=== PATIENT | male | born 1965 | race Caucasian/White ===

== ENCOUNTER 2017-12-30 20:43 | Inpatient (IN) | payer OTHER, MEDICARE ==
[~2017-12-30] VITALS: Ht 175.3 cm; Wt 75.0 kg
[~2017-12-30 20:43] MED LIST: ASPIRIN EC81 M1 PO; B-121000 MC3 PO; CIPRODEX 0.3%-7.5 ML OT; COREG12.5 M1 PO; HYDRALAZINE HC100 M1 PO; NORVASC2.5 M1 PO; PANTOPRAZOLE SO20 M1 PO; VITAMIN D-32000 UNI1 PO; ZOLOFT100 M1 PO
--- NOTE | 2017-12-30 22:10 | ED UPPER/LOWER EXTREMITY COMPL ---
History of Present Illness General Chief Complaint: General Adult Stated Complaint: MULTI COMPLAINTS Source: patient, old records Exam Limitations: no limitations Vital Signs & Intake/Output Vital Signs & Intake/Output ED Intake and Output 01/02 0000 01/01 1200 Intake Total 120 Output Total 1075 Balance -955 Intake, Oral 120 Output, Urine 1075 Allergies Coded Allergies: lisinopril (TONGUE SWELLING 11/25/17) Reconcile Medications Amlodipine Besylate (Norvasc) 10 MG TABLET 10 MG PO DAILY HTN . Aspirin (Ecotrin*) 81 MG TABLET.DR 1 TAB PO DAILY HEART (Reported) Atorvastatin Calcium (Lipitor) 80 MG TABLET 1 TAB PO DAILY Heart (Reported) Carvedilol 25 MG TABLET 25 MG PO BID HTN . Cholecalciferol (Vitamin D3) (Vitamin D-3) 2,000 UNIT CAPSULE 2,000 MG PO DAILY SUPPLEMENT (Reported) Clonidine Tts-1 (Catapres-Tts 1) 0.1 MG/24 HOUR PATCH.TDWK 1 PATCH TOP QW BP (Reported) Cyanocobalamin (Vitamin B-12) (B-12) 1,000 MCG TABLET 1 TAB PO DAILY SUPPLEMENT (Reported) Furosemide (Lasix) 40 MG TABLET 1 TAB PO DAILY EDEMA (Reported) Hydralazine HCl 100 MG TABLET 1 TAB PO TID HTN (Reported) Insulin Aspart (Novolog) 100 UNIT/ML CARTRIDGE 3 U SC TID DM (Reported) before meals Insulin Detemir (Levemir) 100 UNIT/ML VIAL 7 U SC AT BEDTIME DM (Reported) Isosorbide Mononitrate (Isosorbide Mononitrate ER) 30 MG TAB.ER.24H 1 TAB PO DAILY Heart (Reported) Levothyroxine Sodium (Synthroid) 75 MCG TABLET 1 TAB PO DAILY Thyroid ( Reported) Pantoprazole Sodium 20 MG TABLET.DR 1 TAB PO DAILY ACID REFLUX (Reported) Sertraline HCl (Zoloft) 100 MG TABLET 1 TAB PO DAILY DEPRESSION (Reported) Triage Note: PT TO TRIAGE C/O BILAT LOWER EXT SWELLING NOTICED APPROX 1 WEEK AGO. PT IS IN KIDNEY FAILURE AND HAS NOT YET STARTED DIALYSIS. HAD AV FISTULA PLACED IN L ARM APPROX 1 YEAR AGO BUT HAS NOT BEEN TOLD BY TO START DIALYSIS. DENIES CP, SOB. Triage Nurses Notes Reviewed? yes HPI: 52M PMH HTN, T2DM, CHF, CKD stage 5 s/p AV-fistula but not yet started dialysis presents with 2 days of worsening bilateral LE edema. Noticed it starting slowly but has continued to progress and now has significant edema which makes it difficult to walk. He denies SOB, orthopnea, chest pain, palpitations, lightheadedness. No recent travel, sick contacts, change in diet, or any other symptoms. Reports depression that is chronic and unchanged. Denies SI/HI. Past History Travel History Traveled to [place] past 21 day No Medical History Any Pertinent Medical History? 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 No Review of Systems Review of Systems Constitutional: Reports: no symptoms. EENTM: Reports: no symptoms. Respiratory: Reports: no symptoms. Cardiovascular: Reports: no symptoms. Gastrointestinal/Abdominal: Reports: no symptoms. Genitourinary: Reports: no symptoms. Musculoskeletal: Reports: no symptoms. Skin: Reports: no symptoms. Neurological/Psychological: Reports: no symptoms. Hematologic/Endocrine: Reports: no symptoms. Immunological: Reports: no symptoms. All Other Systems: Reviewed and Negative Physical Exam Physical Exam General Appearance: well developed/nourished, no apparent distress Head: atraumatic, normal appearance Eyes: Bilateral: normal appearance. Ears, Nose, Throat: normal ENT inspection, hearing grossly normal Neck: normal inspection, supple Cardiovascular/Respiratory: normal breath sounds, regular rate/rhythm Back: normal inspection Leg Left: 3+ pitting edema to above knee Leg Right: 3+ pitting edema to above knee Skin: intact, normal color, warm/dry Lymphatic: no anterior cervical fermín Progress Differential Diagnosis: arterial insufficiency, cellulitis, CHF, compartment syndrome, contusion, dislocation, DVT, fracture, gout, septic arthritis, sprain, tendon injury Plan of Care: Orders Procedure Date/time Status Discharge Patient 01/01 UNK Active Departure Departure Disposition: STILL A PATIENT Condition: Stable Clinical Impression Primary Impression: Anasarca Secondary Impressions: Kuuhg-[id number] kidney injury Referrals: Patient Has No Primary Care Dr (PCP/Family) Departure Forms: Customer Survey General Discharge Information Prescriptions: Current Visit Scripts Carvedilol 25 MG PO BID #60 TAB . Amlodipine Besylate (Norvasc) 10 MG PO DAILY #60 TAB . Admission Note Spoke With: Amauri Davis MD Documentation of Exam: Documentation of any treatments & extenuating circumstances including Concerns Regarding Discharge (functional status, medication knowledge or non-compliance, living conditions, etc.) that warrant an admission rather than observation: ACUTE ON CHRONIC KIDNEY INJURY WITH ANASARCA, MIGHT REQUIRE URGENT DIALYSIS, NEPHROLOGY CONSULT, IV LASIX Documentation of Exam: Documentation of any treatments & extenuating circumstances including Concerns Regarding Discharge (functional status, medication knowledge or non-compliance, living conditions, etc.) that warrant an admission rather than observation: ACUTE ON CHRONIC KIDNEY INJURY WITH ANASARCA, MIGHT REQUIRE URGENT DIALYSIS, NEPHROLOGY CONSULT, IV LASIX
[2017-12-30 22:35] LABS: ABSOLUTE BASOPHIL COUNT 0.1 /CUMM (0.0-0.2); ABSOLUTE EOSINOPHIL COUNT 0.4 /CUMM (0.0-0.7); ABSOLUTE GRANULOCYTE CT 4.2 /CUMM (1.4-6.5); ABSOLUTE LYMPH COUNT 1.1 /CUMM (1.2-3.4); ABSOLUTE MONOCYTE COUNT 0.6 /CUMM (0.10-0.60); EOSINOPHIL % 6.2 % (0-5); GRANULOCYTE % 66.8 % (42.2-75.2); HEMATOCRIT 24.7 % (42-52); MEAN CORPUSCULAR HGB 26.5 PG (27.0-31.0); MEAN CORPUSCULAR HGB CONC 32.5 G/DL (33.0-37.0); MEAN CORPUSCULAR VOLUME 81.5 FL (80.0-94.0); MEAN PLATELET VOLUME 6.9 FL (7.4-10.4); PLATELET COUNT 213 /CUMM (130-400); RBC DISTRIBUTION WIDTH 16.5 % (11.5-14.5); RED BLOOD CELL CT 3.04 /CUMM (4.70-6.10); WHITE BLOOD CELL COUNT 6.2 /CUMM (4.8-10.8)
--- NOTE | 2017-12-31 00:01 | RADIOLOGY REPORT ---
EXAMINATION: XR PORTABLE CHEST CLINICAL INFORMATION: Lower extremity edema. Abnormal chest sounds COMPARISON: None TECHNIQUE: Portable frontal view of the chest was obtained. FINDINGS: The exam is apical lordotic in projection. No significant abnormality is noted involving the heart, lungs, mediastinum, bony thorax or soft tissues. IMPRESSION: Unremarkable examination.
--- NOTE | 2017-12-31 00:03 | History & Physical ---
Malou Braxton 12/31/17 0001: General Information and HPI History of Present Illness: Mr. Chatterjee is a 52-year-old male with a PMH of HTN, IDDM, CHF, CKD s/p AV- fistula (2017), hypothyroidism who presents to the ED with bilateral LE edema. Patient reluctant to answer questions. Patient reports for the past few days he has been having bilateral lower extremity edema with exertional SOB. He reports his last CHF exacerbation was 4 years ago at which point he had lower extremity edema. He has not had any episode of lower extremity edema since then. He reports noncompliance with insulin. He does not have a willow machine operator but is being followed by nephrology-Dr. Mendez. His last appointment with his film numberer was last week and at the time complained of LE edema but as per patient he was told it was due to arthritic changes. He is still able to urinate without complications. He denies fever, chills, CP, nausea, vomiting, scrotal edema, urinary or bowel symptoms. In the ED his labs was significant for a drop in H&H, hyperglycemia, elevated BNP (baseline unknown), worsening creatinine. He was also found positive for cannabis. He was given a dose of IV Furosemide 40 mg. Allergies/Medications Allergies: Coded Allergies: lisinopril (TONGUE SWELLING 11/25/17) Home Med list Amlodipine (Norvasc) 2.5 MG TABLET 10 MG PO DAILY HTN (Reported) Aspirin (Ecotrin*) 81 MG TABLET.DR 1 TAB PO DAILY HEART (Reported) Carvedilol (Coreg) 12.5 MG TABLET 1 TAB PO BID HEART (Reported) Cholecalciferol (Vitamin D3) (Vitamin D-3) 2,000 UNIT CAPSULE 2,000 MG PO DAILY SUPPLEMENT (Reported) Cyanocobalamin (Vitamin B-12) (B-12) 1,000 MCG TABLET 1 TAB PO DAILY SUPPLEMENT (Reported) Furosemide (Lasix) 40 MG TABLET 1 TAB PO DAILY EDEMA (Reported) Hydralazine HCl 100 MG TABLET 1 TAB PO TID HTN (Reported) Pantoprazole Sodium 20 MG TABLET.DR 1 TAB PO DAILY ACID REFLUX (Reported) Sertraline HCl (Zoloft) 100 MG TABLET 1 TAB PO DAILY DEPRESSION (Reported) Past History Travel History Traveled to [place] past 21 day No Medical History Neurological: NONE EENT: NONE Cardiovascular: CHF, hypertension Respiratory: NONE Gastrointestinal: NONE Hepatic: NONE Renal: KIDNEY FAILURE Musculoskeletal: NONE Psychiatric: anxiety, depression Endocrine: diabetes Blood Disorders: NONE Cancer(s): NONE 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 Exam & Diagnostic Data Last 24 Hrs of Vital Signs/I&O Vital Signs Date Time Temp Pulse Resp B/P B/P Pulse O2 O2 Flow FiO2 Mean Ox Delivery Rate 12/30 2256 82 18 184/92 99 Room Air 12/30 2044 97.1 78 20 181/70 97 Room Air Intake & Output 12/31 0800 12/31 0000 12/30 1600 Intake Total Output Total Balance Patient 160 lb Weight Physical Exam General Appearance Alert, Oriented X3, Cooperative, No Acute Distress HEENT Atraumatic, PERRLA, EOMI, Mucous Membr. moist/pink, periorbital edema Neck Supple, No JVD, No thryomegaly, +2 Carotid Pulse wo Bruit Cardiovascular 2/6 systolic murmur Lungs Clear to Auscultation, Normal Air Movement Abdomen Normal Bowel Sounds, Soft, No Tenderness Extremities BL 2+ pitting edema up to knees Last 24 Hrs of Labs/Rehan: Laboratory Tests 12/30/17 2220: Anion Gap 12, Estimated GFR 13 L, BUN/Creatinine Ratio 17.8, Glucose 300 H, Calcium 8.6, Total Bilirubin 0.4, AST 27, ALT 24, Alkaline Phosphatase 79, Troponin I 0.02, Aby-E-Zslifrmglia Pept 5110 H, Total Protein 5.9 L, Albumin 3.5, Globulin 2.4, Albumin/Globulin Ratio 1.5, CBC w Diff NO MAN DIFF REQ, RBC 3.04 L, MCV 81.5, MCH 26.5 L, MCHC 32.5 L, RDW 16.5 H, MPV 6.9 L, Gran % 66.8, Lymphocytes % 16.9 L, Monocytes % 9.1, Eosinophils % 6.2 H, Basophils % 1.0, Absolute Granulocytes 4.2, Absolute Lymphocytes 1.1 L, Absolute Monocytes 0.6, Absolute Eosinophils 0.4, Absolute Basophils 0.1, Urine Color YEL, Urine Clarity CLEAR, Urine pH 6.0, Ur Specific [place] 1.020, Urine Protein 100 H, Urine Ketones NEG, Urine Nitrite NEG, Urine Bilirubin NEG, Urine Urobilinogen 0.2, Ur Leukocyte Esterase NEG, Ur Microscopic SEDIMENT EXAMINED, Urine RBC RARE , Urine WBC RARE, Ur Epithelial Cells RARE, Urine Bacteria RARE H, Urine Hemoglobin NEG, Urine Glucose 500 H Diagnostic Data CXR Results FINDINGS: The exam is apical lordotic in projection. No significant abnormality is noted involving the heart, lungs, mediastinum, bony thorax or soft tissues. IMPRESSION: Unremarkable examination. Assessment/Plan Assessment: Mr. Chatterjee is a 52-year-old male with a PMH of HTN, IDDM, CHF, CKD s/p AV- fistula (2017), hypothyroidism who presents to the ED with bilateral LE edema. Problem list: BLE edema - CHF exacerbation vs CKD vs medication-induced due to CCB Anemia History of CHF History of CKD Plan: * Admit to telemetry for further evaluation and management * Strict I&O, daily weights * Serial troponin/ECG to rule out ACS * Iron, TIBC, ferritin, B12, folate, TSH for anemia * Hemoglobin A1c * Accu-Cheks and Novolog SS * Resume home meds including ASA, carvedilol 12.5 BID, hydralazine 100 mg TID, furosemide 40 mg * Nephrology consult in the morning-Andrea DVT ppx: sc Heparin Diet: Renal CodeL FULL As Ranked By This Provider Problem List: 1. Eswql-ni-buzzydi kidney injury 2. Anasarca Core Measures/Misc (05/15) Acute Coronary Syndrome ACS Diagnosis: No Congestive Heart Failure Congestive Heart Failure Diagnosis No Cerebrovascular Accident CVA/TIA Diagnosis: No VTE (View Protocol) VTE Risk Factors Age>40 No Mechanical VTE Prophylaxis d/t N/A MechProphylax Ordered No VTE Pharm Prophylaxis d/t NA PharmProphylax ordered Sepsis (View protocol) Sepsis Present: No Divya Lutz MD 12/31/17 0233: Resident Review Statement Resident Statement: examined this patient, discussed with global marketing intern, agreed with global marketing intern Other Findings: This is a 52-year-old male with past medical history significant for T2DM, CK D 5 s/p AV fistula placed one yr ago but not in use, hypertension, hypothyroidism, who comes in for chief complaint of worsening lower extremity edema. Patient was asleep and it was difficult to get much history from him. Once he was willing to share, it seems the lower extremity edema is the only reason he came to the hospital. He states that every time this happens he knows "something is wrong with my body." Last time he had similar symptoms was about 4 years ago and he was admitted for a diagnosis of heart failure. Notably, patient states that he saw his film numberer Dr. Mendez last week who is aware of lower extremity edema. He does endorse some mild dyspnea on exertion but denies orthopnea, chest pain, palpitation, abdominal pain, nausea, vomiting, diarrhea or any change in his usual health. He states that he continues to urinate multiple times a day. He does have diabetes but does not use any diabetic regimen presently as he did not feel up to it. Vitals: 97, heart rate 82, respiratory rate 20, blood pressure 181/70, satting 97% on room air. HEENT: Pupils equal and reactive. EOMI Cardiovascular: Nml s1/s2; does seem to have a low pitched 2/6 murmur present at tricuspid and mitral area Skin: no erythema, rash or wounds present. Respiratory:CTAB. No wheezes or crackles auscultated GI: BSX4, No tenderness on palpation. EXT: No skin changes in bilat LE. 3+ edema up to his knees Pertinent labs: Hemoglobin 8.1, hematocrit 24.7. Eosinophilia 6.2. Urine glucose 500. Sodium 135, bicarbonate 21, BUN 82, creatinine 4.6. Glucose 300. BNP 5110. Negative LFTs and troponin. U tox positive for cannabis No EKG done in ED Assessment: This is a 52-year-old male with past medical history significant for type 2 diabetes, CHF, CK D stage IV status post AV fistula, hypothyroidism, who comes in for chief complaint of worsening lower extremity edema. Despite elevated BNP, which could be simply secondary to renal failure, patient has no evidence of overt decompensated heart failure. Rather, he looks like he is volume overloaded and would benefit from IV diuresis. Plan: 1. Lower extremity edema: ? exacerbated by Amlodipine. could consider changing medication prior to discharge. He got 1 dose of IV Lasix 40 mg by mouth in ED with good diuresis. * Monitor I's and O's * Consider 1 more round of IV diuresis * Courtesy call to his film numberer in a.m. * Elevate legs * Troponins and EKG * Check thyroid function tests * Renal dialysis diet with volume restriction * Urine lytes 2. Anemia: Patient's hemoglobin 8.1 and hematocrit 24.7. He denies any overt sign of bleeding. * Iron studies * Trend H/H 3. BRETT on CKD: Patient came in with creatinine 4.6 and BUN 82. His previous creatinine was 3.4 and 4.2. He does seem to have worsening of the renal function. * Monitor renal function * Avoid nephrotoxins 4. Diabetes: Patient has a history of type 2 diabetes but from our initial history he does not seem to be taking any medications. * Check A1c * Regular insulin sliding scale 5. Hypothyroidism: Patient was unable to tell us the dose of his medication. Please verify a.m. and restart. 6. Hypertension: Patient had BP 181/70 in ED. * Con't 100 mg of hydralazine 3 times a day. * Con't Amlodipine Full code Renal dialysis diet Chemical DVT prophylaxis Amauri Davis 12/31/17 0320: Attending MD Review Statement Attending Statement Attending MD Statement: examined this patient, discuss w/resident/PA/METAL RECLAMATION KETTLE TENDER, agreed w/resident/PA/METAL RECLAMATION KETTLE TENDER, reviewed EMR data (avail), reviewed images, amended to note Attending Assessment/Plan: CC: Leg swelling PMH: DM: Noncompliant with insulin, heart failure, CKD, HTN, hypothyroidism, S/P left upper extremity AV fistula for possible dialysis done one year back Patient came to ER for leg swelling. He states that it has been progressively worsening since last 1 week. He was seen by a film numberer approximately a week back, at that time he was told that the leg swelling could be secondary to arthritis. He is feeling more sleepy in last 1-2 years, changed sleep cycle. He has been getting up and down in blood sugar,, has loss of appetite so he stopped taking insulin. He is a poor historian but denies any chest pain, chest tightness, dyspnea on exertion, orthopnea, PND, cough, expectoration, dizzy, loss of consciousness, fall, nausea, vomiting, diarrhea, abdominal pain. He denies any decreased urine output. He denies any hemoptysis, melena or hematochezia. Vitals: Temperature 97.1, pulse 78, RR 20, blood pressure 181/70, saturating 97% on room air On exam: A O 3, cooperative, no acute distress, neck supple, JVD normal, no lymphadenopathy, mucosa moist, mild periorbital swelling, no focal neurological deficit, bilateral lower extremity edema +3, no obvious skin rashes or inflammation CVS: S1-S2, RRR, systolic murmur. RS: Clear to auscultate bilaterally. Abdomen: Soft, NT, ND, bowel sounds present. CXR: Unremarkable examination. Assessment and plan 52-year-old male with extensive past medical history as mentioned above, noncompliant with insulin for diabetes, CKD presented in ER for progressive worsening of bilateral lower extremity edema since last 1 week. He denies any chest pain, chest tightness, shortness of breath. On examination he has bilateral lower extremity significant pitting edema and mild periorbital swelling, but JVD is not elevated, chest is clear to auscultate. His labs show worsening of creatinine from 3.4 to 4.6 from October 2017. And elevated BUN from 45 to 82. This could be chronic progression of his CKD, causing volume retention. Patient has mild acidosis but potassium is normal. Chest x-ray is normal. Patient was seen by film numberer approximately a week back and patient states that his creatinine was for something. His hemoglobin is 8.1 which is significantly dropped from 12.2 compared to October. Patient states that he has chronic anemia and is on Procrit but he is not on any iron supplementation. He denies any blood loss and does not recall his most recent hemoglobin. This appears more acute drop rather than merely anemia secondary to CKD. Even though patient has mild to moderate signs of volume overload and increased sleepiness with changes in sleep pattern this could be uremic symptoms but not sure if dialysis is mandatory at this point, we will get nephrology involved. + BRETT on CKD, more likely progression on CKD + [id number] volume overload secondary to CKD + Hx DM : Noncompliant with insulin + History of HTN, heart failure, hypothyroidism, depression - Admit to telemetry - Continuous telemetry monitoring - Daily weights - Patient received 40 mg IV Lasix in ER, repeat BMP in a.m., assess volume status to repeat Lasix dose - Nephrology consult - Check iron studies - Check HbA1c - Continue low-dose sliding scale insulin - Continue all home antihypertensives - Serial troponin and ECG x2
[2017-12-31] MEDS ORDERED: LASIX40 M1 PO (01:47)
[2017-12-31 02:11] VITALS: BP 164/68
--- NOTE | 2017-12-31 03:21 | Admission Certification ---
Admission Certification Certification Statement - As attending physician, I certify that at the time of - admission, based on clinical presentation, severity of - symptoms, need for further diagnostic testing and - therapeutic interventions, and risk of adverse outcomes - without in-hospital treatment, in my clinical assessment, - this patient requires an acute hospital stay for a minimum - of two nights or longer. I have also considered psychsocial - factors such as support system, advanced age, financial - issues, cognitive issues, and failed out-patient treatments, - past re-admission history, safety of patient, and lack of - compliance as applicable. Specific rationale supporting this admission is: CKD progression
[2017-12-31 07:01] VITALS: BP 184/78
[2017-12-31 09:37] LABS: ABSOLUTE BASOPHIL COUNT 0.1 /CUMM (0.0-0.2); ABSOLUTE EOSINOPHIL COUNT 0.3 /CUMM (0.0-0.7); ABSOLUTE GRANULOCYTE CT 4.2 /CUMM (1.4-6.5); ABSOLUTE MONOCYTE COUNT 0.5 /CUMM (0.10-0.60); BASOPHIL % 1.2 % (0.0-2.0); EOSINOPHIL % 5.4 % (0-5); GRANULOCYTE % 68.6 % (42.2-75.2); HEMATOCRIT 23.6 % (42-52); MEAN CORPUSCULAR HGB 26.8 PG (27.0-31.0); MEAN CORPUSCULAR HGB CONC 32.8 G/DL (33.0-37.0); MEAN CORPUSCULAR VOLUME 81.7 FL (80.0-94.0); MEAN PLATELET VOLUME 6.8 FL (7.4-10.4); PLATELET COUNT 212 /CUMM (130-400); RBC DISTRIBUTION WIDTH 16.1 % (11.5-14.5); RED BLOOD CELL CT 2.89 /CUMM (4.70-6.10); WHITE BLOOD CELL COUNT 6.1 /CUMM (4.8-10.8)
[2017-12-31] MEDS ORDERED: CATAPRES-TTS 11 EACH TOP (11:12)
[2017-12-31] MEDS ORDERED: ISOSORBIDE MONO30 M1 PO (11:25)
[2017-12-31] MEDS ORDERED: LEVEMIR100 UNIT/1 SC (11:25)
[2017-12-31] MEDS ORDERED: NOVOLOG100 UNIT/1 SC (11:26)
[2017-12-31 11:51] VITALS: BP 184/70
[2017-12-31] MEDS ORDERED: LIPITOR80 M1 PO (11:52)
[2017-12-31] MEDS ORDERED: SYNTHROID75 MCG PO (11:52)
--- NOTE | 2017-12-31 12:30 | PN- Att Addend ---
Attending Addendum Attending Brief Note Patient with pmh of CKD stage 4 s/p av fistula, IDDM, htn, chf came to ER for leg swelling and admitted for fluid overlaod with acute kidney injury on ckd stage 4 and acclerated hypertension. He denies any chest pain, chest tightness, shortness of breath. On examination he has bilateral lower extremity significant pitting edema and mild periorbital swelling, but JVD is not elevated. Labs with K 3.1, Cr 4.0. (Cr 4.6>>4.0 with improvement) 1 BRETT on CKD, more likely progression on CKD 2 Fluid overload secondary to CKD with mild improvement 3 DM : Noncompliant with insulin 4 Accelearetd HTN, 5. Chronic congestive heart failure, 6. hypothyroidism 7. depression - Continuous telemetry monitoring - Daily weights - PO lasix - Nephrology consult - f/u iron studies - f/u HbA1c - Continue low-dose sliding scale insulin - Continue all home antihypertensives, increase clonidine. - replace electrolytes cautiously. Monitor creatinine, plan of care as per admitting physician. Admission Lab Results I reviewed the following labs: Laboratory Tests 12/31 12/31 0841 0546 Chemistry Sodium (137 - 145 mmol/L) 137 Potassium (3.5 - 5.1 mmol/L) 3.1 L Chloride (98 - 107 mmol/L) 108 H Carbon Dioxide (22 - 30 mmol/L) 18 L Anion Gap (5 - 16) 12 BUN (9 - 20 mg/dL) 74 H Creatinine (0.7 - 1.2 mg/dL) 4.0 H Estimated GFR (>60 ml/min) 16 L BUN/Creatinine Ratio (7 - 25 %) 18.5 Hemoglobin A1c (4.2 - 5.8 %) Pending Troponin I (<0.11 ng/ml) 0.02 Free T4 (0.64 - 1.79 ng/dL) 1.13 Total T3 (0.97 - 1.69 ng/mL) 0.72 L TSH &T3 &Free T4 Intrp (0.27 - 4.20 uIU/mL) 9.000 H Hematology CBC w Diff NO MAN DIFF REQ WBC (4.8 - 10.8 /CUMM) 6.1 RBC (4.70 - 6.10 /CUMM) 2.89 L Hgb (14.0 - 18.0 G/DL) 7.8 L Hct (42 - 52 %) 23.6 L MCV (80.0 - 94.0 FL) 81.7 MCH (27.0 - 31.0 PG) 26.8 L MCHC (33.0 - 37.0 G/DL) 32.8 L RDW (11.5 - 14.5 %) 16.1 H Plt Count (130 - 400 /CUMM) 212 MPV (7.4 - 10.4 FL) 6.8 L Gran % (42.2 - 75.2 %) 68.6 Lymphocytes % (20.5 - 51.1 %) 17.1 L Monocytes % (1.7 - 9.3 %) 7.7 Eosinophils % (0 - 5 %) 5.4 H Basophils % (0.0 - 2.0 %) 1.2 Absolute Granulocytes (1.4 - 6.5 /CUMM) 4.2 Absolute Lymphocytes (1.2 - 3.4 /CUMM) 1.0 L Absolute Monocytes (0.10 - 0.60 /CUMM) 0.5 Absolute Eosinophils (0.0 - 0.7 /CUMM) 0.3 Absolute Basophils (0.0 - 0.2 /CUMM) 0.1 12/30 05 2220 2220 Chemistry Sodium (137 - 145 mmol/L) 135 L Potassium (3.5 - 5.1 mmol/L) 3.7 Chloride (98 - 107 mmol/L) 102 Carbon Dioxide (22 - 30 mmol/L) 21 L Anion Gap (5 - 16) 12 BUN (9 - 20 mg/dL) 82 H Creatinine (0.7 - 1.2 mg/dL) 4.6 H Estimated GFR (>60 ml/min) 13 L BUN/Creatinine Ratio (7 - 25 %) 17.8 Glucose (65 - 99 mg/dL) 300 H Calcium (8.4 - 10.2 mg/dL) 8.6 Iron (49 - 181 ug/dL) 63 TIBC (261 - 462 ug/dL) 274 Ferritin (17.9 - 464 ng/mL) 87.3 Total Bilirubin (0.2 - 1.3 mg/dL) 0.4 AST (17 - 59 U/L) 27 ALT (21 - 72 U/L) 24 Alkaline Phosphatase (< 127 U/L) 79 Troponin I (<0.11 ng/ml) 0.02 [id number]-[id number] Pept (<125 pg/mL) 5110 H Total Protein (6.3 - 8.2 g/dL) 5.9 L Albumin (3.5 - 5.0 g/dL) 3.5 Globulin (1.9 - 4.2 gm/dL) 2.4 Albumin/Globulin Ratio (1.1 - 2.2 %) 1.5 Hematology CBC w Diff NO MAN DIFF REQ WBC (4.8 - 10.8 /CUMM) 6.2 RBC (4.70 - 6.10 /CUMM) 3.04 L Hgb (14.0 - 18.0 G/DL) 8.1 L Hct (42 - 52 %) 24.7 L MCV (80.0 - 94.0 FL) 81.5 MCH (27.0 - 31.0 PG) 26.5 L MCHC (33.0 - 37.0 G/DL) 32.5 L RDW (11.5 - 14.5 %) 16.5 H Plt Count (130 - 400 /CUMM) 213 MPV (7.4 - 10.4 FL) 6.9 L Gran % (42.2 - 75.2 %) 66.8 Lymphocytes % (20.5 - 51.1 %) 16.9 L Monocytes % (1.7 - 9.3 %) 9.1 Eosinophils % (0 - 5 %) 6.2 H Basophils % (0.0 - 2.0 %) 1.0 Absolute Granulocytes (1.4 - 6.5 /CUMM) 4.2 Absolute Lymphocytes (1.2 - 3.4 /CUMM) 1.1 L Absolute Monocytes (0.10 - 0.60 /CUMM) 0.6 Absolute Eosinophils (0.0 - 0.7 /CUMM) 0.4 Absolute Basophils (0.0 - 0.2 /CUMM) 0.1 Retic Count (0.5 - 2.0 %) 0.88 Urines Urine Color (YEL,AMB,STR) YEL Urine Clarity (CLEAR) CLEAR Urine pH (5.0 - 8.0) 6.0 Ur Specific [place] (1.001 - 1.035) 1.020 Urine Protein (NEG,<30 MG/DL) 100 H Urine Ketones (NEG) NEG Urine Nitrite (NEG) NEG Urine Bilirubin (NEG) NEG Urine Urobilinogen (0.1 - 1.0 EU/dl) 0.2 Ur Leukocyte Esterase (NEG) NEG Ur Microscopic SEDIMENT EXAMINED Urine RBC (0 - 5 /HPF) RARE Urine WBC (0 - 2 /HPF) RARE Ur Epithelial Cells (NONE,FEW) RARE Urine Bacteria (NEG/NONE) RARE H Urine Hemoglobin (NEG) NEG Ur Random Creatinine (mg/dL) 42.2 Ur Random Sodium (30 - 90 mmol/L) 45 Ur Random Potassium (mmol/L) 29.8 Fraction Sodium Excret (<1% %) 3.6 H Urine Glucose (N MG/DL) 500 H Admission Meds I reviewed the following Meds: Current Medications Sig/Shaan Start time Last Medication Dose Stop Time Status Admin Acetaminophen 650 MG Q6P PRN 12/31 0115 AC (Tylenol) Acetaminophen 1,000 MG Q6P PRN 12/31 0115 AC (Ofirmev) Amlodipine Besylate 10 MG DAILY 12/31 09 AC 12/31 (Norvasc) 1020 Aspirin Buffered 81 MG DAILY 12/31 09 AC 12/31 (Ecotrin) 1020 Atorvastatin Calcium 80 MG AT BEDTIME 12/31 2100 AC (Lipitor) Carvedilol 25 MG BID 12/31 2100 AC (Coreg) Cholecalciferol 400 IU DAILY 12/31 09 AC 12/31 (Vitamin D) 1020 Clonidine 1 PAT ONCE A WEEK 12/31 1130 AC (Catapres) Cyanocobalamin 1,000 MCG DAILY 12/31 09 AC 12/31 (Vitamin B12) 1020 Furosemide 40 MG DAILY 12/31 0900 AC 12/31 (Lasix) 1020 Heparin Sodium 5,000 UNIT Q8 12/31 06 AC 12/31 (Porcine) 0531 Hydralazine HCl 100 MG TID 12/31 09 AC 12/31 (Apresoline) 1019 Insulin Aspart 0 TIDAC 12/31 0800 AC 12/31 (NovoLOG) 1021 Isosorbide 60 MG DAILY 12/31 1131 AC Mononitrate (Imdur) Levothyroxine Sodium 0.075 MG DAILY AC 12/31 1152 AC (Synthroid) Omeprazole 40 MG DAILY AC 12/31 0700 AC 12/31 (Prilosec) 0533 Oxycodone/ 2 TAB Q6P PRN 12/31 0115 AC Acetaminophen (Percocet) Sertraline HCl 100 MG DAILY 12/31 0900 AC 12/31 (Zoloft) 1020
[2017-12-31 14:28] VITALS: BP 168/60
--- NOTE | 2017-12-31 15:51 | Cons- Nephrology ---
General Information and HPI Consulting Request Date of Consult: 12/31/17 Requested By: Amauri Davis MD History of Present Illness: 52 yo male with history of stage V ckd, chf, DM II, depression, hypertension. He as left arm AVF but has not required institution of dialysis. He is followed by Dr. Mendez show saw him two weeks ago. At that time he had some LE edema, was on Lasix 40 mg a day. He came to ED yesterday complaining of some worsening edema and was admitted. Creatinine on admission was 4. 6, was 4.2 at end of November as outpatient. Pt admits to some dietary noncompliance. He was recently hosptialized in [place] with depression and states he is still having trouble coping with his medial issues. No N/V, but does have problems with chronic constipation. FH: no kidney dissease SH: ex smoker, no alcohol use. Allergies/Medications Allergies: Coded Allergies: lisinopril (TONGUE SWELLING 11/25/17) Home Med List: Amlodipine (Norvasc) 2.5 MG TABLET 10 MG PO DAILY HTN (Reported) Aspirin (Ecotrin*) 81 MG TABLET.DR 1 TAB PO DAILY HEART (Reported) Atorvastatin Calcium (Lipitor) 80 MG TABLET 1 TAB PO DAILY Heart (Reported) Carvedilol (Coreg) 12.5 MG TABLET 25 MG PO BID HEART (Reported) Cholecalciferol (Vitamin D3) (Vitamin D-3) 2,000 UNIT CAPSULE 2,000 MG PO DAILY SUPPLEMENT (Reported) Clonidine Tts-1 (Catapres-Tts 1) 0.1 MG/24 HOUR PATCH.TDWK 1 PATCH TOP QW BP (Reported) Cyanocobalamin (Vitamin B-12) (B-12) 1,000 MCG TABLET 1 TAB PO DAILY SUPPLEMENT (Reported) Furosemide (Lasix) 40 MG TABLET 1 TAB PO DAILY EDEMA (Reported) Hydralazine HCl 100 MG TABLET 1 TAB PO TID HTN (Reported) Insulin Aspart (Novolog) 100 UNIT/ML CARTRIDGE 3 U SC TID DM (Reported) before meals Insulin Detemir (Levemir) 100 UNIT/ML VIAL 7 U SC AT BEDTIME DM (Reported) Isosorbide Mononitrate (Isosorbide Mononitrate ER) 30 MG TAB.ER.24H 1 TAB PO DAILY Heart (Reported) Levothyroxine Sodium (Synthroid) 75 MCG TABLET 1 TAB PO DAILY Thyroid ( Reported) Pantoprazole Sodium 20 MG TABLET.DR 1 TAB PO DAILY ACID REFLUX (Reported) Sertraline HCl (Zoloft) 100 MG TABLET 1 TAB PO DAILY DEPRESSION (Reported) Current Medications: Current Medications Sig/Shaan Start time Last Medication Dose Route Stop Time Status Admin Acetaminophen 650 MG Q6P PRN 12/31 0115 AC PO Acetaminophen 1,000 MG Q6P PRN 12/31 0115 AC IV Amlodipine Besylate 10 MG DAILY 12/31 899 DC PO Amlodipine Besylate 10 MG DAILY 12/31 09 AC 12/31 PO 1020 Aspirin Buffered 81 MG DAILY 12/31 899 AC 12/31 PO 1020 Atorvastatin Calcium 80 MG AT BEDTIME 12/31 2100 AC PO Atorvastatin Calcium 80 MG DAILY 12/31 115 DC PO Carvedilol 25 MG BID 12/31 2100 AC PO Carvedilol 12.5 MG ONCE ONE 12/31 1100 DC 12/31 PO 12/31 1101 1147 Carvedilol 12.5 MG BID 12/31 09 DC 12/31 PO 1019 Cholecalciferol 400 IU DAILY 12/31 09 AC 12/31 PO 1020 Clonidine 1 PAT ONCE A WEEK 12/31 1130 AC 12/31 TOP 1417 Cyanocobalamin 1,000 MCG DAILY 12/31 899 AC 12/31 PO 1020 Furosemide 40 MG DAILY 12/31 899 AC 12/31 PO 1020 Furosemide 0 .STK-MED ONE 12/31 0009 DC IV Furosemide 40 MG ONCE ONE 12/30 2315 DC 12/31 IV 12/30 2316 0004 Heparin Sodium 5,000 UNIT Q8 12/31 599 AC 12/31 (Porcine) SC 1417 Hydralazine HCl 25 MG TID 12/31 09 DC PO Hydralazine HCl 100 MG TID 12/31 09 AC 12/31 PO 1417 Insulin Aspart 0 TIDAC 12/31 08 AC 12/31 SC 1307 Isosorbide 60 MG DAILY 12/31 1131 AC 12/31 Mononitrate PO 1416 Levothyroxine Sodium 0.075 MG DAILY AC 12/31 1152 AC 12/31 PO 1417 Omeprazole 40 MG DAILY AC 12/31 07 AC 12/31 PO 0533 Oxycodone/ 2 TAB Q6P PRN 12/31 0115 AC Acetaminophen PO Potassium Chloride 10 MEQ ONCE ONE 12/31 1015 DC 12/31 PO 12/31 1016 1148 Potassium Chloride 40 MEQ ONCE ONE 12/31 0900 DC 12/31 PO 12/31 0901 1020 Sertraline HCl 100 MG DAILY 12/31 09 AC 12/31 PO 1020 Review of Systems Review of Systems: Negative except as noted above. Past History Travel History Traveled to [place] past 21 day No Medical History Blood Transfusion Hx: Yes Neurological: NONE EENT: NONE Cardiovascular: CHF, hypertension Respiratory: NONE Gastrointestinal: NONE Hepatic: NONE Renal: KIDNEY FAILURE Musculoskeletal: NONE Psychiatric: anxiety, depression Endocrine: diabetes, hypothyroidism Blood Disorders: anemia Cancer(s): NONE [employer]/Reproductive: NONE Surgical History Surgical History: non-contributory, A/V FISTULA Psychosocial History Where Do You Live? Home Services at Home: None Smoking Status: Smoker Current Stat n ETOH Use: denies use Exam & Diagnostic Data Vital Signs and I&O Vital Signs Date Time Temp Pulse Resp B/P B/P Pulse O2 O2 Flow FiO2 Mean Ox Delivery Rate 12/31 1428 98.3 72 20 168/60 94 Room Air 12/31 1417 72 168/60 05 1417 72 168/60 05 1416 72 168/60 0505 1151 66 184/70 05 1147 66 184/70 0505 1020 74 220/82 05/05 1019 74 220/82 05/ 1019 72 220/82 05 0800 95 Room Air 12/31 0701 98.2 75 20 184/78 95 Room Air 12/31 0211 97.8 66 18 164/68 96 Room Air 12/31 0148 97.3 63 20 181/85 94 Room Air 12/30 2256 82 18 184/92 99 Room Air 12/30 2045 97.1 78 20 181/70 97 Room Air Intake & Output 12/31 1600 12/31 0400 12/30 1600 12/30 0400 12/29 1600 12/29 0400 Intake Total 780 Output Total 2575 500 Balance -1795 -500 Intake, Oral 780 Output, Urine 2575 500 Patient 164 lb Weight Weight Bed scale Measurement Method Physical Exam: NAD VS as above Skin: no rash Eyes: PERRLA Neck: no mass or thyromegaly Nodes: negative cervical/inguinal Lungs: clear P&A CV: no rub/murmur Abd: nontender, no organomegaly, BS positive Exts: 1+ pretibial edema, good developement AVF TOMAS Neuro: A&O, CN intact, no asterixis. Results Pertinent Lab Results: Laboratory Tests 12/31 12/31 0841 0546 Chemistry Sodium (137 - 145 mmol/L) 137 Potassium (3.5 - 5.1 mmol/L) 3.1 L Chloride (98 - 107 mmol/L) 108 H Carbon Dioxide (22 - 30 mmol/L) 18 L Anion Gap (5 - 16) 12 BUN (9 - 20 mg/dL) 74 H Creatinine (0.7 - 1.2 mg/dL) 4.0 H Estimated GFR (>60 ml/min) 16 L BUN/Creatinine Ratio (7 - 25 %) 18.5 Hemoglobin A1c (4.2 - 5.8 %) Pending Troponin I (<0.11 ng/ml) 0.02 Free T4 (0.64 - 1.79 ng/dL) 1.13 Total T3 (0.97 - 1.69 ng/mL) 0.72 L TSH &T3 &Free T4 Intrp (0.27 - 4.20 uIU/mL) 9.000 H Hematology CBC w Diff NO MAN DIFF REQ WBC (4.8 - 10.8 /CUMM) 6.1 RBC (4.70 - 6.10 /CUMM) 2.89 L Hgb (14.0 - 18.0 G/DL) 7.8 L Hct (42 - 52 %) 23.6 L MCV (80.0 - 94.0 FL) 81.7 MCH (27.0 - 31.0 PG) 26.8 L MCHC (33.0 - 37.0 G/DL) 32.8 L RDW (11.5 - 14.5 %) 16.1 H Plt Count (130 - 400 /CUMM) 212 MPV (7.4 - 10.4 FL) 6.8 L Gran % (42.2 - 75.2 %) 68.6 Lymphocytes % (20.5 - 51.1 %) 17.1 L Monocytes % (1.7 - 9.3 %) 7.7 Eosinophils % (0 - 5 %) 5.4 H Basophils % (0.0 - 2.0 %) 1.2 Absolute Granulocytes (1.4 - 6.5 /CUMM) 4.2 Absolute Lymphocytes (1.2 - 3.4 /CUMM) 1.0 L Absolute Monocytes (0.10 - 0.60 /CUMM) 0.5 Absolute Eosinophils (0.0 - 0.7 /CUMM) 0.3 Absolute Basophils (0.0 - 0.2 /CUMM) 0.1 12/30 12/30 2220 2220 Chemistry Sodium (137 - 145 mmol/L) 135 L Potassium (3.5 - 5.1 mmol/L) 3.7 Chloride (98 - 107 mmol/L) 102 Carbon Dioxide (22 - 30 mmol/L) 21 L Anion Gap (5 - 16) 12 BUN (9 - 20 mg/dL) 82 H Creatinine (0.7 - 1.2 mg/dL) 4.6 H Estimated GFR (>60 ml/min) 13 L BUN/Creatinine Ratio (7 - 25 %) 17.8 Glucose (65 - 99 mg/dL) 300 H Calcium (8.4 - 10.2 mg/dL) 8.6 Iron (49 - 181 ug/dL) 63 TIBC (261 - 462 ug/dL) 274 Ferritin (17.9 - 464 ng/mL) 87.3 Total Bilirubin (0.2 - 1.3 mg/dL) 0.4 AST (17 - 59 U/L) 27 ALT (21 - 72 U/L) 24 Alkaline Phosphatase (< 127 U/L) 79 Troponin I (<0.11 ng/ml) 0.02 [id number]-M-Bjbrirehmpk Pept (<125 pg/mL) 5110 H Total Protein (6.3 - 8.2 g/dL) 5.9 L Albumin (3.5 - 5.0 g/dL) 3.5 Globulin (1.9 - 4.2 gm/dL) 2.4 Albumin/Globulin Ratio (1.1 - 2.2 %) 1.5 Hematology CBC w Diff NO MAN DIFF REQ WBC (4.8 - 10.8 /CUMM) 6.2 RBC (4.70 - 6.10 /CUMM) 3.04 L Hgb (14.0 - 18.0 G/DL) 8.1 L Hct (42 - 52 %) 24.7 L MCV (80.0 - 94.0 FL) 81.5 MCH (27.0 - 31.0 PG) 26.5 L MCHC (33.0 - 37.0 G/DL) 32.5 L RDW (11.5 - 14.5 %) 16.5 H Plt Count (130 - 400 /CUMM) 213 MPV (7.4 - 10.4 FL) 6.9 L Gran % (42.2 - 75.2 %) 66.8 Lymphocytes % (20.5 - 51.1 %) 16.9 L Monocytes % (1.7 - 9.3 %) 9.1 Eosinophils % (0 - 5 %) 6.2 H Basophils % (0.0 - 2.0 %) 1.0 Absolute Granulocytes (1.4 - 6.5 /CUMM) 4.2 Absolute Lymphocytes (1.2 - 3.4 /CUMM) 1.1 L Absolute Monocytes (0.10 - 0.60 /CUMM) 0.6 Absolute Eosinophils (0.0 - 0.7 /CUMM) 0.4 Absolute Basophils (0.0 - 0.2 /CUMM) 0.1 Retic Count (0.5 - 2.0 %) 0.88 Urines Urine Color (YEL,AMB,STR) YEL Urine Clarity (CLEAR) CLEAR Urine pH (5.0 - 8.0) 6.0 Ur Specific [place] (1.001 - 1.035) 1.020 Urine Protein (NEG,<30 MG/DL) 100 H Urine Ketones (NEG) NEG Urine Nitrite (NEG) NEG Urine Bilirubin (NEG) NEG Urine Urobilinogen (0.1 - 1.0 EU/dl) 0.2 Ur Leukocyte Esterase (NEG) NEG Ur Microscopic SEDIMENT EXAMINED Urine RBC (0 - 5 /HPF) RARE Urine WBC (0 - 2 /HPF) RARE Ur Epithelial Cells (NONE,FEW) RARE Urine Bacteria (NEG/NONE) RARE H Urine Hemoglobin (NEG) NEG Ur Random Creatinine (mg/dL) 42.2 Ur Random Sodium (30 - 90 mmol/L) 45 Ur Random Potassium (mmol/L) 29.8 Fraction Sodium Excret (<1% %) 3.6 H Urine Glucose (N MG/DL) 500 H Assessment/Plan Assessment/Recommendations Assessment: CKD with creatinine currently at baseline. He was mildly volume overloaded but responded to Lasix. He is more edema, EPO was on hold as hgb got too high, but has dropped from 10.4 at end of November. Recommendations: Would check stools for blood, iron stores. Will give 20 K of EPO here and he will need to resume at [facility] on discharge. Creatinine is at baseline, can probably be discharged soon. Might tell him to double his Lasix on days his edema is greatere or he knows he has increased salt intake. He is seeing Dr. Mendez again at end of month.
[2017-12-31 23:14] VITALS: BP 212/86
[2018-01-01 00:39] VITALS: BP 190/60
[2018-01-01 01:16] VITALS: BP 160/70
[2018-01-01 06:57] VITALS: BP 138/80
[2018-01-01] MEDS ORDERED: NORVASC10 M1 PO ×2 (09:13→13:13)
[2018-01-01] MEDS ORDERED: CARVEDILOL25 M1 PO ×2 (09:13→13:13)
[2018-01-01 09:19] VITALS: BP 218/80
[2018-01-01 11:29] VITALS: BP 170/68
--- NOTE | 2018-01-01 12:37 | PN- Att Addend ---
Attending Addendum Attending Brief Note Patient seen/exmained bedside. Patient with pmh of CKD stage 4 s/p av fistula, IDDM, htn, chf came to ER for leg swelling and admitted for fluid overlaod with acute kidney injury on ckd stage 4 and acclerated hypertension. He denies any chest pain, chest tightness, shortness of breath. On examination his edema with mild improvement. General Appearance Alert, Oriented X3, Cooperative, No Acute Distress HEENT Atraumatic, PERRLA, EOMI, Mucous Membr. moist/pink, periorbital edema Neck Supple, No JVD, No thryomegaly, +2 Carotid Pulse wo Bruit Cardiovascular 2/6 systolic murmur Lungs Clear to Auscultation, Normal Air Movement Abdomen Normal Bowel Sounds, Soft, No Tenderness Extremities BL 2+ pitting edema up to knees His BP improved on his current regimen. He is on multiple meds for bp control. Nephrlogy cosnulted and recommend to follow up outpatient with the [facility] for continue of care. Admission Lab Results I reviewed the following labs: Laboratory Tests 01/01 06 Chemistry Sodium (137 - 145 mmol/L) 134 L Potassium (3.5 - 5.1 mmol/L) 3.5 Chloride (98 - 107 mmol/L) 103 Carbon Dioxide (22 - 30 mmol/L) 21 L Anion Gap (5 - 16) 11 BUN (9 - 20 mg/dL) 71 H Creatinine (0.7 - 1.2 mg/dL) 4.1 H Estimated GFR (>60 ml/min) 15 L BUN/Creatinine Ratio (7 - 25 %) 17.3 Iron (49 - 181 ug/dL) 100 TIBC (261 - 462 ug/dL) 251 L Ferritin (17.9 - 464 ng/mL) 80.8 Admission Meds I reviewed the following Meds: Current Medications Sig/Shaan Start time Last Medication Dose Stop Time Status Admin Acetaminophen 650 MG Q6P PRN 12/31 0115 AC (Tylenol) Acetaminophen 1,000 MG Q6P PRN 12/31 0115 AC (Ofirmev) Amlodipine Besylate 10 MG DAILY 12/31 0900 AC 01/01 (Norvasc) 0916 Aspirin Buffered 81 MG DAILY 12/31 0900 AC 01/01 (Ecotrin) 0916 Atorvastatin Calcium 80 MG AT BEDTIME 12/31 2100 AC 12/31 (Lipitor) 2136 Carvedilol 25 MG BID 12/31 2100 AC 01/01 (Coreg) 0916 Cholecalciferol 400 IU DAILY 12/31 0900 AC 01/01 (Vitamin D) 0916 Clonidine 1 PAT ONCE A WEEK 12/31 1130 AC 12/31 (Catapres) 1417 Cyanocobalamin 1,000 MCG DAILY 12/31 0900 AC 01/01 (Vitamin B12) 0916 Docusate Sodium 100 MG DAILY NEEDED PRN 12/31 1830 AC (Colace) Furosemide 40 MG DAILY 12/31 0900 AC 01/01 (Lasix) 0916 Heparin Sodium 5,000 UNIT Q8 12/31 06 AC 01/01 (Porcine) 0600 Hydralazine HCl 100 MG TID 12/31 0900 AC 01/01 (Apresoline) 0915 Insulin Aspart 0 TIDAC 12/31 0800 AC 01/01 (NovoLOG) 0914 Isosorbide 60 MG DAILY 12/31 1131 AC 01/01 Mononitrate 0915 (Imdur) Levothyroxine Sodium 0.075 MG DAILY AC 12/31 1152 AC 01/01 (Synthroid) 0559 Omeprazole 40 MG DAILY AC 12/31 0700 AC 01/01 (Prilosec) 0559 Oxycodone/ 2 TAB Q6P PRN 12/31 0115 AC Acetaminophen (Percocet) Senna/Docusate Sodium 2 TAB DAILY 12/31 1823 AC 01/01 (Senokot S) 0916 Sertraline HCl 100 MG DAILY 12/31 0900 AC 01/01 (Zoloft) 0916
--- NOTE | 2018-01-01 13:13 | Patient Discharge Instructions ---
Discharge Instructions General Discharge Information You were seen/treated for: Acute kidney injury with chronic kidney disease Volume overload Special Instructions: Please follow-up with Dr. Mendez as previously scheduled. Please follow-up with your primary care physician within one week of discharge. Call your doctor or return to the ER if she should experience any shortness of breath, headache, blurry vision, nausea, vomiting, chest pain, confusion, loss of consciousness. Acute Coronary Syndrome Inclusion Criteria At DC or during hospital stay patient has or had the following: ACS DIAGNOSIS No Discharge Core Measures Meds if any: Prescribed or Continued at Discharge Meds if any: NOT Prescribed or Continued at Discharge Congestive Heart Failure Inclusion Criteria At DC or during hospital stay patient has or had the following: CHF DIAGNOSIS Yes Discharge Core Measures Meds if any: Prescribed or Continued at Discharge CHAD/ARB for EF <40% Yes Meds if any: NOT Prescribed or Continued at Discharge Cerebrovascular accident Inclusion Criteria At DC or during hospital stay patient has or had the following: CVA/TIA Diagnosis No Discharge Core Measures Meds if any: Prescribed or Continued at Discharge Meds if any: NOT Prescribed or Continued at Discharge Venous thromboembolism Inclusion Criteria VTE Diagnosis No VTE Type NONE VTE Confirmed by (Test) NONE Discharge Core Measures - Per Current guidelines, there needs to be overlap - treatment for the first 5 days of Warfarin therapy. - If discharged on Warfarin prior to 5 days of - overlap therapy, the patient will need to be - assessed for post discharge needs including - *Post discharge parental anticoagulation - *Warfarin and/or parental anticoagulation education - *Follow up date to check INR post discharge At least 5 days overlap therapy as Inpatient No Meds if any: Prescribed or Continued at Discharge Note: Overlap Therapy is Warfarin and Anticoagulant Meds if any: NOT Prescribed or Continued at Discharge
--- NOTE | 2018-01-01 13:18 | Discharge Summary ---
Visit Information Visit Dates Admission Date: 12/30/17 Discharge Date: 01/01/18 Hospital Course Course Attending Physician: Amauri Davis MD Primary Care Physician: Roseline RIVERA, Ezra Consulting Request: Consulting Specialty: Nephrology Hospital Course: Patient is a 52-year-old male with a PMH significant for HTN, insulin-dependent diabetes mellitus, CHF, CKD status post fistula, hypothyroidism who presented to the [facility] ED complaining of worsening bilateral lower extremity edema. Vital signs on presentation: 97, heart rate 82, respiratory rate 20, blood pressure 181/70, satting 97% on room air Pertinent lab values on presentation:Hemoglobin 8.1, hematocrit 24.7. Eosinophilia 6.2. Urine glucose 500. Sodium 135, bicarbonate 21, BUN 82, creatinine 4.6. Glucose 300. BNP 5110. Negative LFTs and troponin. U tox positive for cannabis Patient was admitted to the telemetry floor Although proBNP was elevated, with unknown baseline, chest x-ray and physical examination was not consistent with decompensated heart failure. ACS was ruled out with serial troponins and EKGs. Nephrology was consulted, and he was seen by Dr. Francisco Rice. Over the first day the patient's creatinine dropped to within baseline, 4.0. He received EPO, and responded well to diuresis. His home medications continued on this admission, and monitored with Accu-Cheks 3 times daily before meals and at bedtime with a NovoLog sliding scale. He was discharged and recommended to follow-up as an outpatient at [facility]. Allergies: Coded Allergies: lisinopril (TONGUE SWELLING 11/25/17) Disposition Summary Disposition Principal Diagnosis: volume overload secondary to CKD Additional Diagnosis: BRETT on CKD, uncontrolled DM Discharge Disposition: home or self care Discharge Instructions General Discharge Information Code Status: Full Code Patient's Diet: Renal dialysis diet, Diabetic diet Patient's Activity: as tolerated Follow-Up Instructions/Appts: Follow-up with Dr. Mendez as previously scheduled. Follow-up with your primary care physician within one week of discharge. Medications at Discharge Discharge Medications: Stop taking the following medications: Amlodipine (Norvasc) 2.5 MG TABLET ORAL DAILY Carvedilol (Coreg) 12.5 MG TABLET ORAL TWICE DAILY Continue taking these medications: Pantoprazole Sodium (Pantoprazole Sodium) 20 MG TABLET. 1 Tablet ORAL DAILY Comments: Last Taken: 01/01/18 Time: 6:00 AM Aspirin (Ecotrin*) 81 MG TABLET. 1 Tablet ORAL DAILY Comments: Last Taken: 01/01/18 Time: 9:15 AM Cyanocobalamin (Vitamin B-12) (B-12) 1,000 MCG TABLET 1 Tablet ORAL DAILY Comments: Last Taken: 01/01/18 Time: 9:15 AM Cholecalciferol (Vitamin D3) (Vitamin D-3) 2,000 UNIT CAPSULE 2,000 Milligram ORAL DAILY Comments: Last Taken: 01/01/18 Time: 9:15 AM Sertraline HCl (Zoloft) 100 MG TABLET 1 Tablet ORAL DAILY Comments: Last Taken: 01/01/18 Time: 6:00 AM Hydralazine HCl (Hydralazine HCl) 100 MG TABLET 1 Tablet ORAL THREE TIMES DAILY Comments: Last Taken: 01/01/18 Time: 9:15 AM Furosemide (Lasix) 40 MG TABLET 1 Tablet ORAL DAILY Comments: Last Taken: 01/01/18 Time: 9:15 AM Clonidine Tts-1 (Catapres-Tts 1) 0.1 MG/24 HOUR PATCH.TDWK 1 PATCH On the skin Once a Week Comments: Last Taken: 12/31/17 Time: 2:15 PM Isosorbide Mononitrate (Isosorbide Mononitrate ER) 30 MG TAB.ER.24H 1 Tablet ORAL DAILY Comments: Last Taken: 01/01/18 Time: 9:15 AM Insulin Detemir (Levemir) 100 UNIT/ML VIAL 7 Units Inject into fatty tissue AT BEDTIME Comments: Last Taken: NOT GIVEN IN HOSPITAL Time: Insulin Aspart (Novolog) 100 UNIT/ML CARTRIDGE 3 Units Inject into fatty tissue THREE TIMES DAILY Instructions: before meals Comments: Last Taken: 01/01/18 Time: 1:00 PM Levothyroxine Sodium (Synthroid) 75 MCG TABLET 1 Tablet ORAL DAILY Comments: Last Taken: 01/01/18 Time: 6:00 AM Atorvastatin Calcium (Lipitor) 80 MG TABLET 1 Tablet ORAL DAILY Comments: Last Taken: 12/31/17 Time: 9:35 PM Start taking the following new medications: Carvedilol (Carvedilol) 25 MG TABLET 25 Milligram ORAL TWICE DAILY Qty = 60 No Refills Instructions: . Comments: Last Taken: 01/01/18 Time: 9:15 AM Amlodipine Besylate (Norvasc) 10 MG TABLET 10 Milligram ORAL DAILY Qty = 60 No Refills Instructions: . Comments: Last Taken: 01/01/18 Time: 9:15 AM Copies To: Andrea RIVERA,Jian Mccarthy Attending MD Review Statement Documenting Attending: Rajwinder RIVERA,Charles Other Findings: Patient with pmh of CKD stage 4 s/p av fistula, IDDM, htn, chf came to ER for leg swelling and admitted for fluid overlaod with acute kidney injury on ckd stage 4 and acclerated hypertension. Patient received diuresis and bp meds titrated. Patient needs to follow up with Neprhology at [facility].
== END 2018-01-01 14:25 | DRG 683 ==
LOC: ERH 20:43 → ERHI 23:18 → 1NO 23:18 → ENRESERV 12-31 00:22 → 1NO 12-31 01:57 → ENPENDDIS 01-01 13:13 → 1NO 01-01 14:25
PROVIDERS: Internal Medicine; Student in an Organized Health Care Education/Training Program
DX: N17.9 Acute kidney failure, unspecified (principal); I13.0 Hypertensive heart and chronic kidney disease with heart failure and stage 1 through stage 4 chronic kidney disease, or unspecified chronic kidney disease; E11.22 Type 2 diabetes mellitus with diabetic chronic kidney disease; I50.9 Heart failure, unspecified; N18.5 Chronic kidney disease, stage 5; Z79.4 Long term (current) use of insulin; D64.9 Anemia, unspecified; Z79.82 Long term (current) use of aspirin; Z91.14 Patient's other noncompliance with medication regimen; E03.9 Hypothyroidism, unspecified; F32.9 Major depressive disorder, single episode, unspecified; E87.70 Fluid overload, unspecified; Z87.891 Personal history of nicotine dependence
CPT/HCPCS: 1NSP; 84133; 84300; ERO; 36592; 71045; 81001; 82436; 82570; 93005; 93010; 96374; J0885-EC; J1644; J1940

== ENCOUNTER 2018-01-12 15:56 | Emergency (ER) | payer OTHER, MEDICARE ==
[~2018-01-12] VITALS: Ht 175.3 cm; Wt 74.8 kg
[~2018-01-12 15:56] MED LIST changes: +CARVEDILOL25 M1 PO; +CATAPRES-TTS 11 EACH TOP; +ISOSORBIDE MONO30 M1 PO; +LASIX40 M1 PO; +LEVEMIR100 UNIT/1 SC; +LIPITOR80 M1 PO; +NORVASC10 M1 PO; +NOVOLOG100 UNIT/1 SC; +SYNTHROID75 MCG PO
--- NOTE | 2018-01-12 18:02 | ED PSYCHIATRIC COMPLAINT ---
See Addendum History of Present Illness General Chief Complaint: General Adult Stated Complaint: NEEDS TO SPEAK TO A PLAY THERAPIST AND PSYCHIATRIST Source: patient, old records Exam Limitations: no limitations Vital Signs & Intake/Output Vital Signs & Intake/Output Vital Signs Date Time Temp Pulse Resp B/P B/P Pulse O2 O2 Flow FiO2 Mean Ox Delivery Rate 01/13 0919 65 16 206/77 01/13 0919 65 16 203/77 01/13 0833 98.5 92 20 165/64 96 Room Air 01/13 0140 154/80 01/13 0018 98.2 74 16 232/98 01/13 0018 98.2 74 16 232/98 01/13 0004 232/98 01/12 2215 98.2 74 16 208/104 97 Room Air 01/12 1821 98.4 68 18 175/76 98 Room Air 01/12 1600 98.2 77 18 170/75 99 Room Air ED Intake and Output 01/13 0000 01/12 1200 Intake Total 240 Output Total Balance 240 Intake, Oral 240 Patient 165 lb Weight Weight Reported by Patient Measurement Method Allergies Coded Allergies: lisinopril (TONGUE SWELLING 11/25/17) Reconcile Medications Amlodipine Besylate (Norvasc) 10 MG TABLET 10 MG PO DAILY HTN . Aspirin (Ecotrin*) 81 MG TABLET.DR 1 TAB PO DAILY HEART (Reported) Atorvastatin Calcium (Lipitor) 80 MG TABLET 1 TAB PO DAILY Heart (Reported) Carvedilol 25 MG TABLET 25 MG PO BID HTN . Cholecalciferol (Vitamin D3) (Vitamin D-3) 2,000 UNIT CAPSULE 2,000 MG PO DAILY SUPPLEMENT (Reported) Clonidine Tts-1 (Catapres-Tts 1) 0.1 MG/24 HOUR PATCH.TDWK 1 PATCH TOP QW BP (Reported) Cyanocobalamin (Vitamin B-12) (B-12) 1,000 MCG TABLET 1 TAB PO DAILY SUPPLEMENT (Reported) Furosemide (Lasix) 40 MG TABLET 1 TAB PO DAILY EDEMA (Reported) Hydralazine HCl 100 MG TABLET 1 TAB PO TID HTN (Reported) Insulin Aspart (Novolog) 100 UNIT/ML CARTRIDGE 3 U SC TID DM (Reported) before meals Insulin Detemir (Levemir) 100 UNIT/ML VIAL 7 U SC AT BEDTIME DM (Reported) Isosorbide Mononitrate (Isosorbide Mononitrate ER) 30 MG TAB.ER.24H 1 TAB PO DAILY Heart (Reported) Levothyroxine Sodium (Synthroid) 75 MCG TABLET 1 TAB PO DAILY Thyroid ( Reported) Pantoprazole Sodium 20 MG TABLET.DR 1 TAB PO DAILY ACID REFLUX (Reported) Sertraline HCl (Zoloft) 100 MG TABLET 1 TAB PO DAILY DEPRESSION (Reported) Triage Note: 52 Y/O MALE ENTERS TRIAGE STATING "I JUST NEED TO TALK TO TWO PEOPLE: A PSYCHIATRIST BECAUSE I HAVE MENTAL PROBLEMS AND A PLAY THERAPIST BECAUSE I AM OUT OF FOOD AND MONEY". PT REFUSING TO ANSWER THIS RN'S QUESTIONS FOR TRIAGE REPEATING "I AM ONLY HERE TO TALK TO TWO PEOPLE". PT DENIES SI/HI. DENIES PHYSICAL COMPLAINTS. AMBULATORY WITH NO SIGNS DISTRESS NOTED Triage Nurses Notes Reviewed? yes HPI: Patient presents to the emergency department course and felt to psychiatry. Patient is very depressed and anxious. Patient has very aggressive behaviors on questioning. Patient denies any suicidal ideations. Patient states he has been compliant with his medications with the exception of his insulin because he states that he hasn't been eating. Patient denies any homicidal ideations. Patient is very tangential. Patient appears unkempt. (Robbie RIVERA,Montana Gardner) Past History Travel History Traveled to [place] past 21 day No Medical History Any Pertinent Medical History? see below for history Neurological: NONE EENT: NONE Cardiovascular: CHF, hypertension Respiratory: NONE Gastrointestinal: NONE Hepatic: NONE Renal: KIDNEY FAILURE Musculoskeletal: NONE Psychiatric: anxiety, depression Endocrine: diabetes, hypothyroidism Blood Disorders: anemia Cancer(s): NONE HANDBOOK WRITER/Reproductive: NONE Surgical History Surgical History: non-contributory, A/V FISTULA Psychosocial History Services at Home None What is your primary language Uruguayan Tobacco Use: Current Not Daily ETOH Use: denies use Illicit Drug Use: denies illicit drug use Family History Hx Contributory? No (Robbie RIVERA,Montana Gardner) Review of Systems Review of Systems Constitutional: Reports: no symptoms. EENTM: Reports: no symptoms. Respiratory: Reports: no symptoms. Cardiovascular: Reports: no symptoms. GI: Reports: no symptoms. Genitourinary: Reports: no symptoms. Musculoskeletal: Reports: no symptoms. Skin: Reports: no symptoms. Neurological/Psychological: Reports: see HPI. Hematologic/Endocrine: Reports: no symptoms. Immunologic/Allergic: Reports: no symptoms. All Other Systems: Reviewed and Negative (Robbie RIVERA,Montana Gardner) Physical Exam Physical Exam General Appearance: well developed/nourished, mild distress Head: atraumatic Eyes: Bilateral: PERRL, EOMI. Ears, Nose, Throat: normal pharynx, normal ENT inspection, hearing grossly normal Neck: normal inspection, supple, full range of motion Respiratory: normal breath sounds, chest non-tender, no respiratory distress, lungs clear Cardiovascular: regular rate/rhythm, normal peripheral pulses Gastrointestinal: soft, non-tender Extremities: normal range of motion Neurological/Psychiatric: no motor/sensory deficits, awake, agitated, alert Appearance/Memory/Insight: denies illness Behavoir/Eye Contact/Speech: compulsive, increased rate of speech Thoughts/Hallucinations: no apparent hallucination Skin: intact, normal color, warm/dry SAD PERSONS Done? CRISIS CONSULT OBTAINED (Robbie RIVERA,Montana Gardner) Progress Differential Diagnosis: drug intoxication, drug overdose, drug withdrawal, electrolyte abnormality Plan of Care: Orders Procedure Date/time Status Regular Diet 01/13 B Active Continuous Observation Monitor 01/12 180 Active URINE DRUGS OF ABUSE 01/12 180 Complete ETHANOL 01/12 180 Complete COMPREHENSIVE METABOLIC PANEL 01/12 180 Complete CBC WITHOUT DIFFERENTIAL 01/12 180 Complete ED CRISIS PSYCH CONSULT 01/12 1801 Active Current Medications Sig/Shaan Start time Last Medication Dose Stop Time Status Admin Zolpidem Tartrate 10 MG AT BEDTIME 01/13 2100 UNVr 01/13 (Ambien) 0340 Amlodipine Besylate 10 MG DAILY 01/13 09 UNVr 01/13 (Norvasc) 0919 Aspirin Buffered 81 MG DAILY 01/13 09 UNVr 01/13 (Ecotrin) 0919 Atorvastatin Calcium 80 MG DAILY 01/13 09 UNVr 01/13 (Lipitor) 0919 Furosemide 40 MG DAILY 01/13 09 UNVr 01/13 (Lasix) 0919 Isosorbide 30 MG DAILY 01/13 09 UNVr 01/13 Mononitrate 0919 (Imdur) Levothyroxine Sodium 0.075 MG DAILY 01/13 09 UNVr 01/13 (Synthroid) 0919 Sertraline HCl 100 MG DAILY 01/13 09 UNVr 01/13 (Zoloft) 0957 Carvedilol 25 MG BID 01/12 2100 UNVr 05/18 (Coreg) 0919 Hydralazine HCl 100 MG TID 01/12 2100 UNVr 01/13 (Apresoline) 0919 Insulin Detemir 7 UNITS AT BEDTIME 01/12 2100 UNVr 01/13 (Levemir) 0012 Insulin Human Regular 3 UNITS TIDAC/HS 01/12 2100 UNVr 01/13 (NovoLIN R) 0919 Clonidine 1 PAT .[QW] 01/12 1815 UNVr (Catapres) Laboratory Tests 01/12/18 1850: Anion Gap 13, Estimated GFR 14 L, BUN/Creatinine Ratio 13.7, Glucose 235 H, Calcium 8.6, Total Bilirubin 0.6, AST 17, ALT 25, Alkaline Phosphatase 98, Total Protein 6.1 L, Albumin 3.7, Globulin 2.4, Albumin/Globulin Ratio 1.5, CBC w Diff NO MAN DIFF REQ, RBC 3.62 L, MCV 82.2, MCH 27.1, MCHC 33.0, RDW 17.8 H, MPV 6.5 L, Gran % 73.8, Lymphocytes % 13.0 L, Monocytes % 8.0, Eosinophils % 4.2, Basophils % 1.0, Absolute Granulocytes 5.6, Absolute Lymphocytes 1.0 L, Absolute Monocytes 0.6, Absolute Eosinophils 0.3, Absolute Basophils 0.1, Serum Alcohol < 10.0 01/12/181843: Urine Opiates Screen < 100, Methadone Screen < 40, Barbiturate Screen < 60, Ur Phencyclidine Scrn < 6.00, Amphetamines Screen < 100, U Benzodiazepines Scrn < 85, Urine Cocaine Screen < 50, Urine Cannabis Screen > 80.00 H Hand-Off Endorsed To: Jaxson Sterling MD Endorsed Time: 1899 Pending: consult (Robbie RIVERA,Montana Gardner) Comments: Rude to nursing, refusing medications. Updated with risks of HTN. (Jaxson Sterling MD) Departure Departure Disposition: STILL A PATIENT Condition: Stable Clinical Impression Primary Impression: Schizo affective schizophrenia Referrals: Patient Has No Primary Care Dr (PCP/Family) Departure Forms: Customer Survey General Discharge Information (Robbie RIVERA,Montana Gardner) Departure Comments 01/13/18 2 PM The patient was awake alert and oriented 3. He was mildly agitated. He is pending disposition by crisis. (Shashank Green DO)
[2018-01-12 19:06] LABS: ABSOLUTE BASOPHIL COUNT 0.1 /CUMM (0.0-0.2); ABSOLUTE EOSINOPHIL COUNT 0.3 /CUMM (0.0-0.7); ABSOLUTE GRANULOCYTE CT 5.6 /CUMM (1.4-6.5); ABSOLUTE MONOCYTE COUNT 0.6 /CUMM (0.10-0.60); EOSINOPHIL % 4.2 % (0-5); GRANULOCYTE % 73.8 % (42.2-75.2); HEMATOCRIT 29.7 % (42-52); MEAN CORPUSCULAR HGB 27.1 PG (27.0-31.0); MEAN CORPUSCULAR VOLUME 82.2 FL (80.0-94.0); MEAN PLATELET VOLUME 6.5 FL (7.4-10.4); PLATELET COUNT 232 /CUMM (130-400); RBC DISTRIBUTION WIDTH 17.8 % (11.5-14.5); RED BLOOD CELL CT 3.62 /CUMM (4.70-6.10); WHITE BLOOD CELL COUNT 7.6 /CUMM (4.8-10.8)
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
[2018-01-13 15:35] LABS: ABSOLUTE BASOPHIL COUNT 0.1 /CUMM (0.0-0.2); ABSOLUTE EOSINOPHIL COUNT 0.3 /CUMM (0.0-0.7); ABSOLUTE GRANULOCYTE CT 5.4 /CUMM (1.4-6.5); ABSOLUTE LYMPH COUNT 0.9 /CUMM (1.2-3.4); ABSOLUTE MONOCYTE COUNT 0.6 /CUMM (0.10-0.60); BASOPHIL % 1.1 % (0.0-2.0); EOSINOPHIL % 4.2 % (0-5); GRANULOCYTE % 73.3 % (42.2-75.2); HEMATOCRIT 27.1 % (42-52); MEAN CORPUSCULAR HGB 27.3 PG (27.0-31.0); MEAN CORPUSCULAR HGB CONC 32.8 G/DL (33.0-37.0); MEAN CORPUSCULAR VOLUME 83.3 FL (80.0-94.0); MEAN PLATELET VOLUME 6.3 FL (7.4-10.4); PLATELET COUNT 231 /CUMM (130-400); RED BLOOD CELL CT 3.26 /CUMM (4.70-6.10); WHITE BLOOD CELL COUNT 7.3 /CUMM (4.8-10.8)
[2018-01-13 21:29] VITALS: BP 188/90
== END 2018-01-13 21:29 | disposition still patient (30) ==
LOC: ERH 15:56
PROVIDERS: Emergency Medicine
DX: F25.9 Schizoaffective disorder, unspecified (principal)
CPT/HCPCS: 80307; 96372; G0463; G0480

== ENCOUNTER 2018-02-23 11:31 | Emergency (ER) | payer OTHER, MEDICARE ==
--- NOTE | 2018-02-23 11:34 | ED PSYCHIATRIC COMPLAINT ---
History of Present Illness General Chief Complaint: Psychiatric Related Complaint Stated Complaint: BIBA +SI Source: patient Exam Limitations: poor historian Vital Signs & Intake/Output Vital Signs & Intake/Output Vital Signs Date Time Temp Pulse Resp B/P B/P Pulse O2 O2 Flow FiO2 Mean Ox Delivery Rate 02/24 0752 98.2 60 20 150/70 97 Room Air 02/24 0553 99.4 66 20 163/60 96 Room Air 02/24 0159 98.2 63 20 165/75 96 Room Air 02/23 2200 97.7 58 16 180/78 02/23 2200 97.7 58 16 180/78 02/23 2045 97.7 58 16 180/78 97 Room Air 02/23 1816 98.7 63 16 157/67 97 Room Air 02/23 1710 98.4 63 16 153/77 02/23 1710 98.4 16 16 153/77 02/23 1622 98.4 63 16 153/77 96 Room Air 02/23 1404 98.1 64 16 171/79 98 Room Air 02/23 1213 Room Air 02/23 1146 98.2 74 207/90 97 Room Air ED Intake and Output 02/24 0000 02/23 1200 Intake Total 240 Output Total Balance 240 Intake, Oral 240 Allergies Coded Allergies: lisinopril (TONGUE SWELLING 11/25/17) Triage Nurses Notes Reviewed? yes Onset: Abrupt Duration: hour(s): HPI: 02/23/18 12:30 PM Patient presents to the emergency department by police for depression with suicidal ideation. He denies any medical complaints. He says he's been very frustrated that nobody is been helping him. The onset of the symptoms were abrupt, the duration was earlier today, the severity is significant; as his symptoms required him to come to the emergency department for care. (Shashank Green DO) Reconcile Medications Amlodipine Besylate (Norvasc) 10 MG TABLET 10 MG PO DAILY HTN . Aspirin (Ecotrin*) 81 MG TABLET.DR 1 TAB PO DAILY HEART (Reported) Atorvastatin Calcium (Lipitor) 80 MG TABLET 1 TAB PO DAILY Heart (Reported) Carvedilol 25 MG TABLET 25 MG PO BID HTN . Cholecalciferol (Vitamin D3) (Vitamin D-3) 2,000 UNIT CAPSULE 2,000 MG PO DAILY SUPPLEMENT (Reported) Clonidine Tts-1 (Catapres-Tts 1) 0.1 MG/24 HOUR PATCH.TDWK 1 PATCH TOP QSAT BP (Reported) Cyanocobalamin (Vitamin B-12) (B-12) 1,000 MCG TABLET 1 TAB PO DAILY SUPPLEMENT (Reported) Furosemide (Lasix) 40 MG TABLET 1 TAB PO DAILY EDEMA (Reported) Hydralazine HCl 100 MG TABLET 1 TAB PO TID HTN (Reported) Insulin Aspart (Novolog) 100 UNIT/ML CARTRIDGE 3 U SC TID DM (Reported) before meals Insulin Detemir (Levemir) 100 UNIT/ML VIAL 7 U SC AT BEDTIME DM (Reported) Isosorbide Mononitrate (Isosorbide Mononitrate ER) 30 MG TAB.ER.24H 1 TAB PO DAILY Heart (Reported) Levothyroxine Sodium (Synthroid) 75 MCG TABLET 1 TAB PO DAILY Thyroid ( Reported) Pantoprazole Sodium 20 MG TABLET.DR 1 TAB PO DAILY ACID REFLUX (Reported) Sertraline HCl (Zoloft) 100 MG TABLET 1 TAB PO DAILY DEPRESSION (Reported) (Jaxson Sterling MD) Past History Medical History Any Pertinent Medical History? 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 No (Shashank Green DO) Review of Systems Review of Systems Constitutional: Denies: fever. EENTM: Denies: visual changes. Respiratory: Denies: short of breath. Cardiovascular: Denies: chest pain. GI: Denies: abdominal pain. Genitourinary: Reports: see HPI. Musculoskeletal: Reports: no symptoms. Skin: Reports: no symptoms. Neurological/Psychological: Reports: depressed. Hematologic/Endocrine: Reports: no symptoms. Immunologic/Allergic: Reports: no symptoms. (Shashank Green DO) Physical Exam Physical Exam General Appearance: well developed/nourished, moderate distress Head: atraumatic, normal appearance Eyes: Bilateral: normal appearance, PERRL, EOMI. Ears, Nose, Throat: normal pharynx, normal ENT inspection Neck: normal inspection, supple Respiratory: normal breath sounds, chest non-tender, no respiratory distress Cardiovascular: regular rate/rhythm Gastrointestinal: soft, non-tender Neurological/Psychiatric: awake, alert Appearance/Memory/Insight: appropriate appearance Behavoir/Eye Contact/Speech: cooperative Thoughts/Hallucinations: no apparent hallucination Skin: intact, normal color, warm/dry SAD PERSONS SAD PERSONS Response Value Male Sex? yes 1 Age <19 or >45 years? yes 1 Depression/Hopelessness? yes 2 Previous Attempts/Psych Care yes 1 Rational Thinking Loss? yes 2 Single//? yes 1 Social Support? has no support 1 Total 9 SAD PERSONS Done? yes (Shashank Green DO) Progress Differential Diagnosis: drug intoxication, drug overdose, depression Plan of Care: Orders Procedure Date/time Status Continuous Observation Monitor 02/24 0700 Active Continuous Observation Monitor 02/24 0300 Active Heart Healthy Diet 02/23 D Active Continuous Observation Monitor 02/23 2300 Active Continuous Observation Monitor 02/23 1900 Active EKG 02/23 1232 Active Continuous Observation Monitor 02/23 1221 Active URINE DRUG SCREEN FOR ER ONLY 02/23 1221 Complete ETHANOL 02/23 1221 Complete COMPREHENSIVE METABOLIC PANEL 02/23 1221 Complete CBC WITHOUT DIFFERENTIAL 02/23 1221 Complete ED CRISIS PSYCH CONSULT 02/23 1221 Active Current Medications Sig/Shaan Start time Last Medication Dose Stop Time Status Admin Carvedilol 25 MG BID 02/23 2100 UNVr 02/23 (Coreg) 2200 Insulin Human Regular 3 UNITS TID 02/23 2100 UNVr 02/23 (NovoLIN R) 2200 Hydralazine HCl 100 MG TID 02/23 1618 UNVr 02/23 (Apresoline) 2200 Isosorbide 30 MG DAILY 02/23 161 UNVr Mononitrate (Imdur) Levothyroxine Sodium 0.075 MG DAILY 02/23 161 UNVr (Synthroid) Sertraline HCl 100 MG DAILY 02/23 161 UNVr (Zoloft) Aspirin Buffered 81 MG DAILY 02/23 161 UNVr (Ecotrin) Atorvastatin Calcium 80 MG DAILY 02/23 161 UNVr (Lipitor) Furosemide 40 MG DAILY 02/23 161 UNVr (Lasix) Amlodipine Besylate 10 MG DAILY 02/23 161 UNVr 02/23 (Norvasc) 1710 Laboratory Tests 02/23/18 1455: Urine Opiates Screen < 100, Methadone Screen < 40, Barbiturate Screen < 60, Ur Phencyclidine Scrn < 6.00, Amphetamines Screen < 100, U Benzodiazepines Scrn < 85, Urine Cocaine Screen < 50, Urine Cannabis Screen 74.90 H 02/23/18 1250: Anion Gap 11, Estimated GFR 16 L, BUN/Creatinine Ratio 13.0, Glucose 429 H, Calcium 8.3 L, Total Bilirubin 0.3, AST 15 L, ALT 31, Alkaline Phosphatase 103 , Total Protein 5.6 L, Albumin 3.3 L, Globulin 2.3, Albumin/Globulin Ratio 1.4 , CBC w Diff NO MAN DIFF REQ, RBC 2.85 L, MCV 87.0, MCH 29.4, MCHC 33.8, RDW 16.8 H, MPV 6.7 L, Gran % 71.5, Lymphocytes % 15.6 L, Monocytes % 7.7, Eosinophils % 4.1, Basophils % 1.1, Absolute Granulocytes 5.0, Absolute Lymphocytes 1.1 L, Absolute Monocytes 0.5, Absolute Eosinophils 0.3, Absolute Basophils 0.1, Serum Alcohol < 10.0 Initial ED EKG: none Comments: 02/18/18 The patient is pending evaluation by crisis. He will be signed out to Dr. Sterling at 7 PM (Shashank Green DO) Hand-Off Endorsed To: Jason Vines DO Endorsed Time: 0700 Pending: other (re-eval, bed search) (Asher RIVERA,Jaxson) Comments: Dr. Vines addendum at 1057 hrs on 02/24/18: I assumed care from Dr. Sterling overnight awaiting CI eval. CI saw the patient and felt he was stable for outpatient management. Dr. Kim recommended clonidine 0.1mg q8hr PRN insomnia/anxiety. Appts for outpatient f/u made. (Jason Vines DO) Departure Departure Condition: Stable Referrals: Patient Has No Primary Care Dr (PCP/Family) Departure Forms: Customer Survey General Discharge Information Comments 02/23/18 7 PM The patient was signed out to Dr. Sterling. Pending evaluation by crisis. (Shashank Green DO) Departure Time of Disposition: 1059 Disposition: HOME OR SELF CARE Clinical Impression Primary Impression: Depression Qualifiers: Depression Type: major depressive disorder Major depression recurrence: recurrent Active/Remission status: currently active Major depression episode severity: severe Psychotic features: without psychotic features Qualified Code: F33.2 - Major depressive disorder, recurrent severe without psychotic features Secondary Impressions: Chronic anemia, Diabetes, Hypertension, Renal insufficiency Additional Instructions: Please follow-up with the resources and appointments as given to you by the crisis team. Prescriptions: Current Visit Scripts Clonidine HCl 1 TAB PO Q8 PRN ANXIETY OR INSOMNIA #21 TAB (Jason Vines DO)
[2018-02-23 13:04] LABS: ABSOLUTE BASOPHIL COUNT 0.1 /CUMM (0.0-0.2); ABSOLUTE EOSINOPHIL COUNT 0.3 /CUMM (0.0-0.7); ABSOLUTE LYMPH COUNT 1.1 /CUMM (1.2-3.4); ABSOLUTE MONOCYTE COUNT 0.5 /CUMM (0.10-0.60); BASOPHIL % 1.1 % (0.0-2.0); EOSINOPHIL % 4.1 % (0-5); GRANULOCYTE % 71.5 % (42.2-75.2); HEMATOCRIT 24.7 % (42-52); MEAN CORPUSCULAR HGB 29.4 PG (27.0-31.0); MEAN CORPUSCULAR HGB CONC 33.8 G/DL (33.0-37.0); MEAN PLATELET VOLUME 6.7 FL (7.4-10.4); PLATELET COUNT 246 /CUMM (130-400); RBC DISTRIBUTION WIDTH 16.8 % (11.5-14.5); RED BLOOD CELL CT 2.85 /CUMM (4.70-6.10); WHITE BLOOD CELL COUNT 6.9 /CUMM (4.8-10.8)
--- NOTE | 2018-02-23 20:50 | ED PSYCH CRISIS CONSULTATION ---
See Addendum Crisis Consult Basic Assessment Date of Consult: 02/23/18 Responsible Person/Accompanied By: self Insurance Authorization: Insurance #1: Insurance name: MEDICARE A Phone number: Policy number: [id number] Group number: Authorization number: ED Provider: Patient's ED Provider: Shashank Green DO Primary Care Physician: Patient's PCP: Patient Has No Primary Care Dr PCP's Phone Number: Current Psychiatrist: None, trying to find one Chief Complaint: Psychiatric Related Complaint Patient's Quote: "people should do what they're supposed to and then I won't swear" Present Illness: Pt. was a 52 year old male who was BIBA after he called his SW at [facility] and said he was suicidal. Upon interview in the ER, he said that he "only said that because he knew it would get him immediate help" and that he did not really want to kill himself. He denied any attempts in the past and admitted that he often said he was suicidal without intent to get help. He described that he was extremely irritable all the time. He said "my friends irritate me, driving irritates me, everything irritates me". He reported that he has kidney failure and needs a kidney transplant. The only psychiatric medication that he is prescribed is Zoloft and this is prescribed by his kidney doctor. He expressed that he wants a psychiatrist to prescribe him medications to lessen his irritability so he can function better. He spent most of the interview complaining about all the wrongs done to him in the ER on this visit and on past visits. He said he read medical literature and he knows how things are done and that the people here are "just kids trying to have a job in the medical field but who really should be working at [facility]". He said he got "kicked out of [employer] [facility] for calling the radiology receptionist stprincessid" because she didn't help him in the way he thought he shoudl be helped at that moment. He said "why don't you give me the right treatment and then I won't get mad and scare you". He reported he had been psychiatrically hospitalized 2 times at [facility] and [facility] and that he used marijuana everyday. He did not have a PCP because it was irritating to have more appointments and "it's too much trouble to get a script for marijuana" so he "grows his own". Patient's Address: [address] [place] [address] Other Phone Number: Who Do You Live With? Other (see notes) (roommate) Family/Informants Interviewed: Called Clinical cooler room worker, Carissa Pozo at [facility] "kidney transplant team" [phone] and left a message. Client said that he has no other friends or family that we can call. Allergies - Coded Allergies: lisinopril (TONGUE SWELLING 11/25/17) Laboratory Results: Laboratory Tests 02/23/18 1455: Urine Opiates Screen < 100, Methadone Screen < 40, Barbiturate Screen < 60, Ur Phencyclidine Scrn < 6.00, Amphetamines Screen < 100, U Benzodiazepines Scrn < 85, Urine Cocaine Screen < 50, Urine Cannabis Screen 74.90 H 02/23/18 1250: Anion Gap 11, Estimated GFR 16 L, BUN/Creatinine Ratio 13.0, Glucose 429 H, Calcium 8.3 L, Total Bilirubin 0.3, AST 15 L, ALT 31, Alkaline Phosphatase 103 , Total Protein 5.6 L, Albumin 3.3 L, Globulin 2.3, Albumin/Globulin Ratio 1.4 , CBC w Diff NO MAN DIFF REQ, RBC 2.85 L, MCV 87.0, MCH 29.4, MCHC 33.8, RDW 16.8 H, MPV 6.7 L, Gran % 71.5, Lymphocytes % 15.6 L, Monocytes % 7.7, Eosinophils % 4.1, Basophils % 1.1, Absolute Granulocytes 5.0, Absolute Lymphocytes 1.1 L, Absolute Monocytes 0.5, Absolute Eosinophils 0.3, Absolute Basophils 0.1, Serum Alcohol < 10.0 (Lukas TRISATN,Shelly) Current Medications - Scheduled Medications Amlodipine Besylate (Norvasc) 10 MG TABLET 10 MG PO DAILY HTN #60 TAB Prescribed by Montana Dover MD on 01/01/18 Aspirin (Ecotrin*) 81 MG TABLET. 1 TAB PO DAILY HEART (Reported) Entered as Reported by Sanjuanita Licona on 11/26/17 5046 Atorvastatin Calcium (Lipitor) 80 MG TABLET 1 TAB PO DAILY Heart (Reported) Entered as Reported by Roberto Kwon on 12/31/17 1152 Carvedilol 25 MG TABLET 25 MG PO BID HTN #60 TAB Prescribed by Montana Dover MD on 01/01/18 Cholecalciferol (Vitamin D3) (Vitamin D-3) 2,000 UNIT CAPSULE 2,000 MG PO DAILY SUPPLEMENT (Reported) Entered as Reported by Sanjuanita Licona on 11/26/17 0449 Clonidine Tts-1 (Catapres-Tts 1) 0.1 MG/24 HOUR PATCH.TDWK 1 PATCH TOP QSAT BP (Reported) Entered as Reported by Roberto Kwon on 12/31/17 1112 Cyanocobalamin (Vitamin B-12) (B-12) 1,000 MCG TABLET 1 TAB PO DAILY SUPPLEMENT (Reported) Entered as Reported by Sanjuanita Licona on 11/26/17 0447 Furosemide (Lasix) 40 MG TABLET 1 TAB PO DAILY EDEMA (Reported) En[facility] as [facility] 12/[facility]/17 0147 Hydralazine HCl 100 MG TABLET 1 TAB PO TID HTN (Reported) Entered as Reported by Sanjuanita Licona on 11/26/17 0453 Insulin Aspart (Novolog) 100 UNIT/ML CARTRIDGE 3 U SC TID DM (Reported) Entered as Reported by Roberto Kwon on 12/31/17 1126 Last Taken: Unknown Dose at an unknown date and time Insulin Detemir (Levemir) 100 UNIT/ML VIAL 7 U SC AT BEDTIME DM (Reported) Entered as Reported by Roberto Kwon on 12/31/17 1125 Last Taken: Unknown Dose at an unknown date and time Isosorbide Mononitrate (Isosorbide Mononitrate ER) 30 MG TAB.ER.24H 1 TAB PO DAILY Heart (Reported) Entered as Reported by Roberto Kwon on 12/31/17 1125 Levothyroxine Sodium (Synthroid) 75 MCG TABLET 1 TAB PO DAILY Thyroid ( Reported) Entered as Reported by Roberto Kwon on 12/31/17 1152 Pantoprazole Sodium 20 MG TABLET.DR 1 TAB PO DAILY ACID REFLUX (Reported) Entered as Reported by Sanjuanita Licona on 11/26/17 4026 Sertraline HCl (Zoloft) 100 MG TABLET 1 TAB PO DAILY DEPRESSION (Reported) Entered as Reported by Sanjuanita Licona on 11/26/17 9353 (Brandon RIVERA,Lizzy) Past History Past Medical History Neurological: NONE EENT: NONE Cardiovascular: CHF, hypertension Respiratory: NONE Gastrointestinal: NONE Hepatic: NONE Renal: KIDNEY FAILURE Musculoskeletal: NONE Psychiatric: anxiety, depression Endocrine: diabetes, hypothyroidism Blood Disorders: anemia Cancer(s): NONE 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 Physical Limitations (Interventions): None noted Psychiatric Treatment History Psych Treatment Psychiatric Treatment Yes Inpatient Treatment Yes Outpatient Treatment Yes Location of Treatment [facility] Reason for Treatment irritability, depression Dates of Treatment various Response to Treatment pt. continues to be irriable and to claim that he is not prescribed the right medication Diagnosis by History: Unknown Substance Use/Abuse History Drug Use/Abuse Substances Used/Abused Yes Substance Used/Abused Marijuana First Use unknown Last Used today How much used/taken 2-4 blunts a day 2x a day daily How often daily For how long unknown, quite some time Route of use smoke Substance Abuse Treatment Substance Abuse Treatment Past Substance Abuse TX No Inpatient Treatment No Outpatient Treatment No Location of Treatment None Reason for Treatment n/a Dates of Treatment n/a Response to Treatment n/a client has no desire to stop using, he says it helps his nausea (Shelly Gaytan LCSW) Current Mental Status Mental Status Orientation: Person, Place, Situation Affect: Hopeless, Lonely Speech: WNL Neuro-vegetative: Appetite Decreased, Concentration Poor, Loss of Interest, Sleep Disturbance, irritable Appearance Appearance- Dress/Hygiene: in hospital gown, slightly dishevelled, with glasses and messy balding hair Behaviors Thought Process: WNL Thought Content: WNL Memory: WNL Insight: Poor SI/HI Risk Assessment Past Suicidal Ideation/Attempts Yes Current Suicidal Ideation/Att No Past Homicidal Ideation/Att: No Current Homicidal Ideation/Attempts No Degree of Intent: None, Thoughts/No Intent Danger To: None, no intent, just wants "right meds" Gravely Disabled: Lack of Insight, Poor Impulse Control, Poor Judgment Risk Factors: chronic/serious med cond., high anxiety/distress, substance abuse, isolate/no social support, male Lethality Ratin PTSD Checklist PTSD Done? patient declined ED Management Sitter: Yes Restraints: No (Shelly Gaytan LCSW) DSM5/PS Stressors/Medical Prob Diagnosis' (DSM 5, Stressors, Medical): F32.2 Major Depressive Disorder F60.9 Unspecified Personality Disorder r/o Paranoid personality Disorder Current GAF: 30 (Shelly Gaytan LCSW) Departure Disposition Psych Medical Clearance Date: 02/23/18 Medically Cleared at: 1999 Time Started: 1999 Time Ended: 2024 Psychiatrist Consulted: Lizzy Taylor MD Disposition Established: 02/23/18 Time Disposition Established: 834 Plan for Disposition - Modality: H/O and arrange OP appointment in the morning Facility: [facility] Rationale for Disposition: Reviewed case with Dr. Taylor. Pt. appears to be a personality disordered client who would benefit from additional psychiatric medications. He needs to tolerate others "perceived incompetence" long enough to become engaged in treatment. He should be held overnight and an appointment with [facility] arranged in the morning to complete his unfinished intake. From the Outpatient records, he had an intake on 02/21 that could not be completed. He was scheduled to return to OPS on 02/23 but called and swore on the phone and hung up on staff. He did not attend his intake at 2 pm. Completed CSSRS, risk factors include suicidal thoughts, suicidal intent without plan, needing a kidney transplant, isolation, prev. psych treatments, hopeless, noncompliant, not receiving treatment, hopeless, MDD, agitation, chronic physical pain, aggressive behavior toward others. Protective factors include engaged with kidney and SW at [facility], indentifies reasons for living. Additional Instructions: Hold over and make appointment with [facility] in mrtrupti to complete intake. Referrals Patient Has No Primary Care Dr (PCP/Family) (Shelly Gaytan LCSW)
--- NOTE | 2018-02-24 08:08 | ED PSY CRISIS COLLATERAL NOTE ---
Collateral Note Collateral Note Family/Inform/Dominick Contacts: Recieved call back from Carissa Pozo from [facility]. She reports that pt has burned several bridges in the mental health world. She has been working with him for a little over two years and came to [facility]'s clinic to be put on the kidney transplant list. She reports patient has been medically stable but psychiatrically unstable. The pt is currently inactive on their list due to his psychiatric issues. Called Carissa Pozo ([phone]) with update. Informed her patient will be discharged from ED. He has a PCP appointment at [facility] on Tuesday and intake w/ Care March 09. Carissa provided pt's [employer] phone number to update him as they do not work in same office, as he is a community Nephroloigst. Crisis left message with secrtary at Dr. Mednez's offfice informing the office of his ED presentation, follow up appointments, and rx's sent.
[2018-02-24] MEDS ORDERED: CLONIDINE HCL0.1 MG PO (11:01)
[2018-02-24 11:14] VITALS: BP 170/90
== END 2018-02-24 11:22 ==
LOC: ERH 11:31
PROVIDERS: Emergency Medicine
DX: F32.9 Major depressive disorder, single episode, unspecified (principal); D53.9 Nutritional anemia, unspecified; N28.9 Disorder of kidney and ureter, unspecified; E11.9 Type 2 diabetes mellitus without complications
CPT/HCPCS: 80307; 93005; 93010; 96372; G0463; G0480; J1815

== ENCOUNTER 2018-04-03 17:31 | Inpatient (IN) | payer OTHER, MEDICARE ==
[~2018-04-03] VITALS: Ht 175.3 cm; Wt 73.1 kg
[~2018-04-03 17:31] MED LIST changes: +CLONIDINE HCL0.1 MG PO
--- NOTE | 2018-04-03 18:14 | ED SKIN/ALLERGY COMPLAINT ---
History of Present Illness General Chief Complaint: Lower Extremity Problems Stated Complaint: POSSIBLE TOE INFECTION L GREAT TOE Source: patient, old records, Epic Exam Limitations: no limitations Vital Signs & Intake/Output Vital Signs & Intake/Output Vital Signs Date Time Temp Pulse Resp B/P B/P Pulse O2 O2 Flow FiO2 Mean Ox Delivery Rate 04/03 1955 98.3 112 18 162/86 94 Room Air 04/03 1735 Room Air Room Air 04/03 1735 98.8 79 22 162/72 95 Room Air Allergies Coded Allergies: lisinopril (TONGUE SWELLING 04/03/18) Reconcile Medications Amlodipine Besylate (Norvasc) 10 MG TABLET 10 MG PO DAILY HTN . Aspirin (Ecotrin*) 81 MG TABLET.DR 1 TAB PO DAILY HEART (Reported) Atorvastatin Calcium (Lipitor) 80 MG TABLET 1 TAB PO DAILY Heart (Reported) Carvedilol 25 MG TABLET 25 MG PO BID HTN . Cholecalciferol (Vitamin D3) (Vitamin D-3) 2,000 UNIT CAPSULE 2,000 MG PO DAILY SUPPLEMENT (Reported) Clonidine HCl 0.1 MG TABLET 1 TAB PO Q8 PRN ANXIETY OR INSOMNIA Clonidine Tts-1 (Catapres-Tts 1) 0.1 MG/24 HOUR PATCH.TDWK 1 PATCH TOP QSAT BP (Reported) Cyanocobalamin (Vitamin B-12) (B-12) 1,000 MCG TABLET 1 TAB PO DAILY SUPPLEMENT (Reported) Furosemide (Lasix) 40 MG TABLET 1 TAB PO DAILY EDEMA (Reported) Hydralazine HCl 100 MG TABLET 1 TAB PO TID HTN (Reported) Insulin Aspart (Novolog) 100 UNIT/ML CARTRIDGE 3 U SC TID DM (Reported) before meals Insulin Detemir (Levemir) 100 UNIT/ML VIAL 7 U SC AT BEDTIME DM (Reported) Isosorbide Mononitrate (Isosorbide Mononitrate ER) 30 MG TAB.ER.24H 1 TAB PO DAILY Heart (Reported) Levothyroxine Sodium (Synthroid) 75 MCG TABLET 1 TAB PO DAILY Thyroid ( Reported) Pantoprazole Sodium 20 MG TABLET.DR 1 TAB PO DAILY ACID REFLUX (Reported) Sertraline HCl (Zoloft) 100 MG TABLET 1 TAB PO DAILY DEPRESSION (Reported) Triage Note: PT BIBA TO ER RM 5 C/C POSSIBLE INFECTION L GREAT TOE. STATES STARTED WITH REDNESS TO AREA ON SATURDAY. HAS BLE SWELLING +1, WHEN ASKED IF THIS IS NORMAL RESPONDS "IT COMES AND GOES". PMHX INCLUDES KIDNEY FAILURE, HTN, DM, DEPRESSION AND ANXIETY. 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 REPORTS HAS HAD SURGERIES "YEARS AGO" BUT WILL NOT ELABORATE FURTHER. REFUSED TO ANSWER QUESTIONS ABOUT DRUG USE HISTORY STATING "NONE OF YOUR BUSINESS". EMS STATES PATIENT WAS INTERMITTENTLY NOT RESPONDING TO THEIR QUESTIONING AND ARGUEMENTATIVE AT TIMES. HE CONTINUES TO BE THE SAME IN THE ER. DR [place] INTO EVALUATE PATIENT ON ARRIVAL TO ER. Triage Nurses Notes Reviewed? yes Onset: Last week Duration: constant, continues in ED, getting worse Timing: recent history Severity: moderate, severe Location: feet Possible Factors: no cause identified Associated Symptoms: change in skin texture, edema, numbness, rash, swelling/ mass/lumps HPI: 1 week prior to admission patient reports increasing pain and swelling to the great toe of the left foot worse with ambulation and weightbearing. There is also skin breakdown over the plantar surface of the toe with chronic nail changes of both feet. There has been no fever chills nausea vomiting diarrhea abdominal pain chest pain shortness breath headache dysuria bleeding. (Jaxson Canada MD) Past History Travel History Traveled to [place] past 21 day No Medical History Any Pertinent Medical History? 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 No (Jaxson Canada MD) Review of Systems Review of Systems Constitutional: Reports: no symptoms. EENTM: Reports: no symptoms. Respiratory: Reports: no symptoms. Cardiovascular: Reports: no symptoms. GI: Reports: no symptoms. Genitourinary: Reports: no symptoms. Musculoskeletal: Reports: see HPI, joint pain, joint swelling. Skin: Reports: see HPI, rash. Neurological/Psychological: Reports: no symptoms. Hematologic/Endocrine: Reports: no symptoms. Immunologic/Allergic: Reports: no symptoms. All Other Systems: Reviewed and Negative (Jaxson Canada MD) Physical Exam Physical Exam General Appearance: well developed/nourished, alert, awake, anxious, moderate distress Head: atraumatic, normal appearance Eyes: Bilateral: normal appearance, PERRL, EOMI. Ears, Nose, Throat: normal pharynx, normal ENT inspection, hearing grossly normal Neck: normal inspection, supple, full range of motion, no midline tenderness Respiratory: normal breath sounds, chest non-tender, no respiratory distress, quiet respiration, lungs clear Cardiovascular: regular rate/rhythm, normal peripheral pulses, norml femoral pulses equa Peripheral Pulses: 4+ carotid (R), 4+ carotid (L) Gastrointestinal: normal bowel sounds, soft, non-tender, no organomegaly Back: normal inspection, normal range of motion, no vertebral tenderness Extremities: normal inspection, normal capillary refill, normal range of motion, pedal edema Neurologic/Psych: no motor/sensory deficits, awake, alert, oriented x 3, normal gait, normal mood/affect, braid cutter II-XII nml as tested Reflexes: 2+: bicep (R), bicep (L). Skin: warm/dry, rash Skin Problem Location: lower extremities (left great toe) Skin Problem Character: swelling, tenderness, thickening, warm Lymphatic: no anterior cervical fermín (Jaxson Canada MD) Progress Differential Diagnosis: abscess/cellulitis, allergic reaction, contact dermatitis Plan of Care: Orders Procedure Date/time Status Heart Healthy Diet 04/04 B Active Patient Data 04/03 1951 Active Patient Data 04/03 1930 Active ED Holding Orders 04/03 1914 Active Admit to inpatient 04/03 1914 Active Vital Signs 04/03 1914 Active Code Status 04/03 1914 Active C-REACTIVE PROTEIN 04/03 183 Complete Add-on Test (ER Only) 04/03 180 Active BLOOD CULTURE 04/03 1747 Active HIGH SENSITIVITY CRP 04/03 1747 Complete WESTERGREN SED RATE 04/03 1747 Active DEPAKOTE LEVEL 04/03 1747 Complete COMPREHENSIVE METABOLIC PANEL 04/03 1747 Complete CBC WITHOUT DIFFERENTIAL 04/03 1747 Active Laboratory Tests 04/03/18 183: Anion Gap 13, Estimated GFR 12 L, BUN/Creatinine Ratio 19.8, Glucose 408 H, Calcium 8.4, Total Bilirubin 0.3, AST 21, ALT 32, Alkaline Phosphatase 79, C- Reactive Prot, Quant 6.7 H, C-React Prot High Sens > 15.0 H, Total Protein 6.3 , Albumin 3.5, Globulin 2.8, Albumin/Globulin Ratio 1.3, CBC w Diff NO MAN DIFF REQ, RBC 2.75 L, MCV 85.7, MCH 29.3, MCHC 34.2, RDW 14.1, MPV 7.1 L, Gran % 81.3 H, Lymphocytes % 7.7 L, Monocytes % 7.8, Eosinophils % 2.7, Basophils % 0.5, Absolute Granulocytes 8.2 H, Absolute Lymphocytes 0.8 L, Absolute Monocytes 0.8 H, Absolute Eosinophils 0.3, Absolute Basophils 0.1, ESR Westergren Pending, Valproic Acid 24.5 L Microbiology 04/03 1833 BLOOD: Blood Culture - RECD 04/03 1747 BLOOD: Blood Culture - ORD Diagnostic Imaging: Viewed by Me: Radiology Read. Discussed w/RAD: Radiology Read. Hand-Off Endorsed To: Robbie RIVERA,[place] Endorsed Time: 1899 Pending: labs, Xray (Jaxson Canada MD) Departure Departure Disposition: STILL A PATIENT Condition: Stable Clinical Impression Primary Impression: Cellulitis Referrals: Patient Has No Primary Care Dr (PCP/Family) Departure Forms: Customer Survey General Discharge Information Admission Note Spoke With: Spencer Mac MD Documentation of Exam: Documentation of any treatments & extenuating circumstances including Concerns Regarding Discharge (functional status, medication knowledge or non-compliance, living conditions, etc.) that warrant an admission rather than observation: IV antibiotics follow cultures serial lab exam endocrinology evaluation revealed evaluation medication adjustment continuing care discharge planning (Jaxson Canada MD)
[2018-04-03 19:00] LABS: ABSOLUTE BASOPHIL COUNT 0.1 /CUMM (0.0-0.2); ABSOLUTE EOSINOPHIL COUNT 0.3 /CUMM (0.0-0.7); ABSOLUTE GRANULOCYTE CT 8.2 /CUMM (1.4-6.5); ABSOLUTE LYMPH COUNT 0.8 /CUMM (1.2-3.4); ABSOLUTE MONOCYTE COUNT 0.8 /CUMM (0.10-0.60); BASOPHIL % 0.5 % (0.0-2.0); EOSINOPHIL % 2.7 % (0-5); GRANULOCYTE % 81.3 % (42.2-75.2); HEMATOCRIT 23.6 % (42-52); MEAN CORPUSCULAR HGB 29.3 PG (27.0-31.0); MEAN CORPUSCULAR HGB CONC 34.2 G/DL (33.0-37.0); MEAN CORPUSCULAR VOLUME 85.7 FL (80.0-94.0); MEAN PLATELET VOLUME 7.1 FL (7.4-10.4); PLATELET COUNT 211 /CUMM (130-400); RBC DISTRIBUTION WIDTH 14.1 % (11.5-14.5); RED BLOOD CELL CT 2.75 /CUMM (4.70-6.10); WHITE BLOOD CELL COUNT 10.1 /CUMM (4.8-10.8)
--- NOTE | 2018-04-03 19:55 | History & Physical ---
Kiran Mera 04/03/181953: General Information and HPI MD Statement: I have seen and personally examined COLBY NOLASCO and documented this H&P. The patient is a 52 year old M who presented with a patient stated chief complaint of [L great toe swelling redness warmth]. Source of Information: patient, old records History of Present Illness: Colby Nolasco is a 52M with a PMH of hypertension, poorly controlled insulin- dependent diabetes mellitus, CHF unsure of last ejection fraction, ESRD with a left arm fistula although patient states that he has not had dialysis yet, hypothyroidism presents with left great toe swelling, redness, pain 2 days. During patient interview, mood labile, sometimes became hostile or refused to answer questions. Patient states that his toe started swelling roughly 2-3 days ago, unsure of when he first noticed it. States that it is 10 out of 10 pain, radiates up the left leg, and is associated with swelling of the left leg as well. Does not remember any recent trauma. He had a similar episode in the past "many years ago "and saw a credit collector who did I&D for infected tissues without amputation or diagnosis of osteomyelitis. Denies any fevers/chills/night sweats , does not remember if he punctured or hit his toe. Denies chest pain/shortness of breath/abdominal pain/urinary symptoms. States that his legs have always been swollen, but the left is more swollen than the right now. Patient states that he has not been compliant with his insulin as he does not care anymore. States that he has lost all of his money due to the all these medical conditions would just like to get it over with. States that he no longer follows up with a die cast operator as "they asked many questions, and they should only be focused on the heart and not all these other stupid things that they talked about". States that he is supposed to see his intellectual property lawyer somewhat soon, although does not know the exact date. Also states that his primary care recently started him on Depakote 500 mg approximately 2 weeks ago, and decreased his Zoloft from 100 mg to 50 mg. Past medical history: As above Allergies: CHAD inhibitors Surgeries: Distant history of incision and drainage of the toe Social history: Smokes "when I have the money ", has been drinking alcohol, 10 shots a day last drank on Tuesday, smokes marijuana recreationally Healthcare maintenance: As above, poor compliance ROS Positive for: Redness, Warmth, Swelling, LE edema Negative for: Fevers/Chills/Night Sweats/Chest Pain/Abdominal Pain/N/V/D/Urinary Symptoms Allergies/Medications Allergies: Coded Allergies: lisinopril (TONGUE SWELLING 04/03/18) Past History Travel History Traveled to [place] past 21 day No Medical History Neurological: NONE EENT: NONE Cardiovascular: CHF, hypertension Respiratory: NONE Gastrointestinal: NONE Hepatic: NONE Renal: KIDNEY FAILURE HAS FISTULA L ARM Musculoskeletal: NONE Psychiatric: anxiety, depression Endocrine: diabetes, hypothyroidism Blood Disorders: anemia Cancer(s): NONE 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 Exam & Diagnostic Data Last 24 Hrs of Vital Signs/I&O Vital Signs Date Time Temp Pulse Resp B/P B/P Pulse O2 O2 Flow FiO2 Mean Ox Delivery Rate 04/04 0006 180/64 04/04 0005 180/64 04/04 0000 Nasal 2.0L Cannula 04/03 2343 180/64 04/03 2031 Room Air 04/03 195 98.3 112 18 162/86 94 Room Air 04/03 1735 Room Air Room Air 04/03 173 98.8 79 22 162/72 95 Room Air Intake & Output 04/04 0800 08 0000 04/03 1600 Intake Total 240 Output Total Balance 240 Intake, Oral 240 Patient 160 lb Weight Weight Reported by Patient Measurement Method Physical Exam General Appearance Alert, Oriented X3, No Acute Distress, labile mood Skin redness, warmth, tenderness to medial aspect of L great toe; on plantar surface of toe there is skin breakdown; redness extends from dorsum of great toe to MTP joint, 2nd digit. Skin Temp/Moisture Exam: Warm/Dry Cardiovascular Regular Rate, Normal S1, Normal S2 Lungs wheeze RUL Abdomen Soft, No Tenderness Neurological Normal Speech, Sensation Intact Extremities b/l edema L>R Body Front and Back (Adult) 1) erythema, tenderness, swelling Last 24 Hrs of Labs/Rehan: Laboratory Tests 04/03/182119: Urine Color YEL, Urine Clarity CLEAR, Urine pH 6.0, Ur Specific [place] 1.020, Urine Protein 100 H, Urine Ketones NEG, Urine Nitrite NEG, Urine Bilirubin NEG, Urine Urobilinogen 0.2, Ur Leukocyte Esterase NEG, Ur Microscopic SEDIMENT EXAMINED, Urine RBC RARE, Urine WBC RARE, Ur Epithelial Cells RARE, Urine Bacteria RARE H, Urine Hemoglobin TRACE-INTACT H, Urine Glucose >=1000 H 04/03/182119: Urine Opiates Screen < 100, Methadone Screen < 40, Barbiturate Screen < 60, Ur Phencyclidine Scrn < 6.00, Amphetamines Screen < 100, U Benzodiazepines Scrn < 85, Urine Cocaine Screen < 50, Urine Cannabis Screen > 80.00 H, Urine Osmolality 368, Ur Random Creatinine 32.1, Ur Random Sodium 50, Ur Random Potassium 26.2, Fraction Sodium Excret 6.2 H 04/03/181832: Anion Gap 13, Estimated GFR 12 L, BUN/Creatinine Ratio 19.8, Glucose 408 H, Hemoglobin A1c Pending, Serum Osmolality 327 H, Calcium 8.4, Magnesium 1.2 L, Total Bilirubin 0.3, AST 21, ALT 32, Alkaline Phosphatase 79, Troponin I 0.03, C -Reactive Prot, Quant 6.7 H, C-React Prot High Sens > 15.0 H, Total Protein 6.3, Albumin 3.5, Globulin 2.8, Albumin/Globulin Ratio 1.3, Vitamin B12 > 1000 H, Folate > 20.0 H, CBC w Diff NO MAN DIFF REQ, RBC 2.75 L, MCV 85.7, MCH 29.3 , MCHC 34.2, RDW 14.1, MPV 7.1 L, Gran % 81.3 H, Lymphocytes % 7.7 L, Monocytes % 7.8, Eosinophils % 2.7, Basophils % 0.5, Absolute Granulocytes 8.2 H, Absolute Lymphocytes 0.8 L, Absolute Monocytes 0.8 H, Absolute Eosinophils 0.3, Absolute Basophils 0.1, ESR Westergren 32 H, Valproic Acid 24.5 L, Serum Alcohol < 10.0 Microbiology 04/03 1945 BLOOD: Blood Culture - RECD 04/03 1833 BLOOD: Blood Culture - RECD Assessment/Plan Assessment: Colby Nolasco is a 52M with a PMH of hypertension, poorly controlled insulin- dependent diabetes mellitus, CHF unsure of last ejection fraction, ESRD with a left arm fistula although patient states that he has not had dialysis yet, hypothyroidism presents with left great toe swelling, redness, pain 2 days Problem list/Assessment/Hospital Course: #L great toe cellulitis, pending r/o osteomyelitis #ESRD w/ AV fistula under dialysis #Pulmonary congestion 2/2 questionable CHF (unknown EF) #Chronic normacytic anemia 2/2 ESRD #Chronic BLE swelling 2/2 decreased renal function #Hyponatremia #PMH of ESRD s/p AV fistula on L Arm in 2017, IDDM non-compliant to insulin, CHF ??, HypoTSH #L great toe cellulitis r/o osteo -NPO for possible OR in the morning -Pending podiatry consult in AM -On Vanco and Ceftazadime for pseudomonal coverage given pt diabetic neuropathy. -Per pharmacy, vanco dosing given renal issues is 1g; check random vanco level 24 hours after first dose -If >20, can repeat random vanco level in 12 hours and dose 1g if <20 -If <20, can give 1g Vanco and recheck random in 24 hours -Ceftazadime is 500mg q24hrs per pharmacy -MRI not available tomorrow, but if no OR intervention would order for tuesday to r/o osteo -F/u cultures -Given LE swelling, will get venous doppler in AM to r/o DVT -Check uric acid to r/o GOUT #ESRD w/ AV fistula on L arm w/o dialysis per pt -Nephro consult in AM #Pulm congestion -CXR shows pulm congestion -40mg IV lasix given once. -Continue home meds of lasix 40mg qd PO in AM -Pending ECHO in the AM; consider cardio consult #Electrolyte abnormalaties -Check serum/urine OSM/lytes -Replete Mg w/ MGSulfate IVx2gm -F/u BEP in morning #Alcohol use -Serum <10 on admission, but will keep on CIWA w/ ativan PRN #Poorly controlled/noncompliant IDDM -ENdo consult in AM; pt refused HbA1c lab draw so will obtain with 6am labs -ISS #Financial issues -Consider SW/Case management input to figure out if pt qualifies for [employer] insurance DVT PPx - ALPS only as pt may have OR intervention NPO IV access to R arm; no L arm lab draws or access 2/2 AV fistula DNR/DNI Dispo As Ranked By This Provider Problem List: 1. Cellulitis 2. Diabetes 3. Chronic anemia Core Measures/Misc (05/15) Acute Coronary Syndrome ACS Diagnosis: No Congestive Heart Failure Congestive Heart Failure Diagnosis No Cerebrovascular Accident CVA/TIA Diagnosis: No VTE (View Protocol) VTE Risk Factors Age>40 No Mechanical VTE Prophylaxis d/t N/A MechProphylax Ordered No VTE Pharm Prophylaxis d/t Surgical Contraindication (potential procedure in AM) Sepsis (View protocol) Sepsis Present: No If YES complete Sepsis Event Note If YES complete Sepsis Event Note Yaima Upton 04/03/182004: General Information and HPI Allergies/Medications Home Med list Amlodipine Besylate (Norvasc) 10 MG TABLET 10 MG PO DAILY HTN . Aspirin (Ecotrin*) 81 MG TABLET.DR 1 TAB PO DAILY HEART (Reported) Atorvastatin Calcium (Lipitor) 80 MG TABLET 1 TAB PO DAILY Heart (Reported) Carvedilol 25 MG TABLET 25 MG PO BID HTN . Cholecalciferol (Vitamin D3) (Vitamin D-3) 2,000 UNIT CAPSULE 2,000 MG PO DAILY SUPPLEMENT (Reported) Clonidine HCl 0.1 MG TABLET 1 TAB PO Q8 PRN ANXIETY OR INSOMNIA Clonidine Tts-1 (Catapres-Tts 1) 0.1 MG/24 HOUR PATCH.TDWK 1 PATCH TOP QSAT BP (Reported) Cyanocobalamin (Vitamin B-12) (B-12) 1,000 MCG TABLET 1 TAB PO DAILY SUPPLEMENT (Reported) Divalproex Sodium (Depakote) 500 MG TABLET.DR 1 TAB PO DAILY Mood (Reported) Furosemide (Lasix) 40 MG TABLET 1 TAB PO DAILY EDEMA (Reported) Hydralazine HCl 100 MG TABLET 1 TAB PO TID HTN (Reported) Insulin Aspart (Novolog) 100 UNIT/ML CARTRIDGE 3 U SC TID DM (Reported) before meals Insulin Detemir (Levemir) 100 UNIT/ML VIAL 7 U SC AT BEDTIME DM (Reported) Isosorbide Mononitrate (Isosorbide Mononitrate ER) 30 MG TAB.ER.24H 1 TAB PO DAILY Heart (Reported) Levothyroxine Sodium (Synthroid) 75 MCG TABLET 1 TAB PO DAILY Thyroid ( Reported) Pantoprazole Sodium 20 MG TABLET. 1 TAB PO DAILY ACID REFLUX (Reported) Sertraline HCl (Zoloft) 100 MG TABLET 0.5 TAB PO DAILY DEPRESSION (Reported) Core Measures/Misc (05/15) Sepsis (View protocol) If YES complete Sepsis Event Note If YES complete Sepsis Event Note Resident Review Statement Resident Statement: examined this patient, discussed with resident intern, agreed with resident intern, discussed with family, reviewed EMR data (avail), discussed with nursing , discussed with case mgmt, reviewed images, amended to note Other Findings: Mr. Nolasco is a 52yo M w/ PMH of ESRD s/p AV fistula on L Arm in 2016, IDDM, CHF?? w/o Echo in our system, HypoTSH, BIBA to ER w/ L great toe swelling/ redness getting worse w/ ambulation and weight bearing, on top of BLE swelling + 1, which appeared to be chronic as well as he was recently admitted to [facility] in 12/2017. Patient appeared to be frustrated due to insurance issues and was not entirely cooperative on giving history, however claimed that he had this L great toe swelling x 2 days, and swelling of entire LLE compared to the right, with tenderness "all over his left leg". He also stated he did not know why there was some skin breakdown of his L great toe. He had similar episode in the past around 3 [address] Mensah the credit collector who did I&D for infected tissues without amputation or diagnosis of osteomyelitis. He stated the pain was 10/10. Rest of history as above for details. He is supposed to see Dr. Zazueta for ESRD care on coming Tuesday. He denied any use of fistula for dialysis in the past. Patient stated that he was not taking insulin at home although he knew he is supposed to. During our clinical interaction, patient denied recent travel/sick contacts, fever/lightheadedness/diaphoresis/night sweat/weight change/cough/SOB/Chest Pain /Palpitation/Abdominal pain/bowel movement or urinary abnormality, or other skin /musculoskeletal/neurological/mood disorders, or dietary/appetite change. -Smoking: occassional smoker -Alcohol: avaerage 10 drinks/week, however last drink was on Saturday 03/31 -Rec Drugs: "I do not want talk about it" -Outpt physicians: Dyehouse Worker Dr. Zazueta, PCP, did not see any diabetes doctor or others On admission, Vitals: Stable afebrile, HR 79-112, RR 22-18, BP 1162/86, 94% RA Physical exam as above, pertinent findings including L great toe swelling up to metatasal region, with BLE edematous swelling however L>R (2+ > 1+ pitting edema ), with slight elevation of skin temp on LLE, and tender to palpation. Skin break down noticed on the bottom of L great toe, dark necrotic in appearance however dried without active discharge or pus. Strength/sensations grossly intact with palpable DP pulses in BLEs. Lungs sounded BL wheezing -CBC: No leukocytosis, chronic normacytic anemia 8.1/23.6, PLT 211, -CMP: Hyponatremia 130, CR 5.2 elevated from 4.0ish baseline. CRPHS >15 -No previous microbiology on file -Misc: Valporic acid 24.5 -CXR PA: Interval development of diffuse interstitial prominence likely sales and merchandising representative of moderate vascular congestion with minimal right pleural fluid. -EKG: NSR w/o significant ST-T abnormalities, unchanged from previous. -Last Echo: None in our system -Interventions in ER: Vanco/Ceftriaxone x 1 Problem list/Assessment/Hospital Course: #L great toe cellulitis, pending r/o osteomyelitis #ESRD w/ AV fistula under dialysis #Pulmonary congestion 2/2 questionable CHF (unknown EF) #Chronic normacytic anemia 2/2 ESRD #Chronic BLE swelling 2/2 decreased renal function #Hyponatremia #PMH of ESRD s/p AV fistula on L Arm in 2017, IDDM non-compliant to insulin, CHF ??, HypoTSH, - Admit to general medcine - Vitals per protocol, monitor strict I&O per protocol. - Novolin SS/AccuChek q6 for NPO and possible OR in the AM - PT/OT in the AM per primary team - Check Serum/urine OSM/lytes/HbA1c/uric acid. Patient is at baseline hypoNa. - Would continue ABx including vancomycine + GNR/pseudomonas coverage as patient is also diabetic. Patient's ESRD would warrant close monitoring of dosing. - Recommende to check random Vanco level 24hr s/p first dose, ordered for 1800 on 04/04. If >20, would not dose vanco, and repeat Vanco random level at 0600 on - If <20, would dose again w/ 1gm Vanco - Discussed with ATT, that would give Ceftazidime for GNR/Pseudomonas coverage due to renal function. - Per pharmacy, would dose Ceftaz 500mg q24. - Would also give Lasix 40mg IV x 1 due to incidental findings of pulm congestion on CXR. Continued home meds of Lasix 40mg qd PO in the AM - Pending Echo in the AM. May consider cardiology per primary team in the AM - Pending Venous Doppler in the AM to rule out any DVT. - Replete Mg w/ MgSulfate IV x 2gm - Serum Alcohol <10, however would keep on CIWA protocol overnight w/ IV ativan PRN in case of withdrawal/DT - Positive Cannabis screening. - Consider ID consult in the AM - Pending podiatry consult in the AM, physician consult order for Dr. Mensah was put in. - Pending nephro consult in the AM, patient planned to see Dr. Zazueta on Tuesday. - Consider Endo consult in the AM. Inadequate lab sample for HbA1c testing, and patient refused lab drawn for the night. Will recheck in the AM. - Patient may need MRI to rule out osteomyelitis, however may not be available for Tuesday. Otherwise, OR wound culture could be alternative - Will keep NPO overnight for possible OR event in the AM - Pending cultures including blood - Pain per pathway DVT prophylaxis ALPS only pending possible procedure NPO IV Access: Peripheral IV DNR/DNI (Per patient, "Throw me in the dumpster if anything happens") Spencer Mac MD 04/04/18 0254: Core Measures/Misc (05/15) Sepsis (View protocol) If YES complete Sepsis Event Note If YES complete Sepsis Event Note Attending MD Review Statement Attending Statement Attending MD Statement: examined this patient, discuss w/resident/PA/GLOVE CUTTER, agreed w/resident/PA/GLOVE CUTTER Attending Assessment/Plan: Patient is seen and examined independently by me. Care plan discussed with certified medical aide and resident. I agree with the physical exam findings and plan of care as outlined above with the following changes and additions. In summary, this is a 52 yo male with history of CRF approaching end stage s/p left arm AVF, IDDM (non compliant with home insulin), HTN, CHF, chronic hyponatremia, hypothyroidism, presented with left great toe swelling and redness for 2 days. Patient is a poor historian. He has a superficial ulcer on the plantar surface of left great toe but he does not know how long he had it or what causes it. He has pain from left great toe extending up to the foot. However on exam, he has diffused tenderness on the whole left leg. He has chronic bilateral lower extremities edema but states his LLE has increased edema for unknown period of time. He denies fever, chills, trauma/injury, chest pain, SOB, productive cough, abdominal pain, nausea, vomiting, diarrhea or dysuria. He is a chronic smoker and used marijuana. He states he usually has 10 drinks daily and last drink was 2 days ago. In the ED, patient is afebrile. WBC 10.1. CRP >15. ESR 32. K 4.8. Mag 1.2, Na 130. BUN 103, Cr 5.2. EtOH <10. Troponin 0.03. CXR shows increased vascular congestion. EKG shows NSR at [address]-T changes. Patient got vanco 1 g IV and ceftriaxone 1 g IV in the ED. On my exam, heart: regular, S1S2. Lungs: mild bibasal crackles. Abdomen: bowel sound present, soft, NTND. Extremities: 1-2+ RLE edema, 2+ LLE edema. Left great toe with superficial ulcer/skin break on the plantar surface with surrounding erythema and extending to MTP joint and 2nd toe. There is tenderness on the entire LLE as per patient. Patient is admitted to [facility] for left great toe cellulitis. Check cultures. Start vanco and ceftaz. Check MRI of left foot to r/o osteomyelitis. Given that he has asymmetry leg edema with left leg tenderness, check Doppler of lower ext to r/o DVT. CIWA monitoring with Ativan prn. Start thiamine and folic acid. Supplement Mag. Follow lytes. He has signs of fluid overload on exam and CXR, give Lasix 40 mg IV x1. Continue with home dose of Lasix since we are not sure how compliance he is with his home meds. Check echocardiogram. Signed: Spencer Mac MD, FACP
--- NOTE | 2018-04-03 22:15 | RADIOLOGY REPORT ---
EXAMINATION: CHEST 2 VIEWS CLINICAL INFORMATION: Acute pulmonary edema. COMPARISON: 01/11/2018. TECHNIQUE: PA and lateral views of the chest were obtained. FINDINGS: The cardiac silhouette is stable. The mediastinal and hilar contours are unremarkable. There is diffuse interstitial prominence with thickening of the right minor fissure. There are no consolidations. The osseous structures are stable. IMPRESSION: Interval development of diffuse interstitial prominence likely sales representative aircraft of moderate vascular congestion with minimal right pleural fluid.
[2018-04-03] MEDS ORDERED: DEPAKOTE500 M1 PO (22:50)
[2018-04-03 23:43] VITALS: BP 180/64
[2018-04-04] VITALS (8 sets, daily range): BP systolic 124–190; BP diastolic 78–98
--- NOTE | 2018-04-04 06:35 | PN- Housestaff ---
Cayden Horner 04/04/18 0635: Subjective Follow-up For: Left great toe cellulitis ESRD Anemia Hyponatremia Hypothyroidism Diabetes mellitus Subjective: I visited the patient's morning. He was irritable and not cooperating with the questions asked. He mentioned that he had pain in his left lower extremity. Nurses reported he was not compliant with his blood sugar check and taking his medications. He also had a blood pressure 190/80 this morning. I asked him to give the morning blood pressure medication sooner. Review of Systems Constitutional: Reports: see HPI. Objective Last 24 Hrs of Vital Signs/I&O Vital Signs Date Time Temp Pulse Resp B/P B/P Pulse O2 O2 Flow FiO2 Mean Ox Delivery Rate 04/04 1008 72 18 124/78 04/04 1008 72 18 124/78 93 Room Air 04/04 0800 72 18 178/90 04/04 0800 95 Nasal 2.0L Cannula 04/04 0759 72 18 178/80 95 Nasal 2.0L Cannula 04/04 0629 97.7 69 18 190/80 92 04/04 0006 180/64 04/04 0005 180/64 04/04 0000 Nasal 2.0L Cannula 04/03 2343 180/64 04/03 2031 Room Air 04/03 1955 98.3 112 18 162/86 94 Room Air 04/03 1735 Room Air Room Air 04/03 1735 98.8 79 22 162/72 95 Room Air Intake & Output 04/04 1600 04/04 0800 04/04 0000 Intake Total 200 240 Output Total 450 400 Balance -450 -200 240 Intake, IV 200 Intake, Oral 0 240 Output, Urine 450 400 Patient 191 lb 160 lb Weight Weight Bed scale Reported by Patient Measurement Method Physical Exam General Appearance: Alert, Oriented X3, He is irritable and not cooperative Skin: No Rashes, Left big toe, inferior surface has black necrotic issue with surrounding tissue inflammation. Skin Temp/Moisture Exam: Warm/Dry Sepsis Skin Exam (color): Normal for Ethnicity HEENT: Atraumatic Cardiovascular: Regular Rate, Normal S1, Normal S2 Extremities: Left big toe has black scar tissue with peripheral inflammation ( cellulitis) Assessment/Plan Assessment: Jian Chatterjee is a 52M with a PMH of hypertension, poorly controlled insulin- dependent diabetes mellitus, CHF unsure of last ejection fraction, ESRD with a left arm fistula although patient states that he has not had dialysis yet, hypothyroidism presents with left great toe swelling, redness, pain 2 days. Left great toe cellulitis: He has a positive blood culture for gram-positive cocci in clusters. ID consult was done, with a positive culture which are going to start vancomycin but we should check the level due to impaired renal function to identify the appropriate time to administer his next dose. Plan: X-ray has shown osteomyelitis, we will recheck vancomycin level this afternoon, if it is less than 15, IV vancomycin 1 g. ESRD w/ AV fistula: He has creatinine of 5.2 with a BUN of 103. Plan: We have placed a nephrology consult. Pulmonary congestion secondary to questionable CHF: Plan: We will closely follow the patient. Chronic normacytic anemia: Probably due to end-stage renal disease Plan: Nephrology consult has been placed. Chronic BLE swelling secondary to decreased renal function: Plan: Nephrology consult has been placed Hyponatremia: Plan: Sodium level will be rechecked Hypothyroidism: Plan: He is on levothyroxine 75 mcg daily. IDDM non-compliant to insulin: Plan: We will check blood sugar level and correct with sliding scale insulin and Levemir. Problem List: 1. Cellulitis 2. Diabetes 3. Hypertension 4. Chronic anemia 5. ESRD (end stage renal disease) 6. CKD (chronic kidney disease) 7. Hyperglycemia Pain Ratin Pain Location: left big toe Pain Goal: Pain 4 or less Pain Plan: Oxycodone 10 mg p.o. every 6 hours Acetaminophen IV 1 g every 6 hours Tomorrow's Labs & Rationales: DEBORAH Iyer MD,Cherie 04/04/18 1003: Attending MD Review Statement Attending Statement Attending MD Statement: examined this patient, discuss w/resident/PA/WELFARE SERVICE AIDE, agreed w/resident/PA/WELFARE SERVICE AIDE, reviewed EMR data (avail), discussed with nursing, discussed with case mgmt, reviewed images Attending Assessment/Plan: Patient is extremely irritable this morning. He is a 52-year-old male with stage IV-V CKD with a left arm AV fistula in preparation for dialysis, diabetes on insulin, hypertension who is here with what appears to be a necrotic left great toe ulcer. At this point we have him on Vanco and ceftaz and it x-ray is pending to make sure there is no ostial. We have called podiatry and if the x- ray is negative then we will have to do an MRI. We have also called renal as his kidney function appears slightly worse and 5.2 appears to be worse than his usual baseline. We will continue the broad-spectrum antibiotics, get collateral info from his PCP and follow closely.
[2018-04-04 07:58] LABS: ABSOLUTE BASOPHIL COUNT 0.1 /CUMM (0.0-0.2); ABSOLUTE EOSINOPHIL COUNT 0 /CUMM (0.0-0.7); ABSOLUTE GRANULOCYTE CT 8.6 /CUMM (1.4-6.5); ABSOLUTE LYMPH COUNT 0.6 /CUMM (1.2-3.4); ABSOLUTE MONOCYTE COUNT 0.7 /CUMM (0.10-0.60); BASOPHIL % 0.7 % (0.0-2.0); EOSINOPHIL % 0.4 % (0-5); MEAN CORPUSCULAR HGB 28.7 PG (27.0-31.0); MEAN CORPUSCULAR HGB CONC 33.1 G/DL (33.0-37.0); MEAN CORPUSCULAR VOLUME 86.8 FL (80.0-94.0); PLATELET COUNT 206 /CUMM (130-400); RBC DISTRIBUTION WIDTH 14.3 % (11.5-14.5); RED BLOOD CELL CT 2.64 /CUMM (4.70-6.10)
[2018-04-04 08:19] LABS: PT 13.6 SEC (9.4-12.5)
[2018-04-04 08:59] LABS: GRANULOCYTE % 85.4 % (42.2-75.2)
--- NOTE | 2018-04-04 10:58 | ULTRASOUND REPORT ---
EXAMINATION: BILATERAL LOWER EXTREMITY DEEP VENOUS ULTRASOUND CLINICAL INFORMATION: Bilateral lower extremity swelling. Left lower extremity pain. COMPARISON: No similar prior examinations are available for comparison. TECHNIQUE: Duplex Doppler imaging with compression maneuvers were performed of the bilateral lower extremity deep venous systems. FINDINGS: The bilateral visualized common femoral, femoral and popliteal veins demonstrate normal compressibility and color flow without evidence of venous thrombosis. Visualized portions of the bilateral calf veins demonstrate normal color fill-in suggesting patency. There is no evidence of a Norris's cyst. IMPRESSION: No evidence of deep venous thrombosis involving the bilateral lower extremities.
--- NOTE | 2018-04-04 14:21 | RADIOLOGY REPORT ---
EXAMINATION: XR FOOT, LEFT CLINICAL INFORMATION: Great toe swelling and pain. Rule out osteomyelitis. COMPARISON: None TECHNIQUE: AP and lateral views of the left foot. FINDINGS: Bones of the midfoot are well aligned. No metatarsal or phalangeal fracture. Joint spaces are relatively well-maintained. Irregular margins of the tuft of the great toe with mild overlying soft tissue swelling. No radiopaque foreign body. Severe vascular calcifications. IMPRESSION: Irregular margins of the tuft of the great toe. In the correct clinical setting, this can be consistent with osteomyelitis. Clinical correlation recommended.
--- NOTE | 2018-04-04 14:49 | Cons- Infect Disease ---
General Information and HPI Consulting Request Date of Consult: 04/04/18 Requested By: Cherie Iyer MD Reason for Consult: Infected left great toe/positive blood culture Source of Information: patient History of Present Illness: This is a 52-year-old man with a history of hypertension, CHF, end-stage renal disease, status post creation of a left arm fistula, not yet requiring dialysis, hypothyroidism and diabetes, noncompliant and complicated by a neuropathy, status post left great toe surgery over 10 years prior to admission, requiring a PICC for a prolonged course of IV antibiotics, admitted on April 03 with a several day history of left great toe pain, swelling and erythema, with no drainage and with no associated fevers or chills. On admission he was afebrile. Laboratory data revealed a white blood cell count of 10,000, ESR 32, glucose 108, BUN/creatinine 103 and 52, with normal liver enzymes. Urinalysis rare RBC/ rare WBCs. Chest x-ray revealed diffuse interstitial prominence. He was given 1 dose each of Vancomycin, Ceftazidime and Ceftriaxone. He has remained afebrile overnight. This morning one blood culture was reported positive for gram-positive cocci in clusters. Allergies/Medications Allergies: Coded Allergies: lisinopril (TONGUE SWELLING 04/03/18) Home Med List: Amlodipine Besylate (Norvasc) 10 MG TABLET 10 MG PO DAILY HTN . Aspirin (Ecotrin*) 81 MG TABLET.DR 1 TAB PO DAILY HEART (Reported) Atorvastatin Calcium (Lipitor) 80 MG TABLET 1 TAB PO DAILY Heart (Reported) Carvedilol 25 MG TABLET 25 MG PO BID HTN . Cholecalciferol (Vitamin D3) (Vitamin D-3) 2,000 UNIT CAPSULE 2,000 MG PO DAILY SUPPLEMENT (Reported) Clonidine HCl 0.1 MG TABLET 1 TAB PO Q8 PRN ANXIETY OR INSOMNIA Clonidine Tts-1 (Catapres-Tts 1) 0.1 MG/24 HOUR PATCH.TDWK 1 PATCH TOP QSAT BP (Reported) Cyanocobalamin (Vitamin B-12) (B-12) 1,000 MCG TABLET 1 TAB PO DAILY SUPPLEMENT (Reported) Divalproex Sodium (Depakote) 500 MG TABLET.DR 1 TAB PO DAILY Mood (Reported) Furosemide (Lasix) 40 MG TABLET 1 TAB PO DAILY EDEMA (Reported) Hydralazine HCl 100 MG TABLET 1 TAB PO TID HTN (Reported) Insulin Aspart (Novolog) 100 UNIT/ML CARTRIDGE 3 U SC TID DM (Reported) before meals Insulin Detemir (Levemir) 100 UNIT/ML VIAL 7 U SC AT BEDTIME DM (Reported) Isosorbide Mononitrate (Isosorbide Mononitrate ER) 30 MG TAB.ER.24H 1 TAB PO DAILY Heart (Reported) Levothyroxine Sodium (Synthroid) 75 MCG TABLET 1 TAB PO DAILY Thyroid ( Reported) Pantoprazole Sodium 20 MG TABLET.DR 1 TAB PO DAILY ACID REFLUX (Reported) Sertraline HCl (Zoloft) 100 MG TABLET 0.5 TAB PO DAILY DEPRESSION (Reported) Past History Travel History Traveled to [place] past 21 day No Medical History Blood Transfusion Hx: Yes Neurological: NONE EENT: NONE Cardiovascular: CHF, hypertension Respiratory: NONE Gastrointestinal: NONE Hepatic: NONE Renal: ESRD HAS FISTULA L ARM Musculoskeletal: NONE Psychiatric: anxiety, depression Endocrine: diabetes, hypothyroidism Blood Disorders: anemia Cancer(s): NONE 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 History of MRSA: No History of VRE: No History of CDIFF: No Isolation History: Standard Surgical History Surgical History: A/V FISTULA, left great toe surgery >10 yrs [employer] Psychosocial History Services at Home: None Smoking Status: Current Some Day Smoker ETOH Use: denies use Illicit Drug Use: STATES "IT'S Spacebar" WHEN ASKED Review of Systems Review of Systems All Other Systems: Reviewed and Negative Exam & Diagnostic Data Last 24 Hrs of Vital Signs/I&O Vital Signs Date Time Temp Pulse Resp B/P B/P Pulse O2 O2 Flow FiO2 Mean Ox Delivery Rate 04/04 1416 168/84 08 1400 97.8 72 20 168/84 95 Room Air 04/04 1008 72 18 124/78 08 1008 72 18 124/78 93 Room Air 04/04 0800 72 18 178/90 04/04 0800 95 Nasal 2.0L Cannula 04/04 0759 72 18 178/80 95 Nasal 2.0L Cannula 04/04 0629 97.7 69 18 190/80 92 /07 0006 180/64 08/07 0005 180/64 /07 0000 Nasal 2.0L Cannula 04/03 2343 180/64 04/03 2031 Room Air 04/03 195 98.3 112 18 162/86 94 Room Air 04/03 1735 Room Air Room Air 04/03 1735 98.8 79 22 162/72 95 Room Air Intake & Output 04/04 1600 04/04 0800 08 0000 Intake Total 480 200 240 Output Total 1350 400 Balance -870 -200 240 Intake, IV 200 Intake, Oral 480 0 240 Output, Urine 1350 400 Patient 191 lb 160 lb Weight Weight Bed scale Reported by Patient Measurement Method Physical Exam Other Physical Findings: He is awake and alert in no acute distress. He is afebrile. Skin reveals no rash. HEENT exam is negative. Neck is supple with no adenopathy. Lungs are clear. Heart regular rhythm with no murmur. Abdomen is soft, nontender with positive bowel sounds. Back no CVA tenderness. Extremities left great toe swelling, erythema with necrosis on the plantar aspect, with no drainage; mild erythema and edema over the dorsum of the left foot; pulses 1+ and equal; left upper extremity fistula with a positive bruit and thrill, with no signs of inflammation. Neuro neuropathy both feet. Last 24 Hours of Lab Results: Laboratory Tests 04/04 04/04 0630 0600 Chemistry Sodium (137 - 145 mmol/L) 134 L Potassium (3.5 - 5.1 mmol/L) 4.0 Chloride (98 - 107 mmol/L) 102 Carbon Dioxide (22 - 30 mmol/L) 20 L Anion Gap (5 - 16) 12 BUN (9 - 20 mg/dL) 99 H Creatinine (0.7 - 1.2 mg/dL) 5.2 *H Estimated GFR (>60 ml/min) 12 L BUN/Creatinine Ratio (7 - 25 %) 19.0 Hemoglobin A1c (4.2 - 5.8 %) 9.2 H Uric Acid (3.5 - 8.5 mg/dL) 6.5 Phosphorus (2.5 - 4.5 mg/dL) 4.5 Magnesium (1.6 - 2.3 mg/dL) 1.7 Troponin I (<0.11 ng/ml) 0.04 Cancelled Coagulation PT (9.4 - 12.5 SEC) 13.6 H INR (0.90 - 1.17) 1.24 H Hematology CBC w Diff NO MAN DIFF REQ WBC (4.8 - 10.8 /CUMM) 10.0 RBC (4.70 - 6.10 /CUMM) 2.64 L Hgb (14.0 - 18.0 G/DL) 7.6 L Hct (42 - 52 %) 23.0 L MCV (80.0 - 94.0 FL) 86.8 MCH (27.0 - 31.0 PG) 28.7 MCHC (33.0 - 37.0 G/DL) 33.1 RDW (11.5 - 14.5 %) 14.3 Plt Count (130 - 400 /CUMM) 206 MPV (7.4 - 10.4 FL) 7.0 L Gran % (42.2 - 75.2 %) 85.4 H Lymphocytes % (20.5 - 51.1 %) 6.2 L Monocytes % (1.7 - 9.3 %) 7.3 Eosinophils % (0 - 5 %) 0.4 Basophils % (0.0 - 2.0 %) 0.7 Absolute Granulocytes (1.4 - 6.5 /CUMM) 8.6 H Absolute Lymphocytes (1.2 - 3.4 /CUMM) 0.6 L Absolute Monocytes (0.10 - 0.60 /CUMM) 0.7 H Absolute Eosinophils (0.0 - 0.7 /CUMM) 0 Absolute Basophils (0.0 - 0.2 /CUMM) 0.1 04/03 Toxicology Urine Opiates Screen (>2000 NG/ML) < 100 Methadone Screen (>300 NG/ML) < 40 Barbiturate Screen (>200 NG/ML) < 60 Ur Phencyclidine Scrn (>25 NG/ML) < 6.00 Amphetamines Screen (>1000 NG/ML) < 100 U Benzodiazepines Scrn (>200 NG/ML) < 85 Urine Cocaine Screen (>300 NG/ML) < 50 Urine Cannabis Screen (>50 NG/ML) > 80.00 H Urines Urine Color (YEL,AMB,STR) YEL Urine Clarity (CLEAR) CLEAR Urine pH (5.0 - 8.0) 6.0 Ur Specific [place] (1.001 - 1.035) 1.020 Urine Protein (NEG,<30 MG/DL) 100 H Urine Ketones (NEG) NEG Urine Nitrite (NEG) NEG Urine Bilirubin (NEG) NEG Urine Urobilinogen (0.1 - 1.0 EU/dl) 0.2 Ur Leukocyte Esterase (NEG) NEG Ur Microscopic SEDIMENT EXAMINED Urine RBC (0 - 5 /HPF) RARE Urine WBC (0 - 2 /HPF) RARE Ur Epithelial Cells (NONE,FEW) RARE Urine Bacteria (NEG/NONE) RARE H Urine Hemoglobin (NEG) TRACE-INTACT H Urine Osmolality (300 - 1000 MOSM/KG) 368 Ur Random Creatinine (mg/dL) 32.1 Ur Random Sodium (30 - 90 mmol/L) 50 Ur Random Potassium (mmol/L) 26.2 Fraction Sodium Excret (<1% %) 6.2 H Urine Glucose (N MG/DL) >=1000 H 04/03 1833 Chemistry Sodium (137 - 145 mmol/L) 130 L Potassium (3.5 - 5.1 mmol/L) 4.8 Chloride (98 - 107 mmol/L) 98 Carbon Dioxide (22 - 30 mmol/L) 19 L Anion Gap (5 - 16) 13 BUN (9 - 20 mg/dL) 103 *H Creatinine (0.7 - 1.2 mg/dL) 5.2 *H Estimated GFR (>60 ml/min) 12 L BUN/Creatinine Ratio (7 - 25 %) 19.8 Glucose (65 - 99 mg/dL) 408 H Hemoglobin A1c (4.2 - 5.8 %) 9.3 H Serum Osmolality (285 - 295 MOSM/KG) 327 H Calcium (8.4 - 10.2 mg/dL) 8.4 Magnesium (1.6 - 2.3 mg/dL) 1.2 L Total Bilirubin (0.2 - 1.3 mg/dL) 0.3 AST (17 - 59 U/L) 21 ALT (21 - 72 U/L) 32 Alkaline Phosphatase (< 127 U/L) 79 Troponin I (<0.11 ng/ml) 0.03 C-Reactive Prot, Quant (<1.0 mg/dL) 6.7 H C-React Prot High Sens (1.0 - 3.0 mg/L) > 15.0 H Total Protein (6.3 - 8.2 g/dL) 6.3 Albumin (3.5 - 5.0 g/dL) 3.5 Globulin (1.9 - 4.2 gm/dL) 2.8 Albumin/Globulin Ratio (1.1 - 2.2 %) 1.3 Vitamin B12 (239 - 931 pg/mL) > 1000 H Folate (2.76 - 20.0 ng/mL) > 20.0 H Hematology CBC w Diff NO MAN DIFF REQ WBC (4.8 - 10.8 /CUMM) 10.1 RBC (4.70 - 6.10 /CUMM) 2.75 L Hgb (14.0 - 18.0 G/DL) 8.1 L Hct (42 - 52 %) 23.6 L MCV (80.0 - 94.0 FL) 85.7 MCH (27.0 - 31.0 PG) 29.3 MCHC (33.0 - 37.0 G/DL) 34.2 RDW (11.5 - 14.5 %) 14.1 Plt Count (130 - 400 /CUMM) 211 MPV (7.4 - 10.4 FL) 7.1 L Gran % (42.2 - 75.2 %) 81.3 H Lymphocytes % (20.5 - 51.1 %) 7.7 L Monocytes % (1.7 - 9.3 %) 7.8 Eosinophils % (0 - 5 %) 2.7 Basophils % (0.0 - 2.0 %) 0.5 Absolute Granulocytes (1.4 - 6.5 /CUMM) 8.2 H Absolute Lymphocytes (1.2 - 3.4 /CUMM) 0.8 L Absolute Monocytes (0.10 - 0.60 /CUMM) 0.8 H Absolute Eosinophils (0.0 - 0.7 /CUMM) 0.3 Absolute Basophils (0.0 - 0.2 /CUMM) 0.1 ESR Westergren (0 - 10 MM) 32 H Toxicology Valproic Acid (50 - 120 ug/mL) 24.5 L Serum Alcohol (<10 MG/DL) < 10.0 Last 24 Hours of Rehan Results: Blood cultures April 03 1 bottle positive for gram-positive cocci in clusters Diagnostic Data Recent Imaging Findings: Chest x-ray April 03 reveals diffuse interstitial prominence Dopplers of both lower extremities April 04 negative X-ray of the left foot April 04 reveals irregular margins of the tuft of the great toe with mild overlying soft tissue swelling Assessment/Plan Assessment/Plan Impression: This is a 52-year-old man with a history of end-stage renal disease, not yet requiring dialysis, and diabetes, complicated by a neuropathy, admitted on April 03 with a several day history of left great toe pain, swelling and erythema, found to be afebrile with a normal white blood cell count, one blood culture positive for gram-positive cocci in clusters and with an x-ray of the left foot suggesting osteomyelitis of the tuft of the great toe. His clinical picture is worrisome for osteomyelitis of the left great toe. The acute presentation may reflect his neuropathy, masking or moderating his symptoms, and suspect that this has been brewing for a longer period of time. Suspect he will require debridement and possible amputation of the toe, and he is to be evaluated by Podiatry. The positive blood culture is of unclear significance. It may be secondary to the infection in his great toe, though he has no fever or leukocytosis, and, therefore, the possibility that this represents a contaminant must be considered. Nevertheless, pending final ID of the organism, it would be prudent to treat him for Staph aureus (including MRSA) . His Vancomycin will need to be dosed based on random levels given his renal failure. Suggestion: 1. Await Podiatry evaluation 2. Consider MRI of the left foot (would defer to Podiatry) 3. Consider Vascular surgery evaluation 4. Follow-up Vancomycin random level, ordered for later this afternoon 5. Redose with Vancomycin 1 g IV 1 if the random level is less than 15 Consult Acknowledgment - Thank you for your consult request.
--- NOTE | 2018-04-04 17:25 | Cons- Nephrology ---
General Information and HPI Consulting Request Date of Consult: 04/04/18 Requested By: Jaylon RIVERA,Cherie Bacon Reason for Consult: CKD Source of Information: patient, old records Exam Limitations: no limitations History of Present Illness: The patient is a 52-year-old male well-known to our service, followed as an outpatient by Dr. Jian Mendez in our office for CKD stage V secondary to diabetes mellitus, with a baseline creatinine that has up until recently been in the mid 3's to mid 4's, now comes in because of a diabetic left foot manifested by pain, swelling and erythema of the left hallux. 1 of 2 blood cultures positive for gram-positive cocci in clusters and an x-ray of the foot suggesting osteomyelitis of the great toe. He has been afebrile with a normal WBC. Serum creatinine has been slightly above baseline at 5.1-5.2. His last outpatient creatinine was 4.7 on 03/09/18. There has been no exposure to NSAIDs or parenteral contrast and the patient claims to have been eating and drinking normally. Past medical history as positive for CKD stage V (patient has a patent left upper arm AVF placed about a year ago), type 2 diabetes mellitus with peripheral neuropathy, hypertension, CHF, depression including a hospitalization earlier this year at [facility] for depression. Medications see below Allergies: Lisinopril (tongue swelling) Family history is negative for any known kidney disease: Social history: Ex-smoker. No his history of alcohol abuse Allergies/Medications Allergies: Coded Allergies: lisinopril (TONGUE SWELLING 04/03/18) Home Med List: Amlodipine Besylate (Norvasc) 10 MG TABLET 10 MG PO DAILY HTN . Aspirin (Ecotrin*) 81 MG TABLET.DR 1 TAB PO DAILY HEART (Reported) Atorvastatin Calcium (Lipitor) 80 MG TABLET 1 TAB PO DAILY Heart (Reported) Carvedilol 25 MG TABLET 25 MG PO BID HTN . Cholecalciferol (Vitamin D3) (Vitamin D-3) 2,000 UNIT CAPSULE 2,000 MG PO DAILY SUPPLEMENT (Reported) Clonidine HCl 0.1 MG TABLET 1 TAB PO Q8 PRN ANXIETY OR INSOMNIA Clonidine Tts-1 (Catapres-Tts 1) 0.1 MG/24 HOUR PATCH.TDWK 1 PATCH TOP QSAT BP (Reported) Cyanocobalamin (Vitamin B-12) (B-12) 1,000 MCG TABLET 1 TAB PO DAILY SUPPLEMENT (Reported) Divalproex Sodium (Depakote) 500 MG TABLET.DR 1 TAB PO DAILY Mood (Reported) Furosemide (Lasix) 40 MG TABLET 1 TAB PO DAILY EDEMA (Reported) Hydralazine HCl 100 MG TABLET 1 TAB PO TID HTN (Reported) Insulin Aspart (Novolog) 100 UNIT/ML CARTRIDGE 3 U SC TID DM (Reported) before meals Insulin Detemir (Levemir) 100 UNIT/ML VIAL 7 U SC AT BEDTIME DM (Reported) Isosorbide Mononitrate (Isosorbide Mononitrate ER) 30 MG TAB.ER.24H 1 TAB PO DAILY Heart (Reported) Levothyroxine Sodium (Synthroid) 75 MCG TABLET 1 TAB PO DAILY Thyroid ( Reported) Pantoprazole Sodium 20 MG TABLET.DR 1 TAB PO DAILY ACID REFLUX (Reported) Sertraline HCl (Zoloft) 100 MG TABLET 0.5 TAB PO DAILY DEPRESSION (Reported) Review of Systems Review of Systems: Gen.: Appetite reasonably good, no unexplained weight loss or weight gain Skin: No rash or jaundice HEENT: No visual or hearing disturbances, no discharge Cardiopulmonary: No shortness of breath, cough, chest pain, orthopnea GI: No nausea, abdominal pain, diarrhea; frequently constipated; had an episode of vomiting 1 last week : No dysuria, hematuria or other symptoms referable to the urinary tract Musculoskeletal: See HPI Neuro: No altered mental status, speech impairment, focal weakness; + numbness/ tingling in feet Past History Travel History Traveled to [place] past 21 day No Medical History Blood Transfusion Hx: Yes Neurological: NONE EENT: NONE Cardiovascular: CHF, hypertension Respiratory: NONE Gastrointestinal: NONE Hepatic: NONE Renal: ESRD HAS FISTULA L ARM Musculoskeletal: NONE Psychiatric: anxiety, depression Endocrine: diabetes, hypothyroidism Blood Disorders: anemia Cancer(s): NONE 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 Surgical History Surgical History: A/V 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 Psychosocial History Services at Home: None Smoking Status: Current Some Day Smoker ETOH Use: denies use Illicit Drug Use: STATES "IT'S Deskarma" WHEN ASKED Exam & Diagnostic Data Vital Signs and I&O Vital Signs Date Time Temp Pulse Resp B/P B/P Pulse O2 O2 Flow FiO2 Mean Ox Delivery Rate 04/04 1416 168/84 04/04 1400 97.8 72 20 168/84 95 Room Air 04/04 1008 72 18 124/78 08/ 1008 72 18 124/78 93 Room Air / 0800 72 18 178/90 04/04 0800 95 Nasal 2.0L Cannula 04/04 0759 72 18 178/80 95 Nasal 2.0L Cannula 04/04 0629 97.7 69 18 190/80 92 08/07 0006 180/64 08/07 0005 180/64 / 0000 Nasal 2.0L Cannula 04/03 2343 180/64 04/03 2031 Room Air 04/03 1955 98.3 112 18 162/86 94 Room Air 04/03 1735 Room Air Room Air 04/03 1735 98.8 79 22 162/72 95 Room Air Intake & Output 04/04 1600 04/04 0400 04/03 1600 04/03 0400 04/02 1600 04/02 0400 Intake Total 680 240 Output Total 1750 Balance -1070 240 Intake, IV 200 Intake, Oral 480 240 Output, Urine 1750 Patient 191 lb 160 lb Weight Weight Bed scale Reported by Patient Measurement Method Physical Exam: General: Well-developed white male, easily agitated and upset about a number of personal issues at home but in NAD Skin: No rash or jaundice HEENT: Conjunctivae pink, sclerae anicteric, mucous membranes moist Neck: Without masses or thyromegaly, no supraclavicular or cervical adenopathy Chest: Clear to P&A Heart: Regular rate and rhythm without S3 or rub Abdomen: Soft and nontender without palpable masses or organomegaly Extremities: Positive lower extremity edema without cyanosis; there is mild erythema on the dorsum of the left foot with associated edema including edema of the left great toe with an area of necrosis at the tip without discharge; the left upper arm AVF is patent Neuro: Cognitively intact, no focal findings, no asterixis or myoclonus Assessment/Plan Assessment/Recommendations Assessment: 52-year-old man with advanced CKD (stage V) secondary to diabetic nephropathy with a functional left upper arm AVF in anticipation of dialysis need (which he has not required over the past year) who now comes in with an infected left great toe with probable underlying osteomyelitis. Renal function is slightly worse than baseline but patient has no clear-cut uremic symptoms at this time although he is somewhat volume overloaded. The positive blood culture may prove to be a contaminant but he is appropriately being covered for possible staph infection, pending final culture results. With regard to his anemia, I believe he gets Procrit injections at the infusion center at [place]. Recommendations: 1. Would continue him on his current medications including the daily p.o. Lasix 2. We need to contact the infusion center to find out the dose and frequency of his Procrit injections 3. Antibiotic therapy per ID with dosing of vancomycinif it is to be continued 4. No dialysis needed at this time
--- NOTE | 2018-04-05 03:23 | Event Note ---
Event Note Event Note: S: Paged by nursing staff that patients blood sugar had dropped below 50, was nauseous B: Pt is currently on Vancomycin for treatment of L great toe cellulitis, with Xray findings suggestive of osteomyelitis, is NPO overnight for potential podiatry intervention in the AM. Is on d5 1/2 NS at 75cc/hour for maintenance. A: Pt seated at bedside, with basin w/o vomitus in front of him. Pt vitally stable, denies dizziness/blurred vision. States he is nauseous and clammy. Heart without murmurs, Lungs clear, abdomen soft NT, LLE swelling and erythema unchanged from admission. R: Gave one amp of D50 x1, one time dose of Tigan 200mg IM to control nausea. Updated nursing staff regarding plan; repeat fingerstick was 89 after administration of D50. Raghu Mera #[id number]
[2018-04-05 06:17] VITALS: BP 130/90
--- NOTE | 2018-04-05 06:31 | PN- Housestaff ---
Cayden Horner 04/05/18 0630: Subjective Follow-up For: Left great toe cellulitis ESRD Anemia Hyponatremia Hypothyroidism Hypertension Diabetes mellitus Subjective: I visited Jian this morning. He was lying in his bed, in no acute distress. He is extremely irritable and was complaining about his IV line, and IV pump which has been making noise and keeping up last night. Other than that he did not mention any other complaints about the cellulitis in his toe. Based on the reports from night team, he had one episode of low blood sugar less than 50 at 3 AM they administered D50 which increased blood sugar to 89. He was nauseous at that time and received 1 IM AMP of trimethobenzamide. I tried to talk to him to calm him down, but due to his irritability my physical exam was limited to his left lower extremity. Review of Systems Constitutional: Reports: see HPI. Objective Last 24 Hrs of Vital Signs/I&O Vital Signs Date Time Temp Pulse Resp B/P B/P Pulse O2 O2 Flow FiO2 Mean Ox Delivery Rate 04/05 0839 73 136/88 04/05 0839 73 136/88 04/05 0838 73 136/88 04/05 0838 73 136/88 04/05 0617 97.5 59 18 130/90 95 Room Air 04/04 2137 98.3 69 17 180/80 94 Room Air 04/04 2014 180/90 04/04 2014 180/90 04/04 1815 97.5 76 18 172/98 95 Room Air 04/04 1800 97.5 76 18 172/98 04/04 1416 168/84 04/04 1400 97.8 72 20 168/84 95 Room Air Intake & Output 04/05 1600 04/05 0800 04/05 0000 Intake Total 650 840 Output Total 700 725 Balance -50 115 Intake, IV 650 Intake, Oral 0 840 Output, Urine 700 725 Patient 195 lb Weight Physical Exam General Appearance: Alert, Oriented X3, Cooperative, Irritable Extremities: Normal Pulses, Cellulitis with necrotic tissue in left big toe was the same comparing to yesterday P/E Vascular: Normal Pulses, Pulses Symmetrical Assessment/Plan Assessment: Jian Chatterjee is a 52M with a PMH of hypertension, poorly controlled insulin- dependent diabetes mellitus, CHF unsure of last ejection fraction, ESRD with a left arm fistula although patient states that he has not had dialysis yet, hypothyroidism presents with left great toe swelling, redness, pain 2 days. Since blood culture was positive for staph aureus, echocardiogram should be done and blood cultures should be repeated. Mail Inserter performed an excisional debridement procedure on the patient and the following diagnoses by Dr. Nelson: 1 open, necrotic wound left foot 2 osteomyelitis left foot 3 peripheral arterial disease Left great toe cellulitis: ID consult appreciated, he is on vancomycin, we will check a Vanco level. By tomorrow sensitivity study will be back and we can decide if change of antibiotic is needed. Plan: IV vancomycin, excisional debridement was done. Waiting for vascular surgeon consult. ESRD w/ AV fistula: He has creatinine of 5.2 with a BUN of 103. Plan: Nephrology consult appreciated. He does not need dialysis now. Pulmonary congestion secondary to questionable CHF: Plan: We will closely follow the patient. Chronic normacytic anemia: Probably due to end-stage renal disease Plan: Nephrology consult appreciated he needs 1 more injection of erythropoietin during this admission. Hypertension: He has blood pressures higher in the afternoon in 180s over 90, with lower blood pressure in 130s in the morning. Plan: We shifted his amlodipine 10 mg to the afternoon, we will talk to marketing and communications officer about it. Chronic BLE swelling secondary to decreased renal function: Plan: Nephrology consult appreciated, is receiving Lasix. Hyponatremia: Plan: Sodium level was 134-132 Hypothyroidism: Plan: He is on levothyroxine 75 mcg daily. IDDM non-compliant to insulin: His hemoglobin A1c is 9.2 Plan: We will check blood sugar level and correct with sliding scale insulin and Levemir. Decreased the night detemir insulin to 6 units due to previous hypoglycemia at 3 AM which is probably caused by decreased renal function and decreased clearance of insulin. Problem List: 1. Cellulitis 2. ESRD (end stage renal disease) 3. Diabetes 4. Hypertension 5. Hrugd-or-jsvjihs kidney injury 6. Fluid overload 7. Hyponatremia 8. Hypothyroidism Pain Ratin Pain Location: LLE Pain Goal: Pain 4 or less Pain Plan: Oxycodone Acetaminophen Antibiotics Podiatric procedure Tomorrow's Labs & Rationales: Cherie Choudhury MD 04/05/18 0957: Attending MD Review Statement Attending Statement Attending MD Statement: examined this patient, discuss w/resident/PA/SKI LIFT MECHANIC, agreed w/resident/PA/SKI LIFT MECHANIC, reviewed EMR data (avail), discussed with nursing, discussed with case mgmt, reviewed images Attending Assessment/Plan: Events overnight noted. Patient was hypoglycemic and required D50 and now started on D5 in the fluids. He is n.p.o. and Dr. Nelson is going to take him to the OR for debridement and possible amputation. Patient is irritable upset and angry. He has staph aureus in his blood and we have him on IV vancomycin, will get repeat blood cultures and a transthoracic echo. His pressure also remains uncontrolled and he is maxed out on most medication so we will need to talk to nephrology about further options.
--- NOTE | 2018-04-05 10:37 | PN- Infect Dx ---
Subjective Subjective: Afebrile without complaints Objective Last 24 Hrs of Vital Signs/I&O Vital Signs Date Time Temp Pulse Resp B/P B/P Pulse O2 O2 Flow FiO2 Mean Ox Delivery Rate 04/05 0839 73 136/88 04/05 0839 73 136/88 04/05 0838 73 136/88 04/05 0838 73 136/88 04/05 0617 97.5 59 18 130/90 95 Room Air 04/04 2137 98.3 69 17 180/80 94 Room Air 04/04 2014 180/90 04/04 2014 180/90 04/04 1815 97.5 76 18 172/98 95 Room Air 04/04 1800 97.5 76 18 172/98 04/04 1416 168/84 04/04 1400 97.8 72 20 168/84 95 Room Air Intake & Output 04/05 1600 04/05 0804/05 0000 Intake Total 650 840 Output Total 700 725 Balance -50 115 Intake, IV 650 Intake, Oral 0 840 Output, Urine 700 725 Patient 195 lb Weight Physical Exam Other Physical Findings: He appears comfortable in no acute distress Lungs are clear Heart regular rhythm with no murmur Extremities left great toe swelling with a necrotic plantar wound; decreased erythema and edema over the dorsal aspect of the left foot, with no tenderness on palpation Results Last 24 Hours of Lab Results: Laboratory Tests 04/05 04/04 0600 1800 Chemistry Sodium (137 - 145 mmol/L) 132 L Potassium (3.5 - 5.1 mmol/L) 3.7 Chloride (98 - 107 mmol/L) 100 Carbon Dioxide (22 - 30 mmol/L) 21 L Anion Gap (5 - 16) 10 BUN (9 - 20 mg/dL) 102 *H Creatinine (0.7 - 1.2 mg/dL) 4.8 H Estimated GFR (>60 ml/min) 13 L BUN/Creatinine Ratio (7 - 25 %) 21.3 Toxicology Random Vancomycin (ug/ml) 15.8 6.8 Last 24 Hours of Rehan Results: Blood cultures April 03 positive for Staph aureus Assessment/Plan ID Impression: Staph aureus bacteremia secondary to an infection in the left great toe, with presumed underlying osteomyelitis. He is scheduled for the OR later today for debridement/possible amputation of the toe. Given the isolation of Staph aureus from the blood it will be necessary to document clearing of the bacteremia and to rule out the possibility of endocarditis. Suggestion: 1. Await OR later today for debridement/possible amputation of the left great toe 2. Consider Vascular surgery evaluation 3. Repeat blood cultures 2 today 4. Echocardiogram 5. Follow-up final blood cultures 6. Redose with Vancomycin 1 g IV 1 today pending above
--- NOTE | 2018-04-05 12:33 | PN- Nephrology ---
Assessment/Plan Nephrology Assessment: 1. CKD stage V secondary to diabetic nephropathy 2. Osteomyelitis left great toe with staph aureus bacteremia Suggestion: 1. Antibiotic therapy per ID; await final culture results 2. To OR today for debridement and possible amputation of left great toe 3. Will consider an additional dose of Procrit during this admission; he received his last dose last week and is normally on a every 2 week schedule Subjective Subjective: Remains generally anxious with some discomfort in left toe. Otherwise no specific complaints. Creatinine down to 4.8. Blood cultures positive for staph aureus, sensitivities pending. He remains afebrile with stable vital signs and normal WBC. Vanco level of 15.8. Objective Vital Signs and I&Os Vital Signs Date Time Temp Pulse Resp B/P B/P Pulse O2 O2 Flow FiO2 Mean Ox Delivery Rate 04/05 839 73 136/88 04/05 0839 73 136/88 04/05 0838 73 136/88 04/05 0838 73 136/88 04/05 0617 97.5 59 18 130/90 95 Room Air 04/04 2137 98.3 69 17 180/80 94 Room Air 04/04 2014 180/90 04/04 2014 180/90 04/04 1815 97.5 76 18 172/98 95 Room Air 04/04 1800 97.5 76 18 172/98 04/04 1416 168/84 04/04 1400 97.8 72 20 168/84 95 Room Air Intake & Output 04/05 1600 08 0400 04/04 1600 04/04 0400 04/03 1600 04/03 0400 Intake Total 650 840 680 240 Output Total 397 058 6980 Balance -50 115 -1070 240 Intake, IV 650 200 Intake, Oral 0 840 480 240 Output, Urine 323 376 1925 Patient 195 lb 191 lb 160 lb Weight Weight Bed scale Reported by Patient Measurement Method Physical Exam: General: Well-developed white male in NAD Skin: No rash or jaundice HEENT: Conjunctivae pink, sclerae anicteric, mucous membranes moist Neck: Without masses or thyromegaly, no supraclavicular or cervical adenopathy Chest: Clear to P&A Heart: Regular rate and rhythm without S3 or rub Abdomen: Soft and nontender without palpable masses or organomegaly Extremities: Positive lower extremity edema without cyanosis; there is mild erythema on the dorsum of the left foot with associated edema including edema of the left great toe with an area of necrosis at the tip without discharge; the left upper arm AVF is patent Neuro: Cognitively intact, no focal findings, no asterixis or myoclonus Results Pertinent Lab Results: Laboratory Tests 04/05 04/04 04/04 0600 1800 0630 Chemistry Sodium (137 - 145 mmol/L) 132 L 134 L Potassium (3.5 - 5.1 mmol/L) 3.7 4.0 Chloride (98 - 107 mmol/L) 100 102 Carbon Dioxide (22 - 30 mmol/L) 21 L 20 L Anion Gap (5 - 16) 10 12 BUN (9 - 20 mg/dL) 102 *H 99 H Creatinine (0.7 - 1.2 mg/dL) 4.8 H 5.2 *H Estimated GFR (>60 ml/min) 13 L 12 L BUN/Creatinine Ratio (7 - 25 %) 21.3 19.0 Hemoglobin A1c (4.2 - 5.8 %) 9.2 H Uric Acid (3.5 - 8.5 mg/dL) 6.5 Phosphorus (2.5 - 4.5 mg/dL) 4.5 Magnesium (1.6 - 2.3 mg/dL) 1.7 Troponin I (<0.11 ng/ml) 0.04 Coagulation PT (9.4 - 12.5 SEC) 13.6 H INR (0.90 - 1.17) 1.24 H Hematology CBC w Diff NO MAN DIFF REQ WBC (4.8 - 10.8 /CUMM) 10.0 RBC (4.70 - 6.10 /CUMM) 2.64 L Hgb (14.0 - 18.0 G/DL) 7.6 L Hct (42 - 52 %) 23.0 L MCV (80.0 - 94.0 FL) 86.8 MCH (27.0 - 31.0 PG) 28.7 MCHC (33.0 - 37.0 G/DL) 33.1 RDW (11.5 - 14.5 %) 14.3 Plt Count (130 - 400 /CUMM) 206 MPV (7.4 - 10.4 FL) 7.0 L Gran % (42.2 - 75.2 %) 85.4 H Lymphocytes % (20.5 - 51.1 %) 6.2 L Monocytes % (1.7 - 9.3 %) 7.3 Eosinophils % (0 - 5 %) 0.4 Basophils % (0.0 - 2.0 %) 0.7 Absolute Granulocytes (1.4 - 6.5 /CUMM) 8.6 H Absolute Lymphocytes (1.2 - 3.4 /CUMM) 0.6 L Absolute Monocytes (0.10 - 0.60 /CUMM) 0.7 H Absolute Eosinophils (0.0 - 0.7 /CUMM) 0 Absolute Basophils (0.0 - 0.2 /CUMM) 0.1 Toxicology Random Vancomycin (ug/ml) 15.8 6.8 04/04 08 0600 2120 Chemistry Troponin I Cancelled Urines Urine Color (YEL,AMB,STR) YEL Urine Clarity (CLEAR) CLEAR Urine pH (5.0 - 8.0) 6.0 Ur Specific [place] (1.001 - 1.035) 1.020 Urine Protein (NEG,<30 MG/DL) 100 H Urine Ketones (NEG) NEG Urine Nitrite (NEG) NEG Urine Bilirubin (NEG) NEG Urine Urobilinogen (0.1 - 1.0 EU/dl) 0.2 Ur Leukocyte Esterase (NEG) NEG Ur Microscopic SEDIMENT EXAMINED Urine RBC (0 - 5 /HPF) RARE Urine WBC (0 - 2 /HPF) RARE Ur Epithelial Cells (NONE,FEW) RARE Urine Bacteria (NEG/NONE) RARE H Urine Hemoglobin (NEG) TRACE-INTACT H Urine Glucose (N MG/DL) >=1000 H 04/03 04/03 2120 1833 Chemistry Sodium (137 - 145 mmol/L) 130 L Potassium (3.5 - 5.1 mmol/L) 4.8 Chloride (98 - 107 mmol/L) 98 Carbon Dioxide (22 - 30 mmol/L) 19 L Anion Gap (5 - 16) 13 BUN (9 - 20 mg/dL) 103 *H Creatinine (0.7 - 1.2 mg/dL) 5.2 *H Estimated GFR (>60 ml/min) 12 L BUN/Creatinine Ratio (7 - 25 %) 19.8 Glucose (65 - 99 mg/dL) 408 H Hemoglobin A1c (4.2 - 5.8 %) 9.3 H Serum Osmolality (285 - 295 MOSM/KG) 327 H Calcium (8.4 - 10.2 mg/dL) 8.4 Magnesium (1.6 - 2.3 mg/dL) 1.2 L Total Bilirubin (0.2 - 1.3 mg/dL) 0.3 AST (17 - 59 U/L) 21 ALT (21 - 72 U/L) 32 Alkaline Phosphatase (< 127 U/L) 79 Troponin I (<0.11 ng/ml) 0.03 C-Reactive Prot, Quant (<1.0 mg/dL) 6.7 H C-React Prot High Sens (1.0 - 3.0 mg/L) > 15.0 H Total Protein (6.3 - 8.2 g/dL) 6.3 Albumin (3.5 - 5.0 g/dL) 3.5 Globulin (1.9 - 4.2 gm/dL) 2.8 Albumin/Globulin Ratio (1.1 - 2.2 %) 1.3 Vitamin B12 (239 - 931 pg/mL) > 1000 H Folate (2.76 - 20.0 ng/mL) > 20.0 H Hematology CBC w Diff NO MAN DIFF REQ WBC (4.8 - 10.8 /CUMM) 10.1 RBC (4.70 - 6.10 /CUMM) 2.75 L Hgb (14.0 - 18.0 G/DL) 8.1 L Hct (42 - 52 %) 23.6 L MCV (80.0 - 94.0 FL) 85.7 MCH (27.0 - 31.0 PG) 29.3 MCHC (33.0 - 37.0 G/DL) 34.2 RDW (11.5 - 14.5 %) 14.1 Plt Count (130 - 400 /CUMM) 211 MPV (7.4 - 10.4 FL) 7.1 L Gran % (42.2 - 75.2 %) 81.3 H Lymphocytes % (20.5 - 51.1 %) 7.7 L Monocytes % (1.7 - 9.3 %) 7.8 Eosinophils % (0 - 5 %) 2.7 Basophils % (0.0 - 2.0 %) 0.5 Absolute Granulocytes (1.4 - 6.5 /CUMM) 8.2 H Absolute Lymphocytes (1.2 - 3.4 /CUMM) 0.8 L Absolute Monocytes (0.10 - 0.60 /CUMM) 0.8 H Absolute Eosinophils (0.0 - 0.7 /CUMM) 0.3 Absolute Basophils (0.0 - 0.2 /CUMM) 0.1 ESR Westergren (0 - 10 MM) 32 H Toxicology Urine Opiates Screen (>2000 NG/ML) < 100 Methadone Screen (>300 NG/ML) < 40 Barbiturate Screen (>200 NG/ML) < 60 Valproic Acid (50 - 120 ug/mL) 24.5 L Ur Phencyclidine Scrn (>25 NG/ML) < 6.00 Amphetamines Screen (>1000 NG/ML) < 100 U Benzodiazepines Scrn (>200 NG/ML) < 85 Urine Cocaine Screen (>300 NG/ML) < 50 Urine Cannabis Screen (>50 NG/ML) > 80.00 H Serum Alcohol (<10 MG/DL) < 10.0 Urines Urine Osmolality (300 - 1000 MOSM/KG) 368 Ur Random Creatinine (mg/dL) 32.1 Ur Random Sodium (30 - 90 mmol/L) 50 Ur Random Potassium (mmol/L) 26.2 Fraction Sodium Excret (<1% %) 6.2 H
[2018-04-05 12:39] VITALS: BP 154/80
[2018-04-05 12:42] VITALS: BP 150/80
--- NOTE | 2018-04-05 13:53 | Operative Report ---
Operative/Inv Procedure Report Surgery Date: 04/05/18 Name of Procedure: 1 open incision and drainage deep to the deep fascia with exposure of the extensor and flexor tendon and tendon sheath multiple sites left foot 2 disarticulation hallux interphalangeal joint left foot 3 intraoperative ministration of ankle block anesthesia 4 excisional debridement Pre-Operative Diagnosis: 1 open, necrotic wound left foot 2 osteomyelitis left foot 3 peripheral arterial disease Post-Operative Diagnosis: The same Estimated Blood Loss: less than 50ml Surgeon/Assignment Editor: MEG ARREOLA DPM Anesthesia: moderate sedation, block Operative/Procedure Note Note: After obtaining informed consent the patient was brought to the operating room and placed on the operating table in the supine position. The patient was then securely fastened to the operating table utilizing a safety belt. After menstruation of IV sedation, 10 cc of 05% Marcaine plain was infiltrated about the patient's left ankle. The left foot and ankle were then scrubbed, prepped and draped in the usual aseptic manner. Digital traction of the foot, where a large full-thickness necrotic was identified in the distal left hallux. A 15 blade was utilized sharply advise skin margins. Dissection was then carried down deep to the deep fascia with exposure of the extensor and flexor tendon and tendon sheath multiple sites, both proximally and distally. All necrotic, nonviable infected tissue was sharply evacuated the wound bed. The dissection then continued proximally to the level of the interphalangeal joint where the capsular and ligamentous structures were released and the distal phalanx was passed from the operative field. Specimen was sent for both microbiologic and pathologic inspection. The open wound was then irrigated with 3 L of normal sterile saline infused with 50,000 units of bacitracin. Following this, the foot was redraped and the surgeons top gloves are changed to clinic was. Any bleeding vessels identified were cauterized or ligated or the open was then packed with a wet-to-dry dressing and 3-0 nylon retention sutures were placed. The foot was then dressed with 4 x 4's, Kerlix, and an Conor wrap. The patient was noted to tolerate both procedure and anesthesia well and the patient was transported from the operating room to recovery with vital signs stable.
--- NOTE | 2018-04-05 14:40 | Cons- Vascular Surgery ---
General Information and HPI Consulting Request Date of Consult: 04/05/18 Requested By: Cherie Iyer MD Reason for Consult: left 1st toe ulcer Source of Information: patient Exam Limitations: no limitations History of Present Illness: pt is 52 y/o m w/ hx of dm, smoking, ckd s/p left avf creation but not on hd, who presents with left 1st toe ulcer. pt awaiting debridement by podiatry-- dr. encarnacion when i examined the patient. He has bilateral leg swelling and reports difficulty walking because of pain in his calves and feet-- although unclear if this is true claudication as her reports pain independent of walking as well. pt admitted for posative blood cultures with swelling and drainage from the left toe. Allergies/Medications Allergies: Coded Allergies: lisinopril (TONGUE SWELLING 04/03/18) Home Med List: Amlodipine Besylate (Norvasc) 10 MG TABLET 10 MG PO DAILY HTN . Aspirin (Ecotrin*) 81 MG TABLET.DR 1 TAB PO DAILY HEART (Reported) Atorvastatin Calcium (Lipitor) 80 MG TABLET 1 TAB PO DAILY Heart (Reported) Carvedilol 25 MG TABLET 25 MG PO BID HTN . Cholecalciferol (Vitamin D3) (Vitamin D-3) 2,000 UNIT CAPSULE 2,000 MG PO DAILY SUPPLEMENT (Reported) Clonidine HCl 0.1 MG TABLET 1 TAB PO Q8 PRN ANXIETY OR INSOMNIA Clonidine Tts-1 (Catapres-Tts 1) 0.1 MG/24 HOUR PATCH.TDWK 1 PATCH TOP QSAT BP (Reported) Cyanocobalamin (Vitamin B-12) (B-12) 1,000 MCG TABLET 1 TAB PO DAILY SUPPLEMENT (Reported) Divalproex Sodium (Depakote) 500 MG TABLET.DR 1 TAB PO DAILY Mood (Reported) Furosemide (Lasix) 40 MG TABLET 1 TAB PO DAILY EDEMA (Reported) Hydralazine HCl 100 MG TABLET 1 TAB PO TID HTN (Reported) Insulin Aspart (Novolog) 100 UNIT/ML CARTRIDGE 3 U SC TID DM (Reported) before meals Insulin Detemir (Levemir) 100 UNIT/ML VIAL 7 U SC AT BEDTIME DM (Reported) Isosorbide Mononitrate (Isosorbide Mononitrate ER) 30 MG TAB.ER.24H 1 TAB PO DAILY Heart (Reported) Levothyroxine Sodium (Synthroid) 75 MCG TABLET 1 TAB PO DAILY Thyroid ( Reported) Pantoprazole Sodium 20 MG TABLET.DR 1 TAB PO DAILY ACID REFLUX (Reported) Sertraline HCl (Zoloft) 100 MG TABLET 0.5 TAB PO DAILY DEPRESSION (Reported) Past History Medical History Blood Transfusion Hx: Yes Neurological: NONE EENT: NONE Cardiovascular: CHF, hypertension Respiratory: NONE Gastrointestinal: NONE Hepatic: NONE Renal: ESRD HAS FISTULA L ARM Musculoskeletal: NONE Psychiatric: anxiety, depression Endocrine: diabetes, hypothyroidism Blood Disorders: anemia Cancer(s): NONE INFORMATION SYSTEMS MANAGER/Reproductive: NONE Surgical History Pertinent Surgical History: A/V FISTULA left great toe surgery >10 yrs [employer]HS MANAGER Psychosocial History Services at Home: None Smoking Status: Current Some Day Smoker ETOH Use: denies use Illicit Drug Use: STATES "IT'S NOBOWicron BUSINESS" WHEN ASKED Review of Systems Review of Systems: as above Exam & Diagnostic Data Vital Signs and I&O Vital Signs Date Time Temp Pulse Resp B/P B/P Pulse O2 O2 Flow FiO2 Mean Ox Delivery Rate 04/05 1242 98 22 150/80 93 Room Air 04/05 1239 97.8 20 154/80 91 Room Air 04/05 1236 Room Air 04/05 1226 Room Air 04/05 0839 73 136/88 04/05 0839 73 136/88 04/05 0838 73 136/88 04/05 0838 73 136/88 04/05 0617 97.5 59 18 130/90 95 Room Air 04/04 2137 98.3 69 17 180/80 94 Room Air 04/04 2014 180/90 04/04 2014 180/90 04/04 1815 97.5 76 18 172/98 95 Room Air 04/04 1800 97.5 76 18 172/98 Intake & Output 04/05 1600 04/05 0000 04/04 1600 04/04 0000 Intake Total 375 650 840 480 200 240 Output Total 1100 617 482 9325 400 Balance -725 -50 115 -870 -200 240 Intake, IV 375 650 200 Intake, Oral 0 0 840 480 0 240 Number 0 Bowel Movements Output, Urine 1100 590 406 0471 400 Patient 195 lb 195 lb 191 lb 160 lb Weight Weight Bed scale Reported by Patient Measurement Method nad soft,tn,nd rrr bilateral leg edema up to knees. left 1st toe with necrotic ulcer. palpable popliteal pulse left leg. unable to feel pedal pulses. Assessment/Plan Assessment/Plan 52 y/o m w/ mmp and left 1st toe ulcer. --going for debridement of toe by dr. encarnacion --i would obtain arterial duplex --if evidence of signficant tibial disease the patient would require angiogram with c02 and [facility] does not have this capability so would have to be done in my office. I will review arterial duplex and make further recommendations. Consult Acknowledgment - Thank you for your consult request.
[2018-04-05 16:00] VITALS: BP 148/88
--- NOTE | 2018-04-05 16:13 | Operative Report ---
Operative/Inv Procedure Report Surgery Date: 04/05/18 Name of Procedure: 1 Incision and Drainage deep to the deep fascia with exposure of the tendon and tendon sheath 2 Bone biopsy to distal hallux left 3 Intra-operative administration of ankle block anesthia 4 Excisional debridement Pre-Operative Diagnosis: 1 Necrotic wound left foot 2 Osteomyelitis left foot Post-Operative Diagnosis: The same Estimated Blood Loss: less than 50ml Surgeon/Premium Representative: MEG ARREOLA DPM Anesthesia: moderate sedation, block
--- NOTE | 2018-04-05 17:21 | ECHOCARDIOGRAM REPORT ---
COLBY NOLASCO Age: 52 : 1965 Gender: M Exam Date: 04/05/2018 09:45 Exam Location: [address] [place] [address] Ht (in): 69 Wt (lb): 160 BSA: 1.88 BP: 178 / 80 Ordering Physician: Yaima Upton MD Referring Physician: Yaima Upton MD Technologist: Pascual Champion [facility] Room Number: 210-2 Indications: Heart failure, unspecified Rhythm: Sinus Technical Quality: Good FINDINGS Left Ventricle Left ventricular cavity size at the upper limits of normal. Normal left ventricular ejection fraction estimated at 65-70%. Right Ventricle Normal right ventricular size and function. Right Atrium Right atrial dilatation. Left Atrium Moderate left atrial dilatation. Mitral Valve Mitral valve thickened. Moderate mitral annular calcification. Trace to mild mitral regurgitation. Aortic Valve Trileaflet aortic valve. Diffuse thickening (sclerosis) of the aortic valve cusps without reduced excursion. No aortic stenosis. No aortic regurgitation. Tricuspid Valve Tricuspid valve not well visualized, grossly normal. Mild tricuspid regurgitation. Right ventricular systolic pressure estimated to be elevated at 55 mmHg. Pulmonic Valve Pulmonic valve not well visualized, grossly normal. Pericardium No pericardial effusion. Great Vessels Aortic root and proximal ascending aorta not well visualized, grossly normal. CONCLUSIONS 1. Aortic sclerosis is present with no significant valvular stenosis or insufficiency. 2. Mitral leaflet thickening is present with moderate anular calcification and mild mitral insufficiency with moderate left atrial enlargement. 3. There is no pericardial fluid present. 4. The left ventricle is upper normal in size with a normal ejection fraction and no resting wall motion abnormalities. Mild diastolic dysfunction is present 5. Mild tricuspid insufficiency is present with right atrial enlargement and pulmonary hypertension with an estimated RV systolic pressure of 55 mmHg. 6. A prominent Chiari network is present in the right atrial cavity Ghada Johnson M.D. (Electronically Signed) Final Date: 05 April 2018 17:15 MEASUREMENTS (Male / Female) Normal Values 2D ECHO LV Diastolic Diameter PLAX 5.8 cm 4.2 - 5.9 / 3.9 - 5.3 cm LV Systolic Diameter PLAX 3.4 cm 2.1 - 4.0 cm LV Fractional Shortening PLAX 41.4 % 25 - 46 % LV Ejection Fraction 2D Teich 71.5 % IVS Diastolic Thickness 1.2 cm LVPW Diastolic Thickness 1.1 cm LV Relative Wall Thickness 0.4 RV Internal Dim ED PLAX 3.2 cm 1.9 - 3.8 cm LVOT Diameter 1.8 cm Aortic Root Diameter 3.0 cm LA Systolic Diameter LX 4.5 cm 3.0 - 4.0 / 2.7 - 3.8 cm LA Volume 111.0 cm 18 - 58 / 22 - 52 cm Ascending Aorta Diameter 3.0 cm DOPPLER AV Peak Velocity 189.0 cm/s AV Peak Gradient 14.3 mmHg AV Mean Velocity 126.0 cm/s AV Mean Gradient 7.0 mmHg AV Velocity Time Integral 46.2 cm LVOT Peak Velocity 134.0 cm/s LVOT Peak Gradient 7.2 mmHg LVOT Mean Velocity 85.0 cm/s LVOT Mean Gradient 4.0 mmHg LVOT Velocity Time Integral 32.5 cm LVOT Stroke Volume 82.7 cm AV Area Cont Eq vti 1.8 cm AV Area Cont Eq pk 1.8 cm MV Peak Velocity 192.0 cm/s MV Peak Gradient 14.7 mmHg MV Mean Velocity 100.0 cm/s MV Mean Gradient 5.0 mmHg Mitral E Point Velocity 149.0 cm/s Mitral A Point Velocity 153.0 cm/s Mitral E to A Ratio 1.0 MV PHT Velocity 182.0 cm/s MV Deceleration [place] 764.0 cm/s MV Pressure Half Time 71.5 ms MV Area PHT 3.1 cm MV Deceleration Time 236.0 ms TR Peak Velocity 359.0 cm/s TR Peak Gradient 51.6 mmHg Right Atrial Pressure 10.0 mmHg Pulmonary Artery Systolic Pressure 61.6 mmHg Right Ventricular Systolic Pressure 61.6 mmHg PV Peak Velocity 132.0 cm/s PV Peak Gradient 7.0 mmHg PV Mean Velocity 92.9 cm/s PV Mean Gradient 4.0 mmHg PV Velocity Time Integral 33.9 cm LV E' Lateral Velocity 9.5 cm/s Mitral E to LV E' Lateral Ratio 15.8 LV E' Septal Velocity 7.2 cm/s Mitral E to LV E' Septal Ratio 20.7
[2018-04-05 22:00] VITALS: BP 148/74
[2018-04-06 06:21] VITALS: BP 160/82
--- NOTE | 2018-04-06 06:29 | PN- Housestaff ---
See Addendum Cayden Horner 04/06/18 0629: Subjective Follow-up For: Left great toe cellulitis ESRD Anemia Hyponatremia Hypothyroidism Hypertension Diabetes mellitus Subjective: I visited Jian this morning, he was lying in his bed while having breakfast. He was alert and oriented 3, in no acute distress. He was not as irritable as yesterday. He had no complaints about the excisional debridement procedure that was done by Dr. Nelson on his right lower extremity first finger. He did not report any fever, chills, chest pain, lightheadedness, dizziness, nausea, vomiting, abdominal pain, constipation, diarrhea, pain or bleeding at the site of the procedure, or any episodes of hypoglycemia. I explained to him that we need to get blood cultures to confirm that his blood is now sterile and it is safe to put an intrajugular line for him to administer IV antibiotic. Review of Systems Constitutional: Reports: see HPI. Objective Last 24 Hrs of Vital Signs/I&O Vital Signs Date Time Temp Pulse Resp B/P B/P Pulse O2 O2 Flow FiO2 Mean Ox Delivery Rate 04/06 0931 80 138/80 04/06 0621 97.5 68 18 160/82 96 04/05 2216 72 148/74 04/05 2216 72 148/74 04/05 2215 72 148/74 04/05 2200 98.2 72 16 148/74 96 04/05 1600 98.9 79 18 148/88 97 Room Air 04/05 1242 98 22 150/80 93 Room Air 04/05 1239 97.8 20 154/80 91 Room Air 04/05 1236 Room Air 04/05 1226 Room Air Intake & Output 04/06 1600 04/06 0800 04/06 0000 Intake Total 240 600 Output Total 400 Balance 240 200 Intake, Oral 240 600 Number 0 Bowel Movements Output, Urine 400 Patient 192 lb Weight Physical Exam General Appearance: Alert, Oriented X3, Cooperative, No Acute Distress Skin: No Rashes Skin Temp/Moisture Exam: Warm/Dry Sepsis Skin Exam (color): Normal for Ethnicity HEENT: Atraumatic Neck: Supple, No JVD Cardiovascular: Regular Rate, Normal S1, Normal S2 Lungs: Clear to Auscultation, Normal Air Movement Abdomen: Normal Bowel Sounds, Soft, No Tenderness Neurological: Normal Speech Extremities: No Cyanosis, No Edema, Normal Pulses, RLE 1st digit had a dressing after the procedure. Vascular: Normal Pulses, Pulses Symmetrical Assessment/Plan Assessment: Jian Chatterjee is a 52M with a PMH of hypertension, poorly controlled insulin- dependent diabetes mellitus, CHF unsure of last ejection fraction, ESRD with a left arm fistula although patient states that he has not had dialysis yet, hypothyroidism presents with left great toe swelling, redness, pain 2 days. Since blood culture was positive for staph aureus, echocardiogram was done and no vegetations were seen, he has refused more blood cultures primarily, but then I talked and persuaded him to do that. Left great toe cellulitis: ID consult appreciated, excisional debridement procedure was done. Plan: IV vancomycin was discontinued because the organism was MSSA and oxacillin is a started, excisional debridement was done. Vascular surgeon has recommended arterial Doppler sonography of lower extremity, which did not show discrete stenosis. ESRD w/ AV fistula: His creatinine is 4.7 with BUN 88. Plan: Nephrology consult appreciated. He does not need dialysis now. Pulmonary congestion secondary to questionable CHF: Plan: We will closely follow the patient. Chronic normacytic anemia: Probably due to end-stage renal disease, Hb 8.4. Plan: Nephrology consult appreciated he needs 1 more injection of erythropoietin during this admission. Hypertension: His blood pressure has lowered to 140s over 70s, 80s. Plan: We shifted his amlodipine 10 mg to the afternoon, we will talk to child nurse about it. Chronic BLE swelling secondary to decreased renal function: Plan: Nephrology consult appreciated, is receiving Lasix. Hyponatremia: Plan: Sodium level was 134-132 Hypothyroidism: Plan: He is on levothyroxine 75 mcg daily. IDDM non-compliant to insulin: His hemoglobin A1c is 9.2 Plan: We will check blood sugar level and correct with sliding scale insulin and Levemir. Decreased the night detemir insulin to 6 units due to previous hypoglycemia at 3 AM which is probably caused by decreased renal function and decreased clearance of insulin. He had no more episodes of hypoglycemia. Problem List: 1. Cellulitis 2. ESRD (end stage renal disease) 3. Diabetes 4. Hypertension 5. Skhxw-va-uflzvaw kidney injury 6. Fluid overload 7. Hyponatremia 8. Hypothyroidism Pain Ratin Pain Location: LLE Pain Goal: Pain 4 or less Pain Plan: Oxycodone Acetaminophen Antibiotics Podiatric procedure Tomorrow's Labs & Rationales: ALEKSANDAR Iyer MD,Cherie 04/06/18 1041: Attending MD Review Statement Attending Statement Attending MD Statement: examined this patient, discuss w/resident/PA/REPAIR SUPERVISOR, agreed w/resident/PA/REPAIR SUPERVISOR, reviewed EMR data (avail), discussed with nursing, discussed with case mgmt, reviewed images Attending Assessment/Plan: 52-year-old male past medical history of diabetes, hypertension, CKD stage IV who is here with staph aureus bacteremia. MSSA per Dr. Umanzor and we have him right now on IV Vanco that we are going to switch to oxacillin. Dr. Umanzor is going to speak to Dr. Nelson whether the margins were clean because if there were not he is going to need a prolonged course of IV antibiotics with a pro line. We will repeat blood cultures to document sterilization, his transthoracic echo was negative and follow closely.
--- NOTE | 2018-04-06 07:10 | Discharge Summary ---
Visit Information Visit Dates Admission Date: 04/03/18 Discharge Date: 04/20/2018 Hospital Course Course Attending Physician: Jaylon RIVERA,Cherie Bacon Primary Care Physician: Patient Has No Primary Care Dr Consulting Request: 1 Consulting Specialty: Infectious Disease Consulting Physician: Erna RIVERA,Wilbert Sparks Reason for Consult: infected left great toe/ positive blood culture Consulting Request: 2 Consulting Specialty: Nephrology Consulting Physician: Stefan Schaefer MD Reason for Consult: CKD Consulting Request: 3 Consulting Specialty: Podiatry Consulting Physician: Meg Arreola DPM Reason for Consult: Necrotic left great toe/Osteomylitis Consulting Request: 4 Consulting Specialty: Thoracic/Vascular Surgery Consulting Physician: Spencer Gordon MD Reason for Consult: left foot big toe necrosis Hospital Course: Jian Chatterjee is a 52M with a PMH of hypertension, poorly controlled insulin- dependent diabetes mellitus, CHF unsure of last ejection fraction, ESRD with a left arm fistula although patient states that he has not had dialysis yet, hypothyroidism presents with left great toe swelling, redness, pain 2 days. ORI did not show any vegetation, margins of the osteomyelitis were clean after the procedure. Based on ID consult he only needs 2 weeks of IV antibiotic, which will be dictated on April 20. He had one more episode of high blood pressure. Based on nephrology consult. Started losartan 25 mg p.o. daily and increased to 50 mg daily the day after. He will stay in the hospital till the end of the course of antibiotic therapy which is April 20 and will receive IV iron doses needed and Proline will be removed, and then he will be discharged. We could not send him to [facility] because of placement issues. The patient received a full 2 week course of IV oxacillin, and a full 1 g dose of IV iron. His blood pressure is now under better control in 140s over 70s. Pro line removed by IR and the patient is ready to be discharged. Left great toe cellulitis: ID consult appreciated, excisional debridement procedure and revision done. Dr. Arreola saw the patient today and change the dressing, he will visit the patient in his office on next Tuesday as an outpatient. Plan: IV vancomycin was discontinued because the organism was MSSA and oxacillin is started 2gr Q4h IV, excisional debridement and revision was done. Needs to receive IV antibiotics till April 20. ID consult appreciated. Chronic kidney disease, stage IV borderline on a stage V: ESRD w/ AV fistula, His creatinine 5.2---...--->4.6-->4.0--->5.0--->5.1 BUN: 103--...--->68--->59--->71--->75 Plan: Nephrology consult appreciated. He does not need dialysis now. Pulmonary congestion secondary to questionable CHF: CHF was ruled out. Plan: We will closely follow the patient. TTE was done, the patient has pulmonary HTN, but no CHF. Chronic normacytic anemia: Probably due to end-stage renal disease, Hb: 7.9---> 8.4--->9.4--->8.9 Plan: Nephrology consult appreciated. The patient received 1 dose of epoetin, with a total of 1000 mg of Venofer in the hospital. Hypertension: He is still has systolic blood pressures in 190s. Systolic blood pressure now down to 140s, 150s. Plan: We have started clonidine 0.1 mg daily, increased to twice daily. Added losartan 25 mg p.o. daily, increased to 50 mg daily, increase 100 mg p.o. daily. Chronic BLE swelling secondary to decreased renal function: Plan: Nephrology consult appreciated, is receiving Lasix. Increased to 80 mg twice daily. We will decrease to 80 daily if weight comes down to 155 pounds, or creatinine rises. Daily weights will be obtained on standing scale. Hyponatremia: resolved Plan: Sodium level was 134-132, now 133, 134, 136 Hypothyroidism: He is stable regarding hypothyroidism Plan: He is on levothyroxine 75 mcg daily. IDDM non-compliant to insulin: His hemoglobin A1c is 9.2 Plan: We will check blood sugar level and correct with sliding scale insulin and Levemir. Decreased the night detemir insulin to 6 units, I decreased his morning levemir to 8 units, increased to 10 units again. No more episodes of hypoglycemia. Allergies: Coded Allergies: lisinopril (TONGUE SWELLING 04/03/18) Significant Procedures: Name of Procedure: 1 open incision and drainage deep to the deep fascia with exposure of the extensor and flexor tendon and tendon sheath multiple sites left foot 2 disarticulation hallux interphalangeal joint left foot 3 intraoperative ministration of ankle block anesthesia 4 excisional debridement Pre-Operative Diagnosis: 1 open, necrotic wound left foot 2 osteomyelitis left foot 3 peripheral arterial disease Post-Operative Diagnosis: The same Estimated Blood Loss: less than 50ml Surgeon/Loss Prevention Guard: MEG ARREOLA DPM Anesthesia: moderate sedation, block Operative/Procedure Note Note: After obtaining informed consent the patient was brought to the operating room and placed on the operating table in the supine position. The patient was then securely fastened to the operating table utilizing a safety belt. After menstruation of IV sedation, 10 cc of 05% Marcaine plain was infiltrated about the patient's left ankle. The left foot and ankle were then scrubbed, prepped and draped in the usual aseptic manner. Digital traction of the foot, where a large full-thickness necrotic was identified in the distal left hallux. A 15 blade was utilized sharply advise skin margins. Dissection was then carried down deep to the deep fascia with exposure of the extensor and flexor tendon and tendon sheath multiple sites, both proximally and distally. All necrotic, nonviable infected tissue was sharply evacuated the wound bed. The dissection then continued proximally to the level of the interphalangeal joint where the capsular and ligamentous structures were released and the distal phalanx was passed from the operative field. Specimen was sent for both microbiologic and pathologic inspection. The open wound was then irrigated with 3 L of normal sterile saline infused with 50,000 units of bacitracin. Following this, the foot was redraped and the surgeons top gloves are changed to clinic was. Any bleeding vessels identified were cauterized or ligated or the open was then packed with a wet-to-dry dressing and 3-0 nylon retention sutures were placed. The foot was then dressed with 4 x 4's, Kerlix, and an Conor wrap. The patient was noted to tolerate both procedure and anesthesia well and the patient was transported from the operating room to recovery with vital signs stable. DICTATED BY: Meg Arreola DPM DATE/TIME DICTATED:04/05/181349 TOWER SUPERVISOR:GILA DATE/TIME TRANSCRIBED:04/05/181349 REPORT NUMBER:[id number] Pertinent Lab Results: +ve blood culture x 2 for G+ cocci in clusters Disposition Summary Disposition Principal Diagnosis: Left Lower Extremity 1st toe Cellulitis and Osteomylitis Additional Diagnosis: ESRD Anemia Hyponatremia Hypothyroidism Hypertension Diabetes mellitus Discharge Disposition: home or self care Discharge Instructions General Discharge Information Code Status: Do Not Resucitate/Intubat Patient's Diet: Consistent carbohydrate 2 (Diabetic) Patient's Activity: As tolerated with precautions for his left foot. Follow-Up Instructions/Appts: Please follow-up with haul truck driver Please arrange for IR at [facility] to take out the pro line once he is discharged from [facility] Please follow-up with your PCP Medications at Discharge Discharge Medications: Stop taking the following medications: Furosemide (Lasix) 40 MG TABLET ORAL DAILY Clonidine Tts-1 (Catapres-Tts 1) 0.1 MG/24 HOUR PATCH.TDWK On the skin EVERY TUESDAY Clonidine HCl (Clonidine HCl) 0.1 MG TABLET ORAL EVERY 8 HOURS as needed for ANXIETY OR INSOMNIA Qty = 21 Continue taking these medications: Pantoprazole Sodium (Pantoprazole Sodium) 20 MG TABLET.DR 1 Tablet ORAL DAILY Comments: NOT GIVEN IN HOSPITAL Aspirin (Ecotrin*) 81 MG TABLET.DR 1 Tablet ORAL DAILY Comments: Last Taken: 04/20/18 Time: 1000AM Cyanocobalamin (Vitamin B-12) (B-12) 1,000 MCG TABLET 1 Tablet ORAL DAILY Comments: NOT TAKEN IN HOSPITAL Cholecalciferol (Vitamin D3) (Vitamin D-3) 2,000 UNIT CAPSULE 2,000 Milligram ORAL DAILY Comments: NOT GIVEN IN HOSPITAL Sertraline HCl (Zoloft) 100 MG TABLET 0.5 Tablet ORAL DAILY Comments: Last Taken: 04/20/18 Time: 0900AM Hydralazine HCl (Hydralazine HCl) 100 MG TABLET 1 Tablet ORAL THREE TIMES DAILY Comments: Last Taken: 04/20/18 Time: 1400PM Isosorbide Mononitrate (Isosorbide Mononitrate ER) 30 MG TAB.ER.24H 1 Tablet ORAL DAILY Comments: Last Taken: 04/19/18 Time: 1000PM Insulin Detemir (Levemir) 100 UNIT/ML VIAL 7 Units SC AT BEDTIME Comments: Last Taken: 04/19/18 Time: 1000PM Insulin Aspart (Novolog) 100 UNIT/ML CARTRIDGE 3 Units SC THREE TIMES DAILY Instructions: before meals Comments: Last Taken: 04/20/18 Time: 1230PM Levothyroxine Sodium (Synthroid) 75 MCG TABLET 1 Tablet ORAL DAILY Comments: NOT GIVEN IN HOSPITAL Atorvastatin Calcium (Lipitor) 80 MG TABLET 1 Tablet ORAL DAILY Comments: Last Taken: 04/19/18 Time: 1700PM Carvedilol (Carvedilol) 25 MG TABLET 25 Milligram ORAL TWICE DAILY Qty = 60 Instructions: . Comments: Last Taken: 04/20/18 Time: 0900AM Amlodipine Besylate (Norvasc) 10 MG TABLET 10 Milligram ORAL DAILY Qty = 60 Instructions: . Comments: Last Taken:04/19/18 Time: 2200PM Divalproex Sodium (Depakote) 500 MG TABLET. 1 Tablet ORAL DAILY Comments: Last Taken: 04/20/18 Time: 0900AM Start taking the following new medications: Clonidine HCl (Clonidine HCl) 0.1 MG TABLET 0.1 Milligram ORAL TWICE DAILY Qty = 60 No Refills Instructions: PLEASE TAKE ONE TABLET EVERY 12 HOURS. Comments: Last Taken:04/20/18 Time:0900 AM Losartan (Cozaar) 100 MG TABLET 100 Milligram ORAL DAILY Qty = 30 Refills = 1 Comments: Last Taken:04/20/18 Time:0900AM Furosemide (Lasix) 80 MG TABLET 1 Tablet ORAL DAILY Qty = 30 No Refills Comments: Last Taken:04/20/18 Time:1400PM Copies To: Francisco Segovia MD Attending MD Review Statement Documenting Attending: Francisco Segovia MD Other Findings: The patient was seen and discussed with house staff. OK to discharge to home today with follow-up next week with Dr. Arreola for suture removal and close follow-up with Nephrology.
--- NOTE | 2018-04-06 07:19 | Patient Discharge Instructions ---
Discharge Instructions General Discharge Information You were seen/treated for: Left great toe cellulitis and osteomyelitis ESRD Anemia Hyponatremia Hypothyroidism Hypertension Diabetes mellitus You had these procedures: amputation of left big toe Watch for these problems: Please call your PCP if you notice any of the following: Bleeding, infection, or swelling and worsening pain in your left foot Any new wound on your body Confusion, dizziness, weakness please follow up with Dr. Nelson to remove the stiches on Tuesday. Do not soak the wound: Yes Special Instructions: Please follow-up with your imaging scheduler Please follow-up with your PCP Please follow up with Dr. Mensah in wound care on Tuesday 04/24. Please call ahead of time to confirm appointment. Diet Continue normal diet: Yes Recommended Diet: Diabetic, Heart Healthy, Renal Non Dialysis Activity Full Activity/No Limits: No Activity Self Limited: Yes Acute Coronary Syndrome Inclusion Criteria At DC or during hospital stay patient has or had the following: ACS DIAGNOSIS No Discharge Core Measures Meds if any: Prescribed or Continued at Discharge Meds if any: NOT Prescribed or Continued at Discharge Congestive Heart Failure Inclusion Criteria At DC or during hospital stay patient has or had the following: CHF DIAGNOSIS No Discharge Core Measures Meds if any: Prescribed or Continued at Discharge Meds if any: NOT Prescribed or Continued at Discharge Cerebrovascular accident Inclusion Criteria At DC or during hospital stay patient has or had the following: CVA/TIA Diagnosis No Discharge Core Measures Meds if any: Prescribed or Continued at Discharge Meds if any: NOT Prescribed or Continued at Discharge Venous thromboembolism Inclusion Criteria VTE Diagnosis No VTE Type NONE VTE Confirmed by (Test) NONE Discharge Core Measures - Per Current guidelines, there needs to be overlap - treatment for the first 5 days of Warfarin therapy. - If discharged on Warfarin prior to 5 days of - overlap therapy, the patient will need to be - assessed for post discharge needs including - *Post discharge parental anticoagulation - *Warfarin and/or parental anticoagulation education - *Follow up date to check INR post discharge At least 5 days overlap therapy as Inpatient No Meds if any: Prescribed or Continued at Discharge Note: Overlap Therapy is Warfarin and Anticoagulant Meds if any: NOT Prescribed or Continued at Discharge
[2018-04-06 09:24] LABS: ABSOLUTE BASOPHIL COUNT 0.1 /CUMM (0.0-0.2); ABSOLUTE EOSINOPHIL COUNT 0.5 /CUMM (0.0-0.7); ABSOLUTE GRANULOCYTE CT 5.8 /CUMM (1.4-6.5); ABSOLUTE LYMPH COUNT 0.7 /CUMM (1.2-3.4); ABSOLUTE MONOCYTE COUNT 0.7 /CUMM (0.10-0.60); BASOPHIL % 1.1 % (0.0-2.0); EOSINOPHIL % 6.1 % (0-5); GRANULOCYTE % 74.1 % (42.2-75.2); HEMATOCRIT 24.6 % (42-52); MEAN CORPUSCULAR HGB 28.9 PG (27.0-31.0); MEAN CORPUSCULAR VOLUME 84.9 FL (80.0-94.0); MEAN PLATELET VOLUME 6.4 FL (7.4-10.4); PLATELET COUNT 270 /CUMM (130-400); RBC DISTRIBUTION WIDTH 14.4 % (11.5-14.5); RED BLOOD CELL CT 2.89 /CUMM (4.70-6.10); WHITE BLOOD CELL COUNT 7.8 /CUMM (4.8-10.8)
--- NOTE | 2018-04-06 10:57 | PN- Infect Dx ---
Subjective Subjective: Afebrile. He has some discomfort in the lateral aspect of his left foot. Objective Last 24 Hrs of Vital Signs/I&O Vital Signs Date Time Temp Pulse Resp B/P B/P Pulse O2 O2 Flow FiO2 Mean Ox Delivery Rate 04/06 0931 80 138/80 / 0621 97.5 68 18 160/82 96 08 2216 72 148/74 04/05 2216 72 148/74 04/05 2215 72 148/74 04/05 2200 98.2 72 16 148/74 96 04/05 1600 98.9 79 18 148/88 97 Room Air 04/05 1242 98 22 150/80 93 Room Air 04/05 1239 97.8 20 154/80 91 Room Air 04/05 1236 Room Air 04/05 1226 Room Air Intake & Output 04/06 1600 04/06 0800 04/06 0000 Intake Total 240 600 Output Total 400 Balance 240 200 Intake, Oral 240 600 Number 0 Bowel Movements Output, Urine 400 Patient 192 lb Weight Physical Exam Other Physical Findings: He appears comfortable, in better spirits, in no acute distress Lungs are clear Heart regular rhythm with no murmur Extremities left foot dressing intact Results Last 24 Hours of Lab Results: Laboratory Tests 04/06 852 Chemistry Sodium (137 - 145 mmol/L) 134 L Potassium (3.5 - 5.1 mmol/L) 3.9 Chloride (98 - 107 mmol/L) 101 Carbon Dioxide (22 - 30 mmol/L) 22 Anion Gap (5 - 16) 11 BUN (9 - 20 mg/dL) 88 H Creatinine (0.7 - 1.2 mg/dL) 4.7 H Estimated GFR (>60 ml/min) 13 L BUN/Creatinine Ratio (7 - 25 %) 18.7 Hematology CBC w Diff NO MAN DIFF REQ WBC (4.8 - 10.8 /CUMM) 7.8 RBC (4.70 - 6.10 /CUMM) 2.89 L Hgb (14.0 - 18.0 G/DL) 8.4 L Hct (42 - 52 %) 24.6 L MCV (80.0 - 94.0 FL) 84.9 MCH (27.0 - 31.0 PG) 28.9 MCHC (33.0 - 37.0 G/DL) 34.0 RDW (11.5 - 14.5 %) 14.4 Plt Count (130 - 400 /CUMM) 270 MPV (7.4 - 10.4 FL) 6.4 L Gran % (42.2 - 75.2 %) 74.1 Lymphocytes % (20.5 - 51.1 %) 9.5 L Monocytes % (1.7 - 9.3 %) 9.2 Eosinophils % (0 - 5 %) 6.1 H Basophils % (0.0 - 2.0 %) 1.1 Absolute Granulocytes (1.4 - 6.5 /CUMM) 5.8 Absolute Lymphocytes (1.2 - 3.4 /CUMM) 0.7 L Absolute Monocytes (0.10 - 0.60 /CUMM) 0.7 H Absolute Eosinophils (0.0 - 0.7 /CUMM) 0.5 Absolute Basophils (0.0 - 0.2 /CUMM) 0.1 Last 24 Hours of Rehan Results: Blood cultures 2 April 03 positive for Staph aureus sensitive to Oxacillin OR culture labeled left first toe April 05 positive for Staph aureus Recent Imaging Studies: Echocardiogram April 03 aortic sclerosis with no significant valvular stenosis or insufficiency; mitral leaflet thickening with mild mitral insufficiency; no vegetations noted Assessment/Plan ID Impression: Stable, with temperatures and white blood cell count remaining normal, on Vancomycin, status post I&D of the left foot with removal of the distal phalanx of the great toe yesterday for osteomyelitis secondary to Staph aureus with secondary bacteremia. Have spoken with Podiatry, who feels that all of the infected bone has been removed; therefore he should not require a prolonged course of antibiotics for osteomyelitis. Given the isolation of Staph aureus from the blood, however, he will need evaluation for endocarditis to determine the optimal duration of therapy. He is scheduled for a return to the OR in the a.m. for further debridement and possible wound closure. Suggestion: 1. Repeat blood cultures 2 2. Would pursue ORI 3. Would pursue placement of a Pro-Line if his repeat blood cultures are negative 4. Await return to the OR in the a.m. for further debridement and possible wound closure 5. Discontinue Vancomycin 6. Begin Oxacillin 2 g IV every 4 hours
--- NOTE | 2018-04-06 12:28 | PN- Nephrology ---
Assessment/Plan Nephrology Assessment: 1. CKD stage V secondary to diabetic nephropathy 2. Osteomyelitis left great toe with MSSA bacteremia; 1 day status post excisional debridement Suggestion: 1. Continue current management 2. Okay to proceed with central line for outpatient antibiotic therapy, once repeat cultures are negative Subjective Subjective: Seems a much better spirits today 1 day status post excisional debridement of left great toe. No pain or other complaints. Creatinine continues to drift down --> 4.7 today. BUN down to 88. Hemoglobin up to 8.4. Objective Vital Signs and I&Os Vital Signs Date Time Temp Pulse Resp B/P B/P Pulse O2 O2 Flow FiO2 Mean Ox Delivery Rate 04/06 0931 80 138/80 04/06 0621 97.5 68 18 160/82 96 04/05 2216 72 148/74 04/05 2216 72 148/74 04/05 2215 72 148/74 04/05 2200 98.2 72 16 148/74 96 04/05 1600 98.9 79 18 148/88 97 Room Air 04/05 1242 98 22 150/80 93 Room Air 04/05 1239 97.8 20 154/80 91 Room Air 04/05 1236 Room Air 04/05 1226 Room Air Intake & Output 04/06 1600 04/06 0400 04/05 1600 04/05 0400 04/04 1600 04/04 0400 Intake Total 743 554 4954 840 680 240 Output Total 400 2900 725 1750 Balance 240 200 -1875 115 -1070 240 Intake, IV 1025 200 Intake, Oral 240 600 0 840 480 240 Number 0 0 Bowel Movements Output, Urine 400 2900 725 1750 Patient 192 lb 195 lb 191 lb 160 lb Weight Weight Bed scale Reported by Patient Measurement Method Physical Exam: General: Well-developed white male in NAD Skin: No rash or jaundice HEENT: Conjunctivae pink, sclerae anicteric, mucous membranes moist Neck: Without masses or thyromegaly, no supraclavicular or cervical adenopathy Chest: Clear to P&A Heart: Regular rate and rhythm without S3 or rub Abdomen: Soft and nontender without palpable masses or organomegaly Extremities: Positive lower extremity edema without cyanosis; left foot dressing intact; left upper arm AVF is patent Neuro: Cognitively intact, no focal findings, no asterixis or myoclonus Results Pertinent Lab Results: Laboratory Tests 04/06 04/05 04/04 0852 0600 1800 Chemistry Sodium (137 - 145 mmol/L) 134 L 132 L Potassium (3.5 - 5.1 mmol/L) 3.9 3.7 Chloride (98 - 107 mmol/L) 101 100 Carbon Dioxide (22 - 30 mmol/L) 22 21 L Anion Gap (5 - 16) 11 10 BUN (9 - 20 mg/dL) 88 H 102 *H Creatinine (0.7 - 1.2 mg/dL) 4.7 H 4.8 H Estimated GFR (>60 ml/min) 13 L 13 L BUN/Creatinine Ratio (7 - 25 %) 18.7 21.3 Hematology CBC w Diff NO MAN DIFF REQ WBC (4.8 - 10.8 /CUMM) 7.8 RBC (4.70 - 6.10 /CUMM) 2.89 L Hgb (14.0 - 18.0 G/DL) 8.4 L Hct (42 - 52 %) 24.6 L MCV (80.0 - 94.0 FL) 84.9 MCH (27.0 - 31.0 PG) 28.9 MCHC (33.0 - 37.0 G/DL) 34.0 RDW (11.5 - 14.5 %) 14.4 Plt Count (130 - 400 /CUMM) 270 MPV (7.4 - 10.4 FL) 6.4 L Gran % (42.2 - 75.2 %) 74.1 Lymphocytes % (20.5 - 51.1 %) 9.5 L Monocytes % (1.7 - 9.3 %) 9.2 Eosinophils % (0 - 5 %) 6.1 H Basophils % (0.0 - 2.0 %) 1.1 Absolute Granulocytes (1.4 - 6.5 /CUMM) 5.8 Absolute Lymphocytes (1.2 - 3.4 /CUMM) 0.7 L Absolute Monocytes (0.10 - 0.60 /CUMM) 0.7 H Absolute Eosinophils (0.0 - 0.7 /CUMM) 0.5 Absolute Basophils (0.0 - 0.2 /CUMM) 0.1 Toxicology Random Vancomycin (ug/ml) 15.8 6.8 04/04 04/04 0630 0600 Chemistry Sodium (137 - 145 mmol/L) 134 L Potassium (3.5 - 5.1 mmol/L) 4.0 Chloride (98 - 107 mmol/L) 102 Carbon Dioxide (22 - 30 mmol/L) 20 L Anion Gap (5 - 16) 12 BUN (9 - 20 mg/dL) 99 H Creatinine (0.7 - 1.2 mg/dL) 5.2 *H Estimated GFR (>60 ml/min) 12 L BUN/Creatinine Ratio (7 - 25 %) 19.0 Hemoglobin A1c (4.2 - 5.8 %) 9.2 H Uric Acid (3.5 - 8.5 mg/dL) 6.5 Phosphorus (2.5 - 4.5 mg/dL) 4.5 Magnesium (1.6 - 2.3 mg/dL) 1.7 Troponin I (<0.11 ng/ml) 0.04 Cancelled Coagulation PT (9.4 - 12.5 SEC) 13.6 H INR (0.90 - 1.17) 1.24 H Hematology CBC w Diff NO MAN DIFF REQ WBC (4.8 - 10.8 /CUMM) 10.0 RBC (4.70 - 6.10 /CUMM) 2.64 L Hgb (14.0 - 18.0 G/DL) 7.6 L Hct (42 - 52 %) 23.0 L MCV (80.0 - 94.0 FL) 86.8 MCH (27.0 - 31.0 PG) 28.7 MCHC (33.0 - 37.0 G/DL) 33.1 RDW (11.5 - 14.5 %) 14.3 Plt Count (130 - 400 /CUMM) 206 MPV (7.4 - 10.4 FL) 7.0 L Gran % (42.2 - 75.2 %) 85.4 H Lymphocytes % (20.5 - 51.1 %) 6.2 L Monocytes % (1.7 - 9.3 %) 7.3 Eosinophils % (0 - 5 %) 0.4 Basophils % (0.0 - 2.0 %) 0.7 Absolute Granulocytes (1.4 - 6.5 /CUMM) 8.6 H Absolute Lymphocytes (1.2 - 3.4 /CUMM) 0.6 L Absolute Monocytes (0.10 - 0.60 /CUMM) 0.7 H Absolute Eosinophils (0.0 - 0.7 /CUMM) 0 Absolute Basophils (0.0 - 0.2 /CUMM) 0.1 04/03 212 Toxicology Urine Opiates Screen (>2000 NG/ML) < 100 Methadone Screen (>300 NG/ML) < 40 Barbiturate Screen (>200 NG/ML) < 60 Ur Phencyclidine Scrn (>25 NG/ML) < 6.00 Amphetamines Screen (>1000 NG/ML) < 100 U Benzodiazepines Scrn (>200 NG/ML) < 85 Urine Cocaine Screen (>300 NG/ML) < 50 Urine Cannabis Screen (>50 NG/ML) > 80.00 H Urines Urine Color (YEL,AMB,STR) YEL Urine Clarity (CLEAR) CLEAR Urine pH (5.0 - 8.0) 6.0 Ur Specific [place] (1.001 - 1.035) 1.020 Urine Protein (NEG,<30 MG/DL) 100 H Urine Ketones (NEG) NEG Urine Nitrite (NEG) NEG Urine Bilirubin (NEG) NEG Urine Urobilinogen (0.1 - 1.0 EU/dl) 0.2 Ur Leukocyte Esterase (NEG) NEG Ur Microscopic SEDIMENT EXAMINED Urine RBC (0 - 5 /HPF) RARE Urine WBC (0 - 2 /HPF) RARE Ur Epithelial Cells (NONE,FEW) RARE Urine Bacteria (NEG/NONE) RARE H Urine Hemoglobin (NEG) TRACE-INTACT H Urine Osmolality (300 - 1000 MOSM/KG) 368 Ur Random Creatinine (mg/dL) 32.1 Ur Random Sodium (30 - 90 mmol/L) 50 Ur Random Potassium (mmol/L) 26.2 Fraction Sodium Excret (<1% %) 6.2 H Urine Glucose (N MG/DL) >=1000 H 04/03 1833 Chemistry Sodium (137 - 145 mmol/L) 130 L Potassium (3.5 - 5.1 mmol/L) 4.8 Chloride (98 - 107 mmol/L) 98 Carbon Dioxide (22 - 30 mmol/L) 19 L Anion Gap (5 - 16) 13 BUN (9 - 20 mg/dL) 103 *H Creatinine (0.7 - 1.2 mg/dL) 5.2 *H Estimated GFR (>60 ml/min) 12 L BUN/Creatinine Ratio (7 - 25 %) 19.8 Glucose (65 - 99 mg/dL) 408 H Hemoglobin A1c (4.2 - 5.8 %) 9.3 H Serum Osmolality (285 - 295 MOSM/KG) 327 H Calcium (8.4 - 10.2 mg/dL) 8.4 Magnesium (1.6 - 2.3 mg/dL) 1.2 L Total Bilirubin (0.2 - 1.3 mg/dL) 0.3 AST (17 - 59 U/L) 21 ALT (21 - 72 U/L) 32 Alkaline Phosphatase (< 127 U/L) 79 Troponin I (<0.11 ng/ml) 0.03 C-Reactive Prot, Quant (<1.0 mg/dL) 6.7 H C-React Prot High Sens (1.0 - 3.0 mg/L) > 15.0 H Total Protein (6.3 - 8.2 g/dL) 6.3 Albumin (3.5 - 5.0 g/dL) 3.5 Globulin (1.9 - 4.2 gm/dL) 2.8 Albumin/Globulin Ratio (1.1 - 2.2 %) 1.3 Vitamin B12 (239 - 931 pg/mL) > 1000 H Folate (2.76 - 20.0 ng/mL) > 20.0 H Hematology CBC w Diff NO MAN DIFF REQ WBC (4.8 - 10.8 /CUMM) 10.1 RBC (4.70 - 6.10 /CUMM) 2.75 L Hgb (14.0 - 18.0 G/DL) 8.1 L Hct (42 - 52 %) 23.6 L MCV (80.0 - 94.0 FL) 85.7 MCH (27.0 - 31.0 PG) 29.3 MCHC (33.0 - 37.0 G/DL) 34.2 RDW (11.5 - 14.5 %) 14.1 Plt Count (130 - 400 /CUMM) 211 MPV (7.4 - 10.4 FL) 7.1 L Gran % (42.2 - 75.2 %) 81.3 H Lymphocytes % (20.5 - 51.1 %) 7.7 L Monocytes % (1.7 - 9.3 %) 7.8 Eosinophils % (0 - 5 %) 2.7 Basophils % (0.0 - 2.0 %) 0.5 Absolute Granulocytes (1.4 - 6.5 /CUMM) 8.2 H Absolute Lymphocytes (1.2 - 3.4 /CUMM) 0.8 L Absolute Monocytes (0.10 - 0.60 /CUMM) 0.8 H Absolute Eosinophils (0.0 - 0.7 /CUMM) 0.3 Absolute Basophils (0.0 - 0.2 /CUMM) 0.1 ESR Westergren (0 - 10 MM) 32 H Toxicology Valproic Acid (50 - 120 ug/mL) 24.5 L Serum Alcohol (<10 MG/DL) < 10.0
[2018-04-06 14:00] VITALS: BP 168/92
--- NOTE | 2018-04-06 15:00 | ULTRASOUND REPORT ---
EXAMINATION: IR NONINVASIVE ASSESSMENT OF THE ARTERIES LOWER EXTREMITIES, BILATERAL INTERPRETING VASCULAR \T\ INTERVENTIONAL RADIOLOGIST: Jimmie Colmenares MD CLINICAL INFORMATION: Claudication. Status post left toe amputation. Diabetes, hypertension and smoking. TECHNIQUE: Bilateral lower extremity duplex ultrasound was performed with velocity measurements and waveform analysis in the common femoral arteries, profunda femoris arteries, proximal mid and distal superficial femoral arteries, popliteal arteries and tibial vessels. This study was performed only at rest. COMPARISON: None FINDINGS: Velocities in cm/sec and phasicity as well as the presence of plaque are reported below. RIGHT LEG: Common Femoral: 155 Profunda Femoris: 111 Proximal SFA: 127 Mid SFA: 110 Distal SFA: 145 Popliteal: 75 Anterior Tibial: 80 Peroneal: 105 Posterior Tibial: 39 Dorsalis Pedis: 84 Plaque is present in the right leg but no areas of velocity acceleration are seen to suggest discrete stenoses. Multiphasic flow is noted throughout with the exception of monophasic flow in the anterior tibial artery and posterior tibial artery. LEFT LEG: Common Femoral: 126 Profunda Femoris: 61 Proximal SFA: 97 Mid SFA: 105 Distal SFA: 101 Popliteal: 132 Anterior Tibial: 69 Peroneal: 66 Posterior Tibial: 42 Dorsalis Pedis: Not visualized secondary to bandages. Plaque is present in the left leg. No areas of velocity acceleration are seen to suggest discrete stenosis. Multiphasic flow is present with the exception of runoff vessels which demonstrate monophasic flow. IMPRESSION: No discrete stenosis is seen with velocity elevation. Monophasic flow noted in some of the tibial vessels. If further evaluation is needed, CT angiography would be helpful.
[2018-04-06 22:16] VITALS: BP 204/86
[2018-04-06 23:38] VITALS: BP 200/80
--- NOTE | 2018-04-07 06:36 | PN- Housestaff ---
Cayden Horner 04/07/18 0635: Subjective Follow-up For: Left great toe cellulitis ESRD Anemia Hyponatremia Hypothyroidism Hypertension Diabetes mellitus Subjective: He was lying in his bed this morning having breakfast. He was alert, oriented x 3. in no acute distress. He did not report any fever, chills, chest pain, lightheadedness, dizziness, nausea, vomiting, abdominal pain, constipation, diarrhea, pain or bleeding at the site of the procedure. Based on the reports from yesterday evening, he had one episode of hypoglycemia with his blood sugar going down to 60s, but he was not symptomatic, after taking some juice his blood sugar came back up to 90s. He also had hypotension overnight with highest blood pressure being 210/82. Clonidine 0.1 mg was given 2 times, the blood pressure was still high overnight at 200/80. This morning it was 160/68. He did not report any fever, chills, chest pain, lightheadedness, dizziness, nausea, vomiting, abdominal pain, constipation, diarrhea, pain or bleeding at the site of the procedure. Review of Systems Constitutional: Reports: see HPI. Objective Last 24 Hrs of Vital Signs/I&O Vital Signs Date Time Temp Pulse Resp B/P B/P Pulse O2 O2 Flow FiO2 Mean Ox Delivery Rate 04/07 0648 97.6 62 18 160/68 95 Room Air 04/07 0348 200/80 04/06 2338 200/80 04/06 2237 210/82 04/06 2216 98.8 68 18 204/86 96 Room Air 04/06 2055 204/86 04/06 2055 204/86 04/06 2055 204/86 04/06 1400 98.2 63 18 168/92 96 Room Air 04/06 1337 78 160/80 04/06 0931 80 138/80 Intake & Output 04/07 0800 04/07 0000 04/06 1600 Intake Total 600 580 710 Output Total 800 850 Balance 600 -220 -140 Intake, IV 600 280 10 Intake, Oral 0 300 700 Number 0 Bowel Movements Output, Urine 800 850 Patient 181 lb Weight Physical Exam General Appearance: Alert, Oriented X3, Cooperative, No Acute Distress Skin: No Rashes Skin Temp/Moisture Exam: Warm/Dry Sepsis Skin Exam (color): Normal for Ethnicity HEENT: Atraumatic Neck: Supple, No JVD Cardiovascular: Regular Rate, Normal S1, Normal S2 Lungs: Clear to Auscultation, Normal Air Movement Abdomen: Normal Bowel Sounds, Soft, No Tenderness Neurological: Normal Speech Extremities: No Clubbing, No Cyanosis, Normal Pulses, RLE 1st digit has a dressing Vascular: Normal Pulses, Pulses Symmetrical Assessment/Plan Assessment: Jian Chatterjee is a 52M with a PMH of hypertension, poorly controlled insulin- dependent diabetes mellitus, CHF unsure of last ejection fraction, ESRD with a left arm fistula although patient states that he has not had dialysis yet, hypothyroidism presents with left great toe swelling, redness, pain 2 days. Since blood culture was positive for staph aureus, echocardiogram was done and no vegetations were seen. Repeat blood cultures did not show any growth after one day, ORI will be done on Tuesday with Dr. Johnson, Tuesday afternoon he will go for Pro-line placement with IR. Left great toe cellulitis: ID consult appreciated, excisional debridement procedure was done yesterday and revision done today. Plan: IV vancomycin was discontinued because the organism was MSSA and oxacillin is started 2gr Q4h IV, excisional debridement and revision was done. Vascular surgeon has recommended arterial Doppler sonography of lower extremity, which did not show discrete stenosis. ESRD w/ AV fistula: His creatinine is 4.7 with BUN 88. Plan: Nephrology consult appreciated. He does not need dialysis now. Pulmonary congestion secondary to questionable CHF: Plan: We will closely follow the patient. TTE was done, the patient has pulmonary HTN, but no CHF. Chronic normacytic anemia: Probably due to end-stage renal disease, Hb 8.4. Plan: Nephrology consult appreciated he needs 1 more injection of erythropoietin during this admission. Hypertension: His blood pressure has lowered to 120s over 70s, 80s. Plan: We shifted his amlodipine 10 mg to the afternoon, we will talk to rehab physician about it. Chronic BLE swelling secondary to decreased renal function: Plan: Nephrology consult appreciated, is receiving Lasix. Hyponatremia: Plan: Sodium level was 134-132 Hypothyroidism: Plan: He is on levothyroxine 75 mcg daily. IDDM non-compliant to insulin: His hemoglobin A1c is 9.2 Plan: We will check blood sugar level and correct with sliding scale insulin and Levemir. Decreased the night detemir insulin to 6 units due to previous hypoglycemia at 3 AM which is probably caused by decreased renal function and decreased clearance of insulin. He had one more episode of hypoglycemia last evening. I decreased his morning levemir to 8 units. Problem List: 1. Cellulitis 2. ESRD (end stage renal disease) 3. Diabetes 4. Hypertension 5. [id number] kidney injury 6. Hypothyroidism Pain Ratin Pain Location: LLE Pain Goal: Pain 4 or less Pain Plan: Oxycodone Acetaminophen Antibiotics Podiatric procedure Tomorrow's Labs & Rationales: BEP Coags CBC Consulting Request: Consulting Specialty: Thoracic/Vascular Surgery Consulting Physician: Spencer Gordon MD Reason for Consult: left foot big toe necrosis Jaylon RIVERA,Cherie 04/07/18 1042: Attending MD Review Statement Attending Statement Attending MD Statement: examined this patient, discuss w/resident/PA/PACE ANALYST, agreed w/resident/PA/PACE ANALYST, reviewed EMR data (avail), discussed with nursing, discussed with case mgmt, reviewed images Attending Assessment/Plan: 52-year-old male past medical history of diabetes, stage IV CKD has a fistula in anticipation of dialysis who is here with MSSA bacteremia from an osteomyelitis of the foot. Dr. Nelson took him to the OR and he is going back to the OR today for revision. Dr. Nelson feels that the margins are clean so he needs a ORI to rule out endocarditis. If there is no endocarditis then the plan will be 2 weeks of IV antibiotics. He needs a pro line and he is booked for that on Tuesday. Patient will go to [facility] after pro line and ORI. He is not thrilled about the whole situation has multiple social stressors and is generally quite grumpy.
[2018-04-07 06:48] VITALS: BP 160/68
--- NOTE | 2018-04-07 11:19 | Cons- Cardiology ---
General Information and HPI Consulting Request Date of Consult: 04/07/18 Requested By: Jaylon RIVERA,Cherie Bacon Reason for Consult: ORI for staph bacteremia Source of Information: old records History of Present Illness: Patient is a 52-year-old male with history extensive medical problems. He is now here with cellulitis and noted to have staph bacteremia. I was asked see the patient for performance of a possible ORI on Tuesday. Allergies/Medications Allergies: Coded Allergies: lisinopril (TONGUE SWELLING 04/03/18) Home Med List: Amlodipine Besylate (Norvasc) 10 MG TABLET 10 MG PO DAILY HTN . Aspirin (Ecotrin*) 81 MG TABLET.DR 1 TAB PO DAILY HEART (Reported) Atorvastatin Calcium (Lipitor) 80 MG TABLET 1 TAB PO DAILY Heart (Reported) Carvedilol 25 MG TABLET 25 MG PO BID HTN . Cholecalciferol (Vitamin D3) (Vitamin D-3) 2,000 UNIT CAPSULE 2,000 MG PO DAILY SUPPLEMENT (Reported) Clonidine HCl 0.1 MG TABLET 1 TAB PO Q8 PRN ANXIETY OR INSOMNIA Clonidine Tts-1 (Catapres-Tts 1) 0.1 MG/24 HOUR PATCH.TDWK 1 PATCH TOP QSAT BP (Reported) Cyanocobalamin (Vitamin B-12) (B-12) 1,000 MCG TABLET 1 TAB PO DAILY SUPPLEMENT (Reported) Divalproex Sodium (Depakote) 500 MG TABLET.DR 1 TAB PO DAILY Mood (Reported) Furosemide (Lasix) 40 MG TABLET 1 TAB PO DAILY EDEMA (Reported) Hydralazine HCl 100 MG TABLET 1 TAB PO TID HTN (Reported) Insulin Aspart (Novolog) 100 UNIT/ML CARTRIDGE 3 U SC TID DM (Reported) before meals Insulin Detemir (Levemir) 100 UNIT/ML VIAL 7 U SC AT BEDTIME DM (Reported) Isosorbide Mononitrate (Isosorbide Mononitrate ER) 30 MG TAB.ER.24H 1 TAB PO DAILY Heart (Reported) Levothyroxine Sodium (Synthroid) 75 MCG TABLET 1 TAB PO DAILY Thyroid ( Reported) Pantoprazole Sodium 20 MG TABLET.DR 1 TAB PO DAILY ACID REFLUX (Reported) Sertraline HCl (Zoloft) 100 MG TABLET 0.5 TAB PO DAILY DEPRESSION (Reported) Current Medications: Current Medications Sig/Shaan Start time Last Medication Dose Route Stop Time Status Admin Acetaminophen 650 MG Q6P PRN 04/03 2100 AC 04/05 PO 1904 Acetaminophen 1,000 MG Q6P PRN 04/03 2100 AC IV Amlodipine Besylate 10 MG QPM 04/05 2100 AC 04/06 PO 2055 Aspirin Buffered 81 MG DAILY 04/04 900 AC 04/07 PO 0940 Atorvastatin Calcium 80 MG 1700 04/04 1700 AC 04/06 PO 1636 Carvedilol 25 MG BID 04/03 2250 AC 04/07 PO 0937 Clonidine 0.1 MG DAILY 04/07 1102 AC PO Clonidine 0.1 MG ONCE ONE 04/06 2345 DC 04/07 PO 04/06 2346 0348 Clonidine 0.1 MG Q8P PRN 04/03 2300 DC 04/06 PO 2237 Dextrose/Sodium 1,000 ML Q13H 04/06 2345 AC 04/06 Chloride IV 2345 Divalproex Sodium 500 MG DAILY 04/04 900 AC 04/07 PO 0939 Folic Acid 1 MG DAILY 04/04 900 AC 04/07 PO 0940 Furosemide 40 MG DAILY 04/04 900 AC 04/07 PO 0939 Hydralazine HCl 100 MG TID 04/03 2251 AC 04/07 PO 0938 Insulin Aspart 0 AT BEDTIME 04/05 2100 DC MN Insulin Aspart 0 TIDAC 04/05 1700 DC 04/06 MN 04/06 2355 1336 Insulin Detemir 5 UNITS QAM 04/07 0900 AC 04/07 SC 0945 Insulin Detemir 3 UNITS QPM 04/06 2100 AC SC Insulin Detemir 10 UNITS QAM 04/06 09 DC 04/06 MN 0931 Insulin Detemir 6 UNITS QPM 04/05 2100 DC 04/05 MN 2222 Insulin Human Regular 0 Q6 04/06 2359 AC 04/07 SC 0544 Insulin Human Regular 0 Q6 04/06 1800 DC 04/06 SC 2340 Isosorbide 60 MG AT BEDTIME 04/07 2100 AC Mononitrate PO Isosorbide 30 MG DAILY 04/04 900 DC 04/06 Mononitrate PO 0931 Levothyroxine Sodium 0.075 MG 0600 04/05 0600 AC 04/07 PO 0527 Lorazepam 0 Q1P PRN 04/03 2115 AC IV Omeprazole 20 MG DAILY AC 04/04 700 AC 04/07 PO 0527 Oxacillin Sodium 2,000 MG Q4H 04/06 2030 AC 04/07 Dextrose/Water 100 ML IV 0911 Oxacillin Sodium 2,000 MG Q4 04/06 1400 DC 04/06 Dextrose/Water 100 ML IV 1635 Oxycodone HCl 10 MG Q4P PRN 04/06 0951 AC 04/06 PO 1806 Sertraline HCl 50 MG DAILY 04/04 900 AC 04/07 PO 0937 Thiamine HCl 100 MG DAILY 04/04 900 AC 04/07 PO 0939 Past History Travel History Traveled to [place] past 21 day No Medical History Blood Transfusion Hx: Yes Neurological: NONE EENT: NONE Cardiovascular: CHF, hypertension Respiratory: NONE Gastrointestinal: NONE Hepatic: NONE Renal: ESRD HAS FISTULA L ARM Musculoskeletal: NONE Psychiatric: anxiety, depression Endocrine: diabetes, hypothyroidism Blood Disorders: anemia Cancer(s): NONE FAMILY LITERACY COORDINATOR/Reproductive: NONE Surgical History Surgical History: A/V FISTULA left great toe surgery >10 yrs [facility] Psychosocial History Services at Home: None Smoking Status: Current Some Day Smoker ETOH Use: denies use Illicit Drug Use: STATES "IT'S eJamming" WHEN ASKED Exam & Diagnostic Data Vital Signs and I&O Vital Signs Date Time Temp Pulse Resp B/P B/P Pulse O2 O2 Flow FiO2 Mean Ox Delivery Rate 04/07 0938 60 128/82 04/07 0937 60 128/82 04/07 0648 97.6 62 18 160/68 95 Room Air 04/07 0348 200/80 04/06 2338 200/80 04/06 2237 210/82 04/06 2216 98.8 68 18 204/86 96 Room Air 04/06 205 204/86 04/06 205 204/86 04/06 205 204/86 04/06 1400 98.2 63 18 168/92 96 Room Air 04/06 1337 78 160/80 Intake & Output 04/07 1600 04/07 0000 04/06 1600 04/06 0000 Intake Total 600 580 710 240 600 Output Total 800 850 400 Balance 600 -220 -140 240 200 Intake, IV 600 280 10 Intake, Oral 0 300 700 240 600 Number 0 0 Bowel Movements Output, Urine 800 850 400 Patient 181 lb 192 lb Weight Physical Exam: General Appearance: Alert, Oriented X3, Cooperative, No Acute Distress Skin: No Rashes HEENT: Atraumatic Neck: Supple, No JVD Cardiovascular: Regular Rate, Normal S1, Normal S2 Lungs: Clear to Auscultation, Normal Air Movement Abdomen: Normal Bowel Sounds, Soft, No Tenderness Neurological: Normal Speech Extremities: No Cyanosis, No Edema, Normal Pulses, RLE 1st digit had a dressing after the procedure. Vascular: Normal Pulses, Pulses Symmetrical Labs/Rehan Results: Laboratory Tests 04/06 0852 Chemistry Sodium (137 - 145 mmol/L) 134 L Potassium (3.5 - 5.1 mmol/L) 3.9 Chloride (98 - 107 mmol/L) 101 Carbon Dioxide (22 - 30 mmol/L) 22 Anion Gap (5 - 16) 11 BUN (9 - 20 mg/dL) 88 H Creatinine (0.7 - 1.2 mg/dL) 4.7 H Estimated GFR (>60 ml/min) 13 L BUN/Creatinine Ratio (7 - 25 %) 18.7 Hematology CBC w Diff NO MAN DIFF REQ WBC (4.8 - 10.8 /CUMM) 7.8 RBC (4.70 - 6.10 /CUMM) 2.89 L Hgb (14.0 - 18.0 G/DL) 8.4 L Hct (42 - 52 %) 24.6 L MCV (80.0 - 94.0 FL) 84.9 MCH (27.0 - 31.0 PG) 28.9 MCHC (33.0 - 37.0 G/DL) 34.0 RDW (11.5 - 14.5 %) 14.4 Plt Count (130 - 400 /CUMM) 270 MPV (7.4 - 10.4 FL) 6.4 L Gran % (42.2 - 75.2 %) 74.1 Lymphocytes % (20.5 - 51.1 %) 9.5 L Monocytes % (1.7 - 9.3 %) 9.2 Eosinophils % (0 - 5 %) 6.1 H Basophils % (0.0 - 2.0 %) 1.1 Absolute Granulocytes (1.4 - 6.5 /CUMM) 5.8 Absolute Lymphocytes (1.2 - 3.4 /CUMM) 0.7 L Absolute Monocytes (0.10 - 0.60 /CUMM) 0.7 H Absolute Eosinophils (0.0 - 0.7 /CUMM) 0.5 Absolute Basophils (0.0 - 0.2 /CUMM) 0.1 Assessment/Plan Assessment/Plan Assessment: 1. Staph bacteremia 2. Left great toe cellulitis 3. End-stage renal disease 4. Anemia 5. Hypothyroidism 6. Hyponatremia 7. Hypertension 8. Diabetes Recommendations: -Please have the patient kept n.p.o. after midnight on Tuesday for possible ORI on Tuesday. -Please have an order for ORI placed. -If there are any changes please notify me. Consult Acknowledgment - Thank you for your consult request.
--- NOTE | 2018-04-07 12:42 | PN- Infect Dx ---
Subjective Subjective: Afebrile without complaints Objective Last 24 Hrs of Vital Signs/I&O Vital Signs Date Time Temp Pulse Resp B/P B/P Pulse O2 O2 Flow FiO2 Mean Ox Delivery Rate 04/07 1145 Room Air 04/07 0938 60 128/82 04/07 0937 60 128/82 04/07 0648 97.6 62 18 160/68 95 Room Air 04/07 0348 200/80 04/06 2338 200/80 04/06 2237 210/82 04/06 2216 98.8 68 18 204/86 96 Room Air 04/06 2055 204/86 04/06 205 204/86 04/06 205 204/86 04/06 1400 98.2 63 18 168/92 96 Room Air 04/06 1337 78 160/80 Intake & Output 04/07 1600 04/07 0800 04/07 0000 Intake Total 600 580 Output Total 800 Balance 600 -220 Intake, IV 600 280 Intake, Oral 0 300 Output, Urine 800 Patient 181 lb Weight Physical Exam Other Physical Findings: He appears comfortable in no acute distress Extremities left foot dressing intact Results Last 24 Hours of Lab Results: No labs from today Last 24 Hours of Rehan Results: Blood cultures x 2 April 06 negative Assessment/Plan ID Impression: Stable, with temperatures and white blood cell count normal, now on Oxacillin for Staph aureus bacteremia secondary to osteomyelitis of the left great toe, status post I&D of the left foot with removal of the distal phalanx of the great toe 2 days ago, with plans for a return to the OR later today for further debridement and possible wound closure. Have spoken with Podiatry, who feels that all of the infected bone has been removed; therefore he should not require a prolonged course of antibiotics for osteomyelitis. As discussed, however, he will need evaluation for endocarditis to determine the optimal duration of therapy. Suggestion: 1. Await return to the OR later today 2. Would pursue ORI 3. Would pursue placement of a Pro-Line 4. Continue Oxacillin
--- NOTE | 2018-04-07 12:44 | PN- Vascular Surgery ---
Surgical Brief Attending Note Brief Attending Note: I have reviewed the patietns arterial duplex. He has a palpable popliteal pulse and appears to have adequate flow based on flow on duplex. I would not perform angiogram at this time given his kidney issues. He should follow up with me upon discharge.
--- NOTE | 2018-04-07 13:37 | Operative Report ---
Operative/Inv Procedure Report Surgery Date: 04/07/18 Name of Procedure: 1 open incision and drainage deep to the deep fascia with exposure of the extensor and flexor tendon and tendon sheath multiple sites left foot 2 delayed primary closure of open surgical wound local advancement flap 3 disarticulation of the proximal phalanx of the left hallux 4 intraoperative menstruation medical block anesthesia 5 excisional debridement Pre-Operative Diagnosis: 1 open infected wound left 2 osteomyelitis left foot 3 diabetic peripheral neuropathy Post-Operative Diagnosis: The same Estimated Blood Loss: less than 50ml Surgeon/Product Evangelist: MEG ARREOLA DPM Anesthesia: moderate sedation, block Operative/Procedure Note Note: After obtaining informed consent the patient was brought to the operating room and placed on the operating table in the supine position. The patient was then securely fastened to the operating table utilizing safety belt. After administration of IV sedation, 10 cc of 0.5% Marcaine plain was infiltrated about the patient's left ankle. The left foot and ankle were then scrubbed, prepped and draped in the usual aseptic manner. He did strike the left foot, with a large full-thickness necrotic was identified. A 15 blade was utilized sharply advise skin margins. The dissection was then carried down deep to the fascia with exposure of the extensor and flexor tendon and tendon sheath multiple sites, both proximally and distally. All necrotic, nonviable infected tissue was sharply evacuated from the wound bed. The dissection then continued down to the metatarsophalangeal joint, where the capsular and ligamentous structures were freed and the distal osseous segment was passed from the operative field. He was sent a specimen for pathologic inspection. The open was then irrigated with 3 L of normal sterile saline infused with 50,000 units of bacitracin. Following this, the foot was redraped and the surgeons top pleasure change to clinic was. Any bleeding vessels identified were cauterized or ligated as encountered. Next, a dorsal plantar flap was developed with undermining, mobilization and advancement of the adjacent tissue centrally. The central portion of the flap was held with 3-0 Vicryl and the skin edges repacked with 3-0 nylon. The incision was dressed with Xeroform, 4 x 4's, Kerlix and an Conor wrap. The patient was noted to tolerate both procedure and anesthesia well and the patient was transported from recovery with vital signs stable vascular status intact about the dorsal and plantar flaps.
--- NOTE | 2018-04-07 14:17 | PN- Nephrology ---
Assessment/Plan Nephrology Assessment: 1. CKD stage V secondary to diabetic nephropathy - renal fx stable 2. Osteomyelitis left great toe with MSSA bacteremia; status post excisional debridement 04/05 and further I&D with partial amputation + delayed primary closure earlier today; on oxacillin 3. HTN with suboptimal control Suggestion: 1. Continue gentle hydration until taking po well 2. Start clonidine 0.1 mg po qhs 3. For Pro-Line on 04/10 4. Needs ORI 5. No dialysis need Subjective Subjective: Seems fairly comfortable. No specific c/o. Remains afebrile. No labs today. Objective Vital Signs and I&Os Vital Signs Date Time Temp Pulse Resp B/P B/P Pulse O2 O2 Flow FiO2 Mean Ox Delivery Rate 04/07 1145 Room Air 04/07 0938 60 128/82 04/07 0937 60 128/82 04/07 0648 97.6 62 18 160/68 95 Room Air 04/07 0348 200/80 04/06 2338 200/80 04/06 2237 210/82 04/06 2216 98.8 68 18 204/86 96 Room Air 04/06 205 20486 04/06 2055 20404/06 Intake & Output 04/07 1600 04/07 0400 04/06 1600 04/06 0400 04/05 1600 04/05 0400 Intake Total 600 580 384 735 8837 840 Output Total 800 744 913 1359 725 Balance 600 -220 100 200 -1875 115 Intake, IV 600 678 21 3235 Intake, Oral 0 300 940 600 0 840 Number 0 0 0 Bowel Movements Output, Urine 800 072 541 7587 725 Patient 181 lb 192 lb 195 lb Weight Physical Exam: General: Well-developed white male in NAD Skin: No rash or jaundice HEENT: Conjunctivae pink, sclerae anicteric, mucous membranes moist Neck: Without masses or thyromegaly, no supraclavicular or cervical adenopathy Chest: Clear to P&A Heart: Regular rate and rhythm without S3 or rub Abdomen: Soft and nontender without palpable masses or organomegaly Extremities: Positive lower extremity edema without cyanosis; left foot dressing intact; left upper arm AVF is patent Neuro: Cognitively intact, no focal findings, no asterixis or myoclonus Results Pertinent Lab Results: Laboratory Tests 04/06 04/05 04/04 0852 0600 1800 Chemistry Sodium (137 - 145 mmol/L) 134 L 132 L Potassium (3.5 - 5.1 mmol/L) 3.9 3.7 Chloride (98 - 107 mmol/L) 101 100 Carbon Dioxide (22 - 30 mmol/L) 22 21 L Anion Gap (5 - 16) 11 10 BUN (9 - 20 mg/dL) 88 H 102 *H Creatinine (0.7 - 1.2 mg/dL) 4.7 H 4.8 H Estimated GFR (>60 ml/min) 13 L 13 L BUN/Creatinine Ratio (7 - 25 %) 18.7 21.3 Hematology CBC w Diff NO MAN DIFF REQ WBC (4.8 - 10.8 /CUMM) 7.8 RBC (4.70 - 6.10 /CUMM) 2.89 L Hgb (14.0 - 18.0 G/DL) 8.4 L Hct (42 - 52 %) 24.6 L MCV (80.0 - 94.0 FL) 84.9 MCH (27.0 - 31.0 PG) 28.9 MCHC (33.0 - 37.0 G/DL) 34.0 RDW (11.5 - 14.5 %) 14.4 Plt Count (130 - 400 /CUMM) 270 MPV (7.4 - 10.4 FL) 6.4 L Gran % (42.2 - 75.2 %) 74.1 Lymphocytes % (20.5 - 51.1 %) 9.5 L Monocytes % (1.7 - 9.3 %) 9.2 Eosinophils % (0 - 5 %) 6.1 H Basophils % (0.0 - 2.0 %) 1.1 Absolute Granulocytes (1.4 - 6.5 /CUMM) 5.8 Absolute Lymphocytes (1.2 - 3.4 /CUMM) 0.7 L Absolute Monocytes (0.10 - 0.60 /CUMM) 0.7 H Absolute Eosinophils (0.0 - 0.7 /CUMM) 0.5 Absolute Basophils (0.0 - 0.2 /CUMM) 0.1 Toxicology Random Vancomycin (ug/ml) 15.8 6.8
[2018-04-07 16:00] VITALS: BP 128/82
[2018-04-07 22:46] VITALS: BP 149/67
[2018-04-08 07:06] VITALS: BP 142/65
--- NOTE | 2018-04-08 08:03 | PN- Housestaff ---
See Addendum Subjective Follow-up For: Left great toe cellulitis ESRD Anemia Hyponatremia Hypothyroidism Hypertension Diabetes mellitus Subjective: He was lying in his bed this morning sleeping. Nurse did not report any fever, chills, chest pain, lightheadedness, dizziness, nausea, vomiting, abdominal pain , constipation, diarrhea, pain or bleeding at the site of the procedure. Review of Systems Constitutional: Reports: see HPI. Objective Last 24 Hrs of Vital Signs/I&O Vital Signs Date Time Temp Pulse Resp B/P B/P Pulse O2 O2 Flow FiO2 Mean Ox Delivery Rate 04/08 706 97.9 62 18 142/65 95 Room Air 04/07 2246 97.4 64 18 149/67 91 Room Air 04/07 2133 64 149/67 04/07 2133 64 149/67 04/07 2133 64 149/67 04/07 2133 64 149/67 04/07 2132 64 149/67 04/07 1600 98.1 64 16 128/82 96 Room Air 04/07 1145 Room Air 04/07 0938 60 128/82 04/07 0937 60 128/82 Intake & Output 04/08 1600 04/08 0800 04/08 0000 Intake Total 500 240 Output Total 200 300 Balance 300 -60 Intake, IV 260 Intake, Oral 240 240 Output, Urine 200 300 Patient 188 lb Weight Weight Bed scale Measurement Method Physical Exam General Appearance: Sleeping Cardiovascular: Regular Rate, Normal S1, Normal S2 Lungs: Clear to Auscultation, Normal Air Movement Abdomen: Normal Bowel Sounds, Soft, No Tenderness Extremities: Normal Pulses Vascular: Normal Pulses, Pulses Symmetrical Assessment/Plan Assessment: Jian Chatterjee is a 52M with a PMH of hypertension, poorly controlled insulin- dependent diabetes mellitus, CHF unsure of last ejection fraction, ESRD with a left arm fistula although patient states that he has not had dialysis yet, hypothyroidism presents with left great toe swelling, redness, pain 2 days. Repeat blood cultures did not show any growth after one day, ORI will be done on Tuesday with Dr. Johnson, Tuesday he will go for Pro-line placement with IR. Left great toe cellulitis: ID consult appreciated, excisional debridement procedure and revision done. Plan: IV vancomycin was discontinued because the organism was MSSA and oxacillin is started 2gr Q4h IV, excisional debridement and revision was done. Vascular surgeon has recommended arterial Doppler sonography of lower extremity, which did not show discrete stenosis. ESRD w/ AV fistula: His creatinine is 4.7 with BUN 88. Plan: Nephrology consult appreciated. He does not need dialysis now. Pulmonary congestion secondary to questionable CHF: Plan: We will closely follow the patient. TTE was done, the patient has pulmonary HTN, but no CHF. Chronic normacytic anemia: Probably due to end-stage renal disease, Hb 8.4. Plan: Nephrology consult appreciated he needs 1 more injection of erythropoietin during this admission. Hypertension: Plan: We have started clonidine 0.1 mg daily. Chronic BLE swelling secondary to decreased renal function: Plan: Nephrology consult appreciated, is receiving Lasix. Hyponatremia: Plan: Sodium level was 134-132 Hypothyroidism: Plan: He is on levothyroxine 75 mcg daily. IDDM non-compliant to insulin: His hemoglobin A1c is 9.2 Plan: We will check blood sugar level and correct with sliding scale insulin and Levemir. Decreased the night detemir insulin to 6 units, I decreased his morning levemir to 8 units. Problem List: 1. Cellulitis 2. ESRD (end stage renal disease) 3. Diabetes 4. Hypertension 5. Prjuv-aw-iwljjom kidney injury 6. Hypothyroidism Pain Ratin Pain Location: LLE Pain Goal: Pain 4 or less Pain Plan: Oxycodone Acetaminophen Antibiotics Tomorrow's Labs & Rationales: NA Consulting Request: Consulting Specialty: Thoracic/Vascular Surgery Consulting Physician: Spencer Gordon MD Reason for Consult: left foot big toe necrosis Consulting Specialty: Thoracic/Vascular Surgery Consulting Physician: Spencer Gordon MD Reason for Consult: left foot big toe necrosis
[2018-04-08 13:41] VITALS: BP 144/80
[2018-04-08 21:02] VITALS: BP 160/80
[2018-04-09 06:22] VITALS: BP 154/90
[2018-04-09 08:20] LABS: ABSOLUTE BASOPHIL COUNT 0.1 /CUMM (0.0-0.2); ABSOLUTE EOSINOPHIL COUNT 0.4 /CUMM (0.0-0.7); ABSOLUTE GRANULOCYTE CT 3.9 /CUMM (1.4-6.5); ABSOLUTE MONOCYTE COUNT 0.6 /CUMM (0.10-0.60); BASOPHIL % 1.3 % (0.0-2.0); EOSINOPHIL % 7.2 % (0-5); GRANULOCYTE % 64.4 % (42.2-75.2); MEAN CORPUSCULAR HGB 28.7 PG (27.0-31.0); MEAN CORPUSCULAR HGB CONC 33.8 G/DL (33.0-37.0); MEAN CORPUSCULAR VOLUME 84.8 FL (80.0-94.0); MEAN PLATELET VOLUME 6.5 FL (7.4-10.4); PLATELET COUNT 224 /CUMM (130-400); RBC DISTRIBUTION WIDTH 14.4 % (11.5-14.5); RED BLOOD CELL CT 2.35 /CUMM (4.70-6.10); WHITE BLOOD CELL COUNT 6.1 /CUMM (4.8-10.8)
--- NOTE | 2018-04-09 09:18 | PN- Infect Dx ---
Subjective Subjective: Afebrile. He notes some pain in the left foot. He also notes increased edema of the upper and lower extremities with no complaint of shortness of breath. Objective Last 24 Hrs of Vital Signs/I&O Vital Signs Date Time Temp Pulse Resp B/P B/P Pulse O2 O2 Flow FiO2 Mean Ox Delivery Rate 04/09 0809 78 142/80 04/09 0622 98.8 63 20 154/90 96 04/08 2108 70 160/80 04/08 210 70 160/80 04/08 2107 70 160/80 04/08 2107 70 160/80 04/08 2107 70 160/80 04/08 2102 97.7 70 18 160/80 96 Room Air 04/08 1341 98.8 80 20 144/80 95 Room Air 04/08 1329 68 132/80 Intake & Output 04/09 1600 04/09 0800 04/09 0000 Intake Total 220 800 Output Total 150 850 Balance 70 -50 Intake, IV 100 100 Intake, Oral 120 700 Output, Urine 150 850 Patient 189 lb Weight Weight Bed scale Measurement Method Physical Exam Other Physical Findings: He appears comfortable in no acute distress Lungs are clear Heart regular rhythm with no murmur Extremities left foot dressing intact; 1+ edema both upper and lower extremities Results Last 24 Hours of Lab Results: Laboratory Tests 04/09 608 Chemistry Sodium (137 - 145 mmol/L) 136 L Potassium (3.5 - 5.1 mmol/L) 3.8 Chloride (98 - 107 mmol/L) 101 Carbon Dioxide (22 - 30 mmol/L) 22 Anion Gap (5 - 16) 13 BUN (9 - 20 mg/dL) 74 H Creatinine (0.7 - 1.2 mg/dL) 4.7 H Estimated GFR (>60 ml/min) 13 L BUN/Creatinine Ratio (7 - 25 %) 15.7 Coagulation PT (9.4 - 12.5 SEC) 14.0 H INR (0.90 - 1.17) 1.28 H Hematology CBC w Diff Pending WBC Pending RBC Pending Hgb Pending Hct Pending MCV Pending MCH Pending MCHC Pending RDW Pending Plt Count Pending MPV Pending Last 24 Hours of Rehan Results: Blood cultures 2 April 06 negative OR culture April 05 labeled left first toe positive for Staph aureus sensitive to Oxacillin and coag negative Staph sensitive to Oxacillin Assessment/Plan ID Impression: Stable, with temperatures and white blood cell count normal, on Oxacillin for Staph aureus bacteremia secondary to osteomyelitis of the left great toe, status post further I&D of the left foot and delayed primary closure of his wound 2 days ago following 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 His initial OR culture is also positive for coag negative Staph and, though of unclear significance, it is also sensitive to Oxacillin. Though all of the infected bone is felt to have been removed from his left foot he is awaiting ORI to help determine the optimal duration for his Staph aureus bacteremia. He does report increased edema of the extremities, suggesting fluid overload, presumably secondary to his renal failure. Suggestion: 1. Await ORI 2. Await placement of the Pro-Line 3. Would obtain a postop baseline ESR and x-ray of the left foot 4. Further management of his fluid status per Renal 5. Continue Oxacillin, with duration dependent on results of ORI
[2018-04-09 10:03] LABS: HEMATOCRIT 19.9 % (42-52)
--- NOTE | 2018-04-09 12:54 | PN- Housestaff ---
Deysi Marina 04/09/18 1253: Subjective Follow-up For: Left great toe cellulitis ESRD Anemia Hyponatremia Hypothyroidism Hypertension Diabetes mellitus Subjective: Afebrile overnight. No acute events overnight. Patient denies any specific complaints this morning except for pain in his left lower extremity. Patient otherwise denies any fevers, chills, fatigue, abdominal pain, and chest pain. Patient states he usually gets a Procrit injection as an outpatient and would like to know if that would be necessary to receive in the hospital presently. Patient also notified his hemoglobin is below 7 and understands he will need a blood transfusion; subsequently, patient signs consent for blood transfusion. Review of Systems Constitutional: Reports: see HPI. Objective Last 24 Hrs of Vital Signs/I&O Vital Signs Date Time Temp Pulse Resp B/P B/P Pulse O2 O2 Flow FiO2 Mean Ox Delivery Rate 04/09 1448 98.3 61 18 163/74 100 04/09 1348 98.1 74 20 142/66 97 Room Air 04/09 0809 78 142/80 04/09 0622 98.8 63 20 154/90 96 04/08 2108 70 160/80 04/08 2107 70 160/80 04/08 2107 70 160/80 04/08 2107 70 160/80 04/08 2107 70 160/80 04/08 2102 97.7 70 18 160/80 96 Room Air Intake & Output 04/09 1600 04/09 0800 04/09 0000 Intake Total 1001 220 800 Output Total 875 150 850 Balance 126 70 -50 Intake, Blood 1 Product Intake, IV 200 100 100 Intake, Oral 800 120 700 Number 0 Bowel Movements Output, Urine 875 150 850 Patient 189 lb Weight Weight Bed scale Measurement Method Physical Exam General Appearance: Alert, Oriented X3, Cooperative, No Acute Distress Skin: No Rashes (cellulitis of L great toe) HEENT: Atraumatic Neck: Supple, No JVD Cardiovascular: Regular Rate, Normal S1, Normal S2 Lungs: Clear to Auscultation Abdomen: Soft, No Tenderness Neurological: Normal Speech Assessment/Plan Assessment: XRY-FOOT TWO VIEWS, LEFT - 1. Soft tissue swelling of the stump of the amputated first toe. 2. No evidence of other acute bone findings. 3. Peripheral arterial vascular disease. Jian Chatterjee is a 52M with a PMH of hypertension, poorly controlled insulin- dependent diabetes mellitus, CHF unsure of last ejection fraction, ESRD with a left arm fistula although patient states that he has not had dialysis yet, hypothyroidism presents with left great toe swelling, redness, pain 2 days. Repeat blood cultures did not show any growth after one day, ORI will be done on Tuesday with Dr. Johnson, Tuesday afternoon he will go for Pro-line placement with IR. Left great toe cellulitis: ID consult appreciated, excisional debridement procedure and revision done. Plan: IV vancomycin was discontinued because the organism was MSSA and oxacillin is started 2gr Q4h IV, excisional debridement and revision was done. Vascular surgeon has recommended arterial Doppler sonography of lower extremity, which did not show discrete stenosis. ESRD w/ AV fistula: His creatinine is 4.7 with BUN 88. Plan: Nephrology consult appreciated. He does not need dialysis now. Pulmonary congestion secondary to questionable CHF: Plan: We will closely follow the patient. TTE was done, the patient has pulmonary HTN, but no CHF. Chronic normacytic anemia: Probably due to end-stage renal disease, Hb 8.4. Plan: Nephrology consult appreciated he needs 1 more injection of erythropoietin during this admission. (Pt. receives Procrit injection biweekly as an outpatient , consider f/u if necessary to admin. as inpatient) Hypertension: Plan: We have started clonidine 0.1 mg daily. Chronic BLE swelling secondary to decreased renal function: Plan: Nephrology consult appreciated, is receiving Lasix. Hyponatremia: Plan: Sodium level was 134-132 Hypothyroidism: Plan: He is on levothyroxine 75 mcg daily. IDDM non-compliant to insulin: His hemoglobin A1c is 9.2 Plan: We will check blood sugar level and correct with sliding scale insulin and Levemir. Decreased the night detemir insulin to 6 units, I decreased his morning levemir to 8 units. Problem List: 1. Cellulitis 2. ESRD (end stage renal disease) 3. Fhqrw-iz-mvlrhps kidney injury 4. Diabetes 5. Hypertension Pain Ratin Pain Location: LLE Pain Goal: Pain 4 or less Pain Plan: pain meds prn Tomorrow's Labs & Rationales: NA Consulting Request: Consulting Specialty: Thoracic/Vascular Surgery Consulting Physician: Spencer Gordon MD Reason for Consult: left foot big toe necrosis Ayah RIVERA,Amir 04/09/18 1347: Attending MD Review Statement Attending Statement Attending MD Statement: examined this patient, discuss w/resident/PA/FINE ARTS PACKER, agreed w/resident/PA/FINE ARTS PACKER, reviewed EMR data (avail), discussed with nursing Attending Assessment/Plan: Pt was seen and evaluated. On Oxacilling Awaiting ORI and the placement of the Pro-Line Appreiate ID recs
[2018-04-09 13:48] VITALS: BP 142/66
[2018-04-09 14:48] VITALS: BP 163/74
--- NOTE | 2018-04-09 15:35 | ULTRASOUND REPORT ---
EXAMINATION: US TRIPLEX LOWER EXTREMITY, LEFT CLINICAL INFORMATION: Left lower extremity edema, swelling COMPARISON: 04/04/2018 TECHNIQUE: Color-flow triplex imaging with spectral analysis and compression Doppler were performed on the lower extremity. FINDINGS: Respiratory variation, normal compression and augmented flow are noted throughout the lower extremity. The visualized common femoral vein, superficial femoral vein, profunda femoral vein, popliteal vein and midcalf peroneal and posterior tibial venous segments show no evidence of deep venous thrombosis. There is no Norris's cyst. IMPRESSION: No evidence of deep venous thrombosis involving the lower extremity.
--- NOTE | 2018-04-09 15:51 | RADIOLOGY REPORT ---
EXAMINATION: XR FOOT, LEFT CLINICAL INFORMATION: Left great toe osteomyelitis. Necrotic tissue. COMPARISON: Left foot films dated 04/04/2018. TECHNIQUE: 2 views of the left foot. FINDINGS: The patient has undergone amputation of the left first toe with removal of the proximal and distal phalanges. The remaining soft tissue stump show some edema and peripheral irregular margins, consistent with postoperative state. No definite subcutaneous emphysema seen. Extensive arteriovascular calcifications is seen. There is osteopenia, particularly accentuated at the periarticular regions. No acute fracture or suspicious lytic or destructive bone lesion is seen. No abnormal periosteal reaction is seen. IMPRESSION: 1. Soft tissue swelling of the stump of the amputated first toe. 2. No evidence of other acute bone findings. 3. Peripheral arterial vascular disease.
[2018-04-09 22:45] VITALS: BP 185/75
--- NOTE | 2018-04-10 06:36 | PN- Housestaff ---
Cayden Horner 04/10/18 0636: Subjective Follow-up For: Left great toe cellulitis ESRD Anemia Hyponatremia Hypothyroidism Hypertension Diabetes mellitus Subjective: I visited Jian this morning. He was lying back in his bed, alert and oriented x3, in no acute distress. He was complaining of being n.p.o. overnight. I explained the reason of being n.p.o. to him, and he accepted. There was no report from the nursing of major complaints. He was supposed to go for ORI today. Review of Systems Constitutional: Reports: see HPI. Objective Last 24 Hrs of Vital Signs/I&O Vital Signs Date Time Temp Pulse Resp B/P B/P Pulse O2 O2 Flow FiO2 Mean Ox Delivery Rate 04/10 1441 16 136/68 04/10 1347 Room Air 04/10 0830 66 150/90 04/10 0830 66 150/90 04/10 0701 98.2 66 20 150/90 98 Room Air 04/09 2245 98.3 66 17 185/75 91 Room Air 04/09 2221 66 185/75 04/09 2221 66 185/75 04/09 2221 66 185/75 04/09 2220 66 185/75 Intake & Output 04/10 1600 04/10 0800 04/10 0000 Intake Total 250 1050 Output Total 850 1350 Balance 250 -850 -300 Intake, IV 250 250 Intake, Oral 800 Number 0 Bowel Movements Output, Urine 850 1350 Physical Exam General Appearance: Alert, Oriented X3, Cooperative, No Acute Distress Skin: No Rashes Skin Temp/Moisture Exam: Warm/Dry Sepsis Skin Exam (color): Normal for Ethnicity HEENT: Atraumatic Cardiovascular: Regular Rate, Normal S1, Normal S2 Lungs: Clear to Auscultation, Normal Air Movement Abdomen: Normal Bowel Sounds, Soft, No Tenderness Assessment/Plan Assessment: Jian Chatterjee is a 52M with a PMH of hypertension, poorly controlled insulin- dependent diabetes mellitus, CHF unsure of last ejection fraction, ESRD with a left arm fistula although patient states that he has not had dialysis yet, hypothyroidism presents with left great toe swelling, redness, pain 2 days. ORI did not show any vegetation, margins of the osteomyelitis were clean after the procedure. Based on ID consult he only needs 2 weeks of IV antibiotic, which will be dictated on April 20. Left great toe cellulitis: ID consult appreciated, excisional debridement procedure and revision done. Plan: IV vancomycin was discontinued because the organism was MSSA and oxacillin is started 2gr Q4h IV, excisional debridement and revision was done. Needs to receive IV antibiotics till April 20. ESRD w/ AV fistula: His creatinine is 4.7 with BUN 74. Plan: Nephrology consult appreciated. He does not need dialysis now. Pulmonary congestion secondary to questionable CHF: Plan: We will closely follow the patient. TTE was done, the patient has pulmonary HTN, but no CHF. Chronic normacytic anemia: Probably due to end-stage renal disease, Hb 8.4. Plan: Nephrology consult appreciated he needs 1 more injection of erythropoietin during this admission. Hypertension: Plan: We have started clonidine 0.1 mg daily. Chronic BLE swelling secondary to decreased renal function: Plan: Nephrology consult appreciated, is receiving Lasix. Increased to 40 mg twice daily. Hyponatremia: Plan: Sodium level was 134-132 Hypothyroidism: Plan: He is on levothyroxine 75 mcg daily. IDDM non-compliant to insulin: His hemoglobin A1c is 9.2 Plan: We will check blood sugar level and correct with sliding scale insulin and Levemir. Decreased the night detemir insulin to 6 units, I decreased his morning levemir to 8 units. Problem List: 1. Cellulitis 2. Hypertension 3. Diabetes 4. ESRD (end stage renal disease) 5. Fluid overload Pain Ratin Pain Location: LLE Pain Goal: Pain 4 or less Pain Plan: Fentanyl Lidocaine Tomorrow's Labs & Rationales: CBC BEP Consulting Request: Consulting Specialty: Thoracic/Vascular Surgery Consulting Physician: Spencer Gordon MD Reason for Consult: left foot big toe necrosis Francisco Segovia MD 04/10/18 2208: Attending MD Review Statement Attending Statement Attending MD Statement: examined this patient, discuss w/resident/PA/IMPORT EXPORT MANAGER, agreed w/resident/PA/IMPORT EXPORT MANAGER, reviewed EMR data (avail), discussed with nursing, discussed with case mgmt, amended to note Attending Assessment/Plan: The patient was seen and discussed with house staff. ORI negative. Will have catheter placed tomorrow in IR.
[2018-04-10 07:01] VITALS: BP 150/90
[2018-04-10 08:59] LABS: ABSOLUTE BASOPHIL COUNT 0.1 /CUMM (0.0-0.2); ABSOLUTE EOSINOPHIL COUNT 0.5 /CUMM (0.0-0.7); ABSOLUTE GRANULOCYTE CT 4.5 /CUMM (1.4-6.5); ABSOLUTE LYMPH COUNT 0.8 /CUMM (1.2-3.4); ABSOLUTE MONOCYTE COUNT 0.6 /CUMM (0.10-0.60); BASOPHIL % 1.2 % (0.0-2.0); GRANULOCYTE % 69.4 % (42.2-75.2); HEMATOCRIT 23.5 % (42-52); MEAN CORPUSCULAR HGB 28.4 PG (27.0-31.0); MEAN CORPUSCULAR HGB CONC 33.5 G/DL (33.0-37.0); MEAN CORPUSCULAR VOLUME 84.7 FL (80.0-94.0); MEAN PLATELET VOLUME 6.5 FL (7.4-10.4); PLATELET COUNT 228 /CUMM (130-400); RBC DISTRIBUTION WIDTH 14.6 % (11.5-14.5); RED BLOOD CELL CT 2.77 /CUMM (4.70-6.10); WHITE BLOOD CELL COUNT 6.5 /CUMM (4.8-10.8)
[2018-04-10 09:08] LABS: PT 14.3 SEC (9.4-12.5); PTT 37 SEC (25-37)
--- NOTE | 2018-04-10 12:46 | ECHOCARDIOGRAM REPORT ---
COLBY NOLASCO Age: 52 : Gender: M 3 Exam Date: 04/10/2018 09:21 Exam Location: [address] [place] [address] Ht (in): 69 Wt (lb): 181 BSA: 2.01 BP: 128 / 82 Ordering Physician: Cayden Horner MD Referring Physician: Cayden Horner MD Technologist: Pascual Champion [facility] Room Number: 210-2 Indications: Infective Endocarditis Rhythm: Sinus Technical Quality: Good Medications Lidocaine [place]. Propofol administered by Anesthesiology. Ease of Transducer Insertion No Difficulty Complications None. Technical Difficulty FINDINGS Left Ventricle Normal global left ventricular size, wall thickness, systolic function with no obvious regional wall motion abnormalities. Normal left ventricular ejection fraction estimated at 60-65%. Left ventricular wall thickness increased. Right Ventricle Normal right ventricular size and function. Right Atrium Normal right atrial size. Left Atrium Left atrial size at the upper limits of normal. LA Appendage Normal left atrial appendage. IA Septum Normal interatrial septum. Mitral Valve Mitral valve thickened. Mitral annular calcification. Mild mitral regurgitation. Aortic Valve Trileaflet aortic valve. Focal thickening of the aortic valve cusps. No aortic stenosis. No aortic regurgitation. Tricuspid Valve Tricuspid valve not well visualized, grossly normal. Trace to mild tricuspid regurgitation. Pulmonic Valve Structurally normal pulmonic valve. Trace to mild pulmonic regurgitation. Pericardium No pericardial effusion. Great Vessels Normal size aortic root and proximal ascending aorta. Grade I plaque seen in the aortic arch. Grade I plaque seen in the descending aorta. CONCLUSIONS 1. There are no obvious vegetative lesions detected on this examination . 2. Aortic sclerosis is present with no valvular stenosis or insufficiency. 3. Mitral leaflet thickening is present with mitral anular calcification and mild mitral insufficiency. 4. The left atrium and atrial appendage are normal 5. The pulmonary venous anatomy is normal 6. The left ventricular chamber size and systolic function are normal. 7. The right heart structures appear normal. A Chiari network is present in the right atrial cavity. 8. There is no evidence of atrial level shunt 9. Grade I - II atheromatous plaque is present in the thoracic aorta. Ghada Johnson M.D. (Electronically Signed) Final Date: 10 April 2018 12:41 MEASUREMENTS (Male / Female) Normal Values
--- NOTE | 2018-04-10 15:12 | PN- Nephrology ---
Assessment/Plan Nephrology Assessment: 1. Chronic kidney disease. He has a long history of proteinuric renal disease. He has had diabetes for at least 13 or 14 years. He has had significant proteinuric renal disease going back at least 4 years. His most recent protein to creatinine ratio was roughly 5 g. At one point, it was as high as 8 g. 2. Hypertension. At this point I suspect that volume is playing a major role in his resistant hypertension. His last weight as an outpatient, was 172 pounds. In the elena of this year, it was as low as 156 pounds. As discussed with housestaff, favor increasing furosemide to twice a day. 3. Congestive heart failure. His EF in 2013 was 45%. He had a normal EF and his most recent echocardiogram as an outpatient. This may actually been done at [facility]. 4. Psychiatric illness. He was just discharged from [facility] on 28 March. It may be helpful to involve psychiatry once again. He is untreated psychiatric illness, because mostly by both access to care essentially derailed his transplantation plans. Suggestion: 1. Increase furosemide to 40 mg twice a day. 2. Maintain strict I's and O's and daily weights 3. He received 12,000 of Epogen on 28 March. 4. Would favor beginning the Epogen once again. We will plan on 12,000 each week. Subjective Subjective: Patient feels okay. He notices swelling in his right upper arm. Objective Vital Signs and I&Os Vital Signs Date Time Temp Pulse Resp B/P B/P Pulse O2 O2 Flow FiO2 Mean Ox Delivery Rate 04/10 1441 16 136/68 04/10 1347 Room Air 04/10 0830 66 150/90 04/10 0830 66 150/90 04/10 0701 98.2 66 20 150/90 98 Room Air 04/09 2245 98.3 66 17 185/75 91 Room Air 04/09 2221 66 185/75 04/09 2221 66 185/75 04/09 2221 66 185/75 04/09 2220 66 185/75 Intake & Output 04/10 1600 04/10 0400 04/09 1600 04/09 0400 04/08 1600 04/08 0400 Intake Total 1050 5310 549 4123 240 Output Total 850 1350 1025 850 825 300 Balance -850 -300 196 -50 675 -60 Intake, Blood 1 Product Intake, IV 250 300 100 460 Intake, Oral 800 319 377 4376 240 Number 0 0 Bowel Movements Output, Urine 850 1350 1025 850 825 300 Patient 189 lb 188 lb Weight Weight Bed scale Bed scale Measurement Method Physical Exam General Appearance: well developed/nourished, no apparent distress, alert, awake , comfortable Head: atraumatic, normal appearance, active bleeding Ears, Nose, Throat: normal ENT inspection Neck: normal inspection, supple, trachea mid line Respiratory: normal breath sounds, chest non-tender Cardiovascular: regular rate/rhythm, edema Peripheral Pulses: 3+ femoral (R), 3+ femoral (L) Abdomen: normal bowel sounds, soft, non-tender, no organomegaly Back: normal inspection, no vertebral tenderness Extremities: generalized anasarca Skin: intact, normal color Current Medications: Current Medications Sig/Shaan Start time Last Medication Dose Route Stop Time Status Admin Acetaminophen 650 MG Q6P PRN 04/03 2100 AC 04/05 PO 1904 Acetaminophen 1,000 MG Q6P PRN 04/03 2100 AC IV Amlodipine Besylate 10 MG QPM 04/05 2100 AC 04/09 PO 2215 Aspirin Buffered 81 MG DAILY 04/04 900 AC 04/10 PO 0830 Atorvastatin Calcium 80 MG 1700 04/04 1700 AC 04/09 PO 1629 Carvedilol 25 MG BID 04/03 2250 AC 04/10 PO 0830 Clonidine 0.1 MG QPM 04/07 2100 AC 04/09 PO 2221 Divalproex Sodium 500 MG DAILY 04/04 900 AC 04/10 PO 0830 Fentanyl Citrate 0 .STK-MED ONE 04/10 09 DC .ROUTE Folic Acid 1 MG DAILY 04/04 900 AC 04/10 PO 0830 Furosemide 40 MG DAILY 04/04 09 AC 04/10 PO 0830 Hydralazine HCl 100 MG TID 04/03 2251 AC 04/10 PO 1441 Insulin Aspart 0 AT BEDTIME 04/07 2100 DC SC Insulin Aspart 0 TIDAC 04/07 1700 DC 04/09 SC 1217 Insulin Detemir 8 UNITS QAM 04/08 0900 DC 04/09 SC 0808 Insulin Detemir 6 UNITS QPM 04/07 2100 DC 04/08 SC 2108 Insulin Human Regular 0 Q6 04/09 1800 AC 04/10 SC 1351 Isosorbide 60 MG AT BEDTIME 04/07 2100 AC 04/09 Mononitrate PO 2221 Levothyroxine Sodium 0.075 MG 0604/05 0600 AC 04/10 PO 0710 Lidocaine 0 .STK-MED ONE 04/10 0847 DC TOP Lorazepam 0 Q1P PRN 04/03 2115 AC IV Omeprazole 20 MG DAILY AC 04/04 07 AC 04/10 PO 0710 Oxacillin Sodium 2,000 MG Q4H 04/06 2030 AC 04/10 Dextrose/Water 100 ML IV 1230 Oxycodone HCl 10 MG Q4P PRN 04/06 0951 AC 04/10 PO 1435 Patient Medication 1 ED ONE ONE 04/10 09 DC 04/10 Teaching ED 04/10 0901 0830 Sertraline HCl 50 MG DAILY 04/04 900 AC 04/10 PO 0830 Thiamine HCl 100 MG DAILY 04/04 900 AC 04/10 PO 0830 Results Pertinent Lab Results: Laboratory Tests 04/10 04/09 0758 1020 Chemistry Sodium (137 - 145 mmol/L) 135 L Potassium (3.5 - 5.1 mmol/L) 3.8 Chloride (98 - 107 mmol/L) 100 Carbon Dioxide (22 - 30 mmol/L) 22 Anion Gap (5 - 16) 13 BUN (9 - 20 mg/dL) 77 H Creatinine (0.7 - 1.2 mg/dL) 4.8 H Estimated GFR (>60 ml/min) 13 L BUN/Creatinine Ratio (7 - 25 %) 16.0 Coagulation PT (9.4 - 12.5 SEC) 14.3 H INR (0.90 - 1.17) 1.31 H APTT (25 - 37 SEC) 37 Hematology CBC w Diff NO MAN DIFF REQ WBC (4.8 - 10.8 /CUMM) 6.5 RBC (4.70 - 6.10 /CUMM) 2.77 L Hgb (14.0 - 18.0 G/DL) 7.9 L Hct (42 - 52 %) 23.5 L MCV (80.0 - 94.0 FL) 84.7 MCH (27.0 - 31.0 PG) 28.4 MCHC (33.0 - 37.0 G/DL) 33.5 RDW (11.5 - 14.5 %) 14.6 H Plt Count (130 - 400 /CUMM) 228 MPV (7.4 - 10.4 FL) 6.5 L Gran % (42.2 - 75.2 %) 69.4 Lymphocytes % (20.5 - 51.1 %) 13.1 L Monocytes % (1.7 - 9.3 %) 9.3 Eosinophils % (0 - 5 %) 7.0 H Basophils % (0.0 - 2.0 %) 1.2 Absolute Granulocytes (1.4 - 6.5 /CUMM) 4.5 Absolute Lymphocytes (1.2 - 3.4 /CUMM) 0.8 L Absolute Monocytes (0.10 - 0.60 /CUMM) 0.6 Absolute Eosinophils (0.0 - 0.7 /CUMM) 0.5 Absolute Basophils (0.0 - 0.2 /CUMM) 0.1 ESR Westergren (0 - 10 MM) 25 H 08/12 0608 Chemistry Sodium (137 - 145 mmol/L) 136 L Potassium (3.5 - 5.1 mmol/L) 3.8 Chloride (98 - 107 mmol/L) 101 Carbon Dioxide (22 - 30 mmol/L) 22 Anion Gap (5 - 16) 13 BUN (9 - 20 mg/dL) 74 H Creatinine (0.7 - 1.2 mg/dL) 4.7 H Estimated GFR (>60 ml/min) 13 L BUN/Creatinine Ratio (7 - 25 %) 15.7 Coagulation PT (9.4 - 12.5 SEC) 14.0 H INR (0.90 - 1.17) 1.28 H Hematology CBC w Diff NO MAN DIFF REQ WBC (4.8 - 10.8 /CUMM) 6.1 RBC (4.70 - 6.10 /CUMM) 2.35 L Hgb (14.0 - 18.0 G/DL) 6.7 *L Hct (42 - 52 %) 19.9 *L MCV (80.0 - 94.0 FL) 84.8 MCH (27.0 - 31.0 PG) 28.7 MCHC (33.0 - 37.0 G/DL) 33.8 RDW (11.5 - 14.5 %) 14.4 Plt Count (130 - 400 /CUMM) 224 MPV (7.4 - 10.4 FL) 6.5 L Gran % (42.2 - 75.2 %) 64.4 Lymphocytes % (20.5 - 51.1 %) 16.7 L Monocytes % (1.7 - 9.3 %) 10.4 H Eosinophils % (0 - 5 %) 7.2 H Basophils % (0.0 - 2.0 %) 1.3 Absolute Granulocytes (1.4 - 6.5 /CUMM) 3.9 Absolute Lymphocytes (1.2 - 3.4 /CUMM) 1.0 L Absolute Monocytes (0.10 - 0.60 /CUMM) 0.6 Absolute Eosinophils (0.0 - 0.7 /CUMM) 0.4 Absolute Basophils (0.0 - 0.2 /CUMM) 0.1
--- NOTE | 2018-04-10 16:52 | PN- Infect Dx ---
Subjective Subjective: Afebrile without complaints. He was transfused 1 unit of blood yesterday for a drop in his H&H. Objective Last 24 Hrs of Vital Signs/I&O Vital Signs Date Time Temp Pulse Resp B/P B/P Pulse O2 O2 Flow FiO2 Mean Ox Delivery Rate 04/10 1441 16 136/68 04/10 1347 Room Air 04/10 0830 66 150/90 04/10 0830 66 150/90 04/10 0701 98.2 66 20 150/90 98 Room Air 04/09 2245 98.3 66 17 185/75 91 Room Air 04/09 2221 66 185/75 04/09 2221 66 185/75 04/09 2221 66 185/75 04/09 2220 66 185/75 Intake & Output 04/10 1600 04/10 0800 04/10 0000 Intake Total 250 1050 Output Total 850 1350 Balance 250 -850 -300 Intake, IV 250 250 Intake, Oral 800 Number 0 Bowel Movements Output, Urine 850 1350 Physical Exam Other Physical Findings: He appears comfortable in no acute distress Extremities left foot dressing intact Results Last 24 Hours of Lab Results: Laboratory Tests 04/10 0758 Chemistry Sodium (137 - 145 mmol/L) 135 L Potassium (3.5 - 5.1 mmol/L) 3.8 Chloride (98 - 107 mmol/L) 100 Carbon Dioxide (22 - 30 mmol/L) 22 Anion Gap (5 - 16) 13 BUN (9 - 20 mg/dL) 77 H Creatinine (0.7 - 1.2 mg/dL) 4.8 H Estimated GFR (>60 ml/min) 13 L BUN/Creatinine Ratio (7 - 25 %) 16.0 Iron (49 - 181 ug/dL) 64 TIBC (261 - 462 ug/dL) 268 Ferritin (17.9 - 464 ng/mL) 64.2 Albumin (3.5 - 5.0 g/dL) 3.1 L Coagulation PT (9.4 - 12.5 SEC) 14.3 H INR (0.90 - 1.17) 1.31 H APTT (25 - 37 SEC) 37 Hematology CBC w Diff NO MAN DIFF REQ WBC (4.8 - 10.8 /CUMM) 6.5 RBC (4.70 - 6.10 /CUMM) 2.77 L Hgb (14.0 - 18.0 G/DL) 7.9 L Hct (42 - 52 %) 23.5 L MCV (80.0 - 94.0 FL) 84.7 MCH (27.0 - 31.0 PG) 28.4 MCHC (33.0 - 37.0 G/DL) 33.5 RDW (11.5 - 14.5 %) 14.6 H Plt Count (130 - 400 /CUMM) 228 MPV (7.4 - 10.4 FL) 6.5 L Gran % (42.2 - 75.2 %) 69.4 Lymphocytes % (20.5 - 51.1 %) 13.1 L Monocytes % (1.7 - 9.3 %) 9.3 Eosinophils % (0 - 5 %) 7.0 H Basophils % (0.0 - 2.0 %) 1.2 Absolute Granulocytes (1.4 - 6.5 /CUMM) 4.5 Absolute Lymphocytes (1.2 - 3.4 /CUMM) 0.8 L Absolute Monocytes (0.10 - 0.60 /CUMM) 0.6 Absolute Eosinophils (0.0 - 0.7 /CUMM) 0.5 Absolute Basophils (0.0 - 0.2 /CUMM) 0.1 Last 24 Hours of Rehan Results: Blood cultures 2 April 06 remain negative Recent Imaging Studies: X-ray of the left foot April 09 reveals soft tissue swelling of the stump of the amputated first toe, with no evidence of other acute bone findings Dopplers of both lower extremities April 09 negative ORI performed earlier today negative for any vegetations Assessment/Plan ID Impression: Stable, with temperatures and white blood cell count remaining normal, on Oxacillin for Staph aureus bacteremia secondary to osteomyelitis of the left great toe, status post further I&D of the left foot and delayed primary closure of his wound 3 days ago following 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 His ORI is negative and, as all of the infected bone is felt to have been removed, he should only require a 2 week course of IV antibiotics from his negative blood cultures. His anemia may be secondary to his chronic renal failure, but further evaluation for other causes may need to be considered. Renal recommendations regarding increasing his dose of Lasix for evidence of fluid overload noted and appreciated. Suggestion: 1. Await placement of the Pro-Line 2. Further management of his fluid status per Renal 3. Further evaluation of his anemia, if indicated, per Medicine 4. Continue Oxacillin for 10 more days to complete a 2 week course of IV antibiotics from his negative blood cultures (until April 20)
[2018-04-10 21:21] VITALS: BP 180/88
[2018-04-11 06:34] VITALS: BP 160/80
--- NOTE | 2018-04-11 06:37 | PN- Housestaff ---
Cayden Horner 04/11/18 0636: Subjective Follow-up For: Left great toe cellulitis ESRD Anemia Hyponatremia Hypothyroidism Hypertension Diabetes mellitus Subjective: I visited the patient this morning. He was lying back in his bed alert and oriented 3, in no acute distress. He was n.p.o. and ready to go to IR for the procedure of central line insertion. No reports of major complaints overnight. Review of Systems Constitutional: Reports: see HPI. Objective Last 24 Hrs of Vital Signs/I&O Vital Signs Date Time Temp Pulse Resp B/P B/P Pulse O2 O2 Flow FiO2 Mean Ox Delivery Rate 04/11 1447 130/60 04/11 1420 98.6 63 18 130/60 96 Room Air 04/11 1312 65 204/109 04/11 1222 Room Air 04/11 0810 65 160/80 04/11 0810 65 160/80 04/11 0634 98.2 59 20 160/80 93 04/10 2206 64 180/88 04/10 2206 64 180/88 04/10 2206 64 180/88 04/10 2205 64 180/88 04/10 2205 64 180/88 04/10 2121 97.9 64 20 180/88 98 Room Air Intake & Output 04/11 1600 04/11 0800 04/11 0000 Intake Total 600 350 340 Output Total 1900 700 400 Balance -1300 -350 -60 Intake, IV 600 350 100 Intake, Oral 0 240 Number 0 Bowel Movements Output, Urine 1900 700 400 Patient 181 lb Weight Weight Bed scale Measurement Method Physical Exam General Appearance: Alert, Oriented X3, Cooperative, No Acute Distress Skin: No Rashes Skin Temp/Moisture Exam: Warm/Dry Sepsis Skin Exam (color): Normal for Ethnicity HEENT: Atraumatic Neck: Supple, No JVD Cardiovascular: Regular Rate, Normal S1, Normal S2 Lungs: Clear to Auscultation, Normal Air Movement Abdomen: Normal Bowel Sounds, Soft, No Tenderness Neurological: Normal Speech, Strength at 5/5 X4 Ext, Sensation Intact Extremities: Bandage on left foot (big toe) Vascular: Normal Pulses, Pulses Symmetrical Assessment/Plan Assessment: Jian Chatterjee is a 52M with a PMH of hypertension, poorly controlled insulin- dependent diabetes mellitus, CHF unsure of last ejection fraction, ESRD with a left arm fistula although patient states that he has not had dialysis yet, hypothyroidism presents with left great toe swelling, redness, pain 2 days. ORI did not show any vegetation, margins of the osteomyelitis were clean after the procedure. Based on ID consult he only needs 2 weeks of IV antibiotic, which will be dictated on April 20. Proline was inserted for him today by IR, he had a high systolic blood pressure of 204, which causes a leakage of blood from the site of proline insertion. I applied 15 minutes of pressure on the site of bleeding, the bleeding was stopped. Recheck the blood pressure which was down to 130s. Left great toe cellulitis: ID consult appreciated, excisional debridement procedure and revision done. Plan: IV vancomycin was discontinued because the organism was MSSA and oxacillin is started 2gr Q4h IV, excisional debridement and revision was done. Needs to receive IV antibiotics till April 20. Chronic kidney disease, stage IV borderline on a stage V: ESRD w/ AV fistula, His creatinine is 4.7 with BUN 74. Plan: Nephrology consult appreciated. He does not need dialysis now. Pulmonary congestion secondary to questionable CHF: Plan: We will closely follow the patient. TTE was done, the patient has pulmonary HTN, but no CHF. Chronic normacytic anemia: Probably due to end-stage renal disease, Hb 8.4. Plan: Nephrology consult appreciated. The patient will receive 1 dose of epoetin, with 200 mg of Venofer. Hypertension: Plan: We have started clonidine 0.1 mg daily. Chronic BLE swelling secondary to decreased renal function: Plan: Nephrology consult appreciated, is receiving Lasix. Increased to 40 mg twice daily. Hyponatremia: Plan: Sodium level was 134-132 Hypothyroidism: Plan: He is on levothyroxine 75 mcg daily. IDDM non-compliant to insulin: His hemoglobin A1c is 9.2 Plan: We will check blood sugar level and correct with sliding scale insulin and Levemir. Decreased the night detemir insulin to 6 units, I decreased his morning levemir to 8 units. Problem List: 1. Cellulitis 2. Hypertension 3. Diabetes 4. ESRD (end stage renal disease) 5. Hypothyroidism 6. [id number] kidney injury 7. Fluid overload Pain Ratin Pain Location: Left big toe Pain Goal: Remain pain free Pain Plan: As needed Tomorrow's Labs & Rationales: As indicated Consulting Request: Consulting Specialty: Thoracic/Vascular Surgery Consulting Physician: Spencer Gordon MD Reason for Consult: left foot big toe necrosis Francisco Segovia MD 04/11/18 2131: Attending MD Review Statement Attending Statement Attending MD Statement: examined this patient, discuss w/resident/PA/RESOLUTION REP, agreed w/resident/PA/RESOLUTION REP, reviewed EMR data (avail), discussed with nursing, discussed with case mgmt, amended to note Attending Assessment/Plan: The patient was seen and discussed with house staff. Had Pro-line placed today. BP increased today (?etiology of increase). Clonidine given. Will need to discuss BP meds with Nephrology. Consider adding Cardura to regimen if BP remains elevated.
[2018-04-11 07:33] LABS: ABSOLUTE BASOPHIL COUNT 0.1 /CUMM (0.0-0.2); ABSOLUTE EOSINOPHIL COUNT 0.5 /CUMM (0.0-0.7); ABSOLUTE GRANULOCYTE CT 4.6 /CUMM (1.4-6.5); ABSOLUTE LYMPH COUNT 0.8 /CUMM (1.2-3.4); ABSOLUTE MONOCYTE COUNT 0.6 /CUMM (0.10-0.60); BASOPHIL % 0.8 % (0.0-2.0); EOSINOPHIL % 7.3 % (0-5); GRANULOCYTE % 70.2 % (42.2-75.2); HEMATOCRIT 24.3 % (42-52); MEAN CORPUSCULAR HGB 28.8 PG (27.0-31.0); MEAN CORPUSCULAR HGB CONC 34.4 G/DL (33.0-37.0); MEAN CORPUSCULAR VOLUME 83.6 FL (80.0-94.0); MEAN PLATELET VOLUME 6.4 FL (7.4-10.4); PLATELET COUNT 229 /CUMM (130-400); RED BLOOD CELL CT 2.91 /CUMM (4.70-6.10); WHITE BLOOD CELL COUNT 6.6 /CUMM (4.8-10.8)
--- NOTE | 2018-04-11 14:03 | INTERVENTIONAL RADIOLOGY RPT ---
EXAMINATION: RIGHT-SIDED TUNNELED PROLINE CATHETER INTERVENTIONAL RADIOLOGIST: Jimmie Colmenares M.D. CLINICAL INDICATION: Needs long-term antibiotics ACCESS: Right internal jugular vein. GUIDANCE: Ultrasound and fluoroscopy 21 seconds CONSCIOUS SEDATION: The patient received intravenous conscious sedation under my direct supervision. A registered nurse monitored the patient and the patient's vital signs throughout the procedure. The total sedation time was 10 minutes. A total of 1 mg of Versed and 50 mcg fentanyl was given for good effect. COMPLICATIONS: None CONTRAST: None INFORMED CONSENT: Informed consent was obtained from the patient prior to the procedure. During this process, the procedure and potential alternatives were explained, along with the intended outcome and benefits. The risks of the procedure including the possibility of an unsuccessful procedure, as well as the risk of not doing the procedure were discussed. The patient was given the opportunity to ask questions regarding the procedure and appeared competent to make decisions. A signed consent form documenting this discussion was placed in the medical record. A time out procedure was performed. DESCRIPTION: The right neck and chest wall were prepped and draped. All elements of maximal sterile barrier technique followed including use of cap, mask, sterile gown, sterile gloves, a sterile full body drape and hand hygiene. Also followed skin preparation with 2% chlorhexidine for cutaneous antisepsis, and sterile ultrasound preparation with sterile gel and probe cover when applicable. Ultrasound guidance for vascular access was utilized with ultrasound evaluation of the potential access site and documentation that the site was patent. Under real-time ultrasound, I visualized the vascular needle entry and recorded and reported US images from this in our PACS system. Under fluoroscopic guidance, a 0.018 guidewire was advanced into the right atrium. Fluoroscopic landmarks were utilized to calculate a tunnel length. A tunnel was then created along the right chest wall to the jugular puncture site. A 6-Salvadorean single-lumen Proline catheter was then pulled through the tunnel. The 0.018 wire was replaced with a 0.035 wire with its tip in the IVC. After serial dilatation a 7-Salvadorean peel-away sheath was then placed into the right jugular vein. During a breath-hold, the Proline was passed through the peel-away sheath and positioned with its tip in the mid-right atrium. The peel-away sheath was removed and the wings of the proline catheter were secured to the skin using the included fixation device. The jugular entry site was closed with Dermabond. The single lumen of the Proline catheter was flushed with normal saline. A sterile dressing was applied. IMPRESSION: Successful placement of tunneled right-sided jugular Proline catheter.
--- NOTE | 2018-04-11 14:16 | PN- Nephrology ---
Assessment/Plan Nephrology Assessment: 1. Chronic kidney disease. Stage IV bordering on stage V. He has a long history of proteinuric renal disease. His renal function remains stable. He has had diabetes for at least 13 or 14 years. He has had significant proteinuric renal disease going back at least 4 years. His most recent protein to creatinine ratio was roughly 5 g. At one point, it was as high as 8 g. 2. Hypertension. His weight in the office most recently was 172 pounds. Earlier in the year, it was 156 pounds. If the weights here or to be believed, he is 10 pounds above his previous weight. 3. Congestive heart failure. His EF in 2014 was 45%. He had a normal EF and his most recent echocardiogram as an outpatient. This may actually been done at [facility]. He is described as having cor pulmonale, which I would wonder if some of this is related to his volume status. 4. Psychiatric illness. He was just discharged from [facility] on 28 March. It may be helpful to involve psychiatry once again. He is untreated psychiatric illness, because mostly by both access to care essentially derailed his transplantation plans. 5. Anemia. He needs to be on IV iron. In addition, he is due for another dose of Procrit. His last dose was on the . Suggestion: 1. We will begin Procrit, 12,000 units subcu once a week 2. We will begin IV iron. Subjective Subjective: Patient feels okay. Just had his subcutaneous line placed. Currently, with oozing from the site. Objective Vital Signs and I&Os Vital Signs Date Time Temp Pulse Resp B/P B/P Pulse O2 O2 Flow FiO2 Mean Ox Delivery Rate 04/11 1312 65 204/109 04/11 1222 Room Air 04/11 0810 65 160/80 04/11 0810 65 160/80 04/11 0634 98.2 59 20 160/80 93 04/10 220 64 180/88 04/10 2206 64 180/88 04/10 2206 64 180/88 04/10 2205 64 180/88 04/10 2205 64 180/88 04/10 2121 97.9 64 20 180/88 98 Room Air 04/10 1441 16 136/68 Intake & Output 04/11 1600 04/11 0400 04/10 1600 04/10 0400 04/09 1600 04/09 0400 Intake Total 350 846 638 8425 1221 800 Output Total 1600 172 677 2497 1025 850 Balance -1250 -60 -600 -300 196 -50 Intake, Blood 1 Product Intake, IV 350 100 250 250 300 100 Intake, Oral 240 800 920 700 Number 0 0 Bowel Movements Output, Urine 1600 642 189 9591 1025 850 Patient 181 lb 189 lb Weight Weight Bed scale Bed scale Measurement Method Physical Exam: General Appearance: well developed/nourished, no apparent distress, alert, awake , comfortable Head: atraumatic, normal appearance, active bleeding Ears, Nose, Throat: normal ENT inspection Neck: normal inspection, supple, trachea mid line Respiratory: normal breath sounds, chest non-tender Cardiovascular: regular rate/rhythm, edema Abdomen: normal bowel sounds, soft, non-tender, no organomegaly Back: normal inspection, no vertebral tenderness Extremities: generalized anasarca Skin: intact, normal color Current Medications: Current Medications Sig/Shaan Start time Last Medication Dose Route Stop Time Status Admin Acetaminophen 650 MG Q6P PRN 04/03 2100 AC 04/05 PO 1904 Acetaminophen 1,000 MG Q6P PRN 04/03 2100 AC IV Amlodipine Besylate 10 MG QPM 04/05 2100 AC 04/10 PO 2205 Aspirin Buffered 81 MG DAILY 04/04 900 AC 04/11 PO 0810 Atorvastatin Calcium 80 MG 1700 04/04 1700 AC 04/10 PO 1700 Carvedilol 25 MG BID 04/03 2250 AC 04/11 PO 0810 Clonidine 0.1 MG ONCE ONE 04/11 1400 DC PO 04/11 1401 Clonidine 0.1 MG QPM 04/07 2100 AC 04/10 PO 2206 Dextrose/Sodium 1,000 ML Q13H 04/11 0315 AC 04/11 Chloride IV 0328 Divalproex Sodium 500 MG DAILY 04/04 09 AC 04/11 PO 0810 Fentanyl Citrate 0 .STK-MED ONE 04/11 1140 DC .ROUTE Folic Acid 1 MG DAILY 04/04 09 AC 04/11 PO 0810 Furosemide 40 MG 0700,1400 04/11 0700 AC 04/11 PO 1313 Furosemide 40 MG DAILY 04/04 0900 DC 04/10 PO 0830 Heparin Sodium 0 .STK-MED ONE 04/11 1043 DC (Porcine) IV Hydralazine HCl 100 MG TID 04/03 2251 AC 04/11 PO 1312 Insulin Human Regular 0 Q6 04/09 1800 AC 04/10 SC 1900 Isosorbide 60 MG AT BEDTIME 04/07 2100 AC 04/10 Mononitrate PO 2206 Levothyroxine Sodium 0.075 MG 0600 04/05 06 AC 04/11 PO 0628 Lidocaine 0 .STK-MED ONE 04/11 1043 DC .ROUTE Lidocaine/Epinephrine 0 .STK-MED ONE 04/11 1045 DC .ROUTE Lorazepam 0 Q1P PRN 04/03 2115 DC IV Midazolam HCl 0 .STK-MED ONE 04/11 1139 DC .ROUTE Omeprazole 20 MG DAILY AC 04/04 07 AC 04/11 PO 0628 Oxacillin Sodium 2,000 MG Q4H 04/06 2030 AC 04/11 Dextrose/Water 100 ML IV 1309 Oxycodone HCl 10 MG Q4P PRN 04/06 0951 AC 04/10 PO 2209 Sertraline HCl 50 MG DAILY 04/04 900 AC 04/11 PO 0810 Thiamine HCl 100 MG DAILY 04/04 09 AC 04/11 PO 0810 Results Pertinent Lab Results: Laboratory Tests 04/11 04/10 0711 0758 Chemistry Sodium (137 - 145 mmol/L) 133 L 135 L Potassium (3.5 - 5.1 mmol/L) 3.7 3.8 Chloride (98 - 107 mmol/L) 100 100 Carbon Dioxide (22 - 30 mmol/L) 24 22 Anion Gap (5 - 16) 10 13 BUN (9 - 20 mg/dL) 71 H 77 H Creatinine (0.7 - 1.2 mg/dL) 4.6 H 4.8 H Estimated GFR (>60 ml/min) 13 L 13 L BUN/Creatinine Ratio (7 - 25 %) 15.4 16.0 Iron (49 - 181 ug/dL) 64 TIBC (261 - 462 ug/dL) 268 Ferritin (17.9 - 464 ng/mL) 64.2 Albumin (3.5 - 5.0 g/dL) 3.1 L Coagulation PT (9.4 - 12.5 SEC) 14.3 H INR (0.90 - 1.17) 1.31 H APTT (25 - 37 SEC) 37 Hematology CBC w Diff NO MAN DIFF REQ NO MAN DIFF REQ WBC (4.8 - 10.8 /CUMM) 6.6 6.5 RBC (4.70 - 6.10 /CUMM) 2.91 L 2.77 L Hgb (14.0 - 18.0 G/DL) 8.4 L 7.9 L Hct (42 - 52 %) 24.3 L 23.5 L MCV (80.0 - 94.0 FL) 83.6 84.7 MCH (27.0 - 31.0 PG) 28.8 28.4 MCHC (33.0 - 37.0 G/DL) 34.4 33.5 RDW (11.5 - 14.5 %) 15.0 H 14.6 H Plt Count (130 - 400 /CUMM) 229 228 MPV (7.4 - 10.4 FL) 6.4 L 6.5 L Gran % (42.2 - 75.2 %) 70.2 69.4 Lymphocytes % (20.5 - 51.1 %) 12.0 L 13.1 L Monocytes % (1.7 - 9.3 %) 9.7 H 9.3 Eosinophils % (0 - 5 %) 7.3 H 7.0 H Basophils % (0.0 - 2.0 %) 0.8 1.2 Absolute Granulocytes (1.4 - 6.5 /CUMM) 4.6 4.5 Absolute Lymphocytes (1.2 - 3.4 /CUMM) 0.8 L 0.8 L Absolute Monocytes (0.10 - 0.60 /CUMM) 0.6 0.6 Absolute Eosinophils (0.0 - 0.7 /CUMM) 0.5 0.5 Absolute Basophils (0.0 - 0.2 /CUMM) 0.1 0.1 04/09 04/09 1020 0608 Chemistry Sodium (137 - 145 mmol/L) 136 L Potassium (3.5 - 5.1 mmol/L) 3.8 Chloride (98 - 107 mmol/L) 101 Carbon Dioxide (22 - 30 mmol/L) 22 Anion Gap (5 - 16) 13 BUN (9 - 20 mg/dL) 74 H Creatinine (0.7 - 1.2 mg/dL) 4.7 H Estimated GFR (>60 ml/min) 13 L BUN/Creatinine Ratio (7 - 25 %) 15.7 Coagulation PT (9.4 - 12.5 SEC) 14.0 H INR (0.90 - 1.17) 1.28 H Hematology CBC w Diff NO MAN DIFF REQ WBC (4.8 - 10.8 /CUMM) 6.1 RBC (4.70 - 6.10 /CUMM) 2.35 L Hgb (14.0 - 18.0 G/DL) 6.7 *L Hct (42 - 52 %) 19.9 *L MCV (80.0 - 94.0 FL) 84.8 MCH (27.0 - 31.0 PG) 28.7 MCHC (33.0 - 37.0 G/DL) 33.8 RDW (11.5 - 14.5 %) 14.4 Plt Count (130 - 400 /CUMM) 224 MPV (7.4 - 10.4 FL) 6.5 L Gran % (42.2 - 75.2 %) 64.4 Lymphocytes % (20.5 - 51.1 %) 16.7 L Monocytes % (1.7 - 9.3 %) 10.4 H Eosinophils % (0 - 5 %) 7.2 H Basophils % (0.0 - 2.0 %) 1.3 Absolute Granulocytes (1.4 - 6.5 /CUMM) 3.9 Absolute Lymphocytes (1.2 - 3.4 /CUMM) 1.0 L Absolute Monocytes (0.10 - 0.60 /CUMM) 0.6 Absolute Eosinophils (0.0 - 0.7 /CUMM) 0.4 Absolute Basophils (0.0 - 0.2 /CUMM) 0.1 ESR Westergren (0 - 10 MM) 25 H
[2018-04-11 14:20] VITALS: BP 130/60
[2018-04-11 21:00] VITALS: BP 230/90
[2018-04-12 00:42] VITALS: BP 194/86
[2018-04-12 06:38] VITALS: BP 174/82
--- NOTE | 2018-04-12 06:51 | PN- Housestaff ---
Cayden Horner 04/12/18 0651: Subjective Follow-up For: Left great toe cellulitis ESRD Anemia Hyponatremia Hypothyroidism Hypertension Diabetes mellitus Subjective: I visited Jian this morning. He was lying back in his bed, alert and oriented He had high blood pressure overnight up to 230s, which was down to 178/82 this morning. He also had a headache last night. He refused his IV antibiotic this morning. He mentioned that he has had a lot of anxiety lately because of all the things he has had. I told him that he can ask his psychiatrist to come and talk to him about his recent anxiety and he liked this idea. There was no more bleeding from the site of central line which was inserted yesterday. Review of Systems Constitutional: Reports: see HPI. Objective Last 24 Hrs of Vital Signs/I&O Vital Signs Date Time Temp Pulse Resp B/P B/P Pulse O2 O2 Flow FiO2 Mean Ox Delivery Rate 04/12 1512 Room Air 04/12 1412 98.0 61 20 164/70 97 Room Air 04/12 1405 61 164/70 04/12 0759 68 174/82 04/12 0700 97.8 57 18 174/82 97 Room Air 04/12 0638 97.8 57 18 174/82 97 Room Air 04/12 0042 194/86 04/11 2328 60 212/88 04/11 2100 99.1 60 18 230/90 97 Room Air 04/11 2057 60 230/90 04/11 2056 60 230/90 04/11 2056 60 230/90 04/11 2056 60 230/90 04/11 2056 60 230/90 Intake & Output 04/12 1600 04/12 0800 04/12 0000 Intake Total 1040 370 510 Output Total 600 1750 375 Balance 440 -1380 135 Intake, IV 240 130 270 Intake, Oral 800 240 240 Number 0 0 0 Bowel Movements Output, Urine 600 1750 375 Patient 178 lb Weight Physical Exam General Appearance: Alert, Oriented X3, Cooperative, No Acute Distress Skin: No Rashes Skin Temp/Moisture Exam: Warm/Dry Sepsis Skin Exam (color): Normal for Ethnicity HEENT: Atraumatic Neck: Supple, No JVD Cardiovascular: Regular Rate, Normal S1, Normal S2 Lungs: Clear to Auscultation, Normal Air Movement Abdomen: Normal Bowel Sounds, Soft, No Tenderness Neurological: Normal Speech, Strength at 5/5 X4 Ext, Sensation Intact Extremities: No Clubbing, No Cyanosis, No Edema, Dressing on left foot big toe Vascular: Normal Pulses, Pulses Symmetrical Assessment/Plan Assessment: Jain Chatterjee is a 52M with a PMH of hypertension, poorly controlled insulin- dependent diabetes mellitus, CHF unsure of last ejection fraction, ESRD with a left arm fistula although patient states that he has not had dialysis yet, hypothyroidism presents with left great toe swelling, redness, pain 2 days. ORI did not show any vegetation, margins of the osteomyelitis were clean after the procedure. Based on ID consult he only needs 2 weeks of IV antibiotic, which will be dictated on April 20. He had one more episode of high blood pressure. Based on nephrology consult. Started losartan 25 mg p.o. daily. Left great toe cellulitis: ID consult appreciated, excisional debridement procedure and revision done. Plan: IV vancomycin was discontinued because the organism was MSSA and oxacillin is started 2gr Q4h IV, excisional debridement and revision was done. Needs to receive IV antibiotics till April 20. Chronic kidney disease, stage IV borderline on a stage V: ESRD w/ AV fistula, His creatinine is 4.6 with BUN 71. Plan: Nephrology consult appreciated. He does not need dialysis now. Pulmonary congestion secondary to questionable CHF: Plan: We will closely follow the patient. TTE was done, the patient has pulmonary HTN, but no CHF. Chronic normacytic anemia: Probably due to end-stage renal disease, Hb 8.4. Plan: Nephrology consult appreciated. The patient will receive 1 dose of epoetin, with 200 mg of Venofer. Hypertension: Plan: We have started clonidine 0.1 mg daily. Added losartan 25 mg p.o. daily Chronic BLE swelling secondary to decreased renal function: Plan: Nephrology consult appreciated, is receiving Lasix. Increased to 40 mg twice daily. Hyponatremia: Plan: Sodium level was 134-132, now 133 Hypothyroidism: Plan: He is on levothyroxine 75 mcg daily. IDDM non-compliant to insulin: His hemoglobin A1c is 9.2 Plan: We will check blood sugar level and correct with sliding scale insulin and Levemir. Decreased the night detemir insulin to 6 units, I decreased his morning levemir to 8 units. Problem List: 1. Cellulitis 2. ESRD (end stage renal disease) 3. Diabetes 4. Hypertension 5. Chronic anemia 6. Hypothyroidism Pain Ratin Pain Location: Not applicable Pain Goal: Remain pain free Pain Plan: Not applicable Tomorrow's Labs & Rationales: As needed Consulting Request: Consulting Specialty: Thoracic/Vascular Surgery Consulting Physician: Spencer Gordon MD Reason for Consult: left foot big toe necrosis Francisco Segovia MD 04/12/18 2142: Attending MD Review Statement Attending Statement Attending MD Statement: examined this patient, discuss w/resident/PA/CRIMINAL PSYCHOLOGIST, agreed w/resident/PA/CRIMINAL PSYCHOLOGIST, reviewed EMR data (avail), discussed with nursing, discussed with case mgmt, amended to note Attending Assessment/Plan: The patient was seen and discussed with house staff, nursing, case management and Nephrology (Dr. Mendez). Appreciate Nephrology input. Trial of Losartan for BP (was on Lisinopril previously and had angioedema) and IV iron to continue as per Dr. Mendez. Will need STR when BP stable.
[2018-04-12 07:00] VITALS: BP 174/82
--- NOTE | 2018-04-12 10:51 | PN- Nephrology ---
Assessment/Plan Nephrology Assessment: 1. Chronic kidney disease. Stage IV bordering on stage V. He has a long history of proteinuric renal disease. His renal function remains stable. He has had diabetes for at least 13 or 14 years. He has had significant proteinuric renal disease going back at least 4 years. His most recent protein to creatinine ratio was roughly 5 g. At one point, it was as high as 8 g. 2. Hypertension/Volume status His weight in the office most recently was 172 pounds. Here today is 178. Earlier in the year, it was 156 pounds. 3. Congestive heart failure. His EF in 2013 was 45%. He had a normal EF and his most recent echocardiogram as an outpatient. This may actually been done at [facility]. He is described as having cor pulmonale, which I would wonder if some of this is related to his volume status. 4. Psychiatric illness. He was just discharged from [facility] on 28 March. 5. Anemia. He is on IV iron. I have increased the Procrit. Suggestion: 1. Begin losartan 25 mg each day 2. We will attempt to get 1 g of Venofer into the patient over several days. We will need to discover whether or not the ECF will be willing to do so. If not, then, this can be given at the cancer center where he gets his Procrit. 3. Monitor his renal function closely. If his creatinine jumps, then the losartan should be stopped. Subjective Subjective: Patient looks and feels well. Seems to be less edematous. Objective Vital Signs and I&Os Vital Signs Date Time Temp Pulse Resp B/P B/P Pulse O2 O2 Flow FiO2 Mean Ox Delivery Rate 04/12 0759 68 174/82 04/12 0700 97.8 57 18 174/82 97 Room Air 04/12 0638 97.8 57 18 174/82 97 Room Air 04/12 0042 194/86 04/11 2328 60 212/88 04/11 2100 99.1 60 18 230/90 97 Room Air 04/11 2057 60 230/90 04/11 205 60 230/90 04/11 2056 60 230/90 04/11 205 60 230/90 04/11 2056 60 230/90 04/11 1447 130/60 04/11 1420 98.6 63 18 130/60 96 Room Air 04/11 1312 65 204/109 04/11 1222 Room Air Intake & Output 04/12 1600 04/12 0400 04/11 1600 04/11 0400 04/10 1600 04/10 0400 Intake Total 370 510 950 708 823 9275 Output Total 7678 705 5690 015 108 4910 Balance -1380 135 -1650 -60 -600 -300 Intake, IV 130 270 950 100 250 250 Intake, Oral 240 240 0 240 800 Number 0 0 0 0 Bowel Movements Output, Urine 1774 235 3444 576 915 3617 Patient 178 lb 181 lb Weight Weight Bed scale Measurement Method Physical Exam: General Appearance: well developed/nourished, no apparent distress, alert, awake , comfortable Head: atraumatic, normal appearance, active bleeding Ears, Nose, Throat: normal ENT inspection Neck: normal inspection, supple, trachea mid line Respiratory: normal breath sounds, chest non-tender Cardiovascular: regular rate/rhythm, edema Abdomen: normal bowel sounds, soft, non-tender, no organomegaly Back: normal inspection, no vertebral tenderness Extremities: generalized anasarca, less than yesterday Skin: intact, normal color Current Medications: Current Medications Sig/Shaan Start time Last Medication Dose Route Stop Time Status Admin Acetaminophen 650 MG Q6P PRN 04/03 2100 AC 04/05 PO 1904 Acetaminophen 1,000 MG Q6P PRN 04/03 2100 AC IV Amlodipine Besylate 10 MG QPM 04/05 2100 AC 04/11 PO 205 Aspirin Buffered 81 MG DAILY 04/04 900 AC 04/12 PO 0800 Atorvastatin Calcium 80 MG 1700 04/04 1700 AC 04/11 PO 1631 Carvedilol 25 MG BID 04/03 2250 AC 04/12 PO 0800 Clonidine 1 PAT Q168 04/12 0900 CAN TOP Clonidine 1 PAT Q168 04/12 0100 DC TOP Clonidine 0.1 MG ONCE ONE 04/11 2300 DC 04/11 PO 04/11 2301 2328 Clonidine 0.1 MG ONCE ONE 04/11 1400 DC 04/11 PO 04/11 1401 1447 Clonidine 0.1 MG QPM 04/07 2100 AC 04/11 PO 2056 Dextrose/Sodium 1,000 ML Q13H 04/11 0315 DC 04/11 Chloride IV 1627 Divalproex Sodium 500 MG DAILY 04/04 900 AC 04/12 PO 0759 Doxazosin Mesylate 4 MG DAILY 04/12 0935 DC PO Epoetin Rj 24,000 UNITS ONCE A WEEK 04/11 1430 CAN SC Epoetin Rj 20,000 U Q 2 WEEKS 04/11 1430 AC 04/11 SC 1709 Epoetin Rj 4,000 UNIT Q 2 WEEKS 04/11 1430 AC 04/11 SC 1710 Fentanyl Citrate 0 .STK-MED ONE 04/11 1140 DC .ROUTE Folic Acid 1 MG DAILY 04/04 0900 AC 04/12 PO 0800 Furosemide 40 MG 0700,1400 04/11 07 AC 04/12 PO 0628 Hydralazine HCl 100 MG TID 04/03 2251 AC 04/12 PO 0759 Insulin Aspart 0 TIDAC 04/12 08 AC SC Insulin Detemir 8 UNITS DAILY 04/12 09 AC 04/12 SC 0800 Insulin Detemir 6 UNITS 2100 04/11 2100 AC 04/11 SC 2131 Insulin Human Regular 0 Q6 04/09 1800 DC 04/10 SC 1900 Iron Sucrose 200 MG Q72H 04/11 1445 AC 04/11 Sodium Chloride 100 ML IV 04/23 1459 1600 Isosorbide 60 MG AT BEDTIME 04/07 2100 AC 04/11 Mononitrate PO 2056 Levothyroxine Sodium 0.075 MG 0600 04/05 0600 AC 04/12 PO 0628 Losartan Potassium 25 MG DAILY 04/12 1044 UNVr PO Midazolam HCl 0 .STK-MED ONE 04/11 1139 DC .ROUTE Non-Formulary 200 UNIT DAILY 04/11 143 CAN Medication ANY Omeprazole 20 MG DAILY AC 04/04 07 AC 04/12 PO 0628 Oxacillin Sodium 2,000 MG Q4H 04/06 2030 AC 04/12 Dextrose/Water 100 ML IV 0758 Oxycodone HCl 10 MG Q4P PRN 04/06 0951 AC 04/11 PO 1631 Sertraline HCl 100 MG DAILY 04/13 09 AC PO Sertraline HCl 50 MG DAILY 04/04 09 DC 04/12 PO 0800 Thiamine HCl 100 MG DAILY 04/04 09 AC 04/12 PO 0800 Results Pertinent Lab Results: Laboratory Tests 04/11 04/10 0711 0758 Chemistry Sodium (137 - 145 mmol/L) 133 L 135 L Potassium (3.5 - 5.1 mmol/L) 3.7 3.8 Chloride (98 - 107 mmol/L) 100 100 Carbon Dioxide (22 - 30 mmol/L) 24 22 Anion Gap (5 - 16) 10 13 BUN (9 - 20 mg/dL) 71 H 77 H Creatinine (0.7 - 1.2 mg/dL) 4.6 H 4.8 H Estimated GFR (>60 ml/min) 13 L 13 L BUN/Creatinine Ratio (7 - 25 %) 15.4 16.0 Iron (49 - 181 ug/dL) 64 TIBC (261 - 462 ug/dL) 268 Ferritin (17.9 - 464 ng/mL) 64.2 Albumin (3.5 - 5.0 g/dL) 3.1 L Coagulation PT (9.4 - 12.5 SEC) 14.3 H INR (0.90 - 1.17) 1.31 H APTT (25 - 37 SEC) 37 Hematology CBC w Diff NO MAN DIFF REQ NO MAN DIFF REQ WBC (4.8 - 10.8 /CUMM) 6.6 6.5 RBC (4.70 - 6.10 /CUMM) 2.91 L 2.77 L Hgb (14.0 - 18.0 G/DL) 8.4 L 7.9 L Hct (42 - 52 %) 24.3 L 23.5 L MCV (80.0 - 94.0 FL) 83.6 84.7 MCH (27.0 - 31.0 PG) 28.8 28.4 MCHC (33.0 - 37.0 G/DL) 34.4 33.5 RDW (11.5 - 14.5 %) 15.0 H 14.6 H Plt Count (130 - 400 /CUMM) 229 228 MPV (7.4 - 10.4 FL) 6.4 L 6.5 L Gran % (42.2 - 75.2 %) 70.2 69.4 Lymphocytes % (20.5 - 51.1 %) 12.0 L 13.1 L Monocytes % (1.7 - 9.3 %) 9.7 H 9.3 Eosinophils % (0 - 5 %) 7.3 H 7.0 H Basophils % (0.0 - 2.0 %) 0.8 1.2 Absolute Granulocytes (1.4 - 6.5 /CUMM) 4.6 4.5 Absolute Lymphocytes (1.2 - 3.4 /CUMM) 0.8 L 0.8 L Absolute Monocytes (0.10 - 0.60 /CUMM) 0.6 0.6 Absolute Eosinophils (0.0 - 0.7 /CUMM) 0.5 0.5 Absolute Basophils (0.0 - 0.2 /CUMM) 0.1 0.1
--- NOTE | 2018-04-12 11:15 | Cons- Psychiatry ---
Psychiatric Consult Date of Consult: 04/12/18 Reason for Consult: Asked to see for assessment of depression and anxiety History of Present Illness: This 52-year-old male was admitted on April 03 with cellulitis of left great toe in the context of insulin-dependent diabetes with poor medication adherence. He was found to have osteomyelitis and had excisional debridement on April 05. He is also being treated with antibiotics. He is hypertensive with elevated blood pressure and has chronic kidney disease stage IV with a left arm fistula in situ. He is not currently in need of dialysis. The patient reports "I have been through a lot". As well as his health difficulties the patient reports that he has been struggling financially and is also struggling with access to the healthcare system. He describes his mood as "tired", "alright", "normal". He is unable to say when he last felt even relatively well. Appetite has been poor for approximately 1 year "I cannot afford to eat right". He spends most of his days in bed and his sleep is fair at night. Concentration has been normal. Energy is poor, compounded by physical limitations. He reports that he has planned to have a garden but did not planted because "I have no money and I have too much to do trying to follow-up with doctors". Denies any thoughts of hurting himself or wanting to . Admits that he is irritable but denies being any more irritable than usual "if you pull a dog's tail it will bite you. People need to learn not to push my buttons". There are no psychotic symptoms. Past psychiatric history: The patient had no psychiatric history until roughly 2 years ago. He was seeing a psychiatrist in [place] but has not been doing so for the past year as "I blew up on them because they did not know who I was and would not give me my medication". It seems that the patient had missed multiple appointments and presented requesting a prescription refill which was not immediately available. The patient was treated with paroxetine and hydroxyzine at that time. The patient reports that he has been "the last year looking for a psychiatrist". He says that he now has an appointment with behavioral health in [place]. The patient was hospitalized at [facility] in the last couple of months. "I called [address] and they said I was suicidal". Patient professes that he called [address] asking for help with housing and finding a psychiatrist. He was started on sertraline and Depakote. The reason for the latter is unclear. He denies any history of deliberate self-harm or suicide attempts. Substance abuse history: The patient denies any history of drug or alcohol abuse. He later reports however that he drank every day for 30 years and it was "the only time I was happy". He does not go to as "it is for crybabies". He stopped drinking when he was diagnosed with kidney failure. He denies any drug use. Urine was positive for cannabis. Medical history: IDDM nonadherence to insulin, hypertension, end-stage renal disease, hypothyroidism, peripheral neuropathy, anemia, osteomyelitis, status post excisional debridement of left great toe. Personal history: The patient lives with 2 roommates. He has been living here for the past 6 months and does not like it. Prior to that he was in another rooming house where he was again unhappy. The patient has been on Social Security disability for the past 2 years. He receives approximately $1300 a monthand is unable to manage financially. He reports that at the end of each month "I do not have money and so I go to the hospital so they can feed me and take care of me. I run up a bill of a few thousand dollars but I do not care". The patient has never owned his own home. Patient grew up in [place] with both parents. His father in 1999. His mother still lives in [place]. He has not spoken to her for 3 or 4 years. He has 3 sisters, one in [place], one in [place] and one in [place]. He is not in contact with his sister in [place], his sister in [facility] is "too wrapped up in her own life". He was in contact with his other sister until recently as "she is too stupid for me". He does not believe his siblings are in contact with each other. The patient is heterosexual. He has never had a long-term relationship as "I did not want the headache". He did not have any children as he believed he could not provide for them. He says he has lost his friends as they are jealous that he does not have to work. He also says "every time I yell at them they cry like a baby". The patient is very frustrated with the healthcare system. Transport to appointments provides further drain on his finances. Discussed using a medical cab but the patient finds this unreliable. Allergies: Coded Allergies: lisinopril (TONGUE SWELLING 04/03/18) Current Medications: Med Acetaminophen 650 MG PO Q6P PRN 04/03/18 2100 Acetaminophen 1,000 MG IV Q6P PRN 04/03/18 2100 Amlodipine Besylate 10 MG PO QPM 04/05/18 2100 Aspirin Buffered 81 MG PO DAILY 04/04/18 0900 Atorvastatin Calcium 80 MG PO 1700 04/04/18 1700 Carvedilol 25 MG PO BID 04/03/18 2250 Clonidine 0.1 MG PO QPM 04/07/18 2100 Divalproex Sodium 500 MG PO DAILY 04/04/18 0900 Epoetin Rj 20,000 U SC Q 2 WEEKS 04/11/18 1430 Epoetin Rj 4,000 UNIT SC Q 2 WEEKS 04/11/18 1430 Folic Acid 1 MG PO DAILY 04/04/18 0900 Furosemide 40 MG PO 0700,1400 04/11/18 0700 Hydralazine HCl 100 MG PO TID 04/03/18 2251 Insulin Aspart SC TIDAC 04/12/18 0800 Insulin Detemir 8 UNITS SC DAILY 04/12/18 0900 Insulin Detemir 6 UNITS SC 2100 04/11/18 2100 Iron Sucrose 200 MG IV Q72H 04/11/18 1445 Sodium Chloride 100 ML Isosorbide Mononitrate 60 MG PO AT BEDTIME 04/07/18 2100 Levothyroxine Sodium 0.075 MG PO 0600 04/05/18 0600 Losartan Potassium 25 MG PO DAILY 04/12/18 1044 Omeprazole 20 MG PO DAILY AC 04/04/18 0700 Oxacillin Sodium 2,000 MG IV Q4H 04/06/18 2030 Dextrose/Water 100 ML Oxycodone HCl 10 MG PO Q4P PRN 04/06/18 0951 Thiamine HCl 100 MG PO DAILY 04/04/18 0900 Med *DC Sertraline HCl 50 MG PO DAILY 04/04/18 0900 Past History Past Medical History Neurological: NONE EENT: NONE Cardiovascular: CHF, hypertension Respiratory: NONE Gastrointestinal: NONE Hepatic: NONE Renal: ESRD HAS FISTULA L ARM Musculoskeletal: NONE Psychiatric: anxiety, depression Endocrine: diabetes, hypothyroidism Blood Disorders: anemia Cancer(s): NONE PRESSFITTER/Reproductive: NONE Past Surgical History Surgical History: A/V FISTULA left great toe surgery >10 yrs ON [employer] Psychosocial History Strengths/Capabilities: He is on Social Security Disability and self presented to seek treatment. Physical Limitations (Interventions): None noted Psychiatric Treatment History Psych Treatment Psychiatric Treatment Yes Inpatient Treatment Yes Outpatient Treatment Yes Reason for Treatment Anxiety and depression Diagnosis: Major depressive disorder recurrent moderate Risk Factors: chronic/serious med cond., high anxiety/distress, substance abuse, isolate/no social support, male Substance Abuse Treatment Substance Abuse Treatment Past Substance Abuse [place] Yes Inpatient Treatment No Outpatient Treatment No Assessment/Plan Mental Status Orientation: Person, Place, Situation Mental Status Exam: The patient is a 52-year-old male who looks older than his stated age. He was encountered sleeping in his hospital bed. He was easily arousable. He was alert and oriented 3. Gait was not tested. Blood pressure is 174/82, pulse rate 68. Eye contact was fair. Speech was normal in rate, rhythm, volume and tone. The patient described his mood as "alright". Affect was negative, angry. He was not suicidal or homicidal. Thought process was normal in tempo and stream. Thought form was concrete. There were no delusions or obsessions. Thought content was negative. Attention and concentration were good. There was no perceptual abnormality. Impulse control is fair. Patient's intelligence level is average, use of language appropriate, fund of knowledge average. Insight is poor. Judgment unimpaired. Lab Results: Lab ALT 32 U/L 04/03/18 1833 AST 21 U/L 04/03/18 1833 BUN 71 mg/dL H 04/11/18 0711 Chloride 100 mmol/L 04/11/18 0711 Creatinine 4.6 mg/dL H 04/11/18 0711 Estimated GFR 13 ml/min L 04/11/18 0711 Ferritin 64.2 ng/mL 04/10/18 0758 Iron 64 ug/dL 04/10/18 0758 Potassium 3.7 mmol/L 04/11/18 0711 Sodium 133 mmol/L L 04/11/18 0711 TIBC 268 ug/dL 04/10/18 0758 Hct 24.3 % L 04/11/18 0711 Hgb 8.4 G/DL L 04/11/18 0711 MCH 28.8 PG 04/11/18 0711 MCHC 34.4 G/DL 04/11/18 0711 MCV 83.6 FL 04/11/18 0711 MPV 6.4 FL L 04/11/18 0711 Plt Count 229 /CUMM 04/11/18 0711 RBC 2.91 /CUMM L 04/11/18 0711 RDW 15.0 % H 04/11/18 0711 Urine Cannabis Screen > 80.00 NG/ML H 04/03/18 2120 Valproic Acid 24.5 ug/mL L 04/03/18 1833 Diffential Diagnosis: 1. Major depressive disorder recurrent moderate 2. Rule out dysthymic disorder 3. Rule out bipolar 2 disorder Impression: The patient is a 52-year-old male with significant health issues and consequent functional deficits. He has a long history of alcohol dependence and has been sober for approximately 2-3 years. He was on an antidepressant but fell out of psychiatric treatment due to conflict with his provider. He was recently started on sertraline and valproate whilst hospitalized for depression. The patient presents as irritable, depressed, negative. His premorbid level of functioning is unclear though he has not sustained any relationships throughout his life. He reports anxiety which is likely impacting his blood pressure. The patient is on valproate for unknown reasons. There may be an underlying bipolar 2 diagnosis or it may be to help with impulsivity/irritability. At present his Depakote level is subtherapeutic. Provisional Treatment Plan: 1. Increase sertraline to 100 mg daily 2. Depakote level is subtherapeutic. Transaminases are normal. Suggest increasing Depakote 500 mg p.o. a.m. and at bedtime. Check a level within 5 days to ensure it is within normal limits. 3. The patient reports a previous good response to hydroxyzine. This medication may be used if his QTC is normal. Suggest 50 mg 3 times daily at 8 AM, 2 PM and 10 PM. Discontinue if ineffective. 4. The patient needs ongoing psychiatric treatment. He declines referral by me stating that he has made his own appointment. It is unclear whether he actually has an appointment or whether this will need to be rescheduled as he is going to rehab. 5. The patient has significant psychosocial stressors. Social work may be able to assist. He may benefit from a case specialist in the community to help with managing his finances and transport to and from appointments. Psychiatry will sign off for now. Thank you for consulting us in this patient. Please feel free to contact us if we can be of any further assistance.
--- NOTE | 2018-04-12 11:55 | PN- Infect Dx ---
Subjective Subjective: Afebrile without complaints. Objective Last 24 Hrs of Vital Signs/I&O Vital Signs Date Time Temp Pulse Resp B/P B/P Pulse O2 O2 Flow FiO2 Mean Ox Delivery Rate 04/12 0759 68 174/82 04/12 0700 97.8 57 18 174/82 97 Room Air 04/12 0638 97.8 57 18 174/82 97 Room Air 04/12 0042 194/86 04/11 2328 60 212/88 04/11 2100 99.1 60 18 230/90 97 Room Air 04/11 2057 60 230/90 14 2056 60 230/90 04/11 2056 60 230/90 04/11 2056 60 230/90 04/11 2056 60 230/90 04/11 1447 130/60 04/11 1420 98.6 63 18 130/60 96 Room Air 04/11 1312 65 204/109 04/11 1222 Room Air Intake & Output 04/12 1600 04/12 0800 04/12 0000 Intake Total 370 510 Output Total 1750 375 Balance -1380 135 Intake, IV 130 270 Intake, Oral 240 240 Number 0 0 Bowel Movements Output, Urine 1750 375 Patient 178 lb Weight Physical Exam Other Physical Findings: He appears comfortable in no acute distress Chest Pro-Line in place in the right upper chest Lungs are clear Heart regular rhythm without murmur Extremities bilateral lower extremity edema, right greater than left; right upper extremity edema persists Results Last 24 Hours of Lab Results: Laboratory Tests 04/11 0711 Chemistry Sodium (137 - 145 mmol/L) 133 L Potassium (3.5 - 5.1 mmol/L) 3.7 Chloride (98 - 107 mmol/L) 100 Carbon Dioxide (22 - 30 mmol/L) 24 Anion Gap (5 - 16) 10 BUN (9 - 20 mg/dL) 71 H Creatinine (0.7 - 1.2 mg/dL) 4.6 H Estimated GFR (>60 ml/min) 13 L BUN/Creatinine Ratio (7 - 25 %) 15.4 Hematology CBC w Diff NO MAN DIFF REQ WBC (4.8 - 10.8 /CUMM) 6.6 RBC (4.70 - 6.10 /CUMM) 2.91 L Hgb (14.0 - 18.0 G/DL) 8.4 L Hct (42 - 52 %) 24.3 L MCV (80.0 - 94.0 FL) 83.6 MCH (27.0 - 31.0 PG) 28.8 MCHC (33.0 - 37.0 G/DL) 34.4 RDW (11.5 - 14.5 %) 15.0 H Plt Count (130 - 400 /CUMM) 229 MPV (7.4 - 10.4 FL) 6.4 L Gran % (42.2 - 75.2 %) 70.2 Lymphocytes % (20.5 - 51.1 %) 12.0 L Monocytes % (1.7 - 9.3 %) 9.7 H Eosinophils % (0 - 5 %) 7.3 H Basophils % (0.0 - 2.0 %) 0.8 Absolute Granulocytes (1.4 - 6.5 /CUMM) 4.6 Absolute Lymphocytes (1.2 - 3.4 /CUMM) 0.8 L Absolute Monocytes (0.10 - 0.60 /CUMM) 0.6 Absolute Eosinophils (0.0 - 0.7 /CUMM) 0.5 Absolute Basophils (0.0 - 0.2 /CUMM) 0.1 Last 24 Hours of Rehan Results: No recent cultures Assessment/Plan ID Impression: Stable, with temperatures and white blood cell count remaining normal, on Oxacillin for Staph aureus bacteremia secondary to osteomyelitis of the left great toe, status post repeat I&D of the left foot and delayed primary closure of his wound 5 days ago following 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 His ORI was negative and, as all of the infected bone was felt to have been removed, he will only require a 2 week course of IV antibiotics from his negative blood cultures. He remains somewhat fluid overloaded, with his dose of Lasix increased by Renal. Suggestion: 1. Further management of his hypertension and fluid status per Renal 2. Continue Oxacillin for 8 more days (until April 20)
[2018-04-12 14:12] VITALS: BP 164/70
[2018-04-12 22:00] VITALS: BP 220/100
[2018-04-12 23:26] VITALS: BP 170/78
--- NOTE | 2018-04-13 06:36 | PN- Housestaff ---
Cayden Horner 04/13/18 0635: Subjective Follow-up For: Left great toe cellulitis ESRD Anemia Hyponatremia Hypothyroidism Hypertension Diabetes mellitus Subjective: I visited Jian this morning, he was lying back in his, alert and oriented 3, in no acute distress. He did not report any major complaints overnight, he denies headache, chest pain , lightheadedness, dizziness, nausea, vomiting, abdominal pain, constipation, diarrhea, dysuria, frequency. Nurse reported that he had an episode of blood pressure was 220/100 which came down to 170/78. Review of Systems Constitutional: Reports: see HPI. Objective Last 24 Hrs of Vital Signs/I&O Vital Signs Date Time Temp Pulse Resp B/P B/P Pulse O2 O2 Flow FiO2 Mean Ox Delivery Rate 04/13 1054 Room Air 04/13 0946 74 178/84 04/13 0945 74 178/84 04/13 0940 74 178/84 04/13 0703 97.5 55 18 184/88 94 Room Air 04/12 2326 170/78 04/12 2200 98.4 63 18 220/100 96 Room Air 04/12 2146 63 220/100 04/12 2146 63 220/100 04/12 2146 63 220/100 04/12 2145 63 220/100 04/12 2145 63 220/100 04/12 1512 Room Air 04/12 1412 98.0 61 20 164/70 97 Room Air 04/12 1405 61 164/70 Intake & Output 04/13 1600 04/13 0800 04/13 0000 Intake Total 770 920 Output Total 700 550 Balance 70 370 Intake, IV 290 200 Intake, Oral 480 720 Number 0 1 Bowel Movements Output, Urine 700 550 Patient 178 lb Weight Weight Bed scale Measurement Method Physical Exam General Appearance: Alert, Oriented X3, Cooperative, No Acute Distress Skin: No Rashes Skin Temp/Moisture Exam: Warm/Dry Sepsis Skin Exam (color): Normal for Ethnicity HEENT: Atraumatic Neck: Supple Cardiovascular: Regular Rate, Normal S1, Normal S2 Lungs: Clear to Auscultation, Normal Air Movement Abdomen: Normal Bowel Sounds, Soft, No Tenderness Neurological: Normal Speech, Strength at 5/5 X4 Ext Extremities: No Clubbing, No Cyanosis, No Edema, Normal Pulses, pitting edema 1+ bilateral lower extremities, with bandage on his left big toe Assessment/Plan Assessment: Jian Chatterjee is a 52M with a PMH of hypertension, poorly controlled insulin- dependent diabetes mellitus, CHF unsure of last ejection fraction, ESRD with a left arm fistula although patient states that he has not had dialysis yet, hypothyroidism presents with left great toe swelling, redness, pain 2 days. ORI did not show any vegetation, margins of the osteomyelitis were clean after the procedure. Based on ID consult he only needs 2 weeks of IV antibiotic, which will be dictated on April 20. He had one more episode of high blood pressure. Based on nephrology consult. Started losartan 25 mg p.o. daily and increased to 50 mg daily the day after. He is ready to go to STR. Left great toe cellulitis: ID consult appreciated, excisional debridement procedure and revision done. Dr. Nelson will follow up the wound as outpatient. Plan: IV vancomycin was discontinued because the organism was MSSA and oxacillin is started 2gr Q4h IV, excisional debridement and revision was done. Needs to receive IV antibiotics till April 20. Chronic kidney disease, stage IV borderline on a stage V: ESRD w/ AV fistula, His creatinine is 4.6 with BUN 68. Plan: Nephrology consult appreciated. He does not need dialysis now. Pulmonary congestion secondary to questionable CHF: Plan: We will closely follow the patient. TTE was done, the patient has pulmonary HTN, but no CHF. Chronic normacytic anemia: Probably due to end-stage renal disease, Hb 8.4. Plan: Nephrology consult appreciated. The patient received 1 dose of epoetin, with a total of 400 mg of Venofer in the hospital. He will receive next doses of IV iron, once he is discharged from the STR. Hypertension: Plan: We have started clonidine 0.1 mg daily. Added losartan 25 mg p.o. daily, increased to 50 mg daily. Chronic BLE swelling secondary to decreased renal function: Plan: Nephrology consult appreciated, is receiving Lasix. Increased to 40 mg twice daily. Hyponatremia: Plan: Sodium level was 134-132, now 133, 134 Hypothyroidism: Plan: He is on levothyroxine 75 mcg daily. IDDM non-compliant to insulin: His hemoglobin A1c is 9.2 Plan: We will check blood sugar level and correct with sliding scale insulin and Levemir. Decreased the night detemir insulin to 6 units, I decreased his morning levemir to 8 units. Problem List: 1. Cellulitis 2. Osteomyelitis 3. Hypertension 4. Diabetes 5. ESRD (end stage renal disease) 6. Fluid overload 7. CKD (chronic kidney disease) 8. [id number] kidney injury 9. Hyperglycemia 10. Depression 11. Chronic anemia 12. Hypothyroidism Pain Ratin Pain Location: None applicable Pain Goal: Remain pain free Pain Plan: Not applicable Tomorrow's Labs & Rationales: Not applicable Consulting Request: Consulting Specialty: Thoracic/Vascular Surgery Consulting Physician: Spencer Gordon MD Reason for Consult: left foot big toe necrosis Francisco Segovia MD 04/13/18 1757: Attending MD Review Statement Attending Statement Attending MD Statement: examined this patient, discuss w/resident/PA/LACER AND TIER, agreed w/resident/PA/LACER AND TIER, reviewed EMR data (avail), discussed with nursing, discussed with case mgmt, amended to note Attending Assessment/Plan: The patient was seen and discussed with house staff, nursing, and case management. STR to come out and evaluation patient. Losartan increased this morning to 50 mg daily with decrease in BP. IV iron given. Await STR decision.
[2018-04-13 07:03] VITALS: BP 184/88
--- NOTE | 2018-04-13 11:46 | PN- Nephrology ---
Assessment/Plan Nephrology Assessment: 1. MSSA bacteremia. He is to receive another 6 days of antibiotics. This is being directed by Dr. Umanzor. 2. Osteomyelitis of the toe. The toes been amputated. 3. Volume status. Would maintain on 80 mg twice a day of furosemide. He is diuresing nicely but the weight has not dropped that much. It may be, if he does not diurese further, metolazone may need to be added 3 times a week. Given his renal failure and proteinuria is requiring 80 mg twice a day of furosemide is not surprising. 4. Anemia. He is receiving Venofer also known as iron sucrose. Speaking with my office staff, I am told that the short-term rehab people may not be willing to administer this. Given the fact he has received 400 mg, this may be able to be continued once he is discharged from short-term rehab. In addition we will continue his Epogen. His dose was essentially more than doubled with 24,000 units once a week. At this point, depending on his response, this may be decreased back to 24,000 every other week. Suggestion: 1. See above 2. A follow-up appointment will be arranged in my office after his discharge from short-term rehab. Subjective Subjective: Patient says he feels well. Objective Vital Signs and I&Os Vital Signs Date Time Temp Pulse Resp B/P B/P Pulse O2 O2 Flow FiO2 Mean Ox Delivery Rate 04/13 1117 Room Air 04/13 1054 Room Air 04/13 0946 74 178/84 04/13 0945 74 178/84 04/13 0940 74 178/84 04/13 0703 97.5 55 18 184/88 94 Room Air 04/12 2326 170/78 04/12 2200 98.4 63 18 220/100 96 Room Air 04/12 2146 63 220/100 04/12 2146 63 220/100 04/12 2146 63 220/100 04/12 2145 63 220/100 04/12 2145 63 220/100 04/12 1512 Room Air 04/12 1412 98.0 61 20 164/70 97 Room Air 04/12 1405 61 164/70 Intake & Output 04/13 1600 04/13 0400 04/12 1600 04/12 0400 04/11 1600 04/11 0400 Intake Total 679 960 5625 510 950 340 Output Total 433 456 6186 375 2600 400 Balance 70 370 -940 135 -1650 -60 Intake, IV 290 200 370 270 950 100 Intake, Oral 178 736 1425 240 0 240 Number 0 1 0 0 0 Bowel Movements Output, Urine 294 787 8733 375 2600 400 Patient 178 lb 178 lb 181 lb Weight Weight Bed scale Bed scale Measurement Method Physical Exam: General Appearance: well developed/nourished, no apparent distress, alert, awake , comfortable Head: atraumatic, normal appearance, active bleeding Ears, Nose, Throat: normal ENT inspection Neck: normal inspection, supple, trachea mid line Respiratory: normal breath sounds, chest non-tender Cardiovascular: regular rate/rhythm, edema Abdomen: normal bowel sounds, soft, non-tender, no organomegaly Back: normal inspection, no vertebral tenderness Extremities: generalized anasarca, less than yesterday Skin: intact, normal color Current Medications: Current Medications Sig/Shaan Start time Last Medication Dose Route Stop Time Status Admin Acetaminophen 650 MG Q6P PRN 04/03 2100 AC 04/05 PO 1904 Acetaminophen 1,000 MG Q6P PRN 04/03 2100 AC IV Amlodipine Besylate 10 MG QPM 04/05 2100 AC 04/12 PO 2146 Aspirin Buffered 81 MG DAILY 04/04 900 AC 04/13 PO 0945 Atorvastatin Calcium 80 MG 1700 04/04 1700 AC 04/12 PO 1700 Carvedilol 25 MG BID 04/03 2250 04/13 PO 0946 Clonidine 0.1 MG QPM 04/07 2100 AC 04/12 PO 2146 Divalproex Sodium 500 MG DAILY 04/04 09 AC 04/13 PO 0941 Epoetin Rj 20,000 U Q 2 WEEKS 04/11 1430 04/11 [place] 1709 Epoetin Rj 4,000 UNIT Q 2 WEEKS 04/11 1430 04/11 AZ 1710 Folic Acid 1 MG DAILY 04/04 09 AC 04/13 PO 0946 Furosemide 80 MG 0700,1400 04/13 1400 UNVr PO Furosemide 40 MG 0700,1400 04/11 0700 DC 04/13 PO 0645 Hydralazine HCl 100 MG TID 04/03 2251 AC 04/13 PO 0940 Insulin Aspart 0 TIDAC 04/12 08 AC 04/12 SC 1218 Insulin Detemir 8 UNITS DAILY 04/12 900 AC 04/13 SC 0939 Insulin Detemir 6 UNITS 04/11 AC 04/12 SC 2111 Iron Sucrose 200 MG DAILY 04/13 900 DC 04/13 Sodium Chloride 100 ML IV 04/13 914 1105 Iron Sucrose 200 MG Q72H 04/11 1445 DC 04/11 Sodium Chloride 100 ML IV 04/23 1459 1600 Isosorbide 60 MG AT BEDTIME 04/07 2100 AC 04/12 Mononitrate PO 2145 Levothyroxine Sodium 0.075 MG 0600 04/05 06 AC 04/13 PO 0511 Losartan Potassium 50 MG DAILY 04/13 900 AC 04/13 PO 0945 Losartan Potassium 25 MG DAILY 04/12 1044 DC 04/12 PO 1218 Omeprazole 20 MG DAILY AC 04/04 07 AC 04/13 PO 0511 Oxacillin Sodium 2,000 MG Q4H 04/06 2030 AC 04/13 Dextrose/Water 100 ML IV 0944 Oxycodone HCl 10 MG Q4P PRN 04/06 951 DC 04/12 PO 2112 Sertraline HCl 100 MG DAILY 04/13 900 AC 04/13 PO 0942 Thiamine HCl 100 MG DAILY 04/04 900 AC 04/13 PO 0941 Results Pertinent Lab Results: Laboratory Tests 04/13 04/12 04/11 0515 1223 0711 Chemistry Sodium (137 - 145 mmol/L) 134 L 133 L Potassium (3.5 - 5.1 mmol/L) 3.5 3.7 Chloride (98 - 107 mmol/L) 97 L 100 Carbon Dioxide (22 - 30 mmol/L) 28 24 Anion Gap (5 - 16) 9 10 BUN (9 - 20 mg/dL) 68 H 71 H Creatinine (0.7 - 1.2 mg/dL) 4.6 H 4.6 H Estimated GFR (>60 ml/min) 13 L 13 L BUN/Creatinine Ratio (7 - 25 %) 14.8 15.4 Hematology CBC w Diff NO MAN DIFF REQ WBC (4.8 - 10.8 /CUMM) 6.6 RBC (4.70 - 6.10 /CUMM) 2.91 L Hgb (14.0 - 18.0 G/DL) 8.4 L Hct (42 - 52 %) 24.3 L MCV (80.0 - 94.0 FL) 83.6 MCH (27.0 - 31.0 PG) 28.8 MCHC (33.0 - 37.0 G/DL) 34.4 RDW (11.5 - 14.5 %) 15.0 H Plt Count (130 - 400 /CUMM) 229 MPV (7.4 - 10.4 FL) 6.4 L Gran % (42.2 - 75.2 %) 70.2 Lymphocytes % (20.5 - 51.1 %) 12.0 L Monocytes % (1.7 - 9.3 %) 9.7 H Eosinophils % (0 - 5 %) 7.3 H Basophils % (0.0 - 2.0 %) 0.8 Absolute Granulocytes (1.4 - 6.5 /CUMM) 4.6 Absolute Lymphocytes (1.2 - 3.4 /CUMM) 0.8 L Absolute Monocytes (0.10 - 0.60 /CUMM) 0.6 Absolute Eosinophils (0.0 - 0.7 /CUMM) 0.5 Absolute Basophils (0.0 - 0.2 /CUMM) 0.1 Urines Ur Random Creatinine (mg/dL) 38.9 U Random Total Protein (0 - 12 mg/dL) 178 H Protein/Creatinin Ratio (< 0.2) 4.5 H
[2018-04-13 14:31] VITALS: BP 152/90
[2018-04-13 20:53] VITALS: BP 196/89
[2018-04-14 02:54] VITALS: BP 170/88
--- NOTE | 2018-04-14 06:57 | PN- Housestaff ---
Cayden Horner 04/14/18 0657: Subjective Follow-up For: Left great toe cellulitis ESRD Anemia Hyponatremia Hypothyroidism Hypertension Diabetes mellitus Subjective: We revisited the patient is morning, he was sleeping in his bed. We woke him up , he was alert and oriented 3, in no acute distress. He had no major complaints overnight, no headache, no chest pain, no fever, no chills, no sweating, no abdominal pain, no diarrhea, no constipation, no pain on left big toe. Review of Systems Constitutional: Reports: see HPI. Objective Last 24 Hrs of Vital Signs/I&O Vital Signs Date Time Temp Pulse Resp B/P B/P Pulse O2 O2 Flow FiO2 Mean Ox Delivery Rate 04/14 1319 68 158/84 04/14 0826 63 160/80 04/14 0825 63 160/80 04/14 0824 63 160/80 04/14 0700 56 20 96 Room Air 04/14 0254 170/88 04/13 2053 98.0 63 18 196/89 96 Room Air 04/13 2046 64 196/90 04/13 2046 64 196/90 04/13 2045 64 196/90 04/13 2045 64 196/90 04/13 2045 64 196/90 04/13 1431 98.0 62 20 152/90 95 Room Air Intake & Output 04/14 1600 04/14 0800 04/14 0000 Intake Total 740 730 Output Total 1900 375 Balance -1160 355 Intake, IV 260 130 Intake, Oral 480 600 Output, Urine 1900 375 Patient 158 lb Weight Weight Bed scale Measurement Method Physical Exam General Appearance: Alert, Oriented X3, Cooperative, No Acute Distress Skin: No Rashes Skin Temp/Moisture Exam: Warm/Dry Neck: Supple Cardiovascular: Regular Rate, Normal S1, Normal S2 Lungs: Clear to Auscultation, Normal Air Movement Abdomen: Normal Bowel Sounds, Soft, No Tenderness Assessment/Plan Assessment: Jian Chatterjee is a 52M with a PMH of hypertension, poorly controlled insulin- dependent diabetes mellitus, CHF unsure of last ejection fraction, ESRD with a left arm fistula although patient states that he has not had dialysis yet, hypothyroidism presents with left great toe swelling, redness, pain 2 days. ORI did not show any vegetation, margins of the osteomyelitis were clean after the procedure. Based on ID consult he only needs 2 weeks of IV antibiotic, which will be dictated on April 20. He had one more episode of high blood pressure. Based on nephrology consult. Started losartan 25 mg p.o. daily and increased to 50 mg daily the day after. He is ready to go to [facility]. Left great toe cellulitis: ID consult appreciated, excisional debridement procedure and revision done. Dr. Nelson will follow up the wound as outpatient. Plan: IV vancomycin was discontinued because the organism was MSSA and oxacillin is started 2gr Q4h IV, excisional debridement and revision was done. Needs to receive IV antibiotics till April 20. Chronic kidney disease, stage IV borderline on a stage V: ESRD w/ AV fistula, His creatinine is 4.6 with BUN 68. Plan: Nephrology consult appreciated. He does not need dialysis now. Pulmonary congestion secondary to questionable CHF: Plan: We will closely follow the patient. TTE was done, the patient has pulmonary HTN, but no CHF. Chronic normacytic anemia: Probably due to end-stage renal disease, Hb 8.4. Plan: Nephrology consult appreciated. The patient received 1 dose of epoetin, with a total of 600 mg of Venofer in the hospital. He will receive next doses of IV iron, once he is discharged from the STR. Hypertension: Plan: We have started clonidine 0.1 mg daily. Added losartan 25 mg p.o. daily, increased to 50 mg daily. Chronic BLE swelling secondary to decreased renal function: Plan: Nephrology consult appreciated, is receiving Lasix. Increased to 80 mg twice daily. Hyponatremia: Plan: Sodium level was 134-132, now 133, 134 Hypothyroidism: Plan: He is on levothyroxine 75 mcg daily. IDDM non-compliant to insulin: His hemoglobin A1c is 9.2 Plan: We will check blood sugar level and correct with sliding scale insulin and Levemir. Decreased the night detemir insulin to 6 units, I decreased his morning levemir to 8 units. Problem List: 1. Cellulitis 2. Osteomyelitis 3. Hypertension 4. Diabetes 5. ESRD (end stage renal disease) 6. Fluid overload 7. CKD (chronic kidney disease) 8. [id number] kidney injury 9. Hyperglycemia 10. Depression 11. Chronic anemia 12. Hypothyroidism Pain Ratin Pain Location: Not applicable Pain Goal: Remain pain free Pain Plan: Not applicable Tomorrow's Labs & Rationales: BEP CBC Consulting Request: Consulting Specialty: Thoracic/Vascular Surgery Consulting Physician: Spencer Gordon MD Reason for Consult: left foot big toe necrosis Francisco Segovia MD 04/14/18 1757: Attending MD Review Statement Attending Statement Attending MD Statement: examined this patient, discuss w/resident/PA/NECKTIE TURNER, agreed w/resident/PA/NECKTIE TURNER, reviewed EMR data (avail), discussed with nursing, discussed with case mgmt, amended to note Attending Assessment/Plan: The patient was seen and discussed with house staff. BP better on increased dose of Losartan. Appreciate Nephrology follow-up. The patient is receiving IV iron. Unable to find STR for him that is acceptable to the patient. Will maintain in hospital for completion of IV antibiotics as per Case management.
--- NOTE | 2018-04-14 13:36 | PN- Nephrology ---
Assessment/Plan Nephrology Assessment: 1. MSSA bacteremia. He is to receive another 4 OR 5 days of antibiotics. This is being directed by Dr. Umanzor. 2. Osteomyelitis of the toe. The toes been amputated. 3. Volume status. Would maintain on 80 mg twice a day of furosemide. He still has significant edema in his sacrum and both upper extremities. The lower extremities looks much better. In terms of the weights, on April 04 his weight is recorded as 191 pounds. On the April 04 191 8 195 8 192 04/07 181 04/08 188 04/09 189 04/10 not recorded 04/11 181 04/12 178 04/13 178 04/14 158 the accuracy of yesterday or today's measurement is questionable. This would imply that he is net -9.1 L of fluid from April 13 - April 14. Once the edema is gone, he likely then can be changed back to 80 mg once a day or even lower 40 mg once a day. His protein creatinine ratio is 4.5. This is consistent with 4500 mg of protein per day. Over the past several months, whether or not the patient was taking the medications were following the diet was questionable. 4. Anemia. He is receiving Venofer also known as iron sucrose. He also received Epogen. Being that his stay may be until the termination of the antibiotic therapy, it would make sense to give him or to complete the course of 5 doses of Venofer. This will lessen the logistical challenge of trying to arrange for IV Venofer as an outpatient Suggestion: 1. Continue with 80 mg twice a day. 2. Maintain strict intakes and outputs and daily weights 3. It would be helpful to have some consistency with regards to the bed scale. When bed skills are used, they are often not helpful. Unreliable information being worse than no information at all. The patient's nurse reports that he is voiding quite a bit. I just find it hard to believe that he voided 9.09 L negative from yesterday to today. Subjective Subjective: Patient is quite pleased that the amount of edema in his lower extremities has decreased markedly. The only thing of which she complained was the coldness of my hands. Objective Vital Signs and I&Os Vital Signs Date Time Temp Pulse Resp B/P B/P Pulse O2 O2 Flow FiO2 Mean Ox Delivery Rate 04/14 1319 68 158/84 08/17 0826 63 160/80 04/14 0825 63 160/80 04/14 0824 63 160/80 04/14 0700 56 20 96 Room Air 04/14 0254 170/88 04/13 2053 98.0 63 18 196/89 96 Room Air 04/13 2046 64 196/90 04/13 2046 64 196/90 04/13 204 64 196/90 04/13 204 64 196/90 04/13 2045 64 196/90 04/13 1431 98.0 62 20 152/90 95 Room Air 04/13 1404 62 152/90 Intake & Output 04/14 1600 04/14 0400 04/13 1600 04/13 0400 04/12 1600 04/12 0400 Intake Total 983 389 1375 920 1410 510 Output Total 8499 147 6405 550 2350 375 Balance -1160 355 -130 370 -940 135 Intake, IV 260 130 290 200 370 270 Intake, Oral 519 603 7183 720 1040 240 Number 0 1 0 0 Bowel Movements Output, Urine 7072 519 3359 550 2350 375 Patient 158 lb 178 lb 178 lb Weight Weight Bed scale Bed scale Measurement Method Physical Exam: General Appearance: well developed/nourished, no apparent distress, alert, awake , comfortable Head: atraumatic, normal appearance, active bleeding Ears, Nose, Throat: normal ENT inspection Neck: normal inspection, supple, trachea mid line Respiratory: normal breath sounds, chest non-tender Cardiovascular: regular rate/rhythm, edema Abdomen: normal bowel sounds, soft, non-tender, no organomegaly Back: normal inspection, no vertebral tenderness Extremities: generalized anasarca, less than yesterday Skin: intact, normal color Current Medications: Current Medications Sig/Shaan Start time Last Medication Dose Route Stop Time Status Admin Acetaminophen 650 MG Q6P PRN 04/03 2100 AC 04/13 PO 1750 Acetaminophen 1,000 MG Q6P PRN 04/03 2100 AC IV Amlodipine Besylate 10 MG QPM 04/05 2100 AC 04/13 PO 2045 Aspirin Buffered 81 MG DAILY 04/04 09 AC 04/14 PO 0813 Atorvastatin Calcium 80 MG 1700 04/04 1700 AC 04/13 PO 1750 Carvedilol 25 MG BID 04/03 2250 AC 04/14 PO 08 Clonidine 0.1 MG QPM 04/07 2100 04/13 PO 2046 Divalproex Sodium 500 MG DAILY 04/04 09 AC 04/14 PO 0813 Epoetin Rj 20,000 U Q 2 WEEKS 04/11 1430 04/11 AZ 1709 Epoetin Rj 4,000 UNIT Q 2 WEEKS 04/11 1430 04/11 SC 1710 Folic Acid 1 MG DAILY 04/04 09 AC 04/14 PO 0814 Furosemide 80 MG 0700,1400 04/13 1400 AC 04/14 PO 1319 Hydralazine HCl 100 MG TID 04/03 225 04/14 PO 1319 Insulin Aspart 0 TIDAC 04/12 08 AC 04/14 SC 1230 Insulin Detemir 8 UNITS DAILY 04/12 900 04/14 SC 0827 Insulin Detemir 6 UNITS 04/11 04/13 SC 2044 Iron Sucrose 200 MG DAILY 04/15 900 AC Sodium Chloride 100 ML IV 04/15 914 Isosorbide 60 MG AT BEDTIME 04/07 2100 AC 04/13 Mononitrate PO 204 Levothyroxine Sodium 0.075 MG 0600 04/05 06 04/14 PO 0520 Losartan Potassium 50 MG DAILY 04/13 09 04/14 PO 0825 Omeprazole 20 MG DAILY AC 04/04 07 04/14 PO 0519 Oxacillin Sodium 2,000 MG Q4H 04/06 2030 AC 04/14 Dextrose/Water 100 ML IV 1230 Patient Medication 1 ED ONE ONE 04/13 1700 DC Teaching ED 04/13 1701 Sertraline HCl 100 MG DAILY 04/13 09 04/14 PO 08 Thiamine HCl 100 MG DAILY 04/04 09 04/14 PO 0814 Results Pertinent Lab Results: Laboratory Tests 04/13 04/12 0515 1223 Chemistry Sodium (137 - 145 mmol/L) 134 L Potassium (3.5 - 5.1 mmol/L) 3.5 Chloride (98 - 107 mmol/L) 97 L Carbon Dioxide (22 - 30 mmol/L) 28 Anion Gap (5 - 16) 9 BUN (9 - 20 mg/dL) 68 H Creatinine (0.7 - 1.2 mg/dL) 4.6 H Estimated GFR (>60 ml/min) 13 L BUN/Creatinine Ratio (7 - 25 %) 14.8 Urines Ur Random Creatinine (mg/dL) 38.9 U Random Total Protein (0 - 12 mg/dL) 178 H Protein/Creatinin Ratio (< 0.2) 4.5 H
--- NOTE | 2018-04-14 13:47 | PN- Infect Dx ---
Subjective Subjective: Afebrile without complaints. He notes decreased right lower extremity swelling Objective Last 24 Hrs of Vital Signs/I&O Vital Signs Date Time Temp Pulse Resp B/P B/P Pulse O2 O2 Flow FiO2 Mean Ox Delivery Rate 04/14 1319 68 158/84 04/14 0826 63 160/80 04/14 0825 63 160/80 04/14 0824 63 160/80 04/14 0700 56 20 96 Room Air 04/14 0254 170/88 04/13 2053 98.0 63 18 196/89 96 Room Air 04/13 2046 64 196/90 04/13 2046 64 196/90 04/13 2045 64 196/90 04/13 2045 64 196/90 04/13 2045 64 196/90 04/13 1431 98.0 62 20 152/90 95 Room Air 04/13 1404 62 152/90 Intake & Output 04/14 1600 04/14 0800 04/14 0000 Intake Total 740 730 Output Total 1900 375 Balance -1160 355 Intake, IV 260 130 Intake, Oral 480 600 Output, Urine 1900 375 Patient 158 lb Weight Weight Bed scale Measurement Method Physical Exam Other Physical Findings: He appears comfortable in no acute distress Chest Pro-Line in the right upper chest with no inflammation at the site Extremities left foot wound clean, with no erythema or drainage, slightly tender to palpation; sutures remain intact; decreased right lower extremity swelling; persistent right upper extremity swelling Results Last 24 Hours of Lab Results: Laboratory Tests 04/13 0515 Chemistry Sodium (137 - 145 mmol/L) 134 L Potassium (3.5 - 5.1 mmol/L) 3.5 Chloride (98 - 107 mmol/L) 97 L Carbon Dioxide (22 - 30 mmol/L) 28 Anion Gap (5 - 16) 9 BUN (9 - 20 mg/dL) 68 H Creatinine (0.7 - 1.2 mg/dL) 4.6 H Estimated GFR (>60 ml/min) 13 L BUN/Creatinine Ratio (7 - 25 %) 14.8 Last 24 Hours of Rehan Results: No recent cultures Assessment/Plan ID Impression: Stable, with temperatures and white blood cell count remaining normal, on Oxacillin for Staph aureus bacteremia secondary to osteomyelitis of the left great toe, status post repeat I&D of the left foot and delayed primary closure of his wound 1 week ago following 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 His ORI was negative and, as all of the infected bone was felt to have been removed, he will only require a 2 week course of IV antibiotics from his negative blood cultures. Suggestion: 1. Further management of his left foot wound per Podiatry 2. Continue Oxacillin for 6 more days (until April 20), after which can discontinue and remove the Pro-Line
[2018-04-14 14:11] VITALS: BP 160/80
[2018-04-14 21:35] VITALS: BP 223/95
[2018-04-15 06:33] VITALS: BP 194/82
[2018-04-15 08:35] LABS: ABSOLUTE BASOPHIL COUNT 0.1 /CUMM (0.0-0.2); ABSOLUTE EOSINOPHIL COUNT 0.4 /CUMM (0.0-0.7); ABSOLUTE GRANULOCYTE CT 5.9 /CUMM (1.4-6.5); ABSOLUTE LYMPH COUNT 1.5 /CUMM (1.2-3.4); ABSOLUTE MONOCYTE COUNT 0.6 /CUMM (0.10-0.60); BASOPHIL % 1.4 % (0.0-2.0); EOSINOPHIL % 4.5 % (0-5); GRANULOCYTE % 69.6 % (42.2-75.2); HEMATOCRIT 27.2 % (42-52); MEAN CORPUSCULAR HGB CONC 34.6 G/DL (33.0-37.0); MEAN CORPUSCULAR VOLUME 83.9 FL (80.0-94.0); MEAN PLATELET VOLUME 6.5 FL (7.4-10.4); PLATELET COUNT 247 /CUMM (130-400); RBC DISTRIBUTION WIDTH 15.1 % (11.5-14.5); RED BLOOD CELL CT 3.24 /CUMM (4.70-6.10); WHITE BLOOD CELL COUNT 8.5 /CUMM (4.8-10.8)
--- NOTE | 2018-04-15 08:51 | PN- Housestaff ---
Cayden Horner 04/15/18 0851: Subjective Follow-up For: Left great toe cellulitis ESRD Anemia Hyponatremia Hypothyroidism Hypertension Diabetes mellitus Subjective: I visited Jian today, he was lying back in his bed, alert and oriented x3, in no acute distress. He had high blood pressures up to 190s, also bleeding from the site of the big toe amputation. The dressing of the left foot was changed due to bleeding. He is still has sutures in place. No complaints or reports for chest pain, lightheadedness, dizziness, nausea, vomiting, abdominal pain, constipation, diarrhea, frequency, dysuria, pain in left foot. Review of Systems Constitutional: Reports: see HPI. Objective Last 24 Hrs of Vital Signs/I&O Vital Signs Date Time Temp Pulse Resp B/P B/P Pulse O2 O2 Flow FiO2 Mean Ox Delivery Rate 04/15 1405 97.9 57 18 185/85 97 Room Air 04/15 1347 57 185/85 04/15 1347 57 185/85 04/15 0942 60 194/86 04/15 0942 60 194/82 04/15 0941 60 194/82 04/15 0633 97.6 60 18 19482 97 Room Air 04/14 2135 98.0 65 18 223/95 98 Room Air Intake & Output 04/15 1600 04/15 0800 04/15 0000 Intake Total 970 420 540 Output Total 1500 1925 Balance -530 -1505 540 Intake, IV 350 300 300 Intake, Oral 620 120 240 Number 0 Bowel Movements Output, Urine 1500 1925 Patient 172 lb 170 lb Weight Physical Exam General Appearance: Alert, Oriented X3, Cooperative, No Acute Distress Skin: No Rashes Skin Temp/Moisture Exam: Warm/Dry Sepsis Skin Exam (color): Normal for Ethnicity HEENT: Atraumatic Cardiovascular: Regular Rate, Normal S1, Normal S2 Lungs: Clear to Auscultation, Normal Air Movement Abdomen: Normal Bowel Sounds, Soft, No Tenderness Neurological: Normal Speech Extremities: Normal Pulses, No Tenderness/Swelling, Amputated left big toe with no bleeding or signs of infections with sutures in place. Vascular: Normal Pulses, Pulses Symmetrical Assessment/Plan Assessment: Jian Chatterjee is a 52M with a PMH of hypertension, poorly controlled insulin- dependent diabetes mellitus, CHF unsure of last ejection fraction, ESRD with a left arm fistula although patient states that he has not had dialysis yet, hypothyroidism presents with left great toe swelling, redness, pain 2 days. ORI did not show any vegetation, margins of the osteomyelitis were clean after the procedure. Based on ID consult he only needs 2 weeks of IV antibiotic, which will be dictated on April 20. He had one more episode of high blood pressure. Based on nephrology consult. Started losartan 25 mg p.o. daily and increased to 50 mg daily the day after. He is ready to go to [facility]. Left great toe cellulitis: ID consult appreciated, excisional debridement procedure and revision done. Dr. Nelson will follow up the wound as outpatient. Plan: IV vancomycin was discontinued because the organism was MSSA and oxacillin is started 2gr Q4h IV, excisional debridement and revision was done. Needs to receive IV antibiotics till April 20. Chronic kidney disease, stage IV borderline on a stage V: ESRD w/ AV fistula, His creatinine is 4.6 with BUN 68. Plan: Nephrology consult appreciated. He does not need dialysis now. Pulmonary congestion secondary to questionable CHF: Plan: We will closely follow the patient. TTE was done, the patient has pulmonary HTN, but no CHF. Chronic normacytic anemia: Probably due to end-stage renal disease, Hb 8.4. Plan: Nephrology consult appreciated. The patient received 1 dose of epoetin, with a total of 600 mg of Venofer in the hospital. He will receive next doses of IV iron, once he is discharged from the [facility]. Hypertension: Plan: We have started clonidine 0.1 mg daily. Added losartan 25 mg p.o. daily, increased to 50 mg daily. Chronic BLE swelling secondary to decreased renal function: Plan: Nephrology consult appreciated, is receiving Lasix. Increased to 80 mg twice daily. Hyponatremia: Plan: Sodium level was 134-132, now 133, 134 Hypothyroidism: Plan: He is on levothyroxine 75 mcg daily. IDDM non-compliant to insulin: His hemoglobin A1c is 9.2 Plan: We will check blood sugar level and correct with sliding scale insulin and Levemir. Decreased the night detemir insulin to 6 units, I decreased his morning levemir to 8 units. Problem List: 1. Cellulitis 2. Osteomyelitis 3. Hypertension 4. Diabetes 5. ESRD (end stage renal disease) 6. Fluid overload 7. CKD (chronic kidney disease) 8. Hpvtj-ax-kbsotgh kidney injury 9. Hyperglycemia 10. Depression 11. Chronic anemia 12. Hypothyroidism Pain Ratin Pain Location: Not applicable Pain Goal: Remain pain free Pain Plan: As needed Tomorrow's Labs & Rationales: As indicated Consulting Request: Consulting Specialty: Thoracic/Vascular Surgery Consulting Physician: Sepncer Gordon MD Reason for Consult: left foot big toe necrosis Keshia Isaac 04/15/18 1524: Attending MD Review Statement Attending Statement Attending MD Statement: examined this patient, discuss w/resident/PA/MANAGER INTEGRATION, agreed w/resident/PA/MANAGER INTEGRATION, reviewed EMR data (avail), discussed with nursing Attending Assessment/Plan: Thrombophlebitis rt arm- will start on warm packs and diclofenac gel bid Uncontrolled HTN- will increase clonidine to 0.1 mg po bid. Lt big toe osteomyelitis- cont on iv oxacillin. dw pt the care plan.
[2018-04-15 14:05] VITALS: BP 185/85
[2018-04-15 20:44] VITALS: BP 174/80
[2018-04-15 22:01] VITALS: BP 174/80
[2018-04-16 06:50] VITALS: BP 160/80
--- NOTE | 2018-04-16 08:40 | PN- Housestaff ---
Cayden Horner 04/16/18 0840: Subjective Follow-up For: Left great toe cellulitis ESRD Anemia Hyponatremia Hypothyroidism Hypertension Diabetes mellitus Subjective: Visit the patient this morning, he was lying back in his bed, alert and oriented headache overnight. No reports of chest pain, shortness of breath, lightheadedness, dizziness, headache, abdominal pain, fever, chills, or sweating. Review of Systems Constitutional: Reports: see HPI. Objective Last 24 Hrs of Vital Signs/I&O Vital Signs Date Time Temp Pulse Resp B/P B/P Pulse O2 O2 Flow FiO2 Mean Ox Delivery Rate 04/16 0838 57 160/80 04/16 0837 57 160/80 04/16 0837 57 160/80 04/16 0837 57 160/80 04/16 0650 98.0 57 20 160/80 96 Room Air 04/15 2201 98.1 58 20 174/80 96 Room Air 04/15 2111 174/80 04/15 2111 174/80 04/15 2110 174/80 04/15 2110 174/80 04/15 2110 58 174/80 04/15 2044 174/80 04/15 1405 97.9 57 18 185/85 97 Room Air 04/15 1347 57 185/85 04/15 1347 57 185/85 Intake & Output 04/16 1600 04/16 0800 04/16 0000 Intake Total 560 130 Output Total 1350 400 Balance -790 -270 Intake, IV 260 130 Intake, Oral 300 Output, Urine 1350 400 Patient 170 lb Weight Physical Exam General Appearance: Alert, Oriented X3, Cooperative, No Acute Distress Skin: No Rashes Cardiovascular: Regular Rate, Normal S1, Normal S2 Lungs: Clear to Auscultation, Normal Air Movement Abdomen: Normal Bowel Sounds, Soft, No Tenderness Extremities: Left big toe amputated, swelling in upper extremities due to fluid overload Assessment/Plan Assessment: Jian Chatterjee is a 52M with a PMH of hypertension, poorly controlled insulin- dependent diabetes mellitus, CHF unsure of last ejection fraction, ESRD with a left arm fistula although patient states that he has not had dialysis yet, hypothyroidism presents with left great toe swelling, redness, pain 2 days. ORI did not show any vegetation, margins of the osteomyelitis were clean after the procedure. Based on ID consult he only needs 2 weeks of IV antibiotic, which will be dictated on April 20. He had one more episode of high blood pressure. Based on nephrology consult. Started losartan 25 mg p.o. daily and increased to 50 mg daily the day after. He is ready to go to [facility]. Left great toe cellulitis: ID consult appreciated, excisional debridement procedure and revision done. Dr. Nelson will follow up the wound as outpatient. Plan: IV vancomycin was discontinued because the organism was MSSA and oxacillin is started 2gr Q4h IV, excisional debridement and revision was done. Needs to receive IV antibiotics till April 20. Chronic kidney disease, stage IV borderline on a stage V: ESRD w/ AV fistula, His creatinine is 4.6 with BUN 68., creatinine 4.0, BUN 59 Plan: Nephrology consult appreciated. He does not need dialysis now. Pulmonary congestion secondary to questionable CHF: Plan: We will closely follow the patient. TTE was done, the patient has pulmonary HTN, but no CHF. Chronic normacytic anemia: Probably due to end-stage renal disease, Hb 8.4, 9.4 Plan: Nephrology consult appreciated. The patient received 1 dose of epoetin, with a total of 600 mg of Venofer in the hospital. He will receive next doses of IV iron, once he is discharged from the [facility]. Hypertension: Plan: We have started clonidine 0.1 mg daily. Added losartan 25 mg p.o. daily, increased to 50 mg daily. Chronic BLE swelling secondary to decreased renal function: Plan: Nephrology consult appreciated, is receiving Lasix. Increased to 80 mg twice daily. We will decrease to 80 daily if weight comes down to 155 pounds, or creatinine rises. Hyponatremia: Plan: Sodium level was 134-132, now 133, 134, 136 Hypothyroidism: Plan: He is on levothyroxine 75 mcg daily. IDDM non-compliant to insulin: His hemoglobin A1c is 9.2 Plan: We will check blood sugar level and correct with sliding scale insulin and Levemir. Decreased the night detemir insulin to 6 units, I decreased his morning levemir to 8 units. Problem List: 1. Cellulitis 2. Osteomyelitis 3. Hypertension 4. Diabetes 5. ESRD (end stage renal disease) 6. Fluid overload 7. CKD (chronic kidney disease) 8. Ridgk-ag-tqqlggq kidney injury 9. Hyperglycemia 10. Depression 11. Chronic anemia 12. Hypothyroidism Pain Ratin Pain Location: Not applicable Pain Goal: Remain pain free Pain Plan: Not applicable Tomorrow's Labs & Rationales: As indicated Consulting Request: Consulting Specialty: Thoracic/Vascular Surgery Consulting Physician: Spencer Gordon MD Reason for Consult: left foot big toe necrosis Keshia Isaac 04/16/18 1724: Attending MD Review Statement Attending Statement Attending MD Statement: examined this patient, discuss w/resident/PA/RESIDENTIAL CARPENTER, agreed w/resident/PA/RESIDENTIAL CARPENTER, reviewed EMR data (avail), discussed with nursing Attending Assessment/Plan: Thrombophlebitis rt arm- cont on warm packs and diclofenac gel bid prn. much better today. Uncontrolled HTN- increased clonidine to 0.1 mg po bid on 04/15. Lt big toe osteomyelitis- cont on iv oxacillin. dw pt the care plan.
--- NOTE | 2018-04-16 12:15 | PN- Nephrology ---
Assessment/Plan Nephrology Assessment: 1. MSSA bacteremia. remains on ATBS. This is being directed by Dr. Umanzor. 2. Osteomyelitis of the toe. The toes been amputated. 3. Volume status. Would maintain on 80 mg twice a day of furosemide. He still has significant edema in his sacrum and both upper extremities. The lower extremities looks much better. In terms of the weights, on April 04 his weight is recorded as 191 pounds. On the April 04 191 04/05 195 04/06 192 04/07 181 04/08 188 04/09 189 04/10 not recorded 04/11 181 04/12 178 04/13 178 04/14 158 the accuracy of this day is doubtful 04/15 172 04/16 170 he still has some fluid on board. He has edema in both upper extremities and appears to have something of a fluid wave on exam. He also has sacral edema. The lowest weight that he has been in the past several months is 156 pounds. 4. Anemia. He is received 600 mg of it for so far. He needs two additional doses. 5. Hypokalemia. Would replace p.o. Suggestion: 1. Once his weight gets to roughly 156-162 kg or if it seems at the creatinine is beginning to rise then he should be changed to 80 mg once a day furosemide. 2. If he completes the last 2 doses of Venofer while he is here, he will obviate the need for his to have this as an outpatient. Subjective Subjective: Patient feels well. Objective Vital Signs and I&Os Vital Signs Date Time Temp Pulse Resp B/P B/P Pulse O2 O2 Flow FiO2 Mean Ox Delivery Rate 04/16 0838 57 160/80 04/16 0837 57 160/80 04/16 0837 57 160/80 04/16 0837 57 160/80 04/16 0650 98.0 57 20 160/80 96 Room Air 04/151 98.1 58 20 174/80 96 Room Air 04/15 2111 174/80 04/15 2111 174/80 04/15 2110 174/80 04/15 2110 174/80 04/15 2110 58 174/80 04/15 2044 174/80 04/15 1405 97.9 57 18 185/85 97 Room Air 04/15 1347 57 185/85 04/15 1347 57 185/85 Intake & Output 04/16 1600 04/16 0400 04/15 1600 04/15 0400 04/14 1600 04/14 0400 Intake Total 191 510 4801 540 1360 730 Output Total 8100 831 4328 925 4000 375 Balance -790 -270 -1110 -385 -2640 355 Intake, IV 260 130 650 300 260 130 Intake, Oral 300 964 770 6982 600 Number 0 0 Bowel Movements Output, Urine 7518 612 2086 925 4000 375 Patient 170 lb 172 lb 158 lb Weight Weight Bed scale Measurement Method Physical Exam: General Appearance: well developed/nourished, no apparent distress, alert, awake , comfortable Head: atraumatic, normal appearance, Ears, Nose, Throat: normal ENT inspection Neck: normal inspection, supple, trachea mid line Respiratory: normal breath sounds, chest non-tender Cardiovascular: regular rate/rhythm, edema Abdomen: normal bowel sounds, soft, non-tender, no organomegaly Back: normal inspection, no vertebral tenderness Extremities: His edema now seems to be confined to the trunk. He still has sacral edema with the ankles appearing to be without any edema. Skin: intact, normal color Current Medications: Current Medications Sig/Shaan Start time Last Medication Dose Route Stop Time Status Admin Acetaminophen 650 MG Q6P PRN 04/03 2100 AC 04/13 PO 1750 Acetaminophen 1,000 MG Q6P PRN 04/03 2100 AC IV Amlodipine Besylate 10 MG QPM 04/05 2100 AC 04/15 PO 2110 Aspirin Buffered 81 MG DAILY 04/04 900 04/16 PO 0836 Atorvastatin Calcium 80 MG 1700 04/04 1700 AC 04/15 PO 1738 Carvedilol 25 MG BID 04/03 2250 AC 04/16 PO 0837 Clonidine 0.1 MG BID 04/15 1220 AC 04/16 PO 0838 Diclofenac Sodium 1 SHAMA BID PRN 04/15 1745 04/16 TOP 0856 Divalproex Sodium 500 MG DAILY 04/04 900 04/16 PO 0836 Epoetin Rj 20,000 U Q 2 WEEKS 04/11 1430 04/11 SC 1709 Epoetin Rj 4,000 UNIT Q 2 WEEKS 04/11 1430 04/11 SC 1710 Folic Acid 1 MG DAILY 04/04 09 AC 04/16 PO 0835 Furosemide 80 MG 0700,1400 04/13 1400 AC 04/16 PO 0517 Hydralazine HCl 100 MG TID 04/03 225 AC 04/16 PO 0837 Insulin Aspart 0 TIDAC 04/12 08 AC 04/15 SC 1744 Insulin Detemir 8 UNITS DAILY 04/12 09 AC 04/16 SC 0847 Insulin Detemir 6 UNITS 04/11 AC 04/15 SC 2111 Isosorbide 60 MG AT BEDTIME 04/07 2100 AC 04/15 Mononitrate PO 211 Levothyroxine Sodium 0.075 MG 04/05 06 AC 04/16 PO 0516 Losartan Potassium 50 MG DAILY 04/13 900 AC 04/16 PO 0837 Omeprazole 20 MG DAILY AC 04/04 700 AC 04/16 PO 0517 Oxacillin Sodium 2,000 MG Q4H 04/06 2030 AC 04/16 Dextrose/Water 100 ML IV 0840 Sertraline HCl 100 MG DAILY 04/13 900 AC 04/16 PO 0836 Thiamine HCl 100 MG DAILY 04/04 900 AC 04/16 PO 0836 Results Pertinent Lab Results: Laboratory Tests 04/16 04/15 0530 0540 Chemistry Sodium (137 - 145 mmol/L) 136 L 132 L Potassium (3.5 - 5.1 mmol/L) 3.2 L 3.7 Chloride (98 - 107 mmol/L) 103 95 L Carbon Dioxide (22 - 30 mmol/L) 24 25 Anion Gap (5 - 16) 9 13 BUN (9 - 20 mg/dL) 59 H 68 H Creatinine (0.7 - 1.2 mg/dL) 4.0 H 4.6 H Estimated GFR (>60 ml/min) 16 L 13 L BUN/Creatinine Ratio (7 - 25 %) 14.8 14.8 Hematology CBC w Diff NO MAN DIFF REQ WBC (4.8 - 10.8 /CUMM) 8.5 RBC (4.70 - 6.10 /CUMM) 3.24 L Hgb (14.0 - 18.0 G/DL) 9.4 L Hct (42 - 52 %) 27.2 L MCV (80.0 - 94.0 FL) 83.9 MCH (27.0 - 31.0 PG) 29.0 MCHC (33.0 - 37.0 G/DL) 34.6 RDW (11.5 - 14.5 %) 15.1 H Plt Count (130 - 400 /CUMM) 247 MPV (7.4 - 10.4 FL) 6.5 L Gran % (42.2 - 75.2 %) 69.6 Lymphocytes % (20.5 - 51.1 %) 17.4 L Monocytes % (1.7 - 9.3 %) 7.1 Eosinophils % (0 - 5 %) 4.5 Basophils % (0.0 - 2.0 %) 1.4 Absolute Granulocytes (1.4 - 6.5 /CUMM) 5.9 Absolute Lymphocytes (1.2 - 3.4 /CUMM) 1.5 Absolute Monocytes (0.10 - 0.60 /CUMM) 0.6 Absolute Eosinophils (0.0 - 0.7 /CUMM) 0.4 Absolute Basophils (0.0 - 0.2 /CUMM) 0.1
[2018-04-16 14:09] VITALS: BP 175/76
[2018-04-16 22:50] VITALS: BP 194/88
[2018-04-17 06:00] VITALS: BP 194/78
--- NOTE | 2018-04-17 06:48 | PN- Housestaff ---
Cayden Horner 04/17/18 0647: Subjective Follow-up For: Left great toe cellulitis ESRD Anemia Hyponatremia Hypothyroidism Hypertension Diabetes mellitus Subjective: I visited and examined the patient this morning, he was lying back in his bed while having breakfast, alert and oriented 3, in no acute distress. No major complaints overnight. No fever, no chills, no sweating, no chest pain, he had complaints about minimal pain in his left foot, 2-3 out of 10. Review of Systems Constitutional: Reports: see HPI. Objective Last 24 Hrs of Vital Signs/I&O Vital Signs Date Time Temp Pulse Resp B/P B/P Pulse O2 O2 Flow FiO2 Mean Ox Delivery Rate 04/17 0906 56 197/78 04/17 0905 56 19404/17 0905 56 19404/17 0904 56 19404/17 0600 98.1 56 18 19478 96 Room Air 04/16 2250 98.3 59 20 194/88 97 Room Air 04/16 2035 59 194/88 04/16 2034 59 194/88 04/16 2034 59 194/88 04/16 2034 59 194/88 04/16 2034 59 194/88 04/16 1409 98.1 59 20 175/76 97 Room Air 04/16 1339 60 175/76 Intake & Output 04/17 1600 04/17 0800 04/17 0000 Intake Total 860 270 Output Total 1600 250 Balance -740 20 Intake, IV 380 30 Intake, Oral 480 240 Number 0 0 Bowel Movements Output, Urine 1600 250 Patient 170 lb Weight Weight Bed scale Measurement Method Physical Exam General Appearance: Alert, Oriented X3, Cooperative, No Acute Distress Skin: No Rashes Skin Temp/Moisture Exam: Warm/Dry Sepsis Skin Exam (color): Normal for Ethnicity HEENT: Atraumatic, PERRLA Cardiovascular: Regular Rate, Normal S1, Normal S2 Lungs: Clear to Auscultation, Normal Air Movement Abdomen: Normal Bowel Sounds, Soft, No Tenderness Extremities: No Clubbing, No Cyanosis, Edema in upper extremities left big toe amputated with stiches in place, no infection. no bleeding Vascular: Normal Pulses, Pulses Symmetrical Assessment/Plan Assessment: Jian Chatterjee is a 52M with a PMH of hypertension, poorly controlled insulin- dependent diabetes mellitus, CHF unsure of last ejection fraction, ESRD with a left arm fistula although patient states that he has not had dialysis yet, hypothyroidism presents with left great toe swelling, redness, pain 2 days. OIR did not show any vegetation, margins of the osteomyelitis were clean after the procedure. Based on ID consult he only needs 2 weeks of IV antibiotic, which will be dictated on April 20. He had one more episode of high blood pressure. Based on nephrology consult. Started losartan 25 mg p.o. daily and increased to 50 mg daily the day after. He will stay in the hospital till the end of the course of antibiotic therapy which is April 20 and will receive IV iron doses needed and Proline will be removed, and then he will be discharged. We could not send him to [facility] because of placement issues. Left great toe cellulitis: ID consult appreciated, excisional debridement procedure and revision done. Dr. Nelson saw the patient today and change the dressing, he will visit the patient in his office on next Tuesday as an outpatient. Plan: IV vancomycin was discontinued because the organism was MSSA and oxacillin is started 2gr Q4h IV, excisional debridement and revision was done. Needs to receive IV antibiotics till April 20. ID consult appreciated. Chronic kidney disease, stage IV borderline on a stage V: ESRD w/ AV fistula, His creatinine 5.2---...--->4.6-->4.0--->5.0 BUN: 103--...--->68--->59--->71 Plan: Nephrology consult appreciated. He does not need dialysis now. Pulmonary congestion secondary to questionable CHF: CHF was ruled out. Plan: We will closely follow the patient. TTE was done, the patient has pulmonary HTN, but no CHF. Chronic normacytic anemia: Probably due to end-stage renal disease, Hb: 7.9---> 8.4--->9.4 Plan: Nephrology consult appreciated. The patient received 1 dose of epoetin, with a total of 800 mg of Venofer in the hospital. Hypertension: He is still has systolic blood pressures in 190s. Plan: We have started clonidine 0.1 mg daily, increased to twice daily. Added losartan 25 mg p.o. daily, increased to 50 mg daily, increase 100 mg p.o. daily. Chronic BLE swelling secondary to decreased renal function: Plan: Nephrology consult appreciated, is receiving Lasix. Increased to 80 mg twice daily. We will decrease to 80 daily if weight comes down to 155 pounds, or creatinine rises. Daily weights will be obtained on standing scale. Hyponatremia: resolved Plan: Sodium level was 134-132, now 133, 134, 136 Hypothyroidism: He is stable regarding hypothyroidism Plan: He is on levothyroxine 75 mcg daily. IDDM non-compliant to insulin: His hemoglobin A1c is 9.2 Plan: We will check blood sugar level and correct with sliding scale insulin and Levemir. Decreased the night detemir insulin to 6 units, I decreased his morning levemir to 8 units, increased to 10 units again. No more episodes of hypoglycemia. Problem List: 1. Cellulitis 2. Osteomyelitis 3. Hypertension 4. Diabetes 5. Renal insufficiency 6. ESRD (end stage renal disease) 7. Jdvdn-[id number] kidney injury 8. Chronic kidney disease 9. CKD (chronic kidney disease) 10. Fluid overload 11. Schizo affective schizophrenia 12. Chronic anemia 13. Hypothyroidism 14. Depression 15. Hyperglycemia Pain Ratin Pain Location: LT FOOT Pain Goal: Pain 4 or less Pain Plan: ACETAMINOPHEN Tomorrow's Labs & Rationales: BEP Consulting Request: Consulting Specialty: Thoracic/Vascular Surgery Consulting Physician: Spencer Gordon MD Reason for Consult: left foot big toe necrosis Francisco Segovia MD 04/17/18 2300: Attending MD Review Statement Attending Statement Attending MD Statement: examined this patient, discuss w/resident/PA/DIRECTOR CONSUMER, agreed w/resident/PA/DIRECTOR CONSUMER, reviewed EMR data (avail), discussed with nursing, discussed with case mgmt, amended to note Attending Assessment/Plan: The patient was seen and discussed with house staff. Agree with plan of care. Will maintain in hospital and complete course of IV antibiotics and IV iron. Dose of Losartan increased again today. Appreciate Podiatry follow-up.
--- NOTE | 2018-04-17 10:00 | PN- Nephrology ---
Assessment/Plan Nephrology Assessment: 1. MSSA bacteremia. remains on ATBS. This is being directed by Dr. Umanzor. 2. Osteomyelitis of the toe. The toes been amputated. 3. Volume status. Would maintain on 80 mg twice a day of furosemide. He still has significant edema in his sacrum and both upper extremities. The lower extremities looks much better. In terms of the weights, on April 04 his weight is recorded as 191 pounds. On the April 04 191 / 195 / 192 04/07 181 04/08 188 04/09 189 04/10 not recorded 04/11 181 04/12 178 04/13 178 04/14 158 the accuracy of this day is doubtful 04/15 172 04/16 170 he still has some edema. He has edema in both upper extremities. The edema appears much better in terms of his quadriceps. He appears to have something of a fluid wave on exam. He also has sacral edema. The lowest weight that he has been in the past several months is 156 pounds. 4. Anemia. He is received 600 mg of it for so far. He needs two additional doses. Discussed with the primary team, they will plan a dose today then again on Tuesday. 5. Hypokalemia. Resolved . Suggestion: 1. Maintain the furosemide twice a day for now 2. Discussed with the RN, he will obtain a weight on the standing scale. Subjective Subjective: He feels okay. No shortness of breath. Objective Vital Signs and I&Os Vital Signs Date Time Temp Pulse Resp B/P B/P Pulse O2 O2 Flow FiO2 Mean Ox Delivery Rate 04/17 0906 56 19778 04/17 0905 56 04/17 0905 56 19404/17 0904 56 04/17 0600 98.1 56 18 96 Room Air 04/16 2250 98.3 59 20 194 97 Room Air 04/16 2035 59 04/16 59 04/16 59 04/16 59 19404/16 59 04/16 1409 98.1 59 20 175/76 97 Room Air 04/16 1339 60 175/76 Intake & Output 04/17 1600 04/17 0400 04/16 1600 04/16 0400 04/15 1600 04/15 0400 Intake Total 255 484 6193 130 1390 540 Output Total 6219 887 4702 400 2500 925 Balance -740 20 -1070 -270 -1110 -385 Intake, IV 380 30 510 130 650 300 Intake, Oral 480 240 920 740 240 Number 0 0 0 0 Bowel Movements Output, Urine 2560 149 8104 400 2500 925 Patient 170 lb 170 lb 172 lb Weight Weight Bed scale Measurement Method Current Medications: Current Medications Sig/Shaan Start time Last Medication Dose Route Stop Time Status Admin Acetaminophen 650 MG Q6P PRN 04/03 2100 AC 04/17 PO 0055 Acetaminophen 1,000 MG Q6P PRN 04/03 2100 AC IV Amlodipine Besylate 10 MG QPM 04/05 2100 AC 04/16 PO 2035 Aspirin Buffered 81 MG DAILY 04/04 09 AC 04/17 PO 0904 Atorvastatin Calcium 80 MG 1700 04/04 1700 04/16 PO 1743 Carvedilol 25 MG BID 04/03 2250 AC 04/17 PO 0905 Clonidine 0.1 MG BID 04/15 1220 04/17 PO 0905 Diclofenac Sodium 1 SHAMA BID PRN 04/15 1745 04/16 TOP 0856 Divalproex Sodium 500 MG DAILY 04/04 09 AC 04/17 PO 0905 Epoetin Rj 20,000 U Q 2 WEEKS 04/11 1430 04/11 MD 1709 Epoetin Rj 4,000 UNIT Q 2 WEEKS 04/11 1430 04/11 MD 1710 Folic Acid 1 MG DAILY 04/04 0900 04/17 PO 0906 Furosemide 80 MG Q24 04/17 0900 04/17 PO 0906 Furosemide 80 MG 0700,1400 04/13 1400 OR 04/17 PO 0455 Hydralazine HCl 100 MG TID 04/03 2251 04/17 PO 0906 Insulin Aspart 0 TIDAC 04/12 08 AC 04/16 MD 174 Insulin Detemir 10 UNITS DAILY 04/17 09 04/17 SC 0918 Insulin Detemir 8 UNITS DAILY 04/12 0900 OR 04/16 MD 0847 Insulin Detemir 6 UNITS 04/11 2100 AC 04/16 SC 2035 Iron Sucrose 200 MG DAILY 04/18 0900 AC Sodium Chloride 100 ML IV 04/18 914 Isosorbide 60 MG AT BEDTIME 04/07 2100 AC 04/16 Mononitrate PO 203 Levothyroxine Sodium 0.075 MG 0600 04/05 06 AC 04/17 PO 0455 Losartan Potassium 50 MG DAILY 04/13 900 AC 04/17 PO 09 Omeprazole 20 MG DAILY AC 04/04 07 AC 04/17 PO 0455 Oxacillin Sodium 2,000 MG Q4H 04/17 0915 AC 04/17 Sodium Chloride 100 ML IV 09 Oxacillin Sodium 2,000 MG Q4H 04/06 2030 DC 04/17 Dextrose/Water 100 ML IV 045 Patient Medication 1 ED ONE ONE 04/17 09 DC 04/17 Teaching ED 04/17 0901 0907 Potassium Chloride 40 MEQ ONCE ONE 04/16 1330 DC 04/16 PO 04/16 1331 1344 Sertraline HCl 100 MG DAILY 04/13 900 AC 04/17 PO 09 Thiamine HCl 100 MG DAILY 04/04 900 AC 04/17 PO 09 Results Pertinent Lab Results: Laboratory Tests 04/17 04/16 04/15 0500 0530 0540 Chemistry Sodium (137 - 145 mmol/L) 133 L 136 L 132 L Potassium (3.5 - 5.1 mmol/L) 4.0 3.2 L 3.7 Chloride (98 - 107 mmol/L) 97 L 103 95 L Carbon Dioxide (22 - 30 mmol/L) 29 24 25 Anion Gap (5 - 16) 7 9 13 BUN (9 - 20 mg/dL) 71 H 59 H 68 H Creatinine (0.7 - 1.2 mg/dL) 5.0 H 4.0 H 4.6 H Estimated GFR (>60 ml/min) 12 L 16 L 13 L BUN/Creatinine Ratio (7 - 25 %) 14.2 14.8 14.8 Hematology CBC w Diff NO MAN DIFF REQ WBC (4.8 - 10.8 /CUMM) 8.5 RBC (4.70 - 6.10 /CUMM) 3.24 L Hgb (14.0 - 18.0 G/DL) 9.4 L Hct (42 - 52 %) 27.2 L MCV (80.0 - 94.0 FL) 83.9 MCH (27.0 - 31.0 PG) 29.0 MCHC (33.0 - 37.0 G/DL) 34.6 RDW (11.5 - 14.5 %) 15.1 H Plt Count (130 - 400 /CUMM) 247 MPV (7.4 - 10.4 FL) 6.5 L Gran % (42.2 - 75.2 %) 69.6 Lymphocytes % (20.5 - 51.1 %) 17.4 L Monocytes % (1.7 - 9.3 %) 7.1 Eosinophils % (0 - 5 %) 4.5 Basophils % (0.0 - 2.0 %) 1.4 Absolute Granulocytes (1.4 - 6.5 /CUMM) 5.9 Absolute Lymphocytes (1.2 - 3.4 /CUMM) 1.5 Absolute Monocytes (0.10 - 0.60 /CUMM) 0.6 Absolute Eosinophils (0.0 - 0.7 /CUMM) 0.4 Absolute Basophils (0.0 - 0.2 /CUMM) 0.1
--- NOTE | 2018-04-17 12:12 | PN- Infect Dx ---
Subjective Subjective: Afebrile. He notes minimal discomfort in the right foot Objective Last 24 Hrs of Vital Signs/I&O Vital Signs Date Time Temp Pulse Resp B/P B/P Pulse O2 O2 Flow FiO2 Mean Ox Delivery Rate 04/17 0906 56 197/78 04/17 0905 56 194/78 04/17 0905 56 194/78 04/17 0904 56 194/78 04/17 0600 98.1 56 18 194 96 Room Air 04/16 2250 98.3 59 20 194 97 Room Air 04/16 2035 59 /04/16 2034 59 194/04/16 2034 59 194/04/16 2034 59 19404/16 2034 59 04/16 1409 98.1 59 20 175/76 97 Room Air 04/16 1339 60 175/76 Intake & Output 04/17 1600 04/17 0800 04/17 0000 Intake Total 860 270 Output Total 1600 250 Balance -740 20 Intake, IV 380 30 Intake, Oral 480 240 Number 0 0 Bowel Movements Output, Urine 1600 250 Patient 170 lb Weight Weight Bed scale Measurement Method Physical Exam Other Physical Findings: He appears comfortable in no acute distress Chest Pro-Line in the right upper chest with no inflammation at the site Extremities right foot dressing intact Results Last 24 Hours of Lab Results: Laboratory Tests 04/17 0500 Chemistry Sodium (137 - 145 mmol/L) 133 L Potassium (3.5 - 5.1 mmol/L) 4.0 Chloride (98 - 107 mmol/L) 97 L Carbon Dioxide (22 - 30 mmol/L) 29 Anion Gap (5 - 16) 7 BUN (9 - 20 mg/dL) 71 H Creatinine (0.7 - 1.2 mg/dL) 5.0 H Estimated GFR (>60 ml/min) 12 L BUN/Creatinine Ratio (7 - 25 %) 14.2 Last 24 Hours of Rehan Results: No recent cultures Assessment/Plan ID Impression: Stable, with temperatures and white blood cell count remaining normal, on Oxacillin for Staph aureus bacteremia secondary to osteomyelitis of the left great toe, status post repeat I&D of the left foot and delayed primary closure of his wound 10 days ago following 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 His ORI was negative and, as all of the infected bone was felt to have been removed, he will only require a 2 week course of IV antibiotics from his negative blood cultures. Suggestion: 1. Continue Oxacillin for 3 more days, after which can discontinue and remove the Pro-Line
[2018-04-17 15:38] VITALS: BP 160/72
[2018-04-17 21:01] VITALS: BP 162/86
--- NOTE | 2018-04-18 06:36 | PN- Housestaff ---
Cayden Horner 04/18/18 0635: Subjective Follow-up For: Left great toe cellulitis ESRD Anemia Hyponatremia Hypothyroidism Hypertension Diabetes mellitus Subjective: I visited and examined the patient this morning, he was lying back in his bed while having breakfast, alert and oriented 3, in no acute distress. No major complaints overnight. Review of Systems Constitutional: Reports: see HPI. Objective Last 24 Hrs of Vital Signs/I&O Vital Signs Date Time Temp Pulse Resp B/P B/P Pulse O2 O2 Flow FiO2 Mean Ox Delivery Rate 04/17 2127 59 162/86 04/17 2127 59 162/86 04/17 2127 59 162/86 04/17 2126 59 162/86 04/17 212 86 162/86 04/17 2101 98.0 59 18 162/86 97 Room Air 04/17 1538 98.0 57 18 160/72 96 Room Air 04/17 1425 60 164/76 04/17 0906 56 197/78 04/17 0905 56 194/78 04/17 0905 56 194/78 04/17 0904 56 194/78 Intake & Output 04/18 0800 04/18 0000 04/17 1600 Intake Total 510 990 Output Total 625 1650 1300 Balance -625 -1140 -310 Intake, IV 150 250 Intake, Oral 740 Intake, Tube 360 Feeding Number 1 Bowel Movements Output, Urine 625 1650 1300 Physical Exam General Appearance: Alert, Oriented X3, Cooperative, No Acute Distress Skin: No Rashes Skin Temp/Moisture Exam: Warm/Dry HEENT: Atraumatic Cardiovascular: Regular Rate, Normal S1, Normal S2 Lungs: Clear to Auscultation, Normal Air Movement Abdomen: Normal Bowel Sounds, Soft, No Tenderness Extremities: same Assessment/Plan Assessment: Jian Chatterjee is a 52M with a PMH of hypertension, poorly controlled insulin- dependent diabetes mellitus, CHF unsure of last ejection fraction, ESRD with a left arm fistula although patient states that he has not had dialysis yet, hypothyroidism presents with left great toe swelling, redness, pain 2 days. ORI did not show any vegetation, margins of the osteomyelitis were clean after the procedure. Based on ID consult he only needs 2 weeks of IV antibiotic, which will be dictated on April 20. He had one more episode of high blood pressure. Based on nephrology consult. Started losartan 25 mg p.o. daily and increased to 50 mg daily the day after. He will stay in the hospital till the end of the course of antibiotic therapy which is April 20 and will receive IV iron doses needed and Proline will be removed, and then he will be discharged. We could not send him to [facility] because of placement issues. Left great toe cellulitis: ID consult appreciated, excisional debridement procedure and revision done. Dr. Nelson saw the patient today and change the dressing, he will visit the patient in his office on next Tuesday as an outpatient. Plan: IV vancomycin was discontinued because the organism was MSSA and oxacillin is started 2gr Q4h IV, excisional debridement and revision was done. Needs to receive IV antibiotics till April 20. ID consult appreciated. Chronic kidney disease, stage IV borderline on a stage V: ESRD w/ AV fistula, His creatinine 5.2---...--->4.6-->4.0--->5.0---> BUN: 103--...--->68--->59--->71---> Plan: Nephrology consult appreciated. He does not need dialysis now. Pulmonary congestion secondary to questionable CHF: CHF was ruled out. Plan: We will closely follow the patient. TTE was done, the patient has pulmonary HTN, but no CHF. Chronic normacytic anemia: Probably due to end-stage renal disease, Hb: 7.9---> 8.4--->9.4 Plan: Nephrology consult appreciated. The patient received 1 dose of epoetin, with a total of 800 mg of Venofer in the hospital. Hypertension: He is still has systolic blood pressures in 190s. Plan: We have started clonidine 0.1 mg daily, increased to twice daily. Added losartan 25 mg p.o. daily, increased to 50 mg daily, increase 100 mg p.o. daily. Chronic BLE swelling secondary to decreased renal function: Plan: Nephrology consult appreciated, is receiving Lasix. Increased to 80 mg twice daily. We will decrease to 80 daily if weight comes down to 155 pounds, or creatinine rises. Daily weights will be obtained on standing scale. Hyponatremia: resolved Plan: Sodium level was 134-132, now 133, 134, 136 Hypothyroidism: He is stable regarding hypothyroidism Plan: He is on levothyroxine 75 mcg daily. IDDM non-compliant to insulin: His hemoglobin A1c is 9.2 Plan: We will check blood sugar level and correct with sliding scale insulin and Levemir. Decreased the night detemir insulin to 6 units, I decreased his morning levemir to 8 units, increased to 10 units again. No more episodes of hypoglycemia. Problem List: 1. Cellulitis 2. Osteomyelitis 3. Hypertension 4. Diabetes 5. ESRD (end stage renal disease) 6. [id number] kidney injury 7. Fluid overload 8. Schizo affective schizophrenia 9. Hypothyroidism 10. Depression Pain Ratin Pain Location: na Pain Goal: Remain pain free Pain Plan: na Tomorrow's Labs & Rationales: as indicated Consulting Request: Consulting Specialty: Thoracic/Vascular Surgery Consulting Physician: Spencer Gordon MD Reason for Consult: left foot big toe necrosis Francisco Segovia MD 04/18/18 1647: Attending MD Review Statement Attending Statement Attending MD Statement: examined this patient, discuss w/resident/PA/WASHING MACHINE OPERATOR, agreed w/resident/PA/WASHING MACHINE OPERATOR, discussed with family, reviewed EMR data (avail), discussed with nursing, discussed with case mgmt, amended to note Attending Assessment/Plan: The patient was seen and discussed with house staff, nursing, and case management. Will complete IV antibiotics on 04/20 and will have Pro-line removed the same day. Cr increased. Will discuss furosemide dose with Nephrology (Dr. Rice).
[2018-04-18 06:37] VITALS: BP 156/82
[2018-04-18 08:34] LABS: ABSOLUTE BASOPHIL COUNT 0.1 /CUMM (0.0-0.2); ABSOLUTE EOSINOPHIL COUNT 0.4 /CUMM (0.0-0.7); ABSOLUTE GRANULOCYTE CT 4.3 /CUMM (1.4-6.5); ABSOLUTE LYMPH COUNT 1.3 /CUMM (1.2-3.4); ABSOLUTE MONOCYTE COUNT 0.7 /CUMM (0.10-0.60); BASOPHIL % 2.2 % (0.0-2.0); EOSINOPHIL % 5.3 % (0-5); GRANULOCYTE % 63.5 % (42.2-75.2); HEMATOCRIT 26.2 % (42-52); MEAN CORPUSCULAR HGB 28.5 PG (27.0-31.0); MEAN CORPUSCULAR HGB CONC 33.2 G/DL (33.0-37.0); MEAN CORPUSCULAR VOLUME 85.9 FL (80.0-94.0); MEAN PLATELET VOLUME 6.5 FL (7.4-10.4); PLATELET COUNT 245 /CUMM (130-400); RED BLOOD CELL CT 3.05 /CUMM (4.70-6.10); WHITE BLOOD CELL COUNT 6.8 /CUMM (4.8-10.8)
--- NOTE | 2018-04-18 09:49 | PN- Nephrology ---
Assessment/Plan Nephrology Assessment: Creatinine somewhat higher but near recent baseline. Suggestion: Continue current treatmetn. Subjective Subjective: Patient comfortable, no complaints. Objective Vital Signs and I&Os Vital Signs Date Time Temp Pulse Resp B/P B/P Pulse O2 O2 Flow FiO2 Mean Ox Delivery Rate 04/18 0859 56 156/82 04/18 0858 56 156/82 04/18 0858 56 156/82 04/18 0858 56 156/82 04/18 0637 98.8 56 18 156/82 96 Room Air 04/17 212 59 162/86 04/17 2127 59 162/86 04/17 2127 59 162/86 04/17 2126 59 162/86 04/17 212 86 162/86 04/17 2101 98.0 59 18 162/86 97 Room Air 04/17 1538 98.0 57 18 160/72 96 Room Air 04/17 1425 60 164/76 Intake & Output 04/18 1600 04/18 0400 04/17 1600 04/17 0400 04/16 1600 04/16 0400 Intake Total 886 960 5418 270 1430 130 Output Total 1025 1650 2900 250 2500 400 Balance -705 -1140 -1050 20 -1070 -270 Intake, IV 200 150 630 30 510 130 Intake, Oral 120 1220 240 920 Intake, Tube 360 Feeding Number 1 0 0 Bowel Movements Output, Urine 1025 1650 2900 250 2500 400 Patient 165 lb 170 lb 170 lb Weight Weight Bed scale Measurement Method Physical Exam: NAD VS as above Lungs: clear CV: no rub Abd: nontender Exts: no edema Neuro: A&O Current Medications: Current Medications Sig/Shaan Start time Last Medication Dose Route Stop Time Status Admin Acetaminophen 650 MG Q6P PRN 04/03 2100 AC 04/17 PO 0055 Acetaminophen 1,000 MG Q6P PRN 04/03 2100 AC IV Amlodipine Besylate 10 MG QPM 04/05 2100 AC 04/17 PO 2122 Aspirin Buffered 81 MG DAILY 04/04 0900 AC 04/18 PO 0859 Atorvastatin Calcium 80 MG 1700 04/04 1700 AC 04/17 PO 1700 Carvedilol 25 MG BID 04/03 2250 AC 04/18 PO 0858 Clonidine 0.1 MG BID 04/15 1220 AC 04/18 PO 0858 Diclofenac Sodium 1 SHAMA BID PRN 04/15 1745 AC 04/16 TOP 0856 Divalproex Sodium 500 MG DAILY 04/04 09 AC 04/18 PO 0858 Epoetin Rj 20,000 U Q 2 WEEKS 04/11 1430 AC 04/11 CA 1709 Epoetin Rj 4,000 UNIT Q 2 WEEKS 04/11 1430 AC 04/11 CA 1710 Folic Acid 1 MG DAILY 04/04 0900 AC 04/18 PO 0859 Furosemide 80 MG 0700,1400 04/17 1400 AC 04/18 PO 0553 Furosemide 80 MG Q24 04/17 0900 DC 04/17 PO 0906 Hydralazine HCl 100 MG TID 04/03 2251 AC 04/18 PO 0858 Insulin Aspart 0 TIDAC 04/12 0800 AC 04/17 CA 1230 Insulin Detemir 10 UNITS DAILY 04/17 09 AC 04/18 SC 0857 Insulin Detemir 6 UNITS 2100 04/11 2100 04/17 SC 2126 Iron Sucrose 200 MG DAILY 04/18 0900 DC Sodium Chloride 100 ML IV 04/18 09 Isosorbide 60 MG AT BEDTIME 04/07 2100 04/17 Mononitrate PO 2127 Levothyroxine Sodium 0.075 MG 0600 04/05 0600 AC 04/18 PO 0553 Losartan Potassium 100 MG DAILY 04/18 09 AC 04/18 PO 0859 Losartan Potassium 50 MG DAILY 04/13 0900 DC 04/17 PO 0904 Omeprazole 20 MG DAILY AC 04/04 0700 AC 04/18 PO 0553 Oxacillin Sodium 2,000 MG Q4H 04/17 0915 AC 04/18 Sodium Chloride 100 ML IV 0857 Sertraline HCl 100 MG DAILY 04/13 09 AC 04/18 PO 0859 Thiamine HCl 100 MG DAILY 04/04 09 AC 04/18 PO 0859 Results Pertinent Lab Results: Laboratory Tests 04/18 04/17 04/16 0600 0500 0530 Chemistry Sodium (137 - 145 mmol/L) 132 L 133 L 136 L Potassium (3.5 - 5.1 mmol/L) 3.8 4.0 3.2 L Chloride (98 - 107 mmol/L) 95 L 97 L 103 Carbon Dioxide (22 - 30 mmol/L) 26 29 24 Anion Gap (5 - 16) 11 7 9 BUN (9 - 20 mg/dL) 74 H 71 H 59 H Creatinine (0.7 - 1.2 mg/dL) 5.2 *H 5.0 H 4.0 H Estimated GFR (>60 ml/min) 12 L 12 L 16 L BUN/Creatinine Ratio (7 - 25 %) 14.2 14.2 14.8 Hematology CBC w Diff NO MAN DIFF REQ WBC (4.8 - 10.8 /CUMM) 6.8 RBC (4.70 - 6.10 /CUMM) 3.05 L Hgb (14.0 - 18.0 G/DL) 8.7 L Hct (42 - 52 %) 26.2 L MCV (80.0 - 94.0 FL) 85.9 MCH (27.0 - 31.0 PG) 28.5 MCHC (33.0 - 37.0 G/DL) 33.2 RDW (11.5 - 14.5 %) 15.0 H Plt Count (130 - 400 /CUMM) 245 MPV (7.4 - 10.4 FL) 6.5 L Gran % (42.2 - 75.2 %) 63.5 Lymphocytes % (20.5 - 51.1 %) 19.2 L Monocytes % (1.7 - 9.3 %) 9.8 H Eosinophils % (0 - 5 %) 5.3 H Basophils % (0.0 - 2.0 %) 2.2 H Absolute Granulocytes (1.4 - 6.5 /CUMM) 4.3 Absolute Lymphocytes (1.2 - 3.4 /CUMM) 1.3 Absolute Monocytes (0.10 - 0.60 /CUMM) 0.7 H Absolute Eosinophils (0.0 - 0.7 /CUMM) 0.4 Absolute Basophils (0.0 - 0.2 /CUMM) 0.1
[2018-04-18 13:56] VITALS: BP 138/64
[2018-04-18 21:15] VITALS: BP 144/80
[2018-04-19 06:32] VITALS: BP 149/78
--- NOTE | 2018-04-19 06:59 | PN- Housestaff ---
Cayden Horner 04/19/18 0657: Subjective Follow-up For: Left great toe cellulitis ESRD Anemia Hyponatremia Hypothyroidism Hypertension Diabetes mellitus Subjective: I visited the patient this morning, he was lying back in his bed, alert and oriented 3, in no acute distress. No complaints overnight, no chest pain, no headache, no dizziness, no abdominal pain, no bleeding from the site of surgery. Review of Systems Constitutional: Reports: see HPI. Objective Last 24 Hrs of Vital Signs/I&O Vital Signs Date Time Temp Pulse Resp B/P B/P Pulse O2 O2 Flow FiO2 Mean Ox Delivery Rate 04/19 1408 59 149/78 04/19 1404 98.2 58 18 140/72 92 Room Air 04/19 0852 59 149/78 04/19 0851 59 149/78 04/19 0851 59 149/78 04/19 0851 59 149/78 04/19 0632 97.6 59 22 149/78 96 04/18 2115 98.1 62 22 144/80 95 Room Air 04/18 2048 144/80 04/18 2047 144/80 04/18 2047 144/80 04/18 2047 144/80 04/18 2046 144/80 Intake & Output 04/19 1600 04/19 0800 04/19 0000 Intake Total 1100 490 240 Output Total 1450 800 300 Balance -350 -310 -60 Intake, IV 300 250 Intake, Oral 800 240 240 Number 1 Bowel Movements Output, Urine 1450 800 300 Patient 163 lb Weight Physical Exam General Appearance: Alert, Oriented X3, Cooperative, No Acute Distress Skin: No Rashes Skin Temp/Moisture Exam: Warm/Dry HEENT: Atraumatic Cardiovascular: Regular Rate, Normal S1, Normal S2 Lungs: Clear to Auscultation, Normal Air Movement Abdomen: Normal Bowel Sounds, Soft, No Tenderness Assessment/Plan Assessment: Jian Chatterjee is a 52M with a PMH of hypertension, poorly controlled insulin- dependent diabetes mellitus, CHF unsure of last ejection fraction, ESRD with a left arm fistula although patient states that he has not had dialysis yet, hypothyroidism presents with left great toe swelling, redness, pain 2 days. ORI did not show any vegetation, margins of the osteomyelitis were clean after the procedure. Based on ID consult he only needs 2 weeks of IV antibiotic, which will be dictated on April 20. He had one more episode of high blood pressure. Based on nephrology consult. Started losartan 25 mg p.o. daily and increased to 50 mg daily the day after. He will stay in the hospital till the end of the course of antibiotic therapy which is April 20 and will receive IV iron doses needed and Proline will be removed, and then he will be discharged. We could not send him to [facility] because of placement issues. Left great toe cellulitis: ID consult appreciated, excisional debridement procedure and revision done. Dr. Nelson saw the patient today and change the dressing, he will visit the patient in his office on next Tuesday as an outpatient. Plan: IV vancomycin was discontinued because the organism was MSSA and oxacillin is started 2gr Q4h IV, excisional debridement and revision was done. Needs to receive IV antibiotics till April 20. ID consult appreciated. Chronic kidney disease, stage IV borderline on a stage V: ESRD w/ AV fistula, His creatinine 5.2---...--->4.6-->4.0--->5.0--->5.1 BUN: 103--...--->68--->59--->71--->75 Plan: Nephrology consult appreciated. He does not need dialysis now. Pulmonary congestion secondary to questionable CHF: CHF was ruled out. Plan: We will closely follow the patient. TTE was done, the patient has pulmonary HTN, but no CHF. Chronic normacytic anemia: Probably due to end-stage renal disease, Hb: 7.9---> 8.4--->9.4--->8.9 Plan: Nephrology consult appreciated. The patient received 1 dose of epoetin, with a total of 1000 mg of Venofer in the hospital. Hypertension: He is still has systolic blood pressures in 190s. Systolic blood pressure now down to 140s, 150s. Plan: We have started clonidine 0.1 mg daily, increased to twice daily. Added losartan 25 mg p.o. daily, increased to 50 mg daily, increase 100 mg p.o. daily. Chronic BLE swelling secondary to decreased renal function: Plan: Nephrology consult appreciated, is receiving Lasix. Increased to 80 mg twice daily. We will decrease to 80 daily if weight comes down to 155 pounds, or creatinine rises. Daily weights will be obtained on standing scale. Hyponatremia: resolved Plan: Sodium level was 134-132, now 133, 134, 136 Hypothyroidism: He is stable regarding hypothyroidism Plan: He is on levothyroxine 75 mcg daily. IDDM non-compliant to insulin: His hemoglobin A1c is 9.2 Plan: We will check blood sugar level and correct with sliding scale insulin and Levemir. Decreased the night detemir insulin to 6 units, I decreased his morning levemir to 8 units, increased to 10 units again. No more episodes of hypoglycemia. Problem List: 1. Cellulitis 2. Osteomyelitis 3. Hypertension 4. Diabetes 5. ESRD (end stage renal disease) 6. Jlvum-ig-cyenews kidney injury 7. Fluid overload 8. Schizo affective schizophrenia 9. Hypothyroidism 10. Depression Pain Ratin Pain Location: NA Pain Goal: Remain pain free Pain Plan: NA Tomorrow's Labs & Rationales: BEP Consulting Request: Consulting Specialty: Thoracic/Vascular Surgery Consulting Physician: Spencer Gordon MD Reason for Consult: left foot big toe necrosis Luca RIVERA,Francisco 04/19/18 2251: Attending MD Review Statement Attending Statement Attending MD Statement: examined this patient, discuss w/resident/PA/VASCULAR SURGEON, agreed w/resident/PA/VASCULAR SURGEON, reviewed EMR data (avail), discussed with nursing, discussed with case mgmt, amended to note Attending Assessment/Plan: The patient was seen and agree with the above plan of care. Appreciate ID and Nephrology follow-up. Will continue IV oxacillin until 04/20 and then discontinue Pro-line and discharge to home.
[2018-04-19 09:27] LABS: ABSOLUTE BASOPHIL COUNT 0.1 /CUMM (0.0-0.2); ABSOLUTE EOSINOPHIL COUNT 0.4 /CUMM (0.0-0.7); ABSOLUTE GRANULOCYTE CT 3.6 /CUMM (1.4-6.5); ABSOLUTE LYMPH COUNT 1.1 /CUMM (1.2-3.4); ABSOLUTE MONOCYTE COUNT 0.7 /CUMM (0.10-0.60); BASOPHIL % 2.5 % (0.0-2.0); EOSINOPHIL % 7.5 % (0-5); GRANULOCYTE % 60.6 % (42.2-75.2); HEMATOCRIT 26.5 % (42-52); MEAN CORPUSCULAR HGB 28.7 PG (27.0-31.0); MEAN CORPUSCULAR HGB CONC 33.8 G/DL (33.0-37.0); MEAN PLATELET VOLUME 6.4 FL (7.4-10.4); PLATELET COUNT 230 /CUMM (130-400); RBC DISTRIBUTION WIDTH 14.7 % (11.5-14.5); RED BLOOD CELL CT 3.11 /CUMM (4.70-6.10); WHITE BLOOD CELL COUNT 5.9 /CUMM (4.8-10.8)
--- NOTE | 2018-04-19 12:20 | PN- Infect Dx ---
Subjective Subjective: Afebrile without complaints Objective Last 24 Hrs of Vital Signs/I&O Vital Signs Date Time Temp Pulse Resp B/P B/P Pulse O2 O2 Flow FiO2 Mean Ox Delivery Rate 04/19 0852 59 149/78 04/19 0851 59 149/78 04/19 0851 59 149/78 04/19 0851 59 149/78 04/19 0632 97.6 59 22 149/78 96 04/18 2115 98.1 62 22 144/80 95 Room Air 04/18 2048 144/80 04/18 2047 144/80 04/18 2047 144/80 04/18 2047 144/80 04/18 204 144/80 04/18 1452 54 138/64 04/18 1356 97.9 56 18 138/64 94 Room Air Intake & Output 04/19 1600 04/19 0800 04/19 0000 Intake Total 490 240 Output Total 800 300 Balance -310 -60 Intake, IV 250 Intake, Oral 240 240 Output, Urine 800 300 Patient 163 lb Weight Physical Exam Other Physical Findings: He appears comfortable in no acute distress Chest Pro-Line in the right upper chest with no inflammation at the site Extremity right foot wound clean, with no erythema or drainage; sutures remain in place Results Last 24 Hours of Lab Results: Laboratory Tests 04/19 04/19 0907 0906 Chemistry Sodium (137 - 145 mmol/L) 131 L Potassium (3.5 - 5.1 mmol/L) 3.8 Chloride (98 - 107 mmol/L) 95 L Carbon Dioxide (22 - 30 mmol/L) 25 Anion Gap (5 - 16) 11 BUN (9 - 20 mg/dL) 75 H Creatinine (0.7 - 1.2 mg/dL) 5.1 *H Estimated GFR (>60 ml/min) 12 L BUN/Creatinine Ratio (7 - 25 %) 14.7 Hematology CBC w Diff NO MAN DIFF REQ WBC (4.8 - 10.8 /CUMM) 5.9 RBC (4.70 - 6.10 /CUMM) 3.11 L Hgb (14.0 - 18.0 G/DL) 8.9 L Hct (42 - 52 %) 26.5 L MCV (80.0 - 94.0 FL) 85.0 MCH (27.0 - 31.0 PG) 28.7 MCHC (33.0 - 37.0 G/DL) 33.8 RDW (11.5 - 14.5 %) 14.7 H Plt Count (130 - 400 /CUMM) 230 MPV (7.4 - 10.4 FL) 6.4 L Gran % (42.2 - 75.2 %) 60.6 Lymphocytes % (20.5 - 51.1 %) 18.1 L Monocytes % (1.7 - 9.3 %) 11.3 H Eosinophils % (0 - 5 %) 7.5 H Basophils % (0.0 - 2.0 %) 2.5 H Absolute Granulocytes (1.4 - 6.5 /CUMM) 3.6 Absolute Lymphocytes (1.2 - 3.4 /CUMM) 1.1 L Absolute Monocytes (0.10 - 0.60 /CUMM) 0.7 H Absolute Eosinophils (0.0 - 0.7 /CUMM) 0.4 Absolute Basophils (0.0 - 0.2 /CUMM) 0.1 Last 24 Hours of Rehan Results: No recent cultures Assessment/Plan ID Impression: Stable, with temperatures and white blood cell count remaining normal, on Oxacillin for Staph aureus bacteremia secondary to osteomyelitis of the left great toe, status post repeat I&D of the left foot and delayed primary closure of his wound 12 days ago following 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 His ORI was negative and all of the infected bone was felt to have been removed; therefore he will only require a 2 week course of IV antibiotics from his negative blood cultures. Suggestion: 1. Continue Oxacillin until the a.m. on April 20, at which point can discontinue and remove the Pro-Line
--- NOTE | 2018-04-19 12:48 | PN- Nephrology ---
Assessment/Plan Nephrology Assessment: Renal function stable and at baseline Suggestion: No changes. Subjective Subjective: No new complaints today. Objective Vital Signs and I&Os Vital Signs Date Time Temp Pulse Resp B/P B/P Pulse O2 O2 Flow FiO2 Mean Ox Delivery Rate 04/19 0852 59 149/78 04/19 0851 59 149/78 04/19 0851 59 149/78 04/19 0851 59 149/78 04/19 0632 97.6 59 22 149/78 96 04/18 2115 98.1 62 22 144/80 95 Room Air 04/188 144/80 04/18 2047 144/80 04/187 144/80 04/18 2047 144/80 04/18 204 144/80 04/18 1452 54 138/64 04/18 1356 97.9 56 18 138/64 94 Room Air Intake & Output 04/19 1600 04/19 0400 04/18 1600 04/18 0400 04/17 1600 04/17 0400 Intake Total 843 921 3503 510 1850 270 Output Total 066 484 0077 1650 2900 250 Balance - -1140 -1050 20 Intake, IV 250 200 150 630 30 Intake, Oral 240 894 281 7553 240 Intake, Tube 360 Feeding Number 1 1 0 Bowel Movements Output, Urine 995 926 5082 1650 2900 250 Patient 163 lb 165 lb 170 lb Weight Weight Bed scale Measurement Method Physical Exam: NAD VS as above Lungs: clear CV: no rub Abd: nontender Exts: no edema Neuro: A&O Current Medications: Current Medications Sig/Shaan Start time Last Medication Dose Route Stop Time Status Admin Acetaminophen 650 MG Q6P PRN 04/03 2100 AC 04/18 PO 211 Acetaminophen 1,000 MG Q6P PRN 04/03 2100 AC IV Amlodipine Besylate 10 MG QPM 04/05 2100 AC 04/18 PO 2046 Aspirin Buffered 81 MG DAILY 04/04 0900 AC 04/19 PO 0852 Atorvastatin Calcium 80 MG 1700 04/04 1700 AC 04/18 PO 1725 Carvedilol 25 MG BID 04/03 2250 AC 04/19 PO 0851 Clonidine 0.1 MG BID 04/15 1220 AC 04/19 PO 0851 Diclofenac Sodium 1 SHAMA BID PRN 04/15 1745 AC 04/16 TOP 0856 Divalproex Sodium 500 MG DAILY 04/04 09 04/19 PO 0851 Epoetin Rj 20,000 U Q 2 WEEKS 04/11 1430 04/11 MT 1709 Epoetin Rj 4,000 UNIT Q 2 WEEKS 04/11 1430 AC 04/11 MT 1710 Folic Acid 1 MG DAILY 04/04 09 AC 04/19 PO 0852 Furosemide 80 MG 0700,1400 04/17 1400 AC 04/19 PO 0521 Hydralazine HCl 100 MG TID 04/03 225 04/19 PO 0851 Insulin Aspart 0 TIDAC 04/12 08 AC 04/19 MT 1236 Insulin Detemir 10 UNITS DAILY 04/17 09 AC 04/19 SC 0850 Insulin Detemir 6 UNITS 04/11 AC 04/18 SC 204 Isosorbide 60 MG AT BEDTIME 04/07 2100 AC 04/18 Mononitrate PO 204 Levothyroxine Sodium 0.075 MG 0600 04/05 06 04/19 PO 0521 Losartan Potassium 100 MG DAILY 04/18 09 AC 04/19 PO 0852 Omeprazole 20 MG DAILY AC 04/04 07 04/19 PO 0521 Oxacillin Sodium 2,000 MG Q4H 04/17 0915 AC 04/19 Sodium Chloride 100 ML IV 0853 Sertraline HCl 100 MG DAILY 04/13 09 AC 04/19 PO 0853 Thiamine HCl 100 MG DAILY 04/04 09 AC 04/19 PO 0852 Results Pertinent Lab Results: Laboratory Tests 04/19 04/19 0907 0906 Chemistry Sodium (137 - 145 mmol/L) 131 L Potassium (3.5 - 5.1 mmol/L) 3.8 Chloride (98 - 107 mmol/L) 95 L Carbon Dioxide (22 - 30 mmol/L) 25 Anion Gap (5 - 16) 11 BUN (9 - 20 mg/dL) 75 H Creatinine (0.7 - 1.2 mg/dL) 5.1 *H Estimated GFR (>60 ml/min) 12 L BUN/Creatinine Ratio (7 - 25 %) 14.7 Hematology CBC w Diff NO MAN DIFF REQ WBC (4.8 - 10.8 /CUMM) 5.9 RBC (4.70 - 6.10 /CUMM) 3.11 L Hgb (14.0 - 18.0 G/DL) 8.9 L Hct (42 - 52 %) 26.5 L MCV (80.0 - 94.0 FL) 85.0 MCH (27.0 - 31.0 PG) 28.7 MCHC (33.0 - 37.0 G/DL) 33.8 RDW (11.5 - 14.5 %) 14.7 H Plt Count (130 - 400 /CUMM) 230 MPV (7.4 - 10.4 FL) 6.4 L Gran % (42.2 - 75.2 %) 60.6 Lymphocytes % (20.5 - 51.1 %) 18.1 L Monocytes % (1.7 - 9.3 %) 11.3 H Eosinophils % (0 - 5 %) 7.5 H Basophils % (0.0 - 2.0 %) 2.5 H Absolute Granulocytes (1.4 - 6.5 /CUMM) 3.6 Absolute Lymphocytes (1.2 - 3.4 /CUMM) 1.1 L Absolute Monocytes (0.10 - 0.60 /CUMM) 0.7 H Absolute Eosinophils (0.0 - 0.7 /CUMM) 0.4 Absolute Basophils (0.0 - 0.2 /CUMM) 0.1 04/18 04/17 0600 0500 Chemistry Sodium (137 - 145 mmol/L) 132 L 133 L Potassium (3.5 - 5.1 mmol/L) 3.8 4.0 Chloride (98 - 107 mmol/L) 95 L 97 L Carbon Dioxide (22 - 30 mmol/L) 26 29 Anion Gap (5 - 16) 11 7 BUN (9 - 20 mg/dL) 74 H 71 H Creatinine (0.7 - 1.2 mg/dL) 5.2 *H 5.0 H Estimated GFR (>60 ml/min) 12 L 12 L BUN/Creatinine Ratio (7 - 25 %) 14.2 14.2 Hematology CBC w Diff NO MAN DIFF REQ WBC (4.8 - 10.8 /CUMM) 6.8 RBC (4.70 - 6.10 /CUMM) 3.05 L Hgb (14.0 - 18.0 G/DL) 8.7 L Hct (42 - 52 %) 26.2 L MCV (80.0 - 94.0 FL) 85.9 MCH (27.0 - 31.0 PG) 28.5 MCHC (33.0 - 37.0 G/DL) 33.2 RDW (11.5 - 14.5 %) 15.0 H Plt Count (130 - 400 /CUMM) 245 MPV (7.4 - 10.4 FL) 6.5 L Gran % (42.2 - 75.2 %) 63.5 Lymphocytes % (20.5 - 51.1 %) 19.2 L Monocytes % (1.7 - 9.3 %) 9.8 H Eosinophils % (0 - 5 %) 5.3 H Basophils % (0.0 - 2.0 %) 2.2 H Absolute Granulocytes (1.4 - 6.5 /CUMM) 4.3 Absolute Lymphocytes (1.2 - 3.4 /CUMM) 1.3 Absolute Monocytes (0.10 - 0.60 /CUMM) 0.7 H Absolute Eosinophils (0.0 - 0.7 /CUMM) 0.4 Absolute Basophils (0.0 - 0.2 /CUMM) 0.1
[2018-04-19 14:04] VITALS: BP 140/72
[2018-04-19 21:26] VITALS: BP 174/88
[2018-04-20 06:20] VITALS: BP 164/90
--- NOTE | 2018-04-20 06:58 | PN- Housestaff ---
See Addendum Subjective Follow-up For: Left great toe cellulitis ESRD Anemia Hyponatremia Hypothyroidism Hypertension Diabetes mellitus Subjective: I visited the patient this morning, he was lying back in his bed, alert and oriented 3, in no acute distress. No major complaints overnight. His blood pressure is now in 140s, 130s. He had systolic blood pressure as high as 174/88 yesterday. He had no major complaints the nurse did not report any complaint. He is not irritable anymore. He will be discharged today after the last dose of oxacillin and after IR has DC'd the proline. Review of Systems Constitutional: Reports: see HPI. Objective Last 24 Hrs of Vital Signs/I&O Vital Signs Date Time Temp Pulse Resp B/P B/P Pulse O2 O2 Flow FiO2 Mean Ox Delivery Rate 04/20 1356 60 137/68 04/20 1356 98.1 59 16 125/63 98 Room Air 04/20 0904 61 148/72 04/20 0903 61 148/72 04/20 0903 61 148/72 04/20 0903 61 148/72 04/20 0620 97.6 60 16 164/90 97 Room Air 04/19 2206 60 170/88 04/19 2205 60 170/88 04/19 2205 60 170/88 04/19 2205 60 170/88 04/19 2205 60 170/88 04/19 2126 98.0 59 18 174/88 97 Room Air 04/19 1408 59 149/78 04/19 1404 98.2 58 18 140/72 92 Room Air Intake & Output 04/20 1600 04/20 0800 04/20 0000 Intake Total 240 240 Output Total 400 1700 1050 Balance -400 -1460 -810 Intake, IV 240 120 Intake, Oral 120 Output, Urine 400 1700 1050 Patient 161 lb Weight Physical Exam General Appearance: Alert, Oriented X3, Cooperative, No Acute Distress Skin: No Rashes Skin Temp/Moisture Exam: Warm/Dry Sepsis Skin Exam (color): Normal for Ethnicity HEENT: Atraumatic Neck: Supple Cardiovascular: Regular Rate, Normal S1, Normal S2 Lungs: Clear to Auscultation, Normal Air Movement Abdomen: Normal Bowel Sounds, Soft, No Tenderness Vascular: Normal Pulses, Pulses Symmetrical Assessment/Plan Assessment: Jian Chatterjee is a 52M with a PMH of hypertension, poorly controlled insulin- dependent diabetes mellitus, CHF unsure of last ejection fraction, ESRD with a left arm fistula although patient states that he has not had dialysis yet, hypothyroidism presents with left great toe swelling, redness, pain 2 days. ORI did not show any vegetation, margins of the osteomyelitis were clean after the procedure. Based on ID consult he only needs 2 weeks of IV antibiotic, which will be dictated on April 20. He had one more episode of high blood pressure. Based on nephrology consult. Started losartan 25 mg p.o. daily and increased to 50 mg daily the day after. He will stay in the hospital till the end of the course of antibiotic therapy which is April 20 and will receive IV iron doses needed and Proline will be removed, and then he will be discharged. We could not send him to [facility] because of placement issues. The patient received a full 2 week course of IV oxacillin, and a full 1 g dose of IV iron. His blood pressure is now under better control in 140s over 70s. Pro line removed by IR and the patient is ready to be discharged. Left great toe cellulitis: ID consult appreciated, excisional debridement procedure and revision done. Dr. Nelson saw the patient today and change the dressing, he will visit the patient in his office on next Tuesday as an outpatient. Plan: IV vancomycin was discontinued because the organism was MSSA and oxacillin is started 2gr Q4h IV, excisional debridement and revision was done. Needs to receive IV antibiotics till April 20. ID consult appreciated. Chronic kidney disease, stage IV borderline on a stage V: ESRD w/ AV fistula, His creatinine 5.2---...--->4.6-->4.0--->5.0--->5.1 BUN: 103--...--->68--->59--->71--->75 Plan: Nephrology consult appreciated. He does not need dialysis now. Pulmonary congestion secondary to questionable CHF: CHF was ruled out. Plan: We will closely follow the patient. TTE was done, the patient has pulmonary HTN, but no CHF. Chronic normacytic anemia: Probably due to end-stage renal disease, Hb: 7.9---> 8.4--->9.4--->8.9 Plan: Nephrology consult appreciated. The patient received 1 dose of epoetin, with a total of 1000 mg of Venofer in the hospital. Hypertension: He is still has systolic blood pressures in 190s. Systolic blood pressure now down to 140s, 150s. Plan: We have started clonidine 0.1 mg daily, increased to twice daily. Added losartan 25 mg p.o. daily, increased to 50 mg daily, increase 100 mg p.o. daily. Chronic BLE swelling secondary to decreased renal function: Plan: Nephrology consult appreciated, is receiving Lasix. Increased to 80 mg twice daily. We will decrease to 80 daily if weight comes down to 155 pounds, or creatinine rises. Daily weights will be obtained on standing scale. Hyponatremia: resolved Plan: Sodium level was 134-132, now 133, 134, 136 Hypothyroidism: He is stable regarding hypothyroidism Plan: He is on levothyroxine 75 mcg daily. IDDM non-compliant to insulin: His hemoglobin A1c is 9.2 Plan: We will check blood sugar level and correct with sliding scale insulin and Levemir. Decreased the night detemir insulin to 6 units, I decreased his morning levemir to 8 units, increased to 10 units again. No more episodes of hypoglycemia. Problem List: 1. Cellulitis 2. Osteomyelitis 3. Hypertension 4. Diabetes 5. ESRD (end stage renal disease) 6. [id number] kidney injury 7. Fluid overload 8. Hypothyroidism 9. Depression Pain Ratin Pain Location: Not applicable Pain Goal: Remain pain free Pain Plan: Not applicable Tomorrow's Labs & Rationales: Not applicable Consulting Request: Consulting Specialty: Thoracic/Vascular Surgery Consulting Physician: Spencer Gordon MD Reason for Consult: left foot big toe necrosis
[2018-04-20] MEDS ORDERED: CLONIDINE HCL0.1 MG PO ×2 (09:38→15:57)
[2018-04-20] MEDS ORDERED: COZAAR100 M1 PO (09:50)
[2018-04-20] MEDS ORDERED: LASIX80 M1 PO (09:50)
[2018-04-20 13:56] VITALS: BP 125/63; BP 137/68
--- NOTE | 2018-04-20 16:48 | INTERVENTIONAL RADIOLOGY RPT ---
PROCEDURE: REMOVAL OF TUNNELED VENOUS CATHETER CLINICAL INFORMATION: 52-year-old male no longer in need of ProLine which was placed approximately 10 days ago for antibiotics. MEDICATIONS: None required for today's procedure. IMAGING: None required for today's procedure. PROCEDURE IN DETAIL: Informed consent was obtained from the patient prior to the procedure. During this process, the procedure and potential alternatives was explained, along with the intended outcome and benefits. The risks of the procedure, as well as the risk of not doing the procedure, were discussed. The patient was given the opportunity to ask questions regarding the procedure and appeared competent to make medical decisions. A signed consent form which documents this discussion was placed in the medical record. A final timeout was called. The right chest wall and catheter was prepped in a sterile fashion with maximal barrier protection. Gentle pressure was placed on the tunneled catheter and the catheter was removed in its entirety. Pressure was held at the venotomy site for approximately 5 minutes until hemostasis was achieved. The skin was closed with Dermabond. No complications. IMPRESSION: Successful removal of right-sided tunneled catheter.
== END 2018-04-20 17:08 | DRG 464 ==
LOC: ERH 17:31 → 2NB 19:14 → ERHI 19:14 → ENRESERV 19:42 → ENTRNSPT 19:57 → EDTRNSPTSTS 20:05 → EDTRNSPT 20:05 → 2NB 20:22 → CMPTRNSPT 20:29 → 2NB 04-04 08:49 → ENTRNSPT 04-05 15:01 → EDTRNSPTSTS 04-05 15:06 → CMPTRNSPT 04-05 15:34 → ENTRNSPT 04-07 15:36 → EDTRNSPT 04-07 16:03 → EDTRNSPTSTS 04-07 16:03 → CMPTRNSPT 04-07 16:09 → 2NB 04-10 08:10
PROVIDERS: Emergency Medicine; Internal Medicine; Student in an Organized Health Care Education/Training Program
PROC: 0JBR0ZZ Excision of Left Foot Subcutaneous Tissue and Fascia, Open Approach (ICD-10-PCS; principal; 2018-04-05)
PROC: 0Y6Q0Z3 Detachment at Left 1st Toe, Low, Open Approach (ICD-10-PCS; 2018-04-05)
PROC: 3E0T3BZ Introduction of Anesthetic Agent into Peripheral Nerves and Plexi, Percutaneous Approach (ICD-10-PCS; 2018-04-05)
PROC: 0Y6N0Z9 Detachment at Left Foot, Partial 1st Ray, Open Approach (ICD-10-PCS; 2018-04-07)
PROC: 0JQR0ZZ Repair Left Foot Subcutaneous Tissue and Fascia, Open Approach (ICD-10-PCS; 2018-04-07)
PROC: 0JBR0ZZ Excision of Left Foot Subcutaneous Tissue and Fascia, Open Approach (ICD-10-PCS; 2018-04-07)
PROC: 3E0T3BZ Introduction of Anesthetic Agent into Peripheral Nerves and Plexi, Percutaneous Approach (ICD-10-PCS; 2018-04-07)
PROC: B24BZZ4 Ultrasonography of Heart with Aorta, Transesophageal (ICD-10-PCS; 2018-04-10)
PROC: 0JH63XZ Insertion of Tunneled Vascular Access Device into Chest Subcutaneous Tissue and Fascia, Percutaneous Approach (ICD-10-PCS; 2018-04-11)
PROC: 06H033Z Insertion of Infusion Device into Inferior Vena Cava, Percutaneous Approach (ICD-10-PCS; 2018-04-11)
PROC: B5191ZA Fluoroscopy of Inferior Vena Cava using Low Osmolar Contrast, Guidance (ICD-10-PCS; 2018-04-11)
DX: M86.172 Other acute osteomyelitis, left ankle and foot (principal); E87.1 Hypo-osmolality and hyponatremia; R78.81 Bacteremia; E11.52 Type 2 diabetes mellitus with diabetic peripheral angiopathy with gangrene; I96 Gangrene, not elsewhere classified; N17.9 Acute kidney failure, unspecified; N18.4 Chronic kidney disease, stage 4 (severe); E11.69 Type 2 diabetes mellitus with other specified complication; E11.621 Type 2 diabetes mellitus with foot ulcer; B95.61 Methicillin susceptible Staphylococcus aureus infection as the cause of diseases classified elsewhere; L03.032 Cellulitis of left toe; L97.529 Non-pressure chronic ulcer of other part of left foot with unspecified severity; E03.9 Hypothyroidism, unspecified; E11.22 Type 2 diabetes mellitus with diabetic chronic kidney disease; E11.65 Type 2 diabetes mellitus with hyperglycemia; Z79.4 Long term (current) use of insulin; Z91.14 Patient's other noncompliance with medication regimen; R60.0 Localized edema; D63.1 Anemia in chronic kidney disease; E11.40 Type 2 diabetes mellitus with diabetic neuropathy, unspecified; E83.42 Hypomagnesemia; Z72.89 Other problems related to lifestyle; F41.9 Anxiety disorder, unspecified; F32.9 Major depressive disorder, single episode, unspecified; F12.90 Cannabis use, unspecified, uncomplicated; E87.70 Fluid overload, unspecified; L97.523 Non-pressure chronic ulcer of other part of left foot with necrosis of muscle; E11.21 Type 2 diabetes mellitus with diabetic nephropathy; I27.20 Pulmonary hypertension, unspecified; Z66 Do not resuscitate; F17.210 Nicotine dependence, cigarettes, uncomplicated; I12.9 Hypertensive chronic kidney disease with stage 1 through stage 4 chronic kidney disease, or unspecified chronic kidney disease
CPT/HCPCS: 04007; 2NBSP; 84133; 84300; 87070; 87075; 36415; 36592; 71046; 73620-LT; 77001; 80307; 81001; 82436; 82570; 86920; 87040; 87147; 88304; 88305; 93005; 93010; 93306; 93325; 93925; 93970; 96374; 96375; C1769; G0480; J0131; J0696; J0713; J0885-EC; J1642; J1756; J1815; J1940; J2001; J3370; J3490; J7040; J7042; P9016